=== PATIENT | female | born 1985 | race Caucasian/White ===

== ENCOUNTER 2018-05-10 12:30 | Emergency (ER) | payer OTHER, SELFPAY ==
--- NOTE | 2018-05-10 15:06 | ER ---
Nurse's Notes [facility] Name: Catherine Lopez Age: 33 yrs Sex: Female : 1985 Arrival Date: 05/10/2018 Time: 12:34 Bed Waiting Private MD: None, None Diagnosis: Presentation: 05/10 12:48 Presenting complaint: Patient states: gave 19 days ago, c section, still having ch VAGINAL BLEEDING, three large clots passed yesterday. c/o pain to c section incision, with pressure and "hard". headache for the past 3 days. Transition of care: patient was not received from another setting of care. Onset of symptoms was April 30, 2018. Risk Assessment: Do you want to hurt yourself or someone else? Patient reports no desire to harm self or others. Initial Sepsis Screen: Does the patient meet any 2 criteria? No. Patient's initial sepsis screen is negative. Does the patient have a suspected source of infection? No. Patient's initial sepsis screen is negative. Care prior to arrival: None. 12:48 Method Of Arrival: Ambulatory 12:48 Acuity: VIOLETTE 3 ch Triage Assessment: 12:50 General: Appears in no apparent distress. uncomfortable, Behavior is calm, cooperative, ch appropriate for age. Pain: Complains of pain in head and suprapubic area Pain currently is 6 out of 10 on a pain scale. Neuro: No deficits noted. GI: Reports lower abdominal pain. : Reports pain vaginal bleeding that is. 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 - Social history:: Smoking status: Patient/guardian denies using tobacco, Patient/guardian denies using alcohol, street drugs. - Ebola Screening: : Patient negative for fever greater than or equal to 101.5 degrees Fahrenheit, and additional compatible Ebola Virus Disease symptoms Patient denies exposure to infectious person Patient denies travel to an Ebola-affected area in the 21 days before illness onset No symptoms or risks identified at this time. Vital Signs: 12:50 BP 147 / 86; Pulse 91; Resp 15; Temp 98.3; Pulse Ox 98.9% on R/A; Weight 93.89 kg; ch Height 5 ft. 1 in. (154.94 cm); Pain 6/10; 14:46 BP 145 / 81; Pulse 84; Resp 16; Temp 98.3; Pulse Ox 99% ; Pain 7/10; ch 12:50 Body Mass Index 39.11 (93.89 kg, 154.94 cm) ED Course: 12:34 Patient arrived in ED. mr 12:35 None, None is Private Physician. mr 12:49 Triage completed. ch 12:50 Arm band placed on left wrist. Patient placed in waiting room. ch 14:47 Initial lab(s) drawn, by me, sent to lab. ch 15:05 Patient pt states she called her obgyn and they can see her today, states she is ch leaving to go see them. Administered Medications: No medications were administered Outcome: 15:05 Patient left the ED. Signatures: Reina Awan, RN RN Yaneth Escoto mr
== END 2018-05-10 15:05 | disposition left against medical advice (07) ==
LOC: ER 12:30
DX: Z53.21 Procedure and treatment not carried out due to patient leaving prior to being seen by health care provider (principal)
CPT/HCPCS: 99283

== ENCOUNTER 2018-07-06 20:53 | Emergency (ER) | payer OTHER ==
[2018-07-06] MEDS ORDERED: INSULIN -REGULAR HUMAN 50 UNIT/0.5 ML ML ONE (22:07)
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
== END 2018-07-06 23:59 | disposition home or self-care (01) ==
LOC: ER 20:53
DX: F07.81 Postconcussional syndrome (principal); V89.2XXA Person injured in unspecified motor-vehicle accident, traffic, initial encounter; E11.9 Type 2 diabetes mellitus without complications; Z72.0 Tobacco use; Z79.4 Long term (current) use of insulin; Z88.5 Allergy status to narcotic agent; Z88.8 Allergy status to other drugs, medicaments and biological substances; Z85.43 Personal history of malignant neoplasm of ovary
CPT/HCPCS: 72040; 72100; 82962; 96372; 99284

== ENCOUNTER 2018-10-07 16:19 | Emergency (ER) | payer OTHER ==
[2018-10-07] MEDS ORDERED: NA CHLORIDE 0.9% 1,000 ML ONE ×2 (17:02→18:44)
[2018-10-07] MEDS ORDERED: INSULIN -REGULAR HUMAN 50 UNIT/0.5 ML ML ONE (17:02)
[2018-10-07] MEDS ORDERED: ONDANSETRON 4 MG/2 ML VIAL ONE (17:02)
[2018-10-07 17:15] LABS: Absolute Lymphocytes (CBC) 2.4 K/uL (0.7-4.9); Absolute Monocytes 0.5 K/uL (0.1-1.3); Absolute Neutrophil 7.1 K/uL (1.8-8.0); Basophils % 0.8 % (0-1.3); Eosinophils % 1.6 % (0-4.4); Hematocrit 40.3 % (36.0-45.0); Lymphocytes % 23.9 % (15.3-44.8); MPV 9.3 fL (7.6-11.3); Monocytes % 4.5 % (3.3-12.3); RBC Red Blood Cell Count 4.74 M/uL (3.86-4.86)
[2018-10-07 17:29] LABS: Urine Blood NEGATIVE (NEG); Urine Glucose 2+ (NEG); Urine Protein NEGATIVE (NEG); Urine Specific Gravity 1.015 (1.005-1.030)
[2018-10-07 17:37] LABS: Urine Bacteria <20 /HPF (<20); Urine Culture Reflex Order NOT NEEDED; Urine RBC <5 /HPF (NONE SEEN)
[2018-10-07 17:40] LABS: ALT/SGPT 19 U/L (12-78); AST/SGOT 10 U/L (15-37); Albumin 3.5 g/dL (3.4-5.0); Alkaline Phosphatase 115 U/L (45-117); BUN Blood Urea Nitrogen 16 mg/dL (7-18); Bicarbonate 25 mmol/L (21-32); Bilirubin Direct < 0.1 mg/dL (0-0.2); Bilirubin Total 0.2 mg/dL (0.2-1.0); Lipase 208 U/L (73-393); Potassium 3.8 mmol/L (3.5-5.1); Protein, Total 7.7 g/dL (6.4-8.2); Sodium Level 135 mmol/L (136-145)
[2018-10-07 17:46] LABS: Glucose Level 412 mg/dL (74-106)
--- NOTE | 2018-10-07 18:16 | RAD REPORT ---
EXAM DESCRIPTION: CT - Stone Protocol - 10/07/2018 6:05 pm CLINICAL HISTORY: Abdominal pain. COMPARISON: None. TECHNIQUE: Computed axial tomography of the abdomen pelvis was obtained without oral or IV contrast. Lack of IV and oral contrast limits evaluation of solid organs, bowel, and vessels. Coronal reformat ryder images were obtained and reviewed. All CT scans are performed using dose optimization technique as appropriate and may include automated exposure control or mA/KV adjustment according to patient size. FINDINGS: A 2 millimeter left renal calculus is present without hydronephrosis. A right renal calcul us is not seen. An ureteral calculus is not noted. A bladder calculus is not present. The liver, spleen, pancreas and adrenals appear grossly normal There is no evidence of diverticulitis. Small umbilical hernia IMPRESSION: A 2 millimeter nonobstructing left renal calculus
--- NOTE | 2018-10-07 18:50 | EDPHYS ---
Physician Documentation [facility] Name: Catherine Lopez Age: 33 yrs Sex: Female : 1985 Arrival Date: 10/07/2018 Time: 16:23 Bed 7 Private MD: None, None ED Physician Elana Huber HPI: 10/07 16:45 This 33 yrs old Female presents to ER via Ambulatory with complaints of High cp Blood Sugar. 16:45 The patient or guardian reports hyperglycemia. cp 16:45 Onset: The symptoms/episode began/occurred 2 day(s) ago. Associated signs and symptoms: cp Pertinent positives: left flank pain. 16:45 Current symptoms: In the emergency department the patient's symptoms are unchanged from cp the initial presentation, despite home interventions. Patient reports concern for kidney infection due to left flank pain and elevated blood glucose over past several days. Historical: - Allergies: 16:25 Demerol; sv 16:25 Phenergan; sv 16:25 Wellbutrin; sv - PMHx: 16:25 Diabetes - IDDM; ovarian cancer; Ovarian cyst; PREECLAMPSIA; sv - PSHx: 16:25 Appendectomy; Cholecystectomy; sv - Immunization history:: Adult Immunizations up to date. - Social history:: Smoking status: Patient/guardian denies using tobacco. - Ebola Screening: : Patient negative for fever greater than or equal to 101.5 degrees Fahrenheit, and additional compatible Ebola Virus Disease symptoms Patient denies exposure to infectious person Patient denies travel to an Ebola-affected area in the 21 days before illness onset No symptoms or risks identified at this time. ROS: 16:50 Constitutional: Negative for body aches, chills, fever, poor PO intake. cp 16:50 ENT: Negative for drainage from ear(s), ear pain, sore throat, difficulty swallowing, cp difficulty handling secretions. 16:50 Cardiovascular: Negative for chest pain, edema, palpitations. 16:50 Respiratory: Negative for cough, shortness of breath, wheezing. 16:50 Abdomen/GI: Negative for abdominal pain, vomiting, diarrhea, constipation, black/tarry stool, rectal bleeding. 16:50 Back: Positive for flank pain, on the left, Negative for injury or acute deformity, decreased range of motion. 16:50 Eyes: Positive for blurry vision, Negative for pain, redness, vision loss. cp 16:50 : Negative for urinary symptoms. 16:50 Skin: Negative for cellulitis, rash. 16:50 Neuro: Positive for altered mental status, headache. 16:50 All other systems are negative. cp Exam: 16:55 Constitutional: The patient appears in no acute distress, alert, awake, cp non-diaphoretic, non-toxic, well developed, well nourished. 16:55 Head/Face: Normocephalic, atraumatic. Eyes: Pupils equal round and reactive to light, cp extra-ocular motions intact. Lids and lashes normal. Conjunctiva and sclera are non-icteric and not injected. Cornea within normal limits. Periorbital areas with no swelling, redness, or edema. ENT: Nares patent. No nasal discharge, no septal abnormalities noted. Tympanic membranes are normal and external auditory canals are clear. Oropharynx with no redness, swelling, or masses, exudates, or evidence of obstruction, uvula midline. Mucous membranes moist. Chest/axilla: Normal chest wall appearance and motion. Nontender with no deformity. No lesions are appreciated. 16:55 Cardiovascular: Rate: normal, Rhythm: regular, Edema: is not appreciated. 16:55 Respiratory: the patient does not display signs of respiratory distress, Respirations: normal, no use of accessory muscles, no retractions, no splinting, no tachypnea, labored breathing, is not present, Breath sounds: are clear throughout, no decreased breath sounds, no stridor, no wheezing. 16:55 Abdomen/GI: Inspection: abdomen appears normal, Bowel sounds: active, all quadrants, Palpation: abdomen is soft and non-tender, in all quadrants. 16:55 Back: CVA tenderness, that is mild, is noted on the left. 16:55 Skin: cellulitis, is not appreciated, no rash present. 16:55 Neuro: Orientation: to person, place \T\ time. Mentation: is normal, Cerebellar function: is grossly normal, Motor: moves all fours, strength is normal, Sensation: is normal, Gait: is steady, at a normal pace, without difficulty. Vital Signs: 16:25 BP 126 / 91; Pulse 95; Resp 16; Temp 98.2; Pulse Ox 100% ; Weight 90.72 kg; Height 5 sv ft. 1 in. (154.94 cm); Pain 5/10; 17:35 BP 132 / 88; Pulse 77; Resp 17; Pulse Ox 100% on R/A; Pain 5/10; sg 18:56 BP 111 / 66; Pulse 78; Resp 17 S; Pulse Ox 99% on R/A; sg 16:25 Body Mass Index 37.79 (90.72 kg, 154.94 cm) sv MDM: 16:29 Patient medically screened. cp 17:00 Differential diagnosis: DKA, pyelonephritis, kidney stone, UTI. cp 18:48 Data reviewed: vital signs, nurses notes, lab test result(s), radiologic studies, CT cp scan. 18:48 Counseling: I had a detailed discussion with the patient and/or guardian regarding: the cp historical points, exam findings, and any diagnostic results supporting the discharge/admit diagnosis, lab results, radiology results, the need for outpatient follow up, a urologist, to return to the emergency department if symptoms worsen or persist or if there are any questions or concerns that arise at home. Response to treatment: the patient's symptoms have markedly improved after treatment, VSS. Pain improved. Will discharge to home for continued monitoring. Discussed more frequent monitoring of blood sugars and sliding scale insulin adjustment. 10/07 16:36 Order name: Glucose, Ancillary Testing; Complete Time: 16:38 EDIL 10/07 16:44 Order name: Basic Metabolic Panel 10/07 16:44 Order name: CBC with Diff 10/07 16:44 Order name: Creatinine for Radiology 10/07 16:44 Order name: Hepatic Function 10/07 16:44 Order name: Lipase 10/07 16:44 Order name: Urine Microscopic Only 10/07 17:17 Order name: Urine Dipstick--Ancillary (enter results) 10/07 17:17 Order name: Urine --Ancillary (enter results) 10/07 17:29 Order name: Creatinine (Radiology Only); Complete Time: 17:45 EDIL 10/07 17:30 Order name: CBC with Automated Diff; Complete Time: 17:45 EDIL 10/07 17:54 Interpretation: Normal except: MCV 85.0. 10/07 17:30 Order name: Urine --Ancillary; Complete Time: 17:45 EDIL 10/07 17:30 Order name: Urine Dipstick-Ancillary; Complete Time: 17:45 EDMS 10/07 17:38 Order name: Urine Microscopic Only; Complete Time: 17:45 EDMS 10/07 18:26 Interpretation: Normal except: UWBC 10-20; SQEPI 20-50. 10/07 16:44 Order name: IV Saline Lock; Complete Time: 17:24 10/07 16:44 Order name: Labs collected and sent; Complete Time: 17:24 10/07 16:44 Order name: Urine Dipstick-Ancillary (obtain specimen); Complete Time: 17:20 10/07 16:44 Order name: Urine Test (obtain specimen); Complete Time: 17:19 10/07 17:46 Order name: CT Stone Protocol 10/07 17:46 Order name: Basic Metabolic Panel; Complete Time: 17:51 EDMS 10/07 17:46 Order name: Liver (Hepatic) Function; Complete Time: 17:51 EDMS 10/07 17:53 Interpretation: Normal except: AST 10; GLOB 4.2; A/G 0.8. 10/07 17:46 Order name: Lipase; Complete Time: 17:51 EDMS 10/07 18:14 Order name: Glucose, Ancillary Testing; Complete Time: 18:24 EDMS 10/07 18:24 Interpretation: Abnormal: GLUC,ANCIL 268. 10/07 18:17 Order name: CT; Complete Time: 18:24 EDMS 10/07 18:28 Interpretation: Report reviewed. 10/07 17:45 Order name: Accucheck Blood Glucose: every hour times 2; Complete Time: 18:55 cp Administered Medications: 17:00 Drug: NS 0.9% 1000 ml Route: IV; Rate: 1 bolus; Site: right antecubital; sg 17:21 Drug: Insulin Regular Human 10 units {Co-Signature: tw2 (Susanne Scott RN).} Route: IVP; sg Site: right antecubital; 18:00 Follow up: Response: No adverse reaction; Blood sugar is lowered ss 18:15 Drug: NS 0.9% 1000 ml Route: IV; Rate: 125 ml/hr; Site: right antecubital; ss 19:15 Follow up: Response: No adverse reaction; IV Status: Order to discontinue infusion; IV sg Intake: 250ml 18:47 CANCELLED (Other Intervention Used): Rocephin - (cefTRIAXone) 1 grams IVPB once over 30 sg mins; (mix in 50 mL NS) 18:50 Drug: Rocephin 1 grams Route: IV; Rate: calculated rate; Site: right antecubital; sg 19:00 Follow up: Response: No adverse reaction; IV Status: Completed infusion sg 18:55 Not Given (Patient Refused): Zofran 4 mg IVP once; over 2 minutes sg Disposition: 19:15 Chart complete. cp Disposition: 10/07/18 18:49 Discharged to Home. Impression: Calculus of kidney - Left, Diabetes mellitus due to underlying condition with hyperglycemia. - Condition is Stable. - Discharge Instructions: Kidney Stones, Blood Glucose Monitoring, Adult, Diabetes Mellitus and Food. - Prescriptions for Tylenol- Codeine #3 300-30 mg Oral Tablet - take 2 tablets by ORAL route every 6 hours As needed; 20 tablet. Zofran 4 mg Oral Tablet - take 1 tablet by ORAL route every 12 hours As needed; 20 tablet. Flomax 0.4 mg Oral Capsule, Sust. Release 24 hr - take 1 capsule by ORAL route once daily As needed 1/2 hour following the same meal each day; 7 capsule. Cipro 500 mg Oral Tablet - take 1 tablet by ORAL route every 12 hours for 7 days; 14 tablet. - Work release form, Medication Reconciliation Form, Thank You Letter, Antibiotic Education, Prescription Opioid Use form. - Follow up: Milind Moncada MD; When: 2 - 3 days; Reason: Recheck today's complaints. - Problem is new. - Symptoms have improved. Addendum: 10/10/2018 07:04 Co-signature as Attending Physician, Elana Huber MD. m a2 Signatures: Dispatcher [employer] [facility] [employer]aning RN Ozzy Jenkins RN RN sg Smirch, Shelby, RN RN ss Krenek, Amber, RN RN ak1 Timothy Marie PA PA cp Alzahri, Mohammad, MD MD ma2 Susanne Scott RN tw2 Corrections: (The following items were deleted from the chart) 10/07 18:47 18:42 Rocephin - (cefTRIAXone) 1 grams IVPB once over 30 mins; (mix in 50 mL NS) sg ordered. cp 19:09 18:49 10/07/2018 18:49 Discharged to Home. Impression: Calculus of kidney - Left; ak1 Diabetes mellitus due to underlying condition with hyperglycemia. Condition is Stable. Forms are Medication Reconciliation Form, Thank You Letter, Antibiotic Education, Prescription Opioid Use. Follow up: Milind Moncada; When: 2 - 3 days; Reason: Recheck today's complaints. Problem is new. Symptoms have improved. cp 10/08 00:27 10/07 16:50 Eyes: Negative for injury, pain, redness, and discharge, cp cp
--- NOTE | 2018-10-07 18:50 | ER ---
Nurse's Notes [facility] Name: Catherine Lopez Age: 33 yrs Sex: Female : 1985 Arrival Date: 10/07/2018 Time: 16:23 Bed 7 Private MD: None, None Diagnosis: Calculus of kidney-Left;Diabetes mellitus due to underlying condition with hyperglycemia Presentation: 10/07 16:24 Presenting complaint: Patient states: back and side pain, blurry vision, hyper and sv hypoglycemia for the past few days. Transition of care: patient was not received from another setting of care. Onset of symptoms was October 05, 2018. Care prior to arrival: None. 16:24 Method Of Arrival: Ambulatory sv 16:24 Acuity: VIOLETTE 3 sv Triage Assessment: 16:26 General: Appears in no apparent distress. comfortable, Behavior is calm, cooperative, sv appropriate for age. Pain: Complains of pain in left side and back pain. Neuro: Level of Consciousness is awake, alert, obeys commands, Oriented to person, place, time, situation, Moves all extremities. Full function. Respiratory: Respiratory effort is even, unlabored, Respiratory pattern is regular, agonal. Historical: - Allergies: 16:25 Demerol; sv 16:25 Phenergan; sv 16:25 Wellbutrin; sv - PMHx: 16:25 Diabetes - IDDM; ovarian cancer; Ovarian cyst; PREECLAMPSIA; sv - PSHx: 16:25 Appendectomy; Cholecystectomy; sv - Immunization history:: Adult Immunizations up to date. - Social history:: Smoking status: Patient/guardian denies using tobacco. - Ebola Screening: : Patient negative for fever greater than or equal to 101.5 degrees Fahrenheit, and additional compatible Ebola Virus Disease symptoms Patient denies exposure to infectious person Patient denies travel to an Ebola-affected area in the 21 days before illness onset No symptoms or risks identified at this time. Screenin:45 Abuse screen: Denies threats or abuse. Denies injuries from another. Nutritional sg screening: No deficits noted. Tuberculosis screening: No symptoms or risk factors identified. Never had TB. Fall Risk None identified. Assessment: 16:45 General: Appears in no apparent distress. comfortable, well groomed, well developed, sg well nourished, Behavior is calm, cooperative, appropriate for age. Pain: Complains of pain in suprapubic area and left lower quadrant Quality of pain is described as aching. Neuro: No deficits noted. Cardiovascular: Capillary refill is brisk in bilateral fingers Patient's skin is warm and dry. Chest pain is denied. Respiratory: Airway is patent Respiratory effort is even, unlabored, Respiratory pattern is regular, symmetrical, Denies cough, shortness of breath. GI: Abdomen is round non-distended, Bowel sounds present X 4 quads. Abd is soft and non tender X 4 quads. GI: Reports lower abdominal pain, cramping, diarrhea, nausea, vomiting. : No signs and/or symptoms were reported regarding the genitourinary system. EENT: No signs and/or symptoms were reported regarding the EENT system. Derm: Skin is pink, warm \\T\\ dry. Musculoskeletal: No signs and/or symptoms reported regarding the musculoskeletal system. 17:05 Reassessment: pt refuses the IV zofran at this time, reports " it makes me really sg drowsy, i know i shouldn't but everytime it does. My is at work and im unsure if he will be able to drive me home, I just dont feel safe taking the medication and then driving home." Will hold zofran IVP at this time until pt is sure she has transport to home. 18:39 Reassessment: Patient appears in no apparent distress at this time. Patient and/or sg family updated on plan of care and expected duration. Pain level reassessed. Patient is alert, oriented x 3, equal unlabored respirations, skin warm/dry/pink. pt family remains at bedside at this time. 18:43 Reassessment: Patient appears in no apparent distress at this time. Patient and/or sg family updated on plan of care and expected duration. Pain level reassessed. Efrain TOSCANO at bedside updating pt on results and POC at this time, will continue to monitor. Vital Signs: 16:25 BP 126 / 91; Pulse 95; Resp 16; Temp 98.2; Pulse Ox 100% ; Weight 90.72 kg; Height 5 sv ft. 1 in. (154.94 cm); Pain 5/10; 17:35 BP 132 / 88; Pulse 77; Resp 17; Pulse Ox 100% on R/A; Pain 5/10; sg 18:56 BP 111 / 66; Pulse 78; Resp 17 S; Pulse Ox 99% on R/A; sg 16:25 Body Mass Index 37.79 (90.72 kg, 154.94 cm) sv ED Course: 16:23 Patient arrived in ED. sb2 16:24 None, None is Private Physician. sb2 16:25 Triage completed. sv 16:26 Arm band placed on. sv 16:28 Timothy Marie PA is PHCP. cp 16:28 Elana Huber MD is Attending Physician. cp 16:35 Ozzy Wilson, RANJAN is Primary Nurse. sg 17:00 Initial lab(s) drawn, by me, sent to lab. First set of blood cultures drawn by me. sg Inserted saline lock: 20 gauge in right antecubital area, using aseptic technique. Blood collected. 17:00 No provider procedures requiring assistance completed. sg 17:10 Patient has correct armband on for positive identification. Bed in low position. Call sg light in reach. Side rails up X2. Pulse ox on. NIBP on. 17:20 Urine Microscopic Only Sent. sg 17:[address] via wheelchair. 17:[address] via wheelchair. sg 18:05 CT completed. Patient tolerated procedure well. Patient moved back from CT. 18:47 Milind Moncada MD is Referral Physician. cp 19:00 IV discontinued, intact, bleeding controlled, No redness/swelling at site. Pressure sg dressing applied. Administered Medications: 17:00 Drug: NS 0.9% 1000 ml Route: IV; Rate: 1 bolus; Site: right antecubital; sg 17:21 Drug: Insulin Regular Human 10 units {Co-Signature: tw2 (Susanne Scott RN).} Route: IVP; sg Site: right antecubital; 18:00 Follow up: Response: No adverse reaction; Blood sugar is lowered ss 18:15 Drug: NS 0.9% 1000 ml Route: IV; Rate: 125 ml/hr; Site: right antecubital; ss 19:15 Follow up: Response: No adverse reaction; IV Status: Order to discontinue infusion; IV sg Intake: 250ml 18:47 CANCELLED (Other Intervention Used): Rocephin - (cefTRIAXone) 1 grams IVPB once over 30 sg mins; (mix in 50 mL NS) 18:50 Drug: Rocephin 1 grams Route: IV; Rate: calculated rate; Site: right antecubital; sg 19:00 Follow up: Response: No adverse reaction; IV Status: Completed infusion sg 18:55 Not Given (Patient Refused): Zofran 4 mg IVP once; over 2 minutes sg Intake: 19:15 IV: 250ml; Total: 250ml. sg Outcome: 18:49 Discharge ordered by MD. cp 19:00 Discharged to home ambulatory, with family. sg 19:00 Condition: good 19:00 Discharge instructions given to patient, Instructed on discharge instructions, follow up and referral plans. safety practices, Demonstrated understanding of instructions, follow-up care. 19:09 Patient left the ED. ak1 Signatures: [employer] RN RANJAN Ozzy Wilson RN RN Dav Rivera Shelby, RN RN Angelia Johnson RN RN ak1 Timothy Marie PA PA cp Billeau, Sheri sb2 Susanne Scott RN tw2 Corrections: (The following items were deleted from the chart) 16:27 16:25 Temp 98.2F; 90.72 kg; Height 5 ft. 1 in.; BMI: 37.7; Pain 5/10; sv sv 18:56 18:40 BP 132 / 88; Pulse 77bpm; Resp 17bpm; Pulse Ox 100% RA; Pain 5/10; sg sg
[2018-10-07] MEDS ORDERED: CEFTRIAXONE/SWI 1gm 1 GM/10 ML SYR ONE (18:59)
== END 2018-10-07 19:09 | disposition home or self-care (01) ==
LOC: ER 16:19
DX: N20.0 Calculus of kidney (principal); E11.65 Type 2 diabetes mellitus with hyperglycemia; Z88.5 Allergy status to narcotic agent; Z88.8 Allergy status to other drugs, medicaments and biological substances; Z85.43 Personal history of malignant neoplasm of ovary
CPT/HCPCS: 36415; 74176; 76377; 80048; 80076; 81003; 81015; 81025; 82962; 83690; 85025; 96361; 96374; 96375; 99284; J0696; J2405; J7030

== ENCOUNTER 2022-02-19 12:33 | Emergency (ER) | payer OTHER ==
--- OUTSIDE RECORDS SUMMARY | 2022-02-19 12:36 | XMS REPORT | Continuity of Care Document ---
:1985 Author Organization [facility] t Address [address] [place] [address] Care Team Providers Name Role Phone Alex Rodríguez Primary Care Physician Daniel ORNELAS Attending Clinician Payers Payer Name Policy Type Policy Number Effective Date Expiration Date S ource Problems Condition Condition Condition Status Onset Resolution Last Treating Co mments Source Name Details Category Date Date Treatment Clinician Date Uncontroll Uncontroll Disease Active U nivers ed type 2 ed type 2 7-14 ity of diabetes diabetes 00:00: [place] mellitus mellitus 00 Medica l with with Branch hyperglyce hyperglyce ayo ayo Dyslipidem Dyslipidem Disease Active U nivers ia ia 7-14 ity of 00:00: [place] 00 Medical Branch Vaginal Vaginal Disease Active Univers discharge discharge 7-14 ity of 00:00: [place] 00 Medical Branch 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 7-14 it y of athy athy 00:00: [place] associated associated 00 Me dical with type with type Bran ch 2 diabetes 2 diabetes mellitus mellitus Tension-ty Tension-ty Disease Active Overview : Univers pe pe 4-21 Formattin ity of headache headache 00:00: g of this Oleksandr as 00 note Medical might be Branch different from the original. Pt's history consisten t with tension headache. Pt reports significa nt stressors and depressio n and knows that these as well as the could be source of headache. Patient reports that depressio n is unchanged at this time, she denies SI/HI, and contracte d with provider for safety. Will give patient trial of flexeril for muscle tension component of BELLA. Patient instructe d that med may make her drowsy and that she should not drive or operate machinery while on this med. Patient also instructe d to continue APAP as needed. 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 4-21 it y of sterolemia [place]olemia [place] Polycystic Polycystic Disease Active U nivers ovaries ovaries 4- ity of 00:: Medical Branch Pilar cyst Pilar cyst Disease Active U nivers 4- ity of 00:: Medical Branch Other Other Disease Active Univers disorders disorders 4- ity of of of 00:00: [place] menstruati menstruati 00 Me dical on and on and Branch other other abnormal abnormal bleeding bleeding from from female female genital genital tract tract Allergic Allergic Disease Active Overview: Un sangita urticaria urticaria 01-01 Formattin i ty of 00:00: g of this note Medical might be Branch different from the original. Dmitriy kaminskiglen, the Welbutrin , (prescrib ed on September 08) is a likely culprit for her urticaria l eruption. Bupropion is listed as a "common" cause of both urticaria l drug eruptions and exanthema tous drug eruptions in the "Side Effects in Dermatolo gy" reference manual (2004, 8th edition). The eruption is masked somewhat at present because of treatment , but still looks typical enough to diagnose urticaria . Recommend that the Welbutrin be discontin ued, and the urticaria l eruptioni be treated with a combinati on of oral Zyrtec 10 mg once or twice daily, along with a second sedating antihista mine used as needed and at night, such as diphenhyd ramine or hydroxyzi ne. Supplemen rivas treatment with systemic corticost eroids is best used short term and only if needed, and it would appear by her appearanc e today that she will probably not require further oral corticost eroids. Topical corticost eroids, such as triamcino lone cream, may be freely applied to localized areas of itching as a supplemen rivas treatment , if needed. If the cause of her urticaria l eruption is Welbutrin , I'd expect rapid improveme nt of her symptoms once this was discontin ued (likely much improved after 2-3 days.)zain umedrol 125mg im x 1bolus 1L NSwith her long psych history i suspect her syncope may be related, however with a pulse of 140 that was only marginall y responsiv e to fluids, will consult for admission as I am concerned that the dehydrati on may be related to her allergic reaction Allergic Allergic Disease Active Unive rs rhinitis rhinitis 4-21 ity of 00:00: Medical Branch Personal Personal Disease Active Unive rs history of history of 3-04 it y of COVID-19 COVID-19 00:: Medical Branch Effusion, Effusion, Disease Active Uni vers right right 2-26 ity of ankle ankle 00:00: Medical Branch Irregular Irregular Disease Active 2019-09 Uni vers bleeding bleeding 0-29 ity of 00:00: Medical Branch Blephariti Blephariti Disease Active U nivers s s 6-09 ity of 00:00: Medical Branch Vitamin D Vitamin D Disease Active 2018-09 Uni vers deficiency deficiency 0-15 it y of 00:00: Medical Branch Hemorrhoid Hemorrhoid Disease Active 2018-09 U nivers s s 0-15 ity of 00:00: Medical Branch Abscess of Abscess of Disease Active 2018-09 U nivers skin of skin of 0-15 ity of abdomen abdomen 00:00: Medical Branch Other Other Disease Active Univers depression depression 5-17 it y of 00:00: Medical Branch Allergies, Adverse Reactions, Alerts Allergy Allergy Status Severity Reaction(s) Onset Inactive Treating Comm ents Source Name Type Date Date Clinician Bupropio Propensi Active Swelling Univ ers n Hcl ty to 5-14 ity of adverse 00:00: [place] reaction 00 Medical s Branch Meperidi Propensi Active Swelling Univ ers ne Hcl ty to 5-14 ity of adverse 00:00: [place] reaction Medical s Branch Prometha Propensi Active Swelling Univ ers zine ty to 5-14 ity of adverse 00:00: [place] reaction 00 Medical s Branch Social History Social Habit Start Date Stop Date Quantity Comments Source Alcohol intake 2021-01-01 2021-01-01 Current drinker Unive rsity of 00:00:00 00:00:00 of alcohol [place] [facility]finding[facility] Tobacco use and 2020-09-11 2020-09-11 Never used Universit y of exposure 00:00:00 00:00:00 [facility] Branch Tobacco Comment 2020-05-17 2020-05-17 2-3 ciggs a day [facility] ersity of 00:00:00 00:00:00 [facility] Branch Alcohol Comment 2020-05-17 2020-05-17 social Universit y of 00:00:00 00:00:00 [place] [facility] History SDOH 2020-05-17 2020-05-17 99 University o f Alcohol Frequency 00:00:00 00:00:00 [place] [facility] History [facility] 2020-05-17 2020-05-17 99 University o f Alcohol Std 00:00:00 00:00:00 [place] [facility] Drinks Branch History [facility] 2020-05-17 2020-05-17 99 University o f Alcohol Binge 00:00:00 00:00:00 [place] [facility] History of 2017-07-14 Cigarette Smoker Universi ty of tobacco use 00:00:00 [facility] Sex [birth year] At [birth year] Universit y of 00:00:00 00:00:00 [facility] Smoking Status Start Date Stop Date Source Current some day smoker 2020-09-11 00:00:00 [facility] ersity of [facility] Medications Ordered Filled Start Stop Current Ordering Indication Dosage Frequency Signature Comments Components Source Medication Medication Date Date Medication? Clinician (SIG) Name Name insulin Yes 10U inject Univers lispro 6-17 10-18 ity of (HUMALOG 00:00: Units [place] KWIKPEN 00 under the Medical INSULIN) skin 3 Branch 100 unit/mL (three) pen times injector daily before meals. insulin Yes 10U inject Univers lispro 6-17 10-18 ity of (HUMALOG 00:00: Units [place] KWIKPEN 00 under the Medical INSULIN) skin 3 Branch 100 unit/mL (three) pen times injector daily before meals. insulin 2021-0 Yes 10U inject Univers lispro 6-17 10-18 ity of (HUMALOG 00:00: Units [place] KWIKPEN 00 under the Medical INSULIN) skin 3 Branch 100 unit/mL (three) pen times injector daily before meals. insulin Yes 10U inject Univers lispro 6-17 10-18 ity of (HUMALOG 00:00: Units [place] KWIKPEN 00 under the Medical INSULIN) skin 3 Branch 100 unit/mL (three) pen times injector daily before meals. metformin Yes [id number] 1000mg Take 2 Univers ER 500 mg 6-15 tablets by ity of 24 hr 00:00: mouth [place] tablet 00 daily with Medical breakfast. Branch insulin Yes [id number] 38U inject 38 Univers degludec 6-15 Units ity of (TRESIBA 00:00: [place] FLEXTOUCH 00 skin every Medi rakesh U-100) 100 morning. Branc h unit/mL (3 mL) InPn fluconazole Yes [id number] 150mg Take 1 Univers (DIFLUCAN) 6-15 tablet by ity of 150 mg 00:00: mouth [place] tablet 00 every 72 [facility]. gabapentin 2020- Yes [id number] 100mg Take 1 Univers 100 mg 6-15 capsule by ity of capsule 00:00: mouth at [place] 00 bedtime. Medical Branch metformin Yes [id number] 1000mg Take 2 Univers ER 500 mg 6-15 tablets by ity of 24 hr 00:00: mouth [place] tablet 00 daily with Medical breakfast. Branch insulin Yes [id number] 38U inject 38 Univers degludec 6-15 Units ity of (TRESIBA 00:00: [place] FLEXTOUCH 00 skin every Medi rakesh U-100) 100 morning. Branc h unit/mL (3 mL) InPn fluconazole 2020- Yes [id number] 150mg Take 1 Univers (DIFLUCAN) 6-15 tablet by ity of 150 mg 00:00: mouth [place] tablet 00 every 72 [facility] hours. gabapentin 2020-0 Yes [id number] 100mg Take 1 Univers 100 mg 6-15 capsule by ity of capsule 00:00: mouth at [place] 00 bedtime. Medical Branch metformin Yes [id number] 1000mg Take 2 Univers ER 500 mg 6-15 tablets by ity of 24 hr 00:00: mouth [place] tablet 00 daily with Medical breakfast. Branch insulin 2020-0 Yes [id number] 38U inject 38 Univers degludec 6-15 Units ity of (TRESIBA 00:00: [place] FLEXTOUCH 00 skin every Medi rakesh U-100) 100 morning. Branc h unit/mL (3 mL) InPn fluconazole 0 Yes [id number] 150mg Take 1 Univers (DIFLUCAN) 6-15 tablet by ity of 150 mg 00:00: mouth [place] tablet 00 every 72 Medical ([facility] Branch wo) hours. gabapentin 2020- Yes [id number] 100mg Take 1 Univers 100 mg 6-15 capsule by ity of capsule 00:00: mouth at [place] 00 bedtime. Medical Branch metformin 2020-0 Yes [id number] 1000mg Take 2 Univers ER 500 mg 6-15 tablets by ity of 24 hr 00:00: mouth [place] tablet 00 daily with Medical breakfast. Branch insulin Yes [id number] 38U inject 38 Univers degludec 6-15 Units ity of (TRESIBA 00:00: [place] FLEXTOUCH 00 skin every Medi rakesh U-100) 100 morning. Branc h unit/mL (3 mL) InPn fluconazole 0 Yes [id number] 150mg Take 1 Univers (DIFLUCAN) 6-15 tablet by ity of 150 mg 00:00: mouth [place] tablet 00 every 72 Medical ([facility] wo) hours. gabapentin 2020-0 Yes [id number] 100mg Take 1 Univers 100 mg 6-15 capsule by ity of capsule 00:00: mouth at [place] 00 bedtime. Medical Branch atorvastati Yes 20mg Take 20 mg Univers n 20 mg 6-06 by mouth ity of tablet 00:00: every [place] 00 morning. [facility] Branch atorvastati 0 Yes 20mg Take 20 mg Univers n 20 mg 6-06 by mouth ity of tablet 00:00: every [place] 00 morning. [facility] Branch atorvastati 0 Yes 20mg Take 20 mg Univers n 20 mg 6-06 by mouth ity of tablet 00:00: every [place] 00 morning. Medical Branch atorvastati Yes 20mg Take 20 mg Univers n 20 mg 6-06 by mouth ity of tablet 00:00: every [place] 00 morning. Medical Branch MULTIVITAMI Yes 1{tbl} Take 1 Un sangita N ORAL 4-21 tablet by ity of 19:26: mouth [place] 41 daily. Medical Branch MULTIVITAMI Yes 1{tbl} Take 1 Un sangita N ORAL 4-21 tablet by ity of 19:26: mouth [place] 41 daily. Medical Branch MULTIVITAMI Yes 1{tbl} Take 1 Un sangita N ORAL 4-21 tablet by ity of 19:26: mouth [place] 41 daily. Medical Branch MULTIVITAMI Yes 1{tbl} Take 1 Un sangita N ORAL 4-21 tablet by ity of 19:26: mouth [place] 41 daily. Medical Branch ACETAMINOPH Yes 325mg Take 325 U nivers EN (TYLENOL 4-21 mg by ity of ORAL) 19:24: mouth as [place] 21 needed for Medical Pain Branch (scale 1-3), Pain (scale 4-6) or Pain (scale 7-10). ACETAMINOPH Yes 325mg Take 325 U nivers EN (TYLENOL 4-21 mg by ity of ORAL) 19:24: mouth as [place] 21 needed for Medical Pain Branch (scale 1-3), Pain (scale 4-6) or Pain (scale 7-10). ACETAMINOPH Yes 325mg Take 325 U nivers EN (TYLENOL 4-21 mg by ity of ORAL) 19:24: mouth as [place] 21 needed for Medical Pain Branch (scale 1-3), Pain (scale 4-6) or Pain (scale 7-10). ACETAMINOPH Yes 325mg Take 325 U nivers EN (TYLENOL 4-21 mg by ity of ORAL) 19:24: mouth as [place] 21 needed for Medical Pain Branch (scale 1-3), Pain (scale 4-6) or Pain (scale 7-10). norgestimat Yes [id number] 1{tbl} Take 1 Univers e-ethinyl 2-03 tablet by ity o f estradioL 00:00: mouth [place] 0.25-35 00 daily. Medical mg-mcg per Branch tablet norgestimat 2020-0 Yes [id number] 1{tbl} Take 1 Univers e-ethinyl 2-03 tablet by ity o f estradioL 00:00: mouth [place] 0.25-35 00 daily. Medical mg-mcg per Branch tablet norgestimat 2020-0 Yes [id number] 1{tbl} Take 1 Univers e-ethinyl 2-03 tablet by ity o f estradioL 00:00: mouth [place] 0.25-35 00 daily. Medical mg-mcg per Branch tablet norgestimat 2020-0 Yes [id number] 1{tbl} Take 1 Univers e-ethinyl 2-03 tablet by ity o f estradioL 00:00: mouth [place] 0.25-35 00 daily. Medical mg-mcg per Branch tablet lancets 0 Yes Use to Unive rs gauge Misc 5-31 test BS ity of 00:00: 4x/day [place] Medical Branch lancets 31 0 Yes Use to Unive rs gauge Misc 5-31 test BS ity of 00:00: 4x/day [place] 00 Medical Branch lancets 31 0 Yes Use to Unive rs gauge Misc 5-31 test BS ity of 00:00: 4x/day [place] 00 Medical Branch lancets 31 0 Yes Use to Unive rs gauge Misc 5-31 test BS ity of 00:00: 4x/day [place] 00 Medical Branch Immunizations Ordered Filled Immunization Date Status Comments [facility] e Immunization Name Name Influenza Virus 2020-09-11 Completed Universit y of Vaccine Quad .5 mL 00:00:00 [place] [facility] IM 6+ MO Branch Influenza Virus 2020-09-11 Completed Universit y of Vaccine Quad .5 mL 00:00:00 [place] [facility] IM 6+ MO Branch Influenza Virus 2020-09-11 Completed Universit y of Vaccine Quad .5 mL 00:00:00 [place] [facility] IM 6+ MO Branch Influenza Virus 2020-09-11 Completed Universit y of Vaccine Quad .5 mL 00:00:00 [facility] [place] [facility] 6+ MO Branch Procedures This patient has no known procedures. Encounters Start End Encounter Admission Attending Care Care Encounter Source Date/Time Date/Time Type Type Clinicians Facility Department ID 2022-02-17 2022-02-17 Telephone Sanchez, [facility] [id number] Univers 00:00:00 00:00:00 [facility] [id number] it y of [place] [id number] [place] as JOSE?BLEA [id number] [facility] [address] OFFICE [facility] 2022-02-12 2022-02-12 Telephone Sanchez, [facility] [id number] Univers 00:00:00 00:00:00 [facility] [id number] it y of [place] [id number] [place] as JOSE?BLEA [id number] [facility] [address] 2022-02-04 2022-02-04 Telephone Sanchez, [facility] [id number] Univers 00:00:00 00:00:00 [facility] [facility] [id number] it y of [place] [id number] [place]r as JOSE?BLEA [id number] [facility] [address] 2022-01-06 2022-01-06 Refill Sanchez, [facility] [id number] Univers 00:00:00 00:00:00 [place] [id number] i ty of [place] [id number] [place] [id number] [address] Results Test Description Test Time Test Comments Results Result Comments Source JC 2018-04-25 TUBE,STERILIZATION 17:48:00 RUN DATE: 04/26/18 [facility] PAGE 1 RUN TIME: 946 Specimen Inquiry RUN USER: INTERFACE PAT IENT: ISIAH DE DIOS LOC: ADEN U #: [id number] AGE/SX: 33/F ROOM: [facility] RE04/08/18REG DR: Mary Ponce MD : 81 BED: A DIS: 04/24/18 STATUS: DIS IN TLOC: SPEC #: [id number] RECD: 04/21/18 STATUS: MARTHA REQ #: [id number] URIAH: 04/21/18- [facility] DR: Mary Ponce MD ENTERED: 04/22/18-747 SP TYPE: [facility] [address] DR: ORDERED: LEVEL II SURGIC CODES: H11881 - FALLOPIAN TUBE PROCEDURES: LEVEL II SURGIC (Incomplete) TISSUES: FALLOPIAN TUBE, NOS - LEFT FALLOPIAN TUBE CLINICAL HISTORY 32 year old, , 35.6 weeks (kr) FINAL DIAGNOSIS Left fallopian tube, salpingectomy: - complete lumen demonstrated Tissue code 1 CPT code(s): 42366 cds/wpd 04/25/18 @ 6973 GROSS DESCRIPTION The specimen is received in a formalin-filled container, labeled with the patient's name and designated "left fallopian tube". The specimen consists of a 6 x 0.6 x 0.5 cm segment of fallopian tube with fimbria. The entire fimbria and two cross-sections of fallopian tube are submitted in one cassette. hz/dakotah 04/22/18 @ 0900 MICROSCOPIC DESCRIPTION Cross-sections of the fallopian tube are histologic and demonstrate a completely transected lumen. cds/wpd 04/25/18 @ 1715 - Signed Nahun Snyder 04/25/18 1748 END OF REPORT
[2022-02-19] MEDS ORDERED: NA CHLORIDE 0.9% 1,000 ML ONE (13:48)
[2022-02-19 14:03] LABS: Absolute Lymphocytes (CBC) 2.5 K/uL (0.7-4.9); Hematocrit 36.9 % (36.0-45.0); Lymphocytes % 33.4 % (15.3-44.8); MPV 8.3 fL (7.6-11.3); RBC Red Blood Cell Count 5.26 M/uL (3.86-4.86)
[2022-02-19 14:19] LABS: Potassium 3.3 mmol/L (3.5-5.1)
--- NOTE | 2022-02-19 14:27 | ER ---
Nurse's Notes [facility] Name: Catherine Lopez Age: 36 yrs Sex: Female : 1985 Arrival Date: 02/19/2022 Time: 12:38 Bed 16 Private MD: Laly Johnson Diagnosis: Hyperglycemia, unspecified Presentation: 02/19 12:55 Chief complaint: Patient states: Out of long lasting insulin for 2-3 weeks. 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 + nausea and drinking lots of fluids. Fingerstick 270 in triage. Coronavirus screen: Vaccine status: Patient reports receiving the 2nd dose of the covid vaccine. Client denies travel out of the [place] in the last 14 days. At this time, the client does not indicate any symptoms associated with coronavirus-19. Ebola Screen: Patient denies travel to an Ebola-affected area in the 21 days before illness onset. Initial Sepsis Screen: Does the patient meet any 2 criteria? HR > 90 bpm. No. Patient's initial sepsis screen is negative. Does the patient have a suspected source of infection? No. Patient's initial sepsis screen is negative. Risk Assessment: Do you want to hurt yourself or someone else? Patient reports no desire to harm self or others. Onset of symptoms is unknown. 12:55 Method Of Arrival: Ambulatory [facility] 12:55 Acuity: VIOLETTE 3 [facility] [employer] SALES: 13:54 LMP N/A - tw2 Historical: - Allergies: 12:57 Demerol; [facility] 12:57 Phenergan; [facility] 12:57 Wellbutrin; [facility] - PMHx: 12:57 Diabetes - IDDM; ovarian cancer; Ovarian cyst; PREECLAMPSIA; [facility] - PSHx: 12:57 Appendectomy; D\T\C x 7; ll1 - Immunization history:: Client reports receiving the 2nd dose of the Covid vaccine. - Social history:: Smoking status: Patient reports the use of cigarette tobacco products, denies chronic smoking, but will smoke occasionally. Screenin:41 Abuse screen: Denies threats or abuse. Nutritional screening: No deficits noted. tw2 Tuberculosis screening: No symptoms or risk factors identified. Fall Risk None identified. Assessment: 13:53 General: Appears in no apparent distress. Behavior is calm, cooperative, appropriate tw2 for age. Pain: Denies pain. Neuro: Level of Consciousness is awake, alert, obeys commands, Oriented to person, place, time, situation. Respiratory: Airway is patent Respiratory effort is even, unlabored, Respiratory pattern is regular, symmetrical. 14:51 Reassessment: Patient appears in no apparent distress at this time. Patient and/or tw2 family updated on plan of care and expected duration. Pain level reassessed. Patient is alert, oriented x 3, equal unlabored respirations, skin warm/dry/pink. Patient states feeling better. Vital Signs: 12:55 BP 140 / 90; Pulse 106; Resp 17; Temp 97.4; Pulse Ox 99% ; Weight 63.05 kg; Height 5 ll1 ft. 1 in. (154.94 cm); Pain 0/10; 13:53 BP 126 / 91; Pulse 103; Resp 17; Pulse Ox 99% on R/A; tw2 14:46 BP 112 / 82; Pulse 94; Resp 17; Pulse Ox 100% on R/A; tw2 12:55 Body Mass Index 26.26 (63.05 kg, 154.94 cm) ll1 ED Course: 12:38 Patient arrived in ED. mr 12:38 Laly Johnson is Private Physician. mr 12:52 Windy Elizalde FNP-C is [facility]. kb 12:52 Edmundo Villarreal MD is Attending Physician. kb 12:57 Triage completed. ll1 12:58 Arm band placed on. ll1 13:25 Bed in low position. Call light in reach. Side rails up X 1. Pulse ox on. NIBP on. tw2 13:40 Susanne Scott, RN is Primary Nurse. tw2 13:50 Inserted saline lock: 20 gauge in left antecubital area, using aseptic technique. Blood tw2 collected. 13:52 CBC with Diff Sent. tw2 13:52 Basic Metabolic Panel Sent. tw2 14:51 No provider procedures requiring assistance completed. IV discontinued, intact, tw2 bleeding controlled, No redness/swelling at site. Pressure dressing applied. Administered Medications: 13:52 Drug: NS 0.9% 1000 ml Route: IV; Rate: 1000 ml; Site: left antecubital; tw2 14:51 Follow up: Response: No adverse reaction; IV Status: Completed infusion; IV Intake: tw2 1000ml Medication: 13:41 VIS not applicable for this client. tw2 Intake: 14:51 IV: 1000ml; Total: 1000ml. tw2 Outcome: 14:27 Discharge ordered by MD. painter 14:51 Discharged to home ambulatory. tw2 14:51 Condition: stable 14:51 Discharge instructions given to patient, Instructed on discharge instructions, follow up and referral plans. Demonstrated understanding of instructions, follow-up care. 14:51 Patient left the ED. tw2 Signatures: Windy Elizalde, ANNETTE-C CUSTOM CLOTHIER-Bree Agudelo mr Susanne Scott, RN RN tw2 Shady Buckner, RN RN ll1 Corrections: (The following items were deleted from the chart) 13:01 12:55 Chief complaint: Patient states: Out of long lasting insulin for 2-3 weeks. 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 + nausea and drinking lots of fluids. ll1
--- NOTE | 2022-02-19 14:27 | EDPHYS ---
Physician Documentation [facility] Name: Catherine Lopez Age: 36 yrs Sex: Female : 1985 Arrival Date: 02/19/2022 Time: 12:38 Bed 16 Private MD: Laly Johnson ED Physician Edmundo Villarreal HPI: 02/19 16:11 This 36 yrs old Female presents to ER via Ambulatory with complaints of High Blood kb Sugar. 16:11 The patient or guardian reports hyperglycemia, that was potentially precipitated by out kb of long acting insulin, Treatment prior to arrival includes: taking additional insulin. Onset: The symptoms/episode began/occurred today. Associated signs and symptoms: Pertinent positives: None. Current symptoms: In the emergency department the patient's symptoms are unchanged from the initial presentation. The patient has not experienced similar symptoms in the past. The patient has not recently seen a physician. [facility] and her sugar was 507. She took her insulin, but it only came down into the 400s so they sent her here. States she has no symptoms of high blood sugar, feels ok. States she has been out of her long acting insulin and it won't be in until next week so she believes that is why it is high.. 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 - Social history:: Smoking status: Patient reports the use of cigarette tobacco products, denies chronic smoking, but will smoke occasionally. ROS: 16:11 Constitutional: Negative for fever, chills, and weight loss. kb 16:11 All other systems are negative. Exam: 16:11 Constitutional: This is a well developed, well nourished patient who is awake, alert, kb and in no acute distress. Head/Face: Normocephalic, atraumatic. ENT: Moist Mucous membranes Cardiovascular: Regular rate and rhythm with a normal S1 and S2. No gallops, murmurs, or rubs. No pulse deficits. Respiratory: Respirations even and unlabored. No increased work of breathing. Talking in full sentences Skin: Warm, dry with normal turgor. Normal color. MS/ Extremity: Pulses equal, no cyanosis. Neurovascular intact. Full, normal range of motion. Neuro: Awake and alert, GCS 15, oriented to person, place, time, and situation. Moves all extremities. Normal gait. Psych: Awake, alert, with orientation to person, place and time. Behavior, mood, and affect are within normal limits. Vital Signs: 12:55 BP 140 / 90; Pulse 106; Resp 17; Temp 97.4; Pulse Ox 99% ; Weight 63.05 kg; Height 5 ll1 ft. 1 in. (154.94 cm); Pain 0/10; 13:53 BP 126 / 91; Pulse 103; Resp 17; Pulse Ox 99% on R/A; tw2 14:46 BP 112 / 82; Pulse 94; Resp 17; Pulse Ox 100% on R/A; tw2 12:55 Body Mass Index 26.26 (63.05 kg, 154.94 cm) ll1 MDM: 13:15 Patient medically screened. kb 14:26 Data reviewed: vital signs, nurses notes. Data interpreted: Pulse oximetry: on room air kb is 99 %. Interpretation: normal. Counseling: I had a detailed discussion with the patient and/or guardian regarding: the historical points, exam findings, and any diagnostic results supporting the discharge/admit diagnosis, lab results, the need for outpatient follow up, a family practitioner, to return to the emergency department if symptoms worsen or persist or if there are any questions or concerns that arise at home. 02/19 13:13 Order name: Glucose, Ancillary Testing; Complete Time: 13:15 EDMS 02/19 13:31 Order name: CBC with Diff kb 02/19 13:31 Order name: Basic Metabolic Panel; Complete Time: 14:21 kb 02/19 13:31 Order name: IV Start; Complete Time: 13:52 kb Administered Medications: 13:52 Drug: NS 0.9% 1000 ml Route: IV; Rate: 1000 ml; Site: left antecubital; tw2 14:51 Follow up: Response: No adverse reaction; IV Status: Completed infusion; IV Intake: tw2 1000ml Disposition: 15:19 Attestation: The patient's history, exam findings, diagnostics, and a summary of any [facility] interventions or procedures was reviewed in detail with Windy LIPSCOMB. Disposition Summary: 02/19/22 14:27 Discharge Ordered Location: Home kb Condition: Stable kb Diagnosis - Hyperglycemia, unspecified kb Followup: kb - With: Emergency Department - When: As needed - Reason: Worsening of condition Followup: kb - With: Private Physician - When: 2 - 3 days - Reason: Recheck today's complaints, Continuance of care, Re-evaluation by your physician Discharge Instructions: - Discharge Summary Sheet kb - Hyperglycemia, [id number] kb Forms: - Medication Reconciliation Form kb - Thank You Letter kb - Antibiotic Education kb - Prescription Opioid Use kb - Work release form tw2 - School release form tw2 Signatures: Dispatcher [employer] DALENE Windy Elizalde FNP-C FNP-Susanne Hernandez RN RN tw2 Shady Buckner RN RN 1 Edmundo Villarreal MD MD [id number]
[2022-02-19 15:08] VITALS: TEMP 97.4
[2022-02-19 15:14] VITALS: BP 112/82; O2SAT 100
[2022-02-19 20:52] LABS: White Blood Cell Scan OK (OK)
[2022-02-19 20:53] LABS: Blood Morphology Comment NOT SEEN (NOT SEEN); Platelet Estimate ADEQ
== END 2022-02-19 14:51 | disposition home or self-care (01) ==
LOC: ER 12:33
DX: E11.65 Type 2 diabetes mellitus with hyperglycemia (principal); F17.210 Nicotine dependence, cigarettes, uncomplicated; Z88.5 Allergy status to narcotic agent; Z88.8 Allergy status to other drugs, medicaments and biological substances
CPT/HCPCS: 85025; 80048; 36415; 82947; 96360; 99284; J7030

== ENCOUNTER 2022-07-10 09:55 | Emergency (ER) | payer OTHER ==
--- OUTSIDE RECORDS SUMMARY | 2022-07-10 09:59 | XMS REPORT | Continuity of Care Document ---
:1985 Author Organization [facility] t Address [address] [place] [address] Care Team Providers Name Role Phone MARIAN RODRÍGUEZ Primary Care Physician Unavailable ENE DUNN Attending Clinician Unavailable Ene Dunn MD Attending Clinician Only, Guille Db Test Attending Clinician Unavailable Donald Root PA-C Attending Clinician DONALD ROOT Attending Clinician Unavailable Pob, Adc Lab Main Attending Clinician Unavailable Dinora Wiley MD Attending Clinician DINORA WILEY Attending Clinician Unavailable Doctor Unassigned, [place] Attending Clinician Unavailable RADIOLOGY Attending Clinician Unavailable Radiology Attending Clinician Unavailable Haylie Mendes Attending Clinician Paul Meneses Attending Clinician Gu[facility] Attending Clinician Unavailable Nanci Funez Attending Clinician Tony Luke DO Attending Clinician Alejandra Mendosa DO Attending Clinician 2, Adc Lab Attending Clinician Unavailable PAUL JAMESON Attending Clinician Unavailable Maddie Harris MD Attending Clinician MADDIE HARRIS Attending Clinician Unavailable Lili Nicholson MD Attending Clinician LILI NICHOLSON Attending Clinician Unavailable Lab, Adc Fam Pob I Attending Clinician Unavailable Anuj Duncan Attending Clinician ANUJ KERN Attending Clinician Unavailable DELORES GARCÍA Admitting Clinician Unavailable PAUL JAMESON Admitting Clinician Unavailable Payers Payer Name Policy Type Policy Number Effective Date Expiration Date Leanna PEREZ [id number] 2018 00:00:00 ANA [id number] 2021 00:00:00 Problems Condition Condition Condition Status Onset Resolution [...] discharge 7-14 ity of 00:00: [place] 00 [facility] Branch 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 7-14 it y of athy athy 00:00: [place] associated associated 00 Me dical with type with type Bran ch 2 diabetes 2 diabetes mellitus mellitus Tension-ty Tension-ty Disease Active Overview : Univers pe pe 4- Formattin ity of headache headache 00:00: g [...] Sebaceous Disease Active Uni vers cyst cyst 4-21 ity of 00:00: [place] 00 [facility] Branch Pure Pure Disease Active Univers hyperchole hyperchole 4-21 it y of sterolemia sterolemia [place] Polycystic Polycystic Disease Active U nivers ovaries ovaries 4- ity of 00:00: Medical Branch Pilar cyst Pilar cyst Disease Active U nivers 4- ity of 00:: Medical Branch Other Other Disease Active Univers disorders disorders 4- ity of of of 00:00: [place] menstruati menstruati 00 Me dical on and on and Branch other other abnormal abnormal bleeding bleeding from from female female genital genital tract tract Allergic Allergic Disease Active Overview: Un sangita urticaria urticaria - Formattin i ty of 00:00: g of this note Medical might be Branch different from the original. Marcangelia yamilexglen, the Welbutrin , (prescrib ed on September [...] rs rhinitis rhinitis 4-21 ity of 00:00: [place] [facility] Personal Personal Disease Active Unive rs history of history of 3-04 it y of COVID-19 COVID-19 00:00: [place] 00 Medical Branch Effusion, Effusion, Disease Active Uni vers right right 2-26 ity of ankle ankle 00:00: Medical Branch Irregular Irregular Disease Active 2019-09 Uni vers bleeding bleeding 0-29 ity of 00:00: [place] [facility] Blephariti Blephariti Disease Active U nivers s s 6-09 ity of 00:00: Medical Branch Vitamin D Vitamin D Disease Active 2018-09 Uni vers deficiency deficiency 0-15 it y of 00:00: [place] [facility] Hemorrhoid Hemorrhoid Disease Active 2018-09 U nivers s s 0-15 ity of 00:00: [place] [facility] Abscess of Abscess of Disease Active 2018-09 U nivers skin of skin of 0-15 ity of abdomen abdomen 00:00: [place] [facility] Other Other Disease Active Univers depression depression 5-17 it y of 00:00: [place] 00 Medical Branch Allergies, Adverse Reactions, Alerts Allergy Allergy Status Severity Reaction(s) Onset Inactive Treating Comm ents Source Name Type Date Date Clinician MEPERIDI DRUG Active Hives Univers NE HCL INGREDI 5-14 ity of 00:00: [place] 00 Medical Branch PROMETHA DRUG Active Anxiety Univers ZINE INGREDI 5-14 ity of 00:00: [place] [facility] BUPROPIO DRUG Active Hives Univers N HCL INGREDI 5-14 ity of 00:00: [place] 00 Medical Branch Meperidi Propensi Active Swelling Univ ers ne Hcl ty to 5-14 ity of adverse 00:00: [place] reaction 00 Medical s Branch Prometha Propensi Active Swelling Univ ers zine ty to 5-14 ity of adverse 00:00: [place] reaction 00 Medical s Branch Bupropio Propensi Active Swelling Univ ers n Hcl ty to 5-14 ity of adverse 00:00: [place] reaction 00 Medical s Branch Social History Social Habit Start Date Stop Date Quantity Comments Source Alcohol intake 2021-01-01 2021-01-01 Current drinker Unive rsity of 00:00:00 00:00:00 of alcohol [place] [facility] Tobacco use and 2020-09-11 2020-09-11 Never used Universit y of exposure 00:00:00 00:00:00 [facility] Tobacco Comment 2020-05-17 2020-05-17 2-3 ciggs a day [facility] ersity of 00:00:00 00:00:00 [facility] Alcohol Comment 2020-05-17 2020-05-17 social Universit y of 00:00:00 00:00:00 [place] [facility] History SDOH 2020-05-17 2020-05-17 99 University o f Alcohol Frequency 00:00:00 00:00:00 [place] [facility] History [facility] 2020-05-17 2020-05-17 99 University o f Alcohol Std 00:00:00 00:00:00 [place] [facility] Drinks [facility] History SDUT 2020-05-17 2020-05-17 99 University o f Alcohol Binge 00:00:00 00:00:00 [place] [facility] History of 2017-07-14 Cigarette Smoker Universi ty of tobacco use 00:00:00 [facility] Sex [birth year] At [birth year] Universit y of 00:00:00 00:00:00 [facility] Smoking Status Start Date Stop Date Source Current some day smoker 2020-09-11 00:00:00 [facility] of [facility] Medications Ordered Filled Start Stop Current Ordering [...] pen times injector daily before meals. insulin 0 Yes 10U inject Univers lispro 6-17 10-18 ity of (HUMALOG 00:00: Units [place] KWIKPEN 00 under the Medical INSULIN) skin 3 Branch 100 unit/mL (three) pen times injector daily before meals. metformin Yes [id number] 1000mg Take 2 Univers ER 500 mg 6-15 tablets by ity of 24 hr 00:00: mouth [place] tablet 00 daily with Medical breakfast. Branch insulin Yes [id number] 38U inject 38 Univers degludec 6-15 Units ity of (TRESIBA 00:00: [place] FLEXTOUCH 00 skin every Medi rakesh U-100) 100 morning. Branc h unit/mL (3 mL) InPn fluconazole Yes [id number] 150mg Take 1 Univers (DIFLUCAN) 6-15 tablet by ity of 150 mg 00:00: mouth [place] tablet 00 every 72 Medical ([facility] wo) hours. gabapentin 2020- Yes [id number] 100mg Take 1 Univers 100 mg 6-15 capsule by ity of capsule 00:00: mouth at [place] 00 bedtime. Medical Branch metformin 2020- Yes [id number] 1000mg Take 2 Univers ER 500 mg 6-15 tablets by ity of 24 hr 00:00: mouth [place] tablet 00 daily with Medical breakfast. Branch insulin Yes [id number] 38U inject 38 Univers degludec 6-15 Units ity of (TRESIBA 00:00: [place] FLEXTOUCH 00 skin every Medi rakesh U-100) 100 morning. Branc h unit/mL (3 mL) InPn fluconazole Yes [id number] 150mg Take 1 Univers (DIFLUCAN) 6-15 tablet by ity of 150 mg 00:00: mouth [place] tablet 00 every 72 Medical ([facility] wo) hours. gabapentin 2020-0 Yes [id number] 100mg Take 1 Univers 100 mg 6-15 capsule by ity of capsule 00:00: mouth at [place] 00 bedtime. Medical Branch metformin 2020- Yes [id number] 1000mg Take 2 Univers ER 500 mg 6-15 tablets by ity of 24 hr 00:00: mouth [place] tablet 00 daily with Medical breakfast. Branch insulin 0 Yes [id number] 38U inject 38 Univers degludec 6-15 Units ity of (TRESIBA 00:00: [place] FLEXTOUCH 00 skin every Medi rakesh U-100) 100 morning. Branc h unit/mL (3 mL) InPn fluconazole 0 Yes [id number] 150mg Take 1 Univers (DIFLUCAN) 6-15 tablet by ity of 150 mg 00:00: mouth [place] tablet 00 every 72 Medical ([facility] wo) hours. gabapentin 2020-0 Yes [id number] 100mg Take 1 Univers 100 mg 6-15 capsule by ity of capsule 00:00: mouth at [place] 00 bedtime. Medical Branch metformin 2020-0 Yes [id number] 1000mg Take 2 Univers ER 500 mg 6-15 tablets by ity of 24 hr 00:00: mouth [place] tablet 00 daily with Medical breakfast. Branch insulin 2020- Yes [id number] 38U inject 38 Univers degludec 6-15 Units ity of (TRESIBA 00:00: [place] FLEXTOUCH 00 skin every Medi rakesh U-100) 100 morning. Branc h unit/mL (3 mL) InPn fluconazole Yes [id number] 150mg Take 1 Univers (DIFLUCAN) 6-15 tablet by ity of 150 mg 00:00: mouth [place] tablet 00 every 72 Medical ([facility] wo) hours. gabapentin 2020-0 Yes [id number] 100mg Take 1 Univers 100 mg 6-15 capsule by ity of capsule 00:00: mouth at [place] 00 bedtime. Medical Branch atorvastati Yes 20mg Take 20 mg Univers n 20 mg 6-06 by mouth ity of tablet 00:00: every [place] 00 morning. Medical Branch atorvastati 0 Yes 20mg Take 20 mg Univers n 20 mg 6-06 by mouth ity of tablet 00:00: every [place] 00 morning. Medical Branch atorvastati 0 Yes 20mg Take 20 mg Univers n 20 mg 6-06 by mouth ity of tablet 00:00: every [place] 00 morning. Medical Branch atorvastati 0 Yes 20mg Take 20 mg Univers n 20 mg 6-06 by mouth ity of tablet 00:00: every [place] 00 morning. Medical Branch MULTIVITAMI Yes 1{tbl} Take 1 Un sangita N ORAL 4-21 tablet by ity of 19:26: mouth [place] 41 daily. Medical Branch MULTIVITAMI 0 Yes 1{tbl} Take 1 Un sangita N ORAL 4-21 tablet by ity of 19:26: mouth [place] 41 daily. Medical Branch MULTIVITAMI 0 Yes 1{tbl} Take 1 Un sangita N [...] (scale 4-6) or Pain (scale 7-10). norgestimat 0 Yes [id number] 1{tbl} Take 1 Univers e-ethinyl 2-03 tablet by ity o f estradioL 00:00: mouth [place] 0.25-35 00 daily. Medical mg-mcg per Branch tablet norgestimat 0 Yes [id number] 1{tbl} Take 1 Univers e-ethinyl 2-03 tablet by ity o f estradioL 00:00: mouth [place] 0.25-35 00 daily. Medical mg-mcg per Branch tablet norgestimat 0 Yes [id number] 1{tbl} Take 1 Univers e-ethinyl 2-03 tablet by ity o f estradioL 00:00: mouth [place] 0.25-35 00 daily. Medical mg-mcg per Branch tablet norgestimat 2020-0 Yes [id number] 1{tbl} Take 1 Univers e-ethinyl 2-03 tablet by ity o f estradioL 00:00: mouth [place] 0.25-35 00 daily. Medical mg-mcg per Branch tablet lancets Yes Use to Unive rs gauge Misc 5-31 test BS ity of 00:00: 4x/day [place] [facility] lancets 0 Yes Use to Unive rs gauge Misc 5-31 test BS ity of 00:00: 4x/day Medical Branch lancets 31 Yes Use to Unive rs gauge Misc 5-31 test BS ity of 00:00: 4x/day [place] [facility] lancets 31 0 Yes Use to Unive rs gauge Misc 5-31 test BS ity of 00:00: 4x/day [place] [facility] Immunizations Ordered Filled Immunization Date Status Comments Sour e Immunization Name Name Influenza Virus 2020-09-11 Completed Universit y of Vaccine Quad .5 mL 00:00:00 [facility] IM 6+ [place] Branch Influenza Virus 2020-09-11 Completed Universit y of Vaccine Quad .5 mL 00:00:00 [place] [facility] IM 6+ MO Branch Influenza Virus 2020-09-11 Completed Universit y of Vaccine Quad .5 mL 00:00:00 [place] [facility] IM 6+ MO Branch Influenza Virus 2020-09-11 Completed Universit y of Vaccine Quad .5 mL 00:00:00 [facility] 6+ MO Branch Procedures This patient has no known procedures. Encounters Start End Encounter Admission Attending Care Care Encounter Source Date/Time Date/Time Type Type Clinicians Facility Department ID 2021-07-13 Emergency [facility] [id number] Univers 14:30:23 ity of [facility] 2021-07-13 Emergency [facility] [id number] [facility]22-03-03 Outpatient R DANIEL [facility] [id number] Univers 14:00[facility]00 [facility]17 2022-02-17 Telephone DanielRUST [id number] Univers 00:00:00 00:00:00 trinket [id number] it y of [place] [id number] Oleksandr as JOSE?BLEA [phone] [facility] MORRIS 220 [facility] OFFICE [facility] 2022-02-12 2022-02-12 Telephone DunnRUST 1.2.315.351 [id number] Univers 00:00:00 00:00:00 [facility] [id number] it y of [place] [id number] [place]r as JOSE?BLEA [phone] Ut dicben MORRIS 220 [facility] OFFICE [facility] 2022-02-04 2022-02-04 Telephone DanielRUST [id number] Univers 00:00:00 00:00:00 trinket [id number] it y of [place] [id number] [place]r as JOSE?BLEA [phone] [facility] SIEGEL [facility] 2022-01-06 2022-01-06 Refill DanielRUST [id number] Univers 00:00:00 00:00:00 [facility] [id number] i ty of [id number] [place] PROFESSIO [phone] Ut dicben NAL 220 [facility] 2021-09-07 2021-09-07 Laboratory Only, Ang Db Test [facility] 1.2.8 40.114 [id number] Univers 15:30:00 15:45:00 Only Donald Root HEALTH [id number] [facility] [id number] [place] JOSE?BLEA [phone] Ut dicben MORRIS 370 [facility] OFFICE [facility] 2021-09-07 2021-09-07 Outpatient R IVETT [facility] [id number] Univers 15:30:00 15:30:00 DONALD ity [facility] 2021-08-13 2021-08-13 Perioperative Manager Jj, Adc Lab Main [facility] 1.2.8 40.114 [id number] Univers 08:21:29 08:36:29 Visit Rosalind Dinora PERES [id number] ity of [place] [id number] [place] [phone] Ut dical NAL 353 [facility] 2021-08-13 2021-08-13 Outpatient R [facility] [id number] Univers 08:00:00 08:00:00 DINORA betancourt [facility] 2021-08-13 2021-08-13 Orders Doctor MAI 1.2.840.114 [id number] Univers 00:00:00 00:00:00 Only Unassigned, MORRIS [id number] ity of [place] [facility] [id number] [place]r as [phone] [facility] [address] [place] 2021-08-01 2021-08-01 Outpatient R RADIOLOGY [facility] [id number] Univers 09:55:54 23:59:00 ity of [facility] 2021-08-01 2021-08-01 [facility] Radiology [facility] 1.2.840.114 [id number] Univers 09:55:54 23:59:00 Encounter LARISA [id number] ity of [place] [id number] [place] DAVIN [phone] [facility] [address] [place] 2021-07-28 2021-07-28 Perioperative Manager Jj, Adc Lab Main [facility] 1.2.8 40.114 [id number] Univers 07:41:29 07:56:29 Visit Dinora Wiley [id number] ity of [place] [id number] [place] PROFESS[place] [phone] Ut dical NAL 353 [facility] 2021-07-28 2021-07-28 Outpatient R [facility] [id number] Univers 07:45:00 07:45:00 DINORA betancourt [facility] 2021-07-28 2021-07-28 Orders Doctor MAI 1.2.840.114 [id number] Univers 00:00:00 00:00:00 Only Unassigned, MORRIS [id number] ity of [place] [facility] [id number] [place] as [phone] [address] 2021-06-04 2021-06-04 Outpatient R [facility] [id number] Univers 09:00:00 09:00:00 DONALD betancourt [facility] 2021-06-03 2021-06-03 Outpatient R [facility] [id number] Univers 13:30:00 13:30:00 ENE betancourt [facility] 2021-04-15 2021-04-15 Refill IvettRUST [id number] Univers 00:00:00 00:00:00 Donald Peres [id number] i ty [id number] Profess[place] [phone] Ut dical nal 134 [facility] 2021-02-26 2021-02-26 Patient DanielRUST 1.2.840.114 [id number] Univers 00:00:00 00:00:00 Secure Msg Ene Peres [id number] ity of [place] [id number] [place] Profess[place] [phone] Ut dical nal 220 [facility] 2021-02-25 2021-02-25 Perioperative Manager Wilma Gardner Lab Main [facility] 1.2.8 40.114 [id number] Univers 15:07:29 15:22:29 Visit Donald Root [id number] ity of [place] [id number] [place] Profess[place] [phone] Ut dical nal 353 [facility] 2021-02-25 2021-02-25 Office DanielRUST 1.2.840.114 [id number] Univers 13:48:36 14:49:37 Visit Ene Peres [id number] i ty of [place] [id number] [place] Profess[place] [phone] Ut dical nal 220 [facility] 2021-02-25 2021-02-25 Outpatient R DANIEL [facility] [id number] Univers 14:00:00 14:00:00 APONG [facility] 2021-02-25 2021-02-25 Orders Doctor MAI 1.2.840.114 [id number] Univers 00:00:00 00:00:00 Only Unassigned, MORRIS [id number] ity of [facility] [id number] [place] as [phone] [address] 2021-02-25 2021-02-25 Telephone DanielRUST 1.2.357.925 [id number] Univers 00:00:00 00:00:00 Ene Peres [id number] i ty of [id number] Profess[place] [phone] Ut dical [facility] 220 [facility] 2021-02-25 2021-02-25 Telephone Ivett [facility] 1.2.840.114 [id number] Univers 00:00:00 00:00:00 Donald Peres [id number] i ty [place] [id number] [phone] Ut dical [facility] 134 [facility] 2021-02-19 2021-02-19 Telephone DanielRUST 1.2.300.139 [id number] Univers 00:00:00 00:00:00 Ene Peres [id number] i [place] [id number] [place] Profess[place] [phone] Ut dical nal 220 [facility] 2021-01-28 2021-01-28 Outpatient R DANIEL [facility] [id number] Univers 15:00:00 15:00:00 [facility] 2021-01-22 2021-01-22 Outpatient R DANIEL [facility] [id number] Univers 14:00:00 14:00:00 APONG [facility] 2021-01-06 2021-01-06 Refill AlishaRUST 1.2.840.114 [id number] Univers 00:00:00 00:00:00 Haylie Ramirez FLAVORING MAKER [id number] ity [facility] [id number] [place] as MATERNAL [phone] Med ical & CHILD 107 [facility] 2021-01-06 2021-01-06 Karo RootRUST 1.2.441.304 [id number] Univers 00:00:00 00:00:00 Donald Peres 350.1.13.10 i [place] [id number] Profess[place] [phone] Ut dical nal 134 [facility] 2021-01-01 2021-01-01 Emergency Romario [facility] [id number] Univers 19:44:00 21:09:00 Paul Ram Larisa 350.1.13.10 i ty [place] [id number] [place] [phone] [address] 2021-01-01 2021-01-01 Urgent Provider, [facility] 1.2.840.114 [id number] Univers 18:42:58 19:47:46 [facility] [id number] ity [facility] [id number] [place] Professio [phone] Ut dical nal [address] [place] [address] 2021-01-01 2021-01-01 Outpatient R [facility] [id number] Univers 19:00:00 19:00:00 ity of [facility] 2020-12-22 2020-12-22 Karo RootRUST 1.2.117.484 [id number] Univers 00:00:00 00:00:00 Donald Peres 350.1.13.10 i [place] [id number] [phone] Ut dical nal 134 [facility] 2020-12-02 2020-12-02 Patient Ti [facility] 1.2.840.114 [id number] Univers 00:00:00 00:00:00 Outreach Tony SANTANA 350.1.13.10 i ty of [facility] [id number] [place] PAVILLION [phone] Ut dical 388 Branch 2020-11-04 2020-11-04 Emergency DeondreRUST 1.2.840.114 [id number] Univers 09:46:00 10:38:00 Alejandra Almanzar Larisa 350.1.13.10 ity of [place] [id number] [place] [phone] [facility] 084 Branch 2020-11-04 2020-11-04 Orders Doctor MAI 1.2.840.114 [id number] Univers 00:00:00 00:00:00 Only Unassigned, MORRIS 350.1.13.10 ity of [place] [facility] [id number] Ole[place]andr as [phone] [facility] 009 Branch 2020-11-04 2020-11-04 Case Ivett [facility] 1.2.134.062 [id number] Univers 00:00:00 00:00:00 Management Donald Peres 350.1.13.10 it[place] of [place] [id number] [phone] Ut dical nal 134 [facility] 2020-10-16 2020-10-16 Office Ivett [facility] 1.2.556.790 [id number] Univers 10:19:42 17:14:01 Visit Donald Peres 350.1.13.10 i ty of [place] [id number] [phone] Ut dical nal 134 [facility] 2020-10-16 2020-10-16 Outpatient R IVETT [facility] [id number] Univers 10:30:00 10:30:00 DONALD ity of [facility] 2020-09-12 2020-09-12 Telephone Daniel [facility] 1.2.579.611 [id number] Univers 00:00:00 00:00:00 Apong MULTISPEC 350.1.13.10 ity of [place].2.7.2.686 [place] CENTER [phone] [facility] AND KARENA [address] [place] [facility] 2020-09-11 2020-09-11 Perioperative Manager 2, Adc Lab [facility] 1.2.840.114 [id number] Univers 16:13:28 16:28:28 Visit Ene Dunn 350.1.13.10 ity of [place] 4.2.7.2.[place] Profess[place] [phone] [facility] 353 [facility] 2020-09-11 2020-09-11 Office DanielRUST 1.2.840.114 [id number] Univers 14:01:41 16:09:52 Visit Ene Larisa 350.1.13.10 i ty of [place] 4.2.7.2.[place] Profess[place] [phone] [facility] 220 [facility] 2020-09-11 2020-09-11 Outpatient R DANIEL [facility] [id number] Univers 14:30:00 14:30:00 [facility] 2020-09-06 2020-09-06 Emergency X ROMARIO [facility] ERT [id number] Univers 10:26:00 14:43:00 PAUL [facility] 2020-09-06 2020-09-06 Emergency RomarioRUST 1.2.103.155 [id number] Univers 10:26:00 14:43:00 Paul Peres 350.1.13.10 i ty of [place] [id number] [phone] [facility] [address] [place] [address] 2020-09-04 2020-09-04 Telephone Ivett [facility] 1.2.840.114 [id number] Univers 00:00:00 00:00:00 Donald Peres 350.1.13.10 i ty of [id number] [phone] [facility] 134 [facility] 2020-08-15 2020-08-15 Telephone Maddie Harris [facility] 1.2.840.114 [id number] Univers 00:00:00 00:00:00 Nura Peres 350.1.13.10 i ty of [place] 4[place]2.7.2.[place] Profess[place] [phone] Ut dical nal [address] [place] [address] 2020-08-15 2020-08-15 Orders Doctor MAI 1.2.840.114 [id number] Univers 00:00:00 00:00:00 Only Unassigned, MORRIS 350.1.13.10 ity of [place] [facility] 4.2.7.2.686 Ole[place]r as [phone] [address] 2020-08-15 2020-08-15 Telephone Maddie Harris [facility] 1.2.840.114 [id number] Univers 00:00:00 00:00:00 Cam Larisa 350.1.13.10 i ty [place] [id number] [phone] Ut dical nal [address] [place] [address] 2020-07-16 2020-07-16 Orders Doctor MAI 1.2.840.114 [id number] Univers 00:00:00 00:00:00 Only Unassigned, MORRIS 350.1.13.10 ity of [place] [facility] 4.2.7.2.686 Oleksandr as [phone] [address] 2020-07-16 2020-07-16 [facility] 1.2.370.959 [id number] Univers 00:00:00 00:00:00 Management Donald Peres 350.1.13.10 it[place] of [place] [id number] [phone] Ut dical nal [address] [place] [address] 2020-07-16 2020-07-16 Telephone [facility] 1.2.840.114 [id number] Univers 00:00:00 00:00:00 Donald Peres 350.1.13.10 i ty of [place] [id number] [phone] Ut dical nal [address] [place] [address] 2020-07-15 2020-07-15 Case [facility] 1.2.744.848 [id number] Univers 00:00:00 00:00:00 Management Donald Peres [id number] [id number] [phone] Ut dical nal [address] [place] [address] 2020-07-11 2020-07-11 [facility] [id number] Univers 08:49:28 09:24:10 Visit Nura Peres [id number] [id number] [phone] Ut dical nal 134 [facility] 2020-07-11 2020-07-11 Outpatient R [facility]EVEN [facility] [id number] Univers 08:30:00 08:30:00 ity [facility] 2020-07-04 2020-07-04 Outpatient R [facility] [id number] Univers 15:00:00 15:00:00 ity [facility] 2020-06-27 2020-06-27 [facility] [id number] Univers 07:41:33 23:59:00 Encounter Donald Peres [id number] [facility] [id number] [phone] [address] 2020-06-27 2020-06-27 Out[facility] [id number] Univers 00:00:00 00:00:00 [facility] 2020-06-27 2020-06-27 Telephone [facility] [id number] Univers 00:00:00 00:00:00 Nura Peres [id number] [id number] [phone] Ut dical nal 134 [facility] 2020-06-26 2020-06-26 Outpatient [facility] [id number] Univers 13:30:00 13:30:00 [facility] 2020-06-04 2020-06-04 Perioperative Manager 2, Adc Lab [facility] [id number] Univers 10:16:38 10:31:38 Visit Donald Root [id number] [id number] [phone] Ut dical nal 353 [facility] 2020-06-04 2020-06-04 Office DomingodurgasarmadRUST [id number] Univers 08:54:06 10:09:09 Visit Donald Peres [id number] [id number] [phone] Ut dical [facility] 134 [facility] 2020-06-04 2020-06-04 Outpatient R [facility] [id number] Univers 09:00:00 09:00:00 DONALD vasquezglen [facility] 2020-05-31 2020-05-31 Hospital [facility] [id number] Univers 13:50:48 23:59:00 Encounter Donald Peres [id number] [id number] [phone] [address] 2020-05-31 2020-05-31 Outpatient R [facility]ETT [facility] [id number] Univers 00:00:00 00:00:00 DONALD serafin [facility] 2020-05-29 2020-05-29 Perioperative Manager Jj, Adc Lab Main [facility] [id number] Univers 08:12:06 08:27:06 Visit Donald Root [id number] [id number] [phone] [facility] 2020-05-29 2020-05-29 Outpatient R [facility]ETT [facility] [id number] Univers 08:15:00 08:15:00 DONALD serafin [facility] 2020-05-17 2020-05-17 Office IvettRUST [id number] Univers 08:51:34 09:18:31 Visit Donald Peres [id number] i [id number] [phone] [facility] 134 [facility] 2020-05-17 2020-05-17 Outpatient R [facility] [id number] Univers 09:00:00 09:00:00 DONALD betancourt [facility] 2020-05-17 2020-05-17 Office Ad, [facility] [id number] Univers 08:00:00 08:30:00 Visit Lili Peres [id number] [id number] [phone] Ut ctal nal 134 [facility] 2020-05-17 2020-05-17 Outpatient [facility] [id number] Univers 08:00:00 08:00:00 LILI betancourt [facility] 2020-05-17 2020-05-17 Orders Doctor MAI [id number] Univers 00:00:00 00:00:00 Only Unassigned, MORRIS [id number] ity of [place] [facility] [id number] [place] [phone] [address] 2020-05-10 2020-05-10 Out[address] [facility] [id number] Univers 10:30:00 10:30:00 DONALD betancourt [facility] 2020-03-31 2020-03-31 Laboratory Lab, [facility] Fam Pob I [facility] [id number] Univers 14:45:58 15:41:11 Only Anuj Kern [id number] ity [facility] [id number] [place] Professio [phone] Ut candie [facility] [address] 2020-03-31 2020-03-31 Outpatient Jose Enrique [facility] [id number] Univers 15:00:00 15:00:00 ANUJ ity [facility] Results Test Description Test Time Test Comments Results Result Comments Source JC 2018-04-25 TUBE,STERILIZATION 17:48:00 RUN DATE: 04/26/18 [facility] PAGE 1 RUN TIME: 946 Specimen Inquiry RUN USER: INTERFACE PAT IENT: ISIAH DE DIOS LOC: [facility]EN U #: [id number] AGE/SX: 33/F ROOM: [facility] RE04/08/18REG DR: Mary Ponce MD : 81 BED: A DIS: 04/24/18 STATUS: DIS IN TLOC: SPEC #: [id number] RECD: 04/21/18 STATUS: MARTHA GUTIÉRREZ #: [id number] URIAH: 04/21/18- [facility] DR: Mary Ponce MD ENTERED: 04/22/18 SP TYPE: [place]ON[place]y MENDOZA DR: ORDERED: LEVEL II SURGIC CODES: [id number] - FALLOPIAN TUBE PROCEDURES: LEVEL II SURGIC (Incomplete) TISSUES: FALLOPIAN TUBE, NOS - LEFT FALLOPIAN TUBE CLINICAL HISTORY 32 year old, , 35.6 weeks (kr) FINAL DIAGNOSIS Left fallopian tube, salpingectomy: - complete lumen demonstrated Tissue code 1 CPT code(s): 82468 cds/wpd 04/25/18 @ 1715 GROSS DESCRIPTION The specimen is received in a formalin-filled container, labeled with the patient's name and designated "left fallopian tube". The specimen consists of a 6 x 0.6 x 0.5 cm segment of fallopian tube with fimbria. The entire fimbria and two cross-sections of fallopian tube are submitted in one cassette. cathie 04/22/18 @ 0917 MICROSCOPIC DESCRIPTION Cross-sections of the fallopian tube are histologic and demonstrate a completely transected lumen. blanca/randy 04/25/18 @ 1715 - Signed Nahun Snyder 04/25/18 1748 END OF REPORT
[2022-07-10 10:27] LABS: Urine Blood Negative (Negative); Urine Glucose 2+ (Negative); Urine Protein Negative (Negative); Urine pH 5.5 (5.0-7.0)
[2022-07-10] MEDS ORDERED: ACETAMINOPHEN 325 MG TABLET ONE (11:00)
[2022-07-10] MEDS ORDERED: NA CHLORIDE 0.9% 0 ML ONE (11:01)
[2022-07-10] MEDS ORDERED: INSULIN -REGULAR HUMAN 50 UNIT/0.5 ML ML ONE (11:01)
[2022-07-10 11:03] LABS: Urine Mucus Slight /HPF (None Seen); Urine RBC <5 /HPF (None Seen)
[2022-07-10 11:26] LABS: Absolute Lymphocytes (CBC) 1.9 K/uL (0.7-4.9); Hematocrit 35.7 % (36.0-45.0); Lymphocytes % 28.2 % (15.3-44.8); MCV 73.6 fL (80-100); MPV 8.2 fL (7.6-11.3); RBC Red Blood Cell Count 4.85 M/uL (3.86-4.86)
[2022-07-10 11:45] LABS: ALT/SGPT 25 U/L (12-78); AST/SGOT 13 U/L (15-37); Albumin 3.4 g/dL (3.4-5.0); Alkaline Phosphatase 140 U/L (45-117); BUN Blood Urea Nitrogen 11 mg/dL (7-18); Bicarbonate 24 mmol/L (21-32); Bilirubin Total 0.3 mg/dL (0.2-1.0); Glomerular Filtration Rate 98 ml/min (=/>90); Lipase 171 U/L (73-393); Potassium 3.8 mmol/L (3.5-5.1); Protein, Total 7.4 g/dL (6.4-8.2); Sodium Level 129 mmol/L (136-145)
[2022-07-10 11:46] LABS: Glucose Level 518 mg/dL (74-106)
[2022-07-10] MEDS ORDERED: POTASSIUM 25 MEQ EFFERV TAB ONE (12:34)
--- NOTE | 2022-07-10 13:14 | ER ---
Nurse's Notes [facility] Name: Catherine Lopez Age: 37 yrs Sex: Female : 1985 Arrival Date: 07/10/2022 Time: 09:56 Bed 16 Private MD: Laly Johnson Diagnosis: Diabetes mellitus due to underlying condition with hyperglycemia;Nausea Presentation: 07/10 10:16 Chief complaint: Patient states: Sent by diabetes clinic, BGL 595 and large ketones in jl7 urine. BGL in triage 485. Coronavirus screen: At this time, the client does not indicate any symptoms associated with coronavirus-19. Ebola Screen: No symptoms or risks identified at this time. Initial Sepsis Screen: Does the patient meet any 2 criteria? No. Patient's initial sepsis screen is negative. Does the patient have a suspected source of infection? No. Patient's initial sepsis screen is negative. Risk Assessment: Do you want to hurt yourself or someone else? Patient reports no desire to harm self or others. Onset of symptoms was July 10, 2022. 10:16 Method Of Arrival: Ambulatory [facility] 10:16 Acuity: VIOLETTE 3 jl7 Triage Assessment: 10:17 General: Appears in no apparent distress. uncomfortable, Behavior is calm, cooperative, jl7 appropriate for age. Pain: Complains of pain in BELLA Pain currently is 4 out of 10 on a pain scale. Historical: - Allergies: 10:17 Demerol; jl7 10:17 Phenergan; jl7 10:17 Wellbutrin; jl7 - Home Meds: 10:17 Humalog Pen 100 unit/mL Sub-Q inpn [Active]; jl7 10:17 Tresiba FlexTouch U-100 100 unit/mL (3 mL) subcutaneous inpn [Active]; jl7 - PMHx: 10:17 Diabetes - IDDM; ovarian cancer; PREECLAMPSIA; Ovarian cyst; jl7 - PSHx: 10:17 Appendectomy; D\T\C x 7; jl7 - Immunization history:: Client reports receiving the 2nd dose of the Covid vaccine. - Social history:: Smoking status: Patient denies any tobacco usage or history of. Screenin:31 Abuse screen: Denies threats or abuse. Denies injuries from another. Nutritional mb8 screening: No deficits noted. Nutritional screening: No deficits noted. Tuberculosis screening: No symptoms or risk factors identified. Fall Risk None identified. Assessment: 10:29 Pain: Complains of pain in head Pain does not radiate. Pain currently is 8 out of 10 on mb8 a pain scale. Quality of pain is described as aching. Respiratory: No deficits noted. GI: No deficits noted. 12:22 Reassessment: blood sugar 165. db 13:00 Reassessment: Patient appears in no apparent distress at this time. Patient and/or db family updated on plan of care and expected duration. Pain level reassessed. Patient is alert, oriented x 3, equal unlabored respirations, skin warm/dry/pink. Patient states feeling better. Patient states symptoms have improved. General: Appears in no apparent distress. comfortable, Behavior is calm, cooperative, appropriate for age, quiet. 13:55 Reassessment: patient became tachycardic and diaphoretic. Checked blood sugar and it db was 52 notified Errol Provider. Patient given D10 250. 13:55 General: Appears distressed, uncomfortable. Derm: Skin is clammy, diaphoretic. db 15:22 Reassessment: Patient appears in no apparent distress at this time. Patient and/or db family updated on plan of care and expected duration. Pain level reassessed. Patient is alert, oriented x 3, equal unlabored respirations, skin warm/dry/pink. Glucose 131 Patient states feeling better. Patient states symptoms have improved. General: Appears in no apparent distress. comfortable, Behavior is. 15:48 Reassessment: Patient appears in no apparent distress at this time. Patient and/or db family updated on plan of care and expected duration. Pain level reassessed. Patient is alert, oriented x 3, equal unlabored respirations, skin warm/dry/pink. Patient states feeling better. Patient states symptoms have improved. Vital Signs: 10:16 BP 130 / 93; Pulse 100; Resp 17; Temp 98.4; Pulse Ox 99% ; Weight 65.77 kg; Height 5 jl7 ft. 1 in. (154.94 cm); Pain 4/10; 12:39 BP 119 / 93; Pulse 93; Resp 18; Pulse Ox 100% ; db 13:42 BP 130 / 98; Pulse 114; Resp 20; Pulse Ox 100% ; db 14:00 BP 157 / 89; Pulse 122; Resp 26; Pulse Ox 99% ; db 14:15 BP 142 / 84; Pulse 106; Resp 28; Pulse Ox 99% ; db 15:48 BP 122 / 72; Pulse 108; Resp 18; Temp 98.2(O); Pulse Ox 100% ; db 10:16 Body Mass Index 27.40 (65.77 kg, 154.94 cm) jl7 ED Course: 09:56 Patient arrived in ED. am2 09:56 Laly Johnson FNP-C is Private Physician. am2 10:01 Timothy Marie PA is PHCP. cp 10:01 Charbel Jimenez DO is Attending Physician. cp 10:17 Triage completed. jl7 10:17 Arm band placed on right wrist. jl7 10:28 Mami Masters, RANJAN is Primary Nurse. db 10:31 Patient has correct armband on for positive identification. Fall risk band placed. mb8 Placed in gown. Bed in low position. Call light in reach. Side rails up X2. 10:31 No provider procedures requiring assistance completed. mb8 11:10 Inserted saline lock: 20 gauge in left antecubital area, using aseptic technique. Blood db collected. 14:14 EKG done, by ED staff. tm3 16:09 IV discontinued, intact, bleeding controlled, No redness/swelling at site. Pressure jl7 dressing applied. Administered Medications: 11:01 Drug: Insulin Regular Human 10 units {Co-Signature: belinda (Steven Estevez RN).} {Note: db glucose 485.} Route: IVP; Site: left antecubital; 12:23 Follow up: Response: No adverse reaction db 11:05 Drug: Tylenol 650 mg Route: PO; db 12:23 Follow up: Response: No adverse reaction db 11:10 Drug: NS 0.9% 1000 ml Route: IV; Rate: 1 bolus; Site: left antecubital; db 12:23 Follow up: Response: No adverse reaction; IV Status: Completed infusion; IV Intake: db 1000ml 12:23 Not Given (blood [id number]): Insulin Regular Human 10 units IVP once db 12:25 Not Given (glucose 165 held provider notifiedd): NS 0.9% 1000 ml IV at 1 bolus Per db protocol; 1000 mL bolus 12:39 Drug: Potassium Effervescent Tablet 25 mEq Route: PO; db 13:30 Follow up: Response: No adverse reaction db 13:45 Drug: Zofran (Ondansetron) 4 mg Route: IVP; Site: left antecubital; db 14:15 Follow up: Response: No adverse reaction db 13:45 Drug: Pepcid (famotidine) 20 mg Route: IVP; Site: left antecubital; db 14:15 Follow up: Response: No adverse reaction db 14:18 Drug: D50W 50 ml {Note: patient given D10 in 250ml per provider..} Route: IVP; Site: db left antecubital; 15:48 Follow up: Response: No adverse reaction db 15:47 Not Given (patient glucose dropped to 52b): NS 0.9% 1000 ml IV at 1 bolus Per protocol; db 1000 mL bolus Medication: 10:31 VIS not applicable for this client. mb8 Intake: 12:23 IV: 1000ml; Total: 1000ml. db Outcome: 13:13 Discharge ordered by MD. elie 16:08 Discharged to home ambulatory, with family. eusebia 16:08 Condition: stable 16:08 Discharge instructions given to patient, family, Discharge completed by Primary Nurse Instructed on discharge instructions, follow up and referral plans. Demonstrated understanding of instructions, follow-up care, medications, Prescriptions given X 2. 16:09 Patient left the ED. jl7 Signatures: Ian Mcdaniels tm3 Timothy Marie PA PA cp Leal, Jahala, RN RN jl7 Gena Carter am2 Steven Estevez RN RN mb8 Mami Masters RN RN db Michael Bates RN mb8 Corrections: (The following items were deleted from the chart) 15:23 13:55 Reassessment: patient became tachycardic and diaphoretic. Checked blood sugar and db it was 52 notified Anamaria Norton. Patient given D10 250 db
--- NOTE | 2022-07-10 13:14 | EDPHYS ---
Physician Documentation [facility] Name: Catherine Lopez Age: 37 yrs Sex: Female : 1985 Arrival Date: 07/10/2022 Time: 09:56 Bed 16 Private MD: Laly Johnson ED Physician Charbel Jimenez HPI: 07/10 10:45 This 37 yrs old Female presents to ER via Ambulatory with complaints of High Blood cp Sugar. 10:45 The patient or guardian reports hyperglycemia, that was potentially precipitated by no cp particular event. Onset: The symptoms/episode began/occurred today. 10:45 Associated signs and symptoms: Pertinent negatives: diarrhea, vomiting, fever, cough, cp chest pain, abdominal pain. 10:45 Current symptoms: In the emergency department the patient's symptoms are unchanged from cp the initial presentation. Patient reports she was at appointment today at [facility] and referred to ED for evaluation of elevated blood glucose. Historical: - Allergies: 10:17 Demerol; jl7 10:17 Phenergan; jl7 10:17 Wellbutrin; jl7 - Home Meds: 10:17 Humalog Pen 100 unit/mL Sub-Q inpn [Active]; jl7 10:17 Tresiba FlexTouch U-100 100 unit/mL (3 mL) subcutaneous inpn [Active]; jl7 - PMHx: 10:17 Diabetes - IDDM; ovarian cancer; PREECLAMPSIA; Ovarian cyst; jl7 - PSHx: 10:17 Appendectomy; D\T\C x 7; jl7 - Immunization history:: Client reports receiving the 2nd dose of the Covid vaccine. - Social history:: Smoking status: Patient denies any tobacco usage or history of. ROS: 10:50 Constitutional: Negative for body aches, chills, fever, poor PO intake. cp 10:50 Eyes: Negative for injury, pain, redness, and discharge. cp 10:50 ENT: Negative for drainage from ear(s), ear pain, sore throat, difficulty swallowing, difficulty handling secretions. 10:50 Cardiovascular: Negative for chest pain, edema, palpitations. 10:50 Respiratory: Negative for cough, shortness of breath, wheezing. 10:50 Abdomen/GI: Positive for nausea, Negative for abdominal pain, vomiting, diarrhea, constipation. 10:50 : Negative for urinary symptoms. 10:50 Neuro: Positive for headache, Negative for altered mental status, dizziness, weakness. 10:50 All other systems are negative. Exam: 10:55 Constitutional: The patient appears in no acute distress, alert, awake, cp non-diaphoretic, non-toxic, well developed, well nourished. 10:55 Head/Face: Normocephalic, atraumatic. cp 10:55 Eyes: Periorbital structures: appear normal, Conjunctiva: normal, no exudate, no injection, Sclera: no appreciated abnormality, Lids and lashes: appear normal, bilaterally. 10:55 ENT: External ear(s): are unremarkable, Nose: is normal, Mouth: Lips: moist, Oral mucosa: pink and intact, moist, Posterior pharynx: Airway: no evidence of obstruction, patent. 10:55 Neck: ROM/movement: is normal, is supple, without pain, no range of motions limitations. 10:55 Chest/axilla: Inspection: normal. 10:55 Cardiovascular: Rate: tachycardic, Rhythm: regular. 10:55 Respiratory: the patient does not display signs of respiratory distress, Respirations: normal, no use of accessory muscles, no retractions, labored breathing, is not present, Breath sounds: are clear throughout, no decreased breath sounds, no stridor, no wheezing. 10:55 Abdomen/GI: Inspection: abdomen appears normal, Bowel sounds: active, all quadrants, Palpation: soft, in all quadrants, nontender, in all quadrants. 10:55 Back: pain, is absent, ROM is normal. 10:55 Skin: cellulitis, is not appreciated, no rash present. 10:55 Neuro: Orientation: to person, place \T\ time. Mentation: is normal, Motor: moves all fours, strength is normal, Sensation: is normal. 14:18 ECG was reviewed by the Attending Physician. cp Vital Signs: 10:16 BP 130 / 93; Pulse 100; Resp 17; Temp 98.4; Pulse Ox 99% ; Weight 65.77 kg; Height 5 jl7 ft. 1 in. (154.94 cm); Pain 4/10; 12:39 BP 119 / 93; Pulse 93; Resp 18; Pulse Ox 100% ; db 13:42 BP 130 / 98; Pulse 114; Resp 20; Pulse Ox 100% ; db 14:00 BP 157 / 89; Pulse 122; Resp 26; Pulse Ox 99% ; db 14:15 BP 142 / 84; Pulse 106; Resp 28; Pulse Ox 99% ; db 15:48 BP 122 / 72; Pulse 108; Resp 18; Temp 98.2(O); Pulse Ox 100% ; db 10:16 Body Mass Index 27.40 (65.77 kg, 154.94 cm) jl7 MDM: 10:20 Patient medically screened. cp 13:13 Data reviewed: vital signs, nurses notes, lab test result(s). cp 13:13 Counseling: I had a detailed discussion with the patient and/or guardian regarding: the cp historical points, exam findings, and any diagnostic results supporting the discharge/admit diagnosis, lab results, the need for outpatient follow up, a family practitioner, to return to the emergency department if symptoms worsen or persist or if there are any questions or concerns that arise at home. 07/10 10:24 Order name: Glucose, Ancillary Testing; Complete Time: : EDMS 07/10 10:28 Interpretation: Reviewed. cp 07/10 10:28 Order name: Urine Dipstick-Ancillary; Complete Time: 10:28 EDMS 07/10 10:30 Order name: Urine Microscopic Only; Complete Time: 11:49 cp 07/10 10:30 Order name: CBC with Diff; Complete Time: 11:49 cp 07/10 11:49 Interpretation: Normal except: HGB 11.2; HCT 35.7; MCV 73.6; MCH 23.1; MCHC 31.4; RDW cp 17.0. 07/10 10:30 Order name: CMP; Complete Time: 11:49 cp 07/10 11:50 Interpretation: Normal except: NA 129; CL 96; GLUC 518; AST 13; ALK 140; GLOB 4.0; A/G cp 0.9. 07/10 10:30 Order name: Lipase; Complete Time: 11:49 cp 07/10 10:30 Order name: Ketone, Serum; Complete Time: 11:49 cp 07/10 10:59 Order name: Urine --Ancillary (enter results); Complete Time: 11:49 eb 07/10 12:34 Order name: Glucose, Ancillary Testing; Complete Time: 12:36 EDMS 07/10 14:22 Order name: Glucose, Ancillary Testing EDMS 07/10 15:34 Order name: Glucose, Ancillary Testing EDTX 07/10 10:30 Order name: Urine Dipstick-Ancillary (obtain specimen); Complete Time: 10:51 cp 07/10 10:30 Order name: Urine Test (obtain specimen); Complete Time: 11:00 cp 07/10 10:30 Order name: IV Saline Lock; Complete Time: 11:19 cp 07/10 10:30 Order name: Labs collected and sent; Complete Time: 11:19 cp EC:18 Rate is 112 beats/min. Rhythm is regular. WI interval is normal. QRS interval is cp normal. T waves are Inverted in lead aVR. Interpreted by me. Reviewed by me. Administered Medications: 11:01 Drug: Insulin Regular Human 10 units {Co-Signature: mb8 (Steven Estevez RN).} {Note: db glucose 485.} Route: IVP; Site: left antecubital; 12:23 Follow up: Response: No adverse reaction db 11:05 Drug: Tylenol 650 mg Route: PO; db 12:23 Follow up: Response: No adverse reaction db 11:10 Drug: NS 0.9% 1000 ml Route: IV; Rate: 1 bolus; Site: left antecubital; db 12:23 Follow up: Response: No adverse reaction; IV Status: Completed infusion; IV Intake: db 1000ml 12:23 Not Given (blood [id number]): Insulin Regular Human 10 units IVP once db 12:25 Not Given (glucose 165 held provider notifiedd): NS 0.9% 1000 ml IV at 1 bolus Per db protocol; 1000 mL bolus 12:39 Drug: Potassium Effervescent Tablet 25 mEq Route: PO; db 13:30 Follow up: Response: No adverse reaction db 13:45 Drug: Zofran (Ondansetron) 4 mg Route: IVP; Site: left antecubital; db 14:15 Follow up: Response: No adverse reaction db 13:45 Drug: Pepcid (famotidine) 20 mg Route: IVP; Site: left antecubital; db 14:15 Follow up: Response: No adverse reaction db 14:18 Drug: D50W 50 ml {Note: patient given D10 in 250ml per provider..} Route: IVP; Site: db left antecubital; 15:48 Follow up: Response: No adverse reaction db 15:47 Not Given (patient glucose dropped to 52b): NS 0.9% 1000 ml IV at 1 bolus Per protocol; db 1000 mL bolus Disposition Summary: 07/10/22 13:13 Discharge Ordered Location: Home cp Problem: new cp Symptoms: have improved cp Condition: Stable cp Diagnosis - Diabetes mellitus due to underlying condition with hyperglycemia cp - Nausea cp Followup: cp - With: Private Physician - When: 1 - 2 days - Reason: Recheck today's complaints Discharge Instructions: - Discharge Summary Sheet cp - Hyperglycemia cp - Blood Glucose Monitoring, Adult cp - Diabetes Mellitus and Nutrition, Adult cp Forms: - Medication Reconciliation Form cp - Thank You Letter cp - Antibiotic Education cp - Prescription Opioid Use cp - Work release form eb Prescriptions: - Zofran 4 mg Oral Tablet - take 1 tablet by ORAL route every 12 hours As needed; 20 tablet; Refills: 0, cp Product Selection Permitted - Pepcid 20 mg Oral Tablet - take 1 tablet by ORAL route every 12 hours for 5 days; 10 tablet; Refills: 0, cp Product Selection Permitted Addendum: 07/14/2022 09:32 Co-signature as Attending Physician, Charbel Jimenez DO I was immediately available on-site m s3 in the Emergency Department for consultation in the care of the patient. Signatures: Dispatcher [employer] EDMS Timothy Marie PA PA cp Leal, Jahala, RN RN jl7 Charbel Jimenez DO DO ms3 Mami Masters RN RN db Steven Estevez RN mb8 Corrections: (The following items were deleted from the chart) 07/10 12:43 11:53 Abdomen Limited+[id number].RAD.BRZ ordered. EDTX EDMS
[2022-07-10] MEDS ORDERED: FAMOTIDINE 20 MG/2 ML VIAL IV ONE (13:38)
[2022-07-10] MEDS ORDERED: ONDANSETRON 4 MG/2 ML VIAL ONE (13:38)
[2022-07-10] MEDS ORDERED: NA CHLORIDE 0.9% 1,000 ML ONE (13:56)
[2022-07-10] MEDS ORDERED: D10W 0 ML IV ONE (14:08)
[2022-07-10] MEDS ORDERED: D10W 250 ML IV ONE (14:15)
[2022-07-10 16:42] VITALS: BP 122/72; TEMP 98.2; O2SAT 100
--- NOTE | 2022-07-13 16:07 | EKG ---
Test Date: 2022-07-10 Test Time: 14:11:43 [facility]: [facility] MEASUREMENT RESULTS: Intervals: Rate: 112 AL: 124 QRSD: 84 QT: 398 QTc: 543 [place]: P: 45 AL: 124 QRS: 24 T: 53 INTERPRETIVE STATEMENTS: Sinus tachycardia Otherwise normal ECG No previous ECG available for comparison Electronically Signed On 07-13-22 16:00:37 CDT by Yogesh Chatterjee
== END 2022-07-10 16:09 | disposition home or self-care (01) ==
LOC: ER 09:55
DX: E11.65 Type 2 diabetes mellitus with hyperglycemia (principal); R11.0 Nausea; Z88.5 Allergy status to narcotic agent; Z88.8 Allergy status to other drugs, medicaments and biological substances
CPT/HCPCS: 96361; 93005; 85025; 36415; 82010; 81025; 82947 ×4; 83690; 80053; 96375; 96374; 99284; J1815; J7030; J2405; 81003; 81015

== ENCOUNTER 2024-05-27 11:58 | Observation (INO) | payer OTHER ==
--- OUTSIDE RECORDS SUMMARY | 2024-05-27 12:08 | XMS REPORT | Continuity of Care Document ---
Author Name Unknown Address [address] [facility] [address] [place] [address] [facility] Address [address] [facility] 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 LALY JOHNSON Primary Care Physician SHANTE Ashby Attending Clinician ELVIRA Graves Attending Clinician Unavailable ENE SANCHEZ Attending Clinician MIRELLA Maria Attending Clinician MIRELLA Yan Attending Clinician Mirella Yan MD Attending Clinician [phone] Doctor Unassigned, [place] Attending Clinician U Ene Jacobs MD Attending Clinician [phone] Pob, [facility] Attending Clinician Dinora Olvera MD Attending Clinician [phone] DINORA BOYER Attending Clinician Estrellita Barboza [facility], Nevin A Attending Clinician Unavail able Doctor Unassigned, [place] Attending Clinician U Elvira Haas Attending Clinician [phone] ALEJANDRA POST Attending Clinician UnavailAlejandra Torres DO Attending Clinician [phone] Erika WOODRUFF, Stepan Quispe Attending Clinician Amrit Pitt DO Attending Clinician [phone] AMRIT LUTHER Attending Clinician Unavailable Shante Martinez MD Attending Clinician [phone] ABRAHAN CELAYA Attending Clinician Unavailable Yomi BRYANT, Abrahan Attending Clinician [phone] JUWAN HAY Attending Clinician Unavailable RONALD BRAVO Attending Clinician Unavaila Ronald Bates MD Attending Clinician [phone] DONALD ROOT Attending Clinician Unavailable Alfredo Waller MD Attending Clinicia n Juwan Hay MD Attending Clinician [phone] Tonia WOODRUFF, Poornima Arreguin Attending Clinician Unavail able RAMONA VALDIVIA Attending Clinician Unavailable Sandeep BRYANT, Elisabet Mccray Attending Clinician [phone] Andrzej Carlisle MD Attending Clinician [phone] Ramona Valdivia DO Attending Clinician [phone] Rasta Rivera MD Attending Clinician [phone] GENA ASCENCIO Attending Clinician Unavailable Gena Ascencio MD Attending Clinician [phone] Unknown, Attending Attending Clinician Unavailab le Only, Ang Db Test Attending Clinician UnavailDonald Munoz PA-C Attending Clinician [phone] RADIOLOGY Attending Clinician Unavailable Radiology Attending Clinician Unavailable Haylie Mendes Attending Clinician [phone] Paul Meneses Attending Clinician [phone] Provider, [facility] Attending Clinician Un available Nanci Funez Attending Clinician [phone] Tony Luke DO Attending Clinician [phone], [facility] Attending Clinician Unavailable PAUL DOSS Attending Clinician Unavailable Maddie Harris MD Attending Clinician [phone] MADDIE HARRIS Attending Clinician Unavailable Lili Nicholson MD Attending Clinician [phone] LILI NICHOLSON Attending Clinician Unavailable Lab, [facility] I Attending Clinician Unavailab Anuj Pandey Attending Clinician [phone] ANUJ XIE Attending Clinician Unavailable SHANTE MARTINEZ Admitting Clinician MIRELLA Yan Admitting Clinician AMRIT Kennedy Admitting Clinician Unavailable RONALD BRAVO Admitting Clinician UnavailRASTA Chilel Admitting Clinician Unavailable Rasta Rivera MD Admitting Clinician [phone] LALY JOHNSON Admitting Clinician UnavailPAUL Lopez Admitting Clinician Unavailable Payers Payer Name Policy Type Policy Number Effective Date Expirati on Date Source [id number] 2021 00:00:00 [id number] 2018 00:00:00 [id number] 2018 00:00:00 Problems Condition Name Condition Details Condition Category Status Onset Date Resolution Date Last Treatment Date Treating Clinician Comments Source S/P hysterecto my S/P hysterecto my Disease Active 7- 00:00: 00 [facility] Cyst of left ovary Cyst of left ovary Disease Active 7 00:00: 00 [facility] Intramural and submucous leiomyoma of uterus Intramural and submucous leiomyoma of uterus Disease Active 7- 00:00: 00 [facility] Pain pelvic Pain pelvic Disease Active 6-24 00:00: 00 [facility] Abnormal uterine bleeding (AUB) Abnormal uterine bleeding (AUB) Disease Active 6-24 00:00: 00 [facility] Dysfunctio nal uterine bleeding Dysfunctio nal uterine bleeding Disease Active 8-18 00:00: 00 [facility] Persistent insomnia Persistent insomnia Disease Active 8-18 00:00: 00 [facility] Overactive bladder Overactive bladder Disease Active 8-18 00:00: 00 [facility] Special screening for malignant neoplasms, colon Special screening for malignant neoplasms, colon Disease Active 8-03 00:00: 00 [facility] Hyperglyce ayo Hyperglyce ayo Disease Active 3-28 00:00: 00 [facility] Finding of above normal blood pressure Finding of above normal blood pressure Disease Active 2020-09 2-17 00:00: 00 [facility] Backache Backache Disease Active 2020-09 1-24 00:00: 00 [facility] Abdominal pain, left upper quadrant Abdominal pain, left upper quadrant Disease Active 2020-09 1- 00:00: 00 [facility] Vaginal discharge Vaginal discharge Disease Active 03-26 00:00: 00 [facility] Diabetic polyneurop athy associated with type 2 diabetes mellitus Diabetic polyneurop athy associated with type 2 diabetes mellitus Disease Active 03-26 00:00: 00 [facility] Uncontroll ed type 2 diabetes mellitus with hyperglyce ayo Uncontroll ed type 2 diabetes mellitus with hyperglyce ayo Disease Active 03-26 00:00: 00 [facility] Dyslipidem ia Dyslipidem ia Disease Active 03-26 00:00: 00 [facility] Tension-ty pe headache Tension-ty pe headache Disease Active 01-01 00:00: 00 Overview: Formattin g of this note might be different from the original. Pt's history consisten [...] instructe d to continue APAP as needed. [facility] Sebaceous cyst Sebaceous cyst Disease Active 01-01 00:00: 00 [facility] Pure hyperchole sterolemia Pure hyperchole sterolemia Disease Active 01-01 00:00: 00 [facility] Polycystic ovaries Polycystic ovaries Disease Active 01-01 00:00: 00 [facility] Pilar cyst Pilar cyst Disease Active 01-01 00:00: 00 [facility] Other disorders of menstruati on and other abnormal bleeding from female genital tract Other disorders of menstruati on and other abnormal bleeding from female genital tract Disease Active 01-01 00:00: 00 [facility] Allergic urticaria Allergic urticaria Disease Active 01-01 00:00: 00 Overview: Formattin g of this note might be different from the original. Marcica will, the Welbutrin , (prescrib ed on September [...] may be related to her allergic reaction [facility] Allergic rhinitis Allergic rhinitis Disease Active 01-01 00:00: 00 [facility] Personal history of COVID-19 Personal history of COVID-19 Disease Active 3-04 00:00: 00 [facility] Effusion, right ankle Effusion, right ankle Disease Active 2-26 00:00: 00 [facility] Irregular bleeding Irregular bleeding Disease Active 2019-09 0-29 00:00: 00 [facility] Blephariti s Blephariti s Disease Active 6-09 00:00: 00 [facility] Vitamin D deficiency Vitamin D deficiency Disease Active 2018-09 0-15 00:00: 00 [facility] Hemorrhoid s Hemorrhoid s Disease Active 2018-09 0-15 00:00: 00 [facility] Abscess of skin of abdomen Abscess of skin of abdomen Disease Active 2018-09 0-15 00:00: 00 [facility] Other depression Other depression Disease Active 01-27 00:00: 00 [facility] History of pre-eclamp rico in prior , currently in third trimester History of pre-eclamp rico in prior , currently in third trimester Disease Resolve d 02-10 00:00: 00 2020-07-11 00:00:00 2020-07-11 09:26:57 [facility] History of delivery, currently , third trimester History of delivery, currently , third trimester Disease Resolve d 02-10 00:00: 00 2020-07-11 00:00:00 2020-07-11 09:26:58 [facility] Insufficie nt antepartum care Insufficie nt antepartum care Disease Resolve d 01-27 00:00: 00 2020-07-11 00:00:00 2020-07-11 09:26:20 [facility] Maternal morbid obesity, antepartum Maternal morbid obesity, antepartum Disease Resolve d 01-27 00:00: 00 2020-07-11 00:00:00 2020-07-11 09:26:27 [facility] Type 1 diabetes mellitus without complicati on Type 1 diabetes mellitus without complicati on Disease Resolve d 01-27 00:00: 00 2020-07-11 00:00:00 2020-07-11 09:26:36 [facility] Current with history of pre-term labor in second trimester Current with history of pre-term labor in second trimester Disease Resolve d 01-27 00:00: 00 2020-07-11 00:00:00 2020-07-11 09:26:55 [facility] Previous recurrent miscarriag es affecting , antepartum Previous recurrent miscarriag es affecting , antepartum Disease Resolve d 01-27 00:00: 00 2020-07-11 00:00:00 2020-07-11 09:26:54 [facility] Obesity (BMI 30-39.9) Obesity (BMI 30-39.9) Disease Resolve d 01-24 00:00: 00 2018-01-27 00:00:00 2018-01-27 09:31:41 [facility] 23 weeks gestation of 23 weeks gestation of Disease Resolve d 01-24 00:00: 00 2018-01-27 00:00:00 2018-01-27 09:17:56 [facility] Type 1 diabetes mellitus Type 1 diabetes mellitus Disease Resolve d 01-24 00:00: 00 2018-01-27 00:00:00 2018-01-27 09:17:56 [facility] Allergies, Adverse Reactions, Alerts Allergy Name Allergy Type Status Severity Reaction(s) Onset Date Inactive Date Treating Clinician Comments Source MEPERIDI NE HCL DRUG INGREDI Active Hives 01-24 00:00: 00 [facility] PROMETHA ZINE DRUG INGREDI Active Anxiety 01-24 00:00: 00 [facility] BUPROPIO N HCL DRUG INGREDI Active Hives 01-24 00:00: 00 [facility] MEPERIDI NE DRUG INGREDI Active Hives 01-24 00:00: 00 [facility] Meperidi ne Drug Allergy Active Swelling 01-24 00:00: 00 Demerol [facility] Meperidi ne Hcl Propensi ty to adverse reaction s Active Swelling 01-24 00:00: 00 [facility] Prometha zine Propensi ty to adverse reaction s Active Swelling 0 14 00:00: 00 [facility] Bupropio n Hcl Propensi ty to adverse reaction s Active Swelling 01-24 00:00: 00 [facility] Social History Social Habit Start Date Stop Date Quantity Comments Source History SDOH Social Connections Get Together [facility] History SDOH Social Connections [facility] History SDOH Social Connections Membership [facility] History SDOH Social Connections Meetings [facility] Gender identity [facility] Alcoholic beverage intake 2024-04-28 00:00:00 2024-04-28 00:00:00 Current drinker of alcohol (finding) [facility] Tobacco use and exposure 2024-02-01 00:00:00 2024-02-01 00:00:00 Smokeless tobacco non-user [facility] Alcohol intake 2023-10-15 00:00:00 2023-10-15 00:00:00 Current drinker of alcohol (finding) [facility] History of Social function 2023-09-28 00:00:00 2023-09-28 00:00:00 [facility] History SDOH Alcohol Frequency 2022-12-09 00:00:00 2022-12-09 00:00:00 1 [facility] History SDOH Social Connections Phone 2022-12-09 00:00:00 2022-12-09 00:00:00 5 [facility] History SDOH Social Connections Living 2022-12-09 00:00:00 2022-12-09 00:00:00 3 [facility] History SDOH Physical Activity DPW 2022-12-09 00:00:00 2022-12-09 00:00:00 4 [facility] History SDOH Physical Activity MPS 2022-12-09 00:00:00 2022-12-09 00:00:00 2 [facility] History SDOH Financial 2022-12-09 00:00:00 2022-12-09 00:00:00 5 [facility] History SDOH Food Worry 2022-12-09 00:00:00 2022-12-09 00:00:00 1 [facility] History SDOH Food Scarcity 2022-12-09 00:00:00 2022-12-09 00:00:00 1 [facility] History SDOH Transport Med 2022-12-09 00:00:00 2022-12-09 00:00:00 2 [facility] History SDOH Transport Non-Med 2022-12-09 00:00:00 2022-12-09 00:00:00 2 [facility] History SDOH Housing Unable to Pay 2022-12-09 00:00:00 2022-12-09 00:00:00 2 [facility] History SDOH Housing Places Lived 2022-12-09 00:00:00 2022-12-09 00:00:00 1 [facility] History SDOH Housing Homeless Last Year 2022-12-09 00:00:00 2022-12-09 00:00:00 2 [facility] Exposure to SARS-CoV-2 (event) 2022-11-28 00:00:00 2022-12-08 23:07:00 Not sure [facility] Education 2022-12-08 00:00:00 2022-12-08 00:00:00 17 [facility] Tobacco Comment 2022-11-10 00:00:00 2022-11-10 00:00:00 2-3 ciggs a day [facility] Alcohol Comment 2020-05-17 00:00:00 2020-05-17 00:00:00 social [facility] History SDOH Alcohol Std Drinks 2020-05-17 00:00:00 2020-05-17 00:00:00 99 [facility] History SDOH Alcohol Binge 2020-05-17 00:00:00 2020-05-17 00:00:00 99 [facility] History of tobacco use 2017-07-14 00:00:00 Cigarette Smoker [facility] Sex assigned at 1985 00:00:00 1985 00:00:00 [facility] Smoking Status Start Date Stop Date Source Occasional tobacco smoker 2024-02-01 00:00:00 [facility] Medications Ordered Medication Name Filled Medication Name Start Date Stop Date Current Medication? Ordering Clinician Indication Dosage Frequency Signature (SIG) Comments Components Source insulin glargine (LANTUS U-100) injection 34 Units 04-11 14:00: 00 Yes 34U 34 Units, Subcutaneo us, DAILY, First dose on Wed04/11/24 at 0900, Until Discontinu ed, Routine [facility] docusate (COLACE) capsule 100 mg 04-11 01:00: 00 Yes 100mg 100 mg, Oral, Q12H, First dose on Wed04/10/24 at 2000, Until Discontinu ed, Routine [facility] Sliding Scale Insulin - Lispro (HumaLOG) 04-11 00:00: 00 Yes Subcutaneo us, Q2HPRN, Starting on Wed04/10/24 at 1900, Until Discontinu ed, Routine [facility] ondansetron (ZOFRAN) 4 mg tablet 04-11 00:00: 00 Yes [id number] 4mg Take 1 tablet by mouth every 8 (eight) hours as needed for Nausea and Vomiting (N/V). [facility] FENTanyl PF (SUBLIMAZE (PF)) injection 100 mcg 04-11 00:00: 00 04-11 00:41 :00 No 100ug 100 mcg, Slow IV Push, ONCE, 1 dose, On Wed04/10/24 at 1900, Routine [facility] simethicone (GAS RELIEF (SIMETHICON E)) chewable tablet 160 mg 04-10 23:00: 00 Yes 160mg 160 mg, Oral, PC+HS, First dose on Wed04/10/24 at 1800, Until Discontinu ed, Routine [facility] ketorolac (TORADOL) injection 30 mg 04-10 23:00: 00 04-11 17:23 :00 No 30mg 30 mg, Slow IV Push, Q6H, 4 doses, First dose on Wed04/10/24 at 1800, Last dose on Wed04/11/24 at 1200, Routine [facility] Sliding Scale Insulin - Lispro (HumaLOG) 04-10 22:00: 00 04-11 00:13 :17 No Subcutaneo us, TID MEALS+HS, First dose on Wed04/10/24 at 1700, Until Discontinu ed, Routine [facility] glucagon (GLUCAGEN DIAGNOSTIC KIT) injection 1 mg 04-10 21:22: 52 Yes 1mg 1 mg, Intramuscu lar, PRN, Starting on Wed04/10/24 at 1622, Until Discontinu ed, DENISE, Blood Glucose < or = 70 mg/dL and patient is NPO, unable to swallow or has mental changes. [facility] dextrose 50 % in water (D50W) injection 25 mL 04-10 21:22: 52 Yes 25mL 25 mL, Slow IV Push, PRN, Starting on Wed04/10/24 at 1622, Until Discontinu ed, DENISE, Blood Glucose < or = 70 mg/dL and patient is NPO, unable to swallow or has mental status changes. [facility] scopolamine transdermal (TRANSDERM- SCOP) patch 1.5 mg 04-10 21:00: 00 Yes 1.5mg 1.5 mg, Topical, Administer over 72 Hours, Q72H, First dose on Wed04/10/24 at 1600, Until Discontinu ed, Routine [facility] lactated ringers IV infusion 1,000 mL 04-10 20:00: 00 Yes 1000mL at 75 mL/hr, 1,000 mL, IV Infusion, CONTINUOUS , Starting on Wed04/10/24 at 1500, Until Discontinu ed, Routine, PACU [facility] ondansetron (ZOFRAN (PF)) injection 4 mg 04-10 19:53: 46 Yes 4mg 4 mg, Slow IV Push, Q6HPRN, Starting on Wed04/10/24 at 1453, Until Discontinu ed, Routine, Nausea and Vomiting (N/V) [facility] acetaminoph en (TYLENOL) tablet 650 mg 04-10 19:53: 09 Yes 650mg 650 mg, Oral, Q6HPRN, Starting on Wed04/10/24 at 1453, Until Discontinu ed, Routine, Pain (scale 1-3) [facility] metoclopram tim HCl (REGLAN) injection 10 mg 04-10 19:00: 00 04-10 18:04 :00 No 10mg 10 mg, Slow IV Push, ONCE, 1 dose, On Wed04/10/24 at 1400, Routine [facility] diphenhydrA MINE (BENADRYL) injection 25 mg 04-10 18:30: 00 04-10 17:37 :00 No 25mg 25 mg, Intravenou s, ONCE, 1 dose, On Wed04/10/24 at 1330, Routine [facility] famotidine (PEPCID (PF)) injection 20 mg 04-10 18:30: 00 04-10 17:34 :00 No 20mg 20 mg, Slow IV Push, ONCE, 1 dose, On Wed04/10/24 at 1330, Routine [facility] lactated ringers IV infusion 1,000 mL 04-10 16:45: 00 Yes 1000mL at 100 mL/hr, 1,000 mL, IV Infusion, CONTINUOUS , Starting on Wed04/10/24 at 1145, Until Discontinu ed, Routine, PACU [facility] morphine (2 mg/mL) injection 2 mg 04-10 16:44: 11 04-10 20:31 :32 No 2mg 2 mg, Slow IV Push, Q5MIN PRN, 5 doses, Starting on Wed04/10/24 at 1144, Until Wed04/10/24 at 1531, Routine, Pain (scale 4-6), PACU [facility] ondansetron (ZOFRAN (PF)) injection 4 mg 04-10 16:44: 10 04-10 17:05 :00 No 4mg 4 mg, Slow IV Push, PRN, 1 dose, Starting on Wed04/10/24 at 1144, Until Wed04/10/24 at 1205, Routine, Nausea and Vomiting (N/V), PACU [facility] NaCl 0.9% (NS) IV infusion 04-10 16:20: 00 04-10 20:31 :32 No CONTINUOUS PRN, Starting on Wed04/10/24 at 1120, Until Wed04/10/24 at 1531, Routine, Intra-op [facility] sodium chloride 0.9 % irrigation solution 04-10 14:58: 00 04-10 16:45 :25 No PRN, Starting on Wed04/10/24 at 0958, Until Wed04/10/24 at 1145, Intra-op [facility] bupivacaine (preserv free) 0.5% (SENSORCAIN E MPF) injection 04-10 14:26: 00 04-10 16:45 :25 No PRN, Starting on Wed04/10/24 at 0926, Until Wed04/10/24 at 1145, Routine, Intra-op [facility] lactated ringers IV infusion 1,000 mL 04-10 11:45: 00 04-10 12:20 :00 No 1000mL at 42 mL/hr, 1,000 mL, IV Infusion, ONCE, 1 dose, On Wed04/10/24 at 0645, Routine, DSU Pre-op [facility] ibuprofen 600 mg tablet 04-10 00:00: 00 Yes [id number] 600mg Take 1 tablet by mouth every 6 (six) hours. [facility] acetaminoph en (TYLENOL EXTRA STRENGTH) 500 mg tablet 04-10 00:00: 00 Yes [id number] 500mg Take 1 tablet by mouth every 6 (six) hours. [facility] polyethylen e glycol 3350 17 gram/dose powder 04-10 00:00: 00 Yes [id number] 17g Take 17 g by mouth in the morning. [facility] metroNIDAZO LE 500 mg tablet 04-10 00:00: 00 04-18 04:59 :00 Yes [id number] 500mg Take 1 tablet by mouth in the morning and 1 tablet in the evening. Do all this for 7 days. [facility] oxyCODONE 5 mg immediate release tablet 04-10 00:00: 00 04-18 04:59 :00 Yes [id number] 5mg Take 1 tablet by mouth every 6 (six) hours as needed for Pain (scale 7-10) for up to 7 days. Indication s: acute pain [facility] acetaminoph en 500 mg tablet 03-23 14:20: 36 Yes 500mg Take 1 tablet by mouth as needed for Pain. [facility] insulin degludec (TRESIBA FLEXTOUCH U-100) 100 unit/mL (3 mL) InPn 03-13 00:00: 00 Yes [id number] 43U inject 43 Units under the skin every morning. [facility] insulin lispro (HUMALOG KWIKPEN INSULIN) 100 unit/mL pen injector 03-13 00:00: 00 Yes [id number] 10U inject 10-18 Units under the skin in the morning and 10-18 Units at noon and 10-18 Units in the evening. inject before meals. Please take you blood sugar 30 minutes before you eat. [facility] Blood-Gluco se Sensor (FREESTYLE GRANT 3 SENSOR) Stephanie 03-13 00:00: 00 Yes [id number] 1{each} inject 1 Each under the skin every 14 (fourteen) days. Use as directed [facility] Blood-Gluco se Sensor (FREESTYLE GRANT 3 SENSOR) 03-07 00:00: 00 03-13 00:00 :00 No [id number] USE DIRECTED AND CHANGE EVERY 2 WEEKS. [facility] acetaminoph en (TYLENOL 8 HOUR) 650 mg CR tablet 01-31 11:59: 25 Yes 650mg Take 1 tablet by mouth every 8 (eight) hours as needed for Pain. [facility] Blood-Gluco se Transmitter (DEXCOM G6 TRANSMITTER ) Stephanie 01-31 00:00: 00 Yes [id number] Use as directed. Change every 90 days [facility] insulin pump cart,auto,B T-cntr (OMNIPOD 5 G6 INTRO KIT, GEN 5,) [facility] 01-31 00:00: 00 Yes [id number] 1{kit} inject 1 Kit under the skin in the morning. [facility] insulin pump cart,automa ryder,BT (OMNIPOD 5 G6 PODS, GEN 5,) [facility] 01-31 00:00: 00 Yes [id number] 1{each} inject 1 Each under the skin every 72 (seventy-t wo) hours. [facility] Blood-Gluco se Sensor (DEXCOM G6 SENSOR) [facility] 01-31 00:00: 00 03-07 00:00 :00 No [id number] Use as directed every 10 days [facility] insulin degludec (TRESIBA FLEXTOUCH U-100) 100 unit/mL (3 mL) In 10-15 00:00: 00 03-13 00:00 :00 No [id number] 43U inject 43 Units under the skin every morning. [facility] insulin lispro (HUMALOG KWIKPEN INSULIN) 100 unit/mL pen injector 10-15 00:00: 00 03-13 00:00 :00 No [id number] 10U inject 10-18 Units under the skin in the morning and 10-18 Units at noon and 10-18 Units in the evening. inject before meals. Please take you blood sugar 30 minutes before you eat. [facility] Blood-Gluco se Sensor (FREESTYLE GRANT 3 SENSOR) 10-15 00:00: 00 01-31 00:00 :00 No [id number] Use as directed every 2 weeks [facility] insulin lispro (HUMALOG KWIKPEN INSULIN) 100 unit/mL pen injector 10-15 00:00: 00 10-15 00:00 :00 No [id number] 10U inject 10-18 Units under the skin in the morning and 10-18 Units at noon and 10-18 Units in the evening. inject before meals. Please take you blood sugar 30 minutes before you eat. [facility] acetaminoph en (TYLENOL) tablet 650 mg 09-25 00:45: 00 09-25 00:45 :00 No 650mg 650 mg, Oral, ONCE, 1 dose, On Wed09/24/23 at 1845, [facility] insulin regular human (HUMULIN R) injection 8 Units 09-24 22:30: 00 09-24 22:08 :00 No 8U 8 Units, Slow IV Push, ONCE, 1 dose, On Wed09/24/23 at 1630, Routine
Indicatio n for insulin: Hyperglyce ayo [facility] NaCl 0.9% (NS) bolus infusion 1,000 mL 09-24 21:45: 00 09-24 22:12 :00 No 1000mL at 999 mL/hr, 1,000 mL, IV Infusion, ONCE, 1 dose, On Wed09/24/23 at 1545, [facility] metoclopram tim HCl (REGLAN) injection 10 mg 09-24 21:00: 00 09-24 20:58 :00 No 10mg 10 mg, Slow IV Push, ONCE, 1 dose, On Wed09/24/23 at 1500, [facility] pantoprazol e (PROTONIX) 80 mg in NaCl 0.9% (NS) 20 mL syringe 2022-09 04:30: 00 06-24 16:29 :00 No 80mg 80 mg, IV Push, ONCE, 1 dose, On Wed06/23/23 at 2330, Administer over 2 Minutes, 20 mL [facility] maalox:diph enhydrAMINE :lidocaine 2 % viscous 1:1:1 ([facility]) oral suspension 15 mL 2022-09 04:15: 00 06-24 03:30 :00 No 15mL 15 mL, Oral, ONCE, 1 dose, On Wed06/23/23 at 2315, Routine [facility] iopamidol (ISOVUE 370-500 mL) injection 100 mL 2022-09 04:00: 00 06-24 04:00 :00 No [id number] 100mL 100 mL, Intravenou s, ONCE, 1 dose, On Wed06/23/23 at 2300, Routine [facility] NaCl 0.9% (NS) bolus infusion 500 mL 2022-09 02:45: 00 06-24 03:34 :00 No 500mL at 999 mL/hr, 500 mL, IV Infusion, ONCE, 1 dose, On Wed06/23/23 at 2145, STAT [facility] sucralfate 1 gram tablet 2022-09 00:00: 00 Yes [id number] 1g Take 1 tablet by mouth before meals and at bedtime. [facility] dicyclomine (BENTYL) 10 mg capsule 2022-09 00:00: 00 Yes [id number] 10mg Take 1 capsule by mouth every 8 (eight) hours as needed for Abdominal pain. [facility] ondansetron 4 mg disintegrat ing tablet 2022-09 00:00: 00 Yes [id number] 4mg Take 1 tablet by mouth every 8 (eight) hours as needed for Nausea and Vomiting (N/V). [facility] omeprazole 20 mg capsule 2022-09 00:00: 00 07-24 05:59 :00 No [id number] 20mg Take 1 capsule by mouth in the morning for 30 days. [facility] Blood-Gluco se Sensor (FREESTYLE GRANT 3 SENSOR) Stephanie 9-05 00:00: 00 10-15 00:00 :00 No [id number] Use as directed every 2 weeks [facility] tc 99m-sulfur colloid oral solution 1 millicurie 04-26 18:15: 00 04-26 14:15 :00 No [id number] 1mCi 1 millicurie , Oral, ONCE, 1 dose, On Wed04/26/23 at 1315, Routine [facility] nitroglycer in 0.4 % (w/w) ointment 04-15 00:00: 00 Yes [id number] 1[in_us ] Insert 1 Inch into rectum every 12 (twelve) hours. [facility] polyethylen e glycol 3350 (MIRALAX) 17 gram/dose powder 04-15 00:00: 00 Yes [id number] 17g Take 17 g by mouth in the morning. [facility] peg-electro lyte soln 236-22.74-6 .74 -5.86 gram solution 04-15 00:00: 00 04-16 04:59 :00 No [id number] 4000mL Take 4,000 mL by mouth once now for 1 dose. [facility] MULTIVITAMI N ORAL 04-08 09:36: 14 Yes 1{tbl} Take 1 tablet by mouth daily. [facility] atorvastati n 80 mg tablet 04-08 00:00: 00 01-31 00:00 :00 No [id number] 80mg Take 1 tablet by mouth at bedtime. [facility] dicyclomine (BENTYL) capsule 10 mg 12-09 17:00: 00 Yes 10mg 10 mg, Oral, QID, First dose on Wed12/09/22 at 1200, Until Discontinu ed, Routine [facility] MULTIVITAMI N ORAL 12-09 16:53: 59 Yes 1{tbl} Take 1 tablet by mouth daily. [facility] maalox:diph enhydrAMINE :lidocaine 2 % viscous 1:1:1 ([facility]) oral suspension 15 mL 12-09 16:00: 00 12-09 15:14 :00 No 15mL 15 mL, Oral, ONCE, 1 dose, On Wed12/09/22 at 1100, Routine [facility] metoclopram tim HCl (REGLAN) injection 5 mg 12-09 15:15: 00 Yes 5mg 5 mg, Slow IV Push, Q6H, First dose on Wed12/09/22 at 1015, Until Discontinu ed, Routine [facility] insulin glargine (LANTUS U-100) injection 20 Units 12-09 14:00: 00 Yes 20U 20 Units, Subcutaneo us, DAILY, First dose on Wed12/09/22 at 0900, Until Discontinu ed [facility] enoxaparin (LOVENOX) injection 40 mg 12-09 14:00: 00 Yes 40mg 40 mg, Subcutaneo us, DAILY, First dose on Wed12/09/22 at 0900, Until Discontinu ed, Routine [facility] famotidine (PEPCID AC) tablet 20 mg 12-09 13:00: 00 Yes 20mg 20 mg, Oral, BID, First dose on Wed12/09/22 at 0800, Until Discontinu ed, Routine [facility] cyclobenzap rine (FLEXERIL) tablet 5 mg 12-09 08:45: 00 12-09 08:17 :00 No 5mg 5 mg, Oral, ONCE, 1 dose, On Wed12/09/22 at 0345, Routine [facility] KCL (KLOR-CON M20) tablet 40 mEq 12-09 08:45: 00 12-09 08:17 :00 No 40meq 40 mEq, Oral, ONCE, 1 dose, On Wed12/09/22 at 0345, Routine [facility] magnesium sulfate in water 2 gram/50 mL (4 %) infusion 2 g 12-09 08:30: 00 12-09 09:20 :00 No 2g 2 g, IV Piggyback, Administer over 60 Minutes, ONCE, 1 dose, On Wed12/09/22 at 0330, Routine [facility] Sliding Scale Insulin-Reg ular + Fsbg Testing 12-09 07:00: 00 Yes Subcutaneo us, Q6HA, First dose on Wed12/09/22 at 0200, Until Discontinu ed, [facility] S[facility] (ZOLOFT) tablet 200 mg 12-09 05:30: 00 Yes 200mg 200 mg, Oral, QHS, First dose (after last modificati on) on Wed12/09/22 at 0030, Until Discontinu ed, [facility] ketorolac (TORADOL) injection 30 mg 12-09 03:15: 00 12-09 02:25 :00 No 30mg 30 mg, Slow IV Push, ONCE, 1 dose, On Wed12/08/22 at 2215, Routine [facility] dextrose 50 % in water (D50W) injection 50 mL 12-09 03:15: 00 12-09 02:23 :00 No 1{syrin ge} 50 mL (1 Syringe), Slow IV Push, ONCE, 1 dose, On Wed12/08/22 at 2215, DENISE [facility] ondansetron (ZOFRAN (PF)) injection 4 mg 12-09 03:05: 37 Yes 4mg 4 mg, Slow IV Push, Q6HPRN, Starting on Wed12/08/22 at 2205, Until Discontinu ed, Routine, Nausea and Vomiting (N/V) [facility] traMADoL (ULTRAM) tablet 50 mg 12-09 03:05: 34 12-11 03:04 :34 No 50mg 50 mg, Oral, Q8HPRN, Starting on Wed12/08/22 at 2205, Until Comfort 12/10/22 at 2204, Routine, Pain (scale 4-6) [facility] acetaminoph en (TYLENOL) tablet 650 mg 12-09 03:05: 31 Yes 650mg 650 mg, Oral, Q6HPRN, Starting on Wed12/08/22 at 2205, Until Discontinu ed, Routine, Pain (scale 1-3) [facility] ACETAMINOPH EN (TYLENOL ORAL) 12-09 00:15: 16 12-08 00:00 :00 No 325mg Take 325 mg by mouth as needed for Pain (scale 1-3), Pain (scale 4-6) or Pain (scale 7-10). [facility] iopamidol (ISOVUE 370-500 mL) injection 74 mL 12-09 00:05: 00 12-09 00:30 :00 No [id number] 74mL 74 mL, Intravenou s, ONCE, 1 dose, On Wed12/08/22 at 1930, Routine [facility] famotidine 20 mg tablet 12-09 00:00: 00 01-09 04:59 :00 No [id number] 20mg Take 1 tablet by mouth in the morning for 30 days. [facility] dicyclomine 10 mg capsule 12-09 00:00: 00 12-20 04:59 :00 No [id number] 10mg Take 1 capsule by mouth 4 (four) times daily for 10 days. [facility] NaCl 0.9% (NS) bolus infusion 1,000 mL 12-09 00:00: 00 12-09 03:45 :00 No 1000mL at 999 mL/hr, 1,000 mL, IV Infusion, ONCE, 1 dose, On Wed12/08/22 at 1900, DENISE [facility] lactulose (CEPHULAC) solution 45 mL 12-08 23:15: 00 12-09 00:20 :00 No 45mL 45 mL, Oral, ONCE, 1 dose, On Wed12/08/22 at 1815, DENISE [facility] magnesium sulfate in water 2 gram/50 mL (4 %) infusion 2 g 12-08 23:00: 00 12-08 23:16 :00 No 2g 2 g, IV Piggyback, Administer over 60 Minutes, ONCE, 1 dose, On Wed12/08/22 at 1800, Routine [facility] NaCl 0.9% (NS) bolus infusion 1,000 mL 12-08 22:15: 00 12-08 23:17 :00 No 1000mL at 999 mL/hr, 1,000 mL, IV Infusion, ONCE, 1 dose, [facility]12/08/22 [facility] 1715[facility]/mL[facility] 4 mg 12-08 21:45: 00 12-09 01:56 :00 No 4mg 4 mg, Slow IV Push, ONCE, 1 dose, On Wed12/08/22 at 1645, STAT [facility] ondansetron (ZOFRAN (PF)) injection 4 mg 12-08 21:45: 00 12-08 22:33 :00 No 4mg 4 mg, Slow IV Push, ONCE, 1 dose, On Wed12/08/22 at 1645, DENISE [facility] ketorolac (TORADOL) injection 30 mg 11-11 03:30: 00 11-11 02:33 :00 No [id number] [facility] ACETAMINOPH EN (TYLENOL ORAL) 11-10 20:11: 06 Yes 325mg Take 325 mg by mouth as needed for Pain (scale 1-3), Pain (scale 4-6) or Pain (scale 7-10). [facility] MULTIVITAMI N ORAL 11-10 20:11: 06 Yes 1{tbl} Take 1 tablet by mouth daily. [facility] cyclobenzap rine 5 mg tablet 11-10 00:00: 00 04-08 00:00 :00 No [id number] 4 5mg Take 1 tablet by mouth at bedtime. [facility] ciprofloxac in-dexameth asone 0.3-0.1 % otic drops 11-10 00:00: 00 12-09 00:00 :00 No [id number] 4[drp] Place 4 Drops in left ear in the morning and 4 Drops in the evening. [facility] ciprofloxac in HCl 250 mg tablet 11-10 00:00: 00 11-18 05:59 :00 No [id number] 250mg Take 1 tablet by mouth every 12 (twelve) hours for 7 days. [facility] SERTraline 100 mg tablet 11 00:00: 00 01-31 00:00 :00 No 200mg Take 2 tablets by mouth at bedtime. [facility] atorvastati n 20 mg tablet 03-23 00:00: 00 04-08 00:00 :00 No 20mg Take 1 tablet by mouth. [facility] multivit-mi ns no.63/iron/ folic (M-VIT ORAL) 03-26 11:07: 24 03-26 00:00 :00 No Take by mouth. [facility] insulin lispro (HUMALOG KWIKPEN INSULIN) 100 unit/mL pen injector 02-27 00:00: 00 10-15 00:00 :00 No 10U inject 10-18 Units under the skin 3 (three) times daily before meals. [facility] insulin lispro (HUMALOG KWIKPEN INSULIN) 100 unit/mL pen injector 02-27 00:00: 00 10-15 00:00 :00 No 10U inject 10-18 Units under the skin 3 (three) times daily before meals. [facility] BIOTIN ORAL 02-25 14:31: 33 02-25 00:00 :00 No Take by mouth. [facility] insulin degludec (TRESIBA FLEXTOUCH U-100) 100 unit/mL (3 mL) InPn 02-25 00:00: 00 10-15 00:00 :00 No [id number] 38U inject 38 Units under the skin every morning. [facility] metformin ER 500 mg 24 hr tablet 02-25 00:00: 00 12-09 00:00 :00 No [id number] 1000mg Take 2 tablets by mouth daily with breakfast. [facility] gabapentin 100 mg capsule 02-25 00:00: 00 12-09 00:00 :00 No [id number] 100mg Take 1 capsule by mouth at bedtime. [facility] fluconazole (DIFLUCAN) 150 mg tablet 02-25 00:00: 00 11-10 00:00 :00 No [id number] 150mg Take 1 tablet by mouth every 72 (seventy-t wo) hours. [facility] atorvastati n 20 mg tablet 02-16 00:00: 00 12-09 00:00 :00 No 20mg Take 1 tablet by mouth every morning. [facility] MULTIVITAMI N ORAL 01-01 19:26: 41 01-31 00:00 :00 No 1{tbl} Take 1 tablet by mouth daily. [facility] venlafaxine XR (EFFEXOR XR) 37.5 mg 24 hr capsule 01-01 19:26: 06 01-01 00:00 :00 No 37.5mg Take 37.5 mg by mouth daily with breakfast. [facility] ACETAMINOPH EN (TYLENOL ORAL) 01-01 19:24: Yes 325mg Take 325 mg by mouth as needed for Pain (scale 1-3), Pain (scale 4-6) or Pain (scale 7-10). [facility] norgestimat e-ethinyl estradioL 0.25-35 mg-mcg per tablet 10-16 00:00: 00 12-08 00:00 :00 No [id number] 1{tbl} Take 1 tablet by mouth daily. [facility] insulin degludec (TRESIBA FLEXTOUCH U-100) 100 unit/mL (3 mL) InPn 2019-09 00:00: 00 02-25 00:00 :00 No [id number] 38U inject 38 Units under the skin every morning. [facility] FREESTYLE GRANT 2 SENSOR Kit 2019-09 00:00: 00 02-25 00:00 :00 No [id number] 1{kit} 1 Kit every 14 (fourteen) days. [facility] FREESTYLE GRANT 2 READER Misc 2019-09 00:00: 00 02-25 00:00 :00 No [id number] 1{kit} 1 Kit daily. [facility] insulin aspart U-100 (NOVOLOG FLEXPEN U-100 INSULIN) 100 unit/mL (3 mL) injection 2020-1 2-30 00:00: 00 02-20 00:00 :00 No [id number] 10U inject 10-18 Units under the skin 3 (three) times daily before meals. [facility] acetaminoph en-codeine 300-30 mg tablet 2019-09 2-25 00:00: 00 01-01 00:00 :00 No [id number] 1{tbl} Take 1 tablet by mouth every 4 (four) hours as needed for Pain (scale 4-6). Indication s: acute pain [facility] norgestimat e-ethinyl estradioL 0.25-35 mg-mcg per tablet 2019-09 1- 00:00: 00 10-16 00:00 :00 No [id number] 1{tbl} Take 1 tablet by mouth daily. [facility] atorvastati n 20 mg tablet 9-17 00:00: 00 01-01 00:00 :00 No 20mg Take 20 mg by mouth. [facility] lancets 31 gauge Misc 02-10 00:00: 00 Yes Use to test BS 4x/day [facility] Blood-Gluco se Meter (ONETOUCH ULTRA2) Kit 02-10 00:00: 00 02-25 00:00 :00 No Use to test BS 4x/day [facility] blood sugar diagnostic (ONETOUCH ULTRA TEST) strip 02-10 00:00: 00 02-25 00:00 :00 No Use to test BS 4x/day [facility] Insulin Syringe-Nee dle U-100 (INSULIN SYRINGE) 1 mL 30 gauge x 5/16 Syrg 02-10 00:00: 00 02-25 00:00 :00 No Use to inject insulin TID [facility] Immunizations Ordered Immunization Name Filled Immunization Name Date Status Comments Source Influenza Virus Vaccine Quad .5 mL IM 6+ MO 2020-09-11 00:00:00 Completed [facility] Influenza Virus Vaccine Quad .5 mL IM 6+ MO 2020-09-11 00:00:00 Completed [facility] Influenza Virus Vaccine Quad .5 mL IM 6+ MO 2020-09-11 00:00:00 Completed [facility] Influenza Virus Vaccine Quad .5 mL IM 6+ MO 2020-09-11 00:00:00 Completed [facility] Influenza Virus Vaccine Quad .5 mL IM 6+ MO 2020-09-11 00:00:00 Completed [facility] Influenza Virus Vaccine Quad .5 mL IM 6+ MO 2020-09-11 00:00:00 Completed [facility] Influenza Virus Vaccine Quad .5 mL IM 6+ MO 2020-09-11 00:00:00 Completed [facility] Influenza Virus Vaccine Quad .5 mL IM 6+ MO 2020-09-11 00:00:00 Completed [facility] Influenza Virus Vaccine Quad .5 mL IM 6+ MO 2020-09-11 00:00:00 Completed [facility] Influenza Virus Vaccine Quad .5 mL IM 6+ MO 2020-09-11 00:00:00 Completed [facility] Influenza Virus Vaccine Quad .5 mL IM 6+ MO 2020-09-11 00:00:00 Completed [facility] Influenza Virus Vaccine Quad .5 mL IM 6+ MO 2020-09-11 00:00:00 Completed [facility] Influenza Virus Vaccine Quad .5 mL IM 6+ MO 2020-09-11 00:00:00 Completed [facility] Influenza Virus Vaccine Quad .5 mL IM 6+ MO 2020-09-11 00:00:00 Completed [facility] Influenza Virus Vaccine Quad .5 mL IM 6+ MO 2020-09-11 00:00:00 Completed [facility] Influenza Virus Vaccine Quad .5 mL IM 6+ MO 2020-09-11 00:00:00 Completed [facility] Influenza Virus Vaccine Quad .5 mL IM 6+ MO 2020-09-11 00:00:00 Completed [facility] Influenza Virus Vaccine Quad .5 mL IM 6+ MO 2020-09-11 00:00:00 Completed [facility] Influenza Virus Vaccine Quad .5 mL IM 6+ MO 2020-09-11 00:00:00 Completed [facility] Influenza Virus Vaccine Quad .5 mL IM 6+ MO 2020-09-11 00:00:00 Completed [facility] Influenza Virus Vaccine Quad .5 mL IM 6+ MO 2020-09-11 00:00:00 Completed [facility] Influenza Virus Vaccine Quad .5 mL IM 6+ MO 2020-09-11 00:00:00 Completed [facility] Influenza Virus Vaccine Quad .5 mL IM 6+ MO 2020-09-11 00:00:00 Completed [facility] Influenza Virus Vaccine Quad .5 mL IM 6+ MO 2020-09-11 00:00:00 Completed [facility] Influenza Virus Vaccine Quad .5 mL IM 6+ MO 2020-09-11 00:00:00 Completed [facility] Influenza Virus Vaccine Quad .5 mL IM 6+ MO (FLUZONE/FLULAVAL/F LUARIX) 2020-09-11 00:00:00 Completed [facility] Influenza Virus Vaccine Quad .5 mL IM 6+ MO (FLUZONE/FLULAVAL/F LUARIX) 2020-09-11 00:00:00 Completed [facility] Influenza Virus Vaccine Quad .5 mL IM 6+ MO (FLUZONE/FLULAVAL/F LUARIX) 2020-09-11 00:00:00 Completed [facility] Influenza Virus Vaccine Quad .5 mL IM 6+ MO (FLUZONE/FLULAVAL/F LUARIX) 2020-09-11 00:00:00 Completed [facility] Influenza Virus Vaccine Quad .5 mL IM 6+ MO (FLUZONE/FLULAVAL/F LUARIX) 2020-09-11 00:00:00 Completed [facility] Influenza Virus Vaccine Quad .5 mL IM 6+ MO (FLUZONE/FLULAVAL/F LUARIX) 2020-09-11 00:00:00 Completed [facility] Influenza Virus Vaccine Quad .5 mL IM 6+ MO (FLUZONE/FLULAVAL/F LUARIX) Unknown Completed [facility] Influenza Virus Vaccine Quad .5 mL IM 6+ MO (FLUZONE/FLULAVAL/F LUARIX) Unknown Completed [facility] Influenza Virus Vaccine Quad .5 mL IM 6+ MO (FLUZONE/FLULAVAL/F LUARIX) Unknown Completed [facility] Influenza Virus Vaccine Quad .5 mL IM 6+ MO (FLUZONE/FLULAVAL/F LUARIX) Unknown Completed [facility] Influenza Virus Vaccine Quad .5 mL IM 6+ MO (FLUZONE/FLULAVAL/F LUARIX) Unknown Completed [facility] Influenza Virus Vaccine Quad .5 mL IM 6+ MO (FLUZONE/FLULAVAL/F LUARIX) Unknown Completed [facility] Influenza Virus Vaccine Quad .5 mL IM 6+ MO (FLUZONE/FLULAVAL/F LUARIX) Unknown Completed [facility] Influenza Virus Vaccine Quad .5 mL IM 6+ MO (FLUZONE/FLULAVAL/F LUARIX) Unknown Completed [facility] Influenza Virus Vaccine Quad .5 mL IM 6+ MO (FLUZONE/FLULAVAL/F LUARIX) Unknown Completed [facility] Influenza Virus Vaccine Quad .5 mL IM 6+ MO (FLUZONE/FLULAVAL/F LUARIX) Unknown Completed [facility] Influenza Virus Vaccine Quad .5 mL IM 6+ MO (FLUZONE/FLULAVAL/F LUARIX) Unknown Completed [facility] Influenza Virus Vaccine Quad .5 mL IM 6+ MO (FLUZONE/FLULAVAL/F LUARIX) Unknown Completed [facility] Influenza Virus Vaccine Quad .5 mL IM 6+ MO (FLUZONE/FLULAVAL/F LUARIX) Unknown Completed [facility] Influenza Virus Vaccine Quad .5 mL IM 6+ MO (FLUZONE/FLULAVAL/F LUARIX) Unknown Completed [facility] Influenza Virus Vaccine Quad .5 mL IM 6+ MO (FLUZONE/FLULAVAL/F LUARIX) Unknown Completed [facility] Influenza Virus Vaccine Quad .5 mL IM 6+ MO (FLUZONE/FLULAVAL/F LUARIX) Unknown Completed [facility] Influenza Virus Vaccine Quad .5 mL IM 6+ MO (FLUZONE/FLULAVAL/F LUARIX) Unknown Completed [facility] SARS-COV-2 COVID-19 PFIZER VACCINE Unknown Completed [facility] SARS-COV-2 COVID-19 PFIZER VACCINE Unknown Completed [facility] Flu Injectable MDCK Quadrivalent Unknown Completed [facility] Influenza Virus Vaccine Quad IM, Preserv and ABX Free 6 MO-64 YRS (FLUCELVAX) Unknown Completed [facility] HEP B, Adult Dosage Unknown Completed [facility] HEP B, Adult Dosage Unknown Completed [facility] HEP B, Adult Dosage Unknown Completed [facility] HEP B, Adult Dosage Unknown Completed [facility] Flu Split Virus, PSA Unknown Completed [facility] Flu Whole Virus Unknown Completed [facility] Influenza Virus Vaccine Quad IM Multi-dose 6+ MO Unknown Completed [facility] Influenza Virus Vaccine Quad IM Multi-dose 6+ MO Unknown Completed [facility] MMR Unknown Completed [facility] MMR Unknown Completed [facility] Tetanus/Diptheria Unknown [facility] TDAP Unknown Completed [facility] PPD (TB) Unknown Completed [facility] PPD (TB) Unknown Completed [facility] Varicella (varivax)(chicken pox) Unknown Completed [facility] Varicella (varivax)(chicken pox) Unknown Completed [facility] Varicella (varivax)(chicken pox) Unknown Completed [facility] Influenza Virus Vaccine Quad .5 mL IM 6+ MO (FLUZONE/FLULAVAL/F LUARIX) Unknown Completed [facility] SARS-COV-2 COVID-19 PFIZER VACCINE Unknown Completed [facility] SARS-COV-2 COVID-19 PFIZER VACCINE Unknown Completed [facility] Flu Injectable MDCK Quadrivalent Unknown Completed [facility] Influenza Virus Vaccine Quad IM, Preserv and ABX Free 6 MO-64 YRS (FLUCELVAX) Unknown Completed [facility] HEP B, Adult Dosage Unknown Completed [facility] HEP B, Adult Dosage Unknown Completed [facility] HEP B, Adult Dosage Unknown Completed [facility] HEP B, Adult Dosage Unknown Completed [facility] Flu Split Virus, PSA Unknown Completed [facility] Flu Whole Virus Unknown Completed [facility] Influenza Virus Vaccine Quad IM Multi-dose 6+ MO Unknown Completed [facility] Influenza Virus Vaccine Quad IM Multi-dose 6+ MO Unknown Completed [facility] MMR Unknown Completed [facility] MMR Unknown Completed [facility] Tetanus/Diptheria Unknown [facility] TDAP [facility] Com[facility] TDAP Unknown Completed [facility] PPD (TB) Unknown Completed [facility] PPD (TB) Unknown Completed [facility] Varicella (varivax)(chicken pox) Unknown Completed [facility] Varicella (varivax)(chicken pox) Unknown Completed [facility] Varicella (varivax)(chicken pox) Unknown Completed [facility] Influenza Virus Vaccine Quad .5 mL IM 6+ MO (FLUZONE/FLULAVAL/F LUARIX) Unknown Completed [facility] SARS-COV-2 COVID-19 PFIZER VACCINE Unknown Completed [facility] SARS-COV-2 COVID-19 PFIZER VACCINE Unknown Completed [facility] Flu Injectable MDCK Quadrivalent Unknown Completed [facility] Influenza Virus Vaccine Quad IM, Preserv and ABX Free 6 MO-64 YRS (FLUCELVAX) Unknown Completed [facility] HEP B, Adult Dosage Unknown Completed [facility] HEP B, Adult Dosage Unknown Completed [facility] HEP B, Adult Dosage Unknown Completed [facility] HEP B, Adult Dosage Unknown Completed [facility] Flu Split Virus, PSA Unknown Completed [facility] Flu Whole Virus Unknown Completed [facility] Influenza Virus Vaccine Quad IM Multi-dose 6+ MO Unknown Completed [facility] Influenza Virus Vaccine Quad IM Multi-dose 6+ MO Unknown Completed [facility] MMR Unknown Completed [facility] MMR Unknown Completed [facility] Tetanus/Diptheria Unknown Completed [facility] TDAP Unknown Completed [facility] TDAP Unknown Completed [facility] PPD (TB) Unknown Completed [facility] PPD (TB) Unknown Completed [facility] Varicella (varivax)(chicken pox) Unknown Completed [facility] Varicella (varivax)(chicken pox) Unknown Completed [facility] Varicella (varivax)(chicken pox) Unknown Completed [facility] Influenza Virus Vaccine Quad .5 mL IM 6+ MO (FLUZONE/FLULAVAL/F LUARIX) Unknown Completed [facility] SARS-COV-2 COVID-19 PFIZER VACCINE Unknown Completed [facility] SARS-COV-2 COVID-19 PFIZER VACCINE Unknown Completed [facility] Flu Injectable MDCK Quadrivalent Unknown Completed [facility] Influenza Virus Vaccine Quad IM, Preserv and ABX Free 6 MO-64 YRS (FLUCELVAX) Unknown Completed [facility] HEP B, Adult Dosage Unknown Completed [facility] HEP B, Adult Dosage Unknown Completed [facility] HEP B, Adult Dosage Unknown Completed [facility] HEP B, Adult Dosage Unknown Completed [facility] Flu Split Virus, PSA Unknown Completed [facility] Flu Whole Virus Unknown Completed [facility] Influenza Virus Vaccine Quad IM Multi-dose 6+ MO Unknown Completed [facility] Influenza Virus Vaccine Quad IM Multi-dose 6+ MO Unknown Completed [facility] MMR Unknown Completed [facility] MMR Unknown Completed [facility] Tetanus/Diptheria Unknown [facility] TDAP Unknown Com[facility] TDAP Unknown Completed [facility] PPD (TB) Unknown Completed [facility] PPD (TB) Unknown Completed [facility] Varicella (varivax)(chicken pox) Unknown Completed [facility] Varicella (varivax)(chicken pox) Unknown Completed [facility] Varicella (varivax)(chicken pox) Unknown Completed [facility] Influenza Virus Vaccine Quad .5 mL IM 6+ MO (FLUZONE/FLULAVAL/F LUARIX) Unknown Completed [facility] SARS-COV-2 COVID-19 PFIZER VACCINE Unknown Completed [facility] SARS-COV-2 COVID-19 PFIZER VACCINE Unknown Completed [facility] Flu Injectable MDCK Quadrivalent Unknown Completed [facility] Influenza Virus Vaccine Quad IM, Preserv and ABX Free 6 MO-64 YRS (FLUCELVAX) Unknown Completed [facility] HEP B, Adult Dosage Unknown Completed [facility] HEP B, Adult Dosage Unknown Completed [facility] HEP B, Adult Dosage Unknown Completed [facility] HEP B, Adult Dosage Unknown Completed [facility] Flu Split Virus, PSA Unknown Completed [facility] Flu Whole Virus Unknown Completed [facility] Influenza Virus Vaccine Quad IM Multi-dose 6+ MO Unknown Completed [facility] Influenza Virus Vaccine Quad IM Multi-dose 6+ MO Unknown Completed [facility] MMR Unknown Completed [facility] MMR Unknown Completed [facility] Tetanus/Diptheria Unknown [facility] Com[facility] TDAP Unknown Completed [facility] PPD (TB) Unknown Completed [facility] PPD (TB) Unknown Completed [facility] Varicella (varivax)(chicken pox) Unknown Completed [facility] Varicella (varivax)(chicken pox) Unknown Completed [facility] Varicella (varivax)(chicken pox) Unknown Completed [facility] Influenza Virus Vaccine Quad .5 mL IM 6+ MO (FLUZONE/FLULAVAL/F LUARIX) Unknown Completed [facility] SARS-COV-2 COVID-19 PFIZER VACCINE Unknown Completed [facility] SARS-COV-2 COVID-19 PFIZER VACCINE Unknown Completed [facility] Flu Injectable MDCK Quadrivalent Unknown Completed [facility] Influenza Virus Vaccine Quad IM, Preserv and ABX Free 6 MO-64 YRS (FLUCELVAX) Unknown Completed [facility] HEP B, Adult Dosage Unknown Completed [facility] HEP B, Adult Dosage Unknown Completed [facility] HEP B, Adult Dosage Unknown Completed [facility] HEP B, Adult Dosage Unknown Completed [facility] Flu Split Virus, PSA Unknown Completed [facility] Flu Whole Virus Unknown Completed [facility] Influenza Virus Vaccine Quad IM Multi-dose 6+ MO Unknown Completed [facility] Influenza Virus Vaccine Quad IM Multi-dose 6+ MO Unknown Completed [facility] MMR Unknown Completed [facility] MMR Unknown Completed [facility] Tetanus/Diptheria Unknown Completed [facility] TDAP Unknown Completed [facility] TDAP Unknown Completed [facility] PPD (TB) Unknown Completed [facility] PPD (TB) Unknown Completed [facility] Varicella (varivax)(chicken pox) Unknown Completed [facility] Varicella (varivax)(chicken pox) Unknown Completed [facility] Varicella (varivax)(chicken pox) Unknown Completed [facility] Influenza Virus Vaccine Quad .5 mL IM 6+ MO (FLUZONE/FLULAVAL/F LUARIX) Unknown Completed [facility] SARS-COV-2 COVID-19 PFIZER VACCINE Unknown Completed [facility] SARS-COV-2 COVID-19 PFIZER VACCINE Unknown Completed [facility] Flu Injectable MDCK Quadrivalent Unknown Completed [facility] Influenza Virus Vaccine Quad IM, Preserv and ABX Free 6 MO-64 YRS (FLUCELVAX) Unknown Completed [facility] HEP B, Adult Dosage Unknown Completed [facility] HEP B, Adult Dosage Unknown Completed [facility] HEP B, Adult Dosage Unknown Completed [facility] HEP B, Adult Dosage Unknown Completed [facility] Flu Split Virus, PSA Unknown Completed [facility] Flu Whole Virus Unknown [facility] Influenza Virus Vaccine Quad IM Multi-dose 6+ MO Unknown Completed [facility] Influenza Virus Vaccine Quad IM Multi-dose 6+ MO Unknown Completed [facility] MMR Unknown Completed [facility] MMR Unknown Completed [facility] Tetanus/Diptheria Unknown [facility] Completed [facility] TDAP Unknown Completed [facility] PPD (TB) Unknown Completed [facility] PPD (TB) Unknown Completed [facility] Varicella (varivax)(chicken pox) Unknown Completed [facility] Varicella (varivax)(chicken pox) Unknown Completed [facility] Varicella (varivax)(chicken pox) Unknown Completed [facility] Influenza Virus Vaccine Quad .5 mL IM 6+ MO (FLUZONE/FLULAVAL/F LUARIX) Unknown Completed [facility] SARS-COV-2 COVID-19 PFIZER VACCINE Unknown Completed [facility] SARS-COV-2 COVID-19 PFIZER VACCINE Unknown Completed [facility] Flu Injectable MDCK Quadrivalent Unknown Completed [facility] Influenza Virus Vaccine Quad IM, Preserv and ABX Free 6 MO-64 YRS (FLUCELVAX) Unknown Completed [facility] HEP B, Adult Dosage Unknown Completed [facility] HEP B, Adult Dosage Unknown Completed [facility] HEP B, Adult Dosage Unknown Completed [facility] HEP B, Adult Dosage Unknown Completed [facility] Flu Split Virus, PSA Unknown Completed [facility] Flu Whole Virus Unknown [facility] Influenza Virus Vaccine Quad IM Multi-dose 6+ MO Unknown Completed [facility] Influenza Virus Vaccine Quad IM Multi-dose 6+ MO Unknown Completed [facility] MMR Unknown Completed [facility] MMR Unknown Completed [facility] Tetanus/Diptheria Unknown [facility] TD[facility] Unknown Completed [facility] TDAP Unknown Completed [facility] PPD (TB) Unknown Completed [facility] PPD (TB) Unknown Completed [facility] Varicella (varivax)(chicken pox) Unknown Completed [facility] Varicella (varivax)(chicken pox) Unknown Completed [facility] Varicella (varivax)(chicken pox) Unknown Completed [facility] Influenza Virus Vaccine Quad .5 mL IM 6+ MO (FLUZONE/FLULAVAL/F LUARIX) Unknown Completed [facility] SARS-COV-2 COVID-19 PFIZER VACCINE Unknown Completed [facility] SARS-COV-2 COVID-19 PFIZER VACCINE Unknown Completed [facility] Flu Injectable MDCK Quadrivalent Unknown Completed [facility] Influenza Virus Vaccine Quad IM, Preserv and ABX Free 6 MO-64 YRS (FLUCELVAX) Unknown Completed [facility] HEP B, Adult Dosage Unknown Completed [facility] HEP B, Adult Dosage Unknown Completed [facility] HEP B, Adult Dosage Unknown Completed [facility] HEP B, Adult Dosage Unknown Completed [facility] Flu Split Virus, PSA Unknown Completed [facility] Flu Whole Virus Unknown Completed [facility] Influenza Virus Vaccine Quad IM Multi-dose 6+ MO Unknown Completed [facility] Influenza Virus Vaccine Quad IM Multi-dose 6+ MO Unknown Completed [facility] MMR Unknown Completed [facility] MMR Unknown Completed [facility] Tetanus/Diptheria Unknown Completed [facility] TDAP Unknown Completed [facility] TDAP Unknown Completed [facility] PPD (TB) Unknown Completed [facility] PPD (TB) Unknown Completed [facility] Varicella (varivax)(chicken pox) Unknown Completed [facility] Varicella (varivax)(chicken pox) Unknown Completed [facility] Varicella (varivax)(chicken pox) Unknown Completed [facility] Influenza Virus Vaccine Quad .5 mL IM 6+ MO (FLUZONE/FLULAVAL/F LUARIX) Unknown Completed [facility] SARS-COV-2 COVID-19 PFIZER VACCINE Unknown Completed [facility] SARS-COV-2 COVID-19 PFIZER VACCINE Unknown Completed [facility] Flu Injectable MDCK Quadrivalent Unknown Completed [facility] Influenza Virus Vaccine Quad IM, Preserv and ABX Free 6 MO-64 YRS (FLUCELVAX) Unknown Completed [facility] HEP B, Adult Dosage Unknown Completed [facility] HEP B, Adult Dosage Unknown Completed [facility] HEP B, Adult Dosage Unknown Completed [facility] HEP B, Adult Dosage Unknown Completed [facility] Flu Split Virus, PSA Unknown Completed [facility] Flu Whole Virus Unknown [facility] Influenza Virus Vaccine Quad IM Multi-dose 6+ MO Unknown Completed [facility] Influenza Virus Vaccine Quad IM Multi-dose 6+ MO Unknown Completed [facility] MMR Unknown Completed [facility] MMR Unknown Completed [facility] Tetanus/Diptheria Unknown [facility] TD[facility] Unknown Completed [facility] TDAP Unknown Completed [facility] PPD (TB) Unknown Completed [facility] PPD (TB) Unknown Completed [facility] Varicella (varivax)(chicken pox) Unknown Completed [facility] Varicella (varivax)(chicken pox) Unknown Completed [facility] Varicella (varivax)(chicken pox) Unknown Completed [facility] Influenza Virus Vaccine Quad .5 mL IM 6+ MO (FLUZONE/FLULAVAL/F LUARIX) Unknown Completed [facility] SARS-COV-2 COVID-19 PFIZER VACCINE Unknown Completed [facility] SARS-COV-2 COVID-19 PFIZER VACCINE Unknown Completed [facility] Flu Injectable MDCK Quadrivalent Unknown Completed [facility] Influenza Virus Vaccine Quad IM, Preserv and ABX Free 6 MO-64 YRS (FLUCELVAX) Unknown Completed [facility] HEP B, Adult Dosage Unknown Completed [facility] HEP B, Adult Dosage Unknown Completed [facility] HEP B, Adult Dosage Unknown Completed [facility] HEP B, Adult Dosage Unknown Completed [facility] Flu Split Virus, PSA Unknown Completed [facility] Flu Whole Virus Unknown Completed [facility] Influenza Virus Vaccine Quad IM Multi-dose 6+ MO Unknown Completed [facility] Influenza Virus Vaccine Quad IM Multi-dose 6+ MO Unknown Completed [facility] MMR Unknown Completed [facility] MMR Unknown Completed [facility] Tetanus/Diptheria Unknown [facility] TD[facility] Unknown Completed [facility] TDAP Unknown Completed [facility] PPD (TB) Unknown Completed [facility] PPD (TB) Unknown Completed [facility] Varicella (varivax)(chicken pox) Unknown Completed [facility] Varicella (varivax)(chicken pox) Unknown Completed [facility] Varicella (varivax)(chicken pox) Unknown Completed [facility] Influenza Virus Vaccine Quad .5 mL IM 6+ MO (FLUZONE/FLULAVAL/F LUARIX) Unknown Completed [facility] SARS-COV-2 COVID-19 PFIZER VACCINE Unknown Completed [facility] SARS-COV-2 COVID-19 PFIZER VACCINE Unknown Completed [facility] Flu Injectable MDCK Quadrivalent Unknown Completed [facility] Influenza Virus Vaccine Quad IM, Preserv and ABX Free 6 MO-64 YRS (FLUCELVAX) Unknown Completed [facility] HEP B, Adult Dosage Unknown Completed [facility] HEP B, Adult Dosage Unknown Completed [facility] HEP B, Adult Dosage Unknown Completed [facility] HEP B, Adult Dosage Unknown Completed [facility] Flu Split Virus, PSA Unknown Completed [facility] Flu Whole Virus Unknown Completed [facility] Influenza Virus Vaccine Quad IM Multi-dose 6+ MO Unknown Completed [facility] Influenza Virus Vaccine Quad IM Multi-dose 6+ MO Unknown Completed [facility] MMR Unknown Completed [facility] MMR Unknown Completed [facility] Tetanus/Diptheria [facility] TDAP Unknown Completed [facility] PPD (TB) Unknown Completed [facility] PPD (TB) Unknown Completed [facility] Varicella (varivax)(chicken pox) Unknown Completed [facility] Varicella (varivax)(chicken pox) Unknown Completed [facility] Varicella (varivax)(chicken pox) Unknown Completed [facility] Influenza Virus Vaccine Quad .5 mL IM 6+ MO (FLUZONE/FLULAVAL/F LUARIX) Unknown Completed [facility] SARS-COV-2 COVID-19 PFIZER VACCINE Unknown Completed [facility] SARS-COV-2 COVID-19 PFIZER VACCINE Unknown Completed [facility] Flu Injectable MDCK Quadrivalent Unknown Completed [facility] Influenza Virus Vaccine Quad IM, Preserv and ABX Free 6 MO-64 YRS (FLUCELVAX) Unknown Completed [facility] HEP B, Adult Dosage Unknown Completed [facility] HEP B, Adult Dosage Unknown Completed [facility] HEP B, Adult Dosage Unknown Completed [facility] HEP B, Adult Dosage Unknown Completed [facility] Flu Split Virus, PSA Unknown Completed [facility] Flu Whole Virus Unknown Completed [facility] Influenza Virus Vaccine Quad IM Multi-dose 6+ MO Unknown Completed [facility] Influenza Virus Vaccine Quad IM Multi-dose 6+ MO Unknown Completed [facility] MMR Unknown Completed [facility] MMR Unknown Completed [facility] Tetanus/Diptheria Unknown [facility] TD[facility] Unknown Completed [facility] TDAP Unknown Completed [facility] PPD (TB) Unknown Completed [facility] PPD (TB) Unknown Completed [facility] Varicella (varivax)(chicken pox) Unknown Completed [facility] Varicella (varivax)(chicken pox) Unknown Completed [facility] Varicella (varivax)(chicken pox) Unknown Completed [facility] Influenza Virus Vaccine Quad .5 mL IM 6+ MO (FLUZONE/FLULAVAL/F LUARIX) Unknown Completed [facility] SARS-COV-2 COVID-19 PFIZER VACCINE Unknown Completed [facility] SARS-COV-2 COVID-19 PFIZER VACCINE Unknown Completed [facility] Flu Injectable MDCK Quadrivalent Unknown Completed [facility] Influenza Virus Vaccine Quad IM, Preserv and ABX Free 6 MO-64 YRS (FLUCELVAX) Unknown Completed [facility] HEP B, Adult Dosage Unknown Completed [facility] HEP B, Adult Dosage Unknown Completed [facility] HEP B, Adult Dosage Unknown Completed [facility] HEP B, Adult Dosage Unknown Completed [facility] Flu Split Virus, PSA Unknown Completed [facility] Flu Whole Virus Unknown Com[facility] Influenza Virus Vaccine Quad IM Multi-dose 6+ MO Unknown Completed [facility] Influenza Virus Vaccine Quad IM Multi-dose 6+ MO Unknown Completed [facility] MMR Unknown Completed [facility] MMR Unknown Completed [facility] Tetanus/Diptheria Unknown [facility] TDAP Unknown Completed [facility] TDAP Unknown Completed [facility] PPD (TB) Unknown Completed [facility] PPD (TB) Unknown Completed [facility] Varicella (varivax)(chicken pox) Unknown Completed [facility] Varicella (varivax)(chicken pox) Unknown Completed [facility] Varicella (varivax)(chicken pox) Unknown Completed [facility] Influenza Virus Vaccine Quad .5 mL IM 6+ MO (FLUZONE/FLULAVAL/F LUARIX) Unknown Completed [facility] SARS-COV-2 COVID-19 PFIZER VACCINE Unknown Completed [facility] SARS-COV-2 COVID-19 PFIZER VACCINE Unknown Completed [facility] Flu Injectable MDCK Quadrivalent Unknown Completed [facility] Influenza Virus Vaccine Quad IM, Preserv and ABX Free 6 MO-64 YRS (FLUCELVAX) Unknown Completed [facility] HEP B, Adult Dosage Unknown Completed [facility] HEP B, Adult Dosage Unknown Completed [facility] HEP B, Adult Dosage Unknown Completed [facility] HEP B, Adult Dosage Unknown Completed [facility] Flu Split Virus, PSA Unknown Completed [facility] Flu Whole Virus Unknown Completed [facility] Influenza Virus Vaccine Quad IM Multi-dose 6+ MO Unknown Completed [facility] Influenza Virus Vaccine Quad IM Multi-dose 6+ MO Unknown Completed [facility] MMR Unknown Completed [facility] MMR Unknown Completed [facility] Tetanus/Diptheria Unknown [facility] Com[facility] TDAP Unknown Completed [facility] PPD (TB) Unknown Completed [facility] PPD (TB) Unknown Completed [facility] Varicella (varivax)(chicken pox) Unknown Completed [facility] Varicella (varivax)(chicken pox) Unknown Completed [facility] Varicella (varivax)(chicken pox) Unknown Completed [facility] Influenza Virus Vaccine Quad .5 mL IM 6+ MO (FLUZONE/FLULAVAL/F LUARIX) Unknown Completed [facility] SARS-COV-2 COVID-19 PFIZER VACCINE Unknown Completed [facility] SARS-COV-2 COVID-19 PFIZER VACCINE Unknown Completed [facility] Flu Injectable MDCK Quadrivalent Unknown Completed [facility] Influenza Virus Vaccine Quad IM, Preserv and ABX Free 6 MO-64 YRS (FLUCELVAX) Unknown Completed [facility] HEP B, Adult Dosage Unknown Completed [facility] HEP B, Adult Dosage Unknown Completed [facility] HEP B, Adult Dosage Unknown Completed [facility] HEP B, Adult Dosage Unknown Completed [facility] Flu Split Virus, PSA Unknown Completed [facility] Flu Whole Virus Unknown [facility] Influenza Virus Vaccine Quad IM Multi-dose 6+ MO Unknown Completed [facility] Influenza Virus Vaccine Quad IM Multi-dose 6+ MO Unknown Completed [facility] MMR Unknown Completed [facility] MMR Unknown Completed [facility] Tetanus/Diptheria Unknown [facility] TDAP Unknown Completed [facility] TDAP Unknown Completed [facility] PPD (TB) Unknown Completed [facility] PPD (TB) Unknown Completed [facility] Varicella (varivax)(chicken pox) Unknown Completed [facility] Varicella (varivax)(chicken pox) Unknown Completed [facility] Varicella (varivax)(chicken pox) Unknown Completed [facility] Influenza Virus Vaccine Quad .5 mL IM 6+ MO (FLUZONE/FLULAVAL/F LUARIX) Unknown Completed [facility] SARS-COV-2 COVID-19 PFIZER VACCINE Unknown Completed [facility] SARS-COV-2 COVID-19 PFIZER VACCINE Unknown Completed [facility] Flu Injectable MDCK Quadrivalent Unknown Completed [facility] Influenza Virus Vaccine Quad IM, Preserv and ABX Free 6 MO-64 YRS (FLUCELVAX) Unknown Completed [facility] HEP B, Adult Dosage Unknown Completed [facility] HEP B, Adult Dosage Unknown Completed [facility] HEP B, Adult Dosage Unknown Completed [facility] HEP B, Adult Dosage Unknown Completed [facility] Flu Split Virus, PSA Unknown Completed [facility] Flu Whole Virus Unknown Com[facility] Influenza Virus Vaccine Quad IM Multi-dose 6+ MO Unknown Completed [facility] Influenza Virus Vaccine Quad IM Multi-dose 6+ MO Unknown Completed [facility] MMR Unknown Completed [facility] MMR Unknown Completed [facility] Tetanus/Diptheria Unknown [facility] TDAP Unknown Completed [facility] TDAP Unknown Completed [facility] PPD (TB) Unknown Completed [facility] PPD (TB) Unknown Completed [facility] Varicella (varivax)(chicken pox) Unknown Completed [facility] Varicella (varivax)(chicken pox) Unknown Completed [facility] Varicella (varivax)(chicken pox) Unknown Completed [facility] Influenza Virus Vaccine Quad .5 mL IM 6+ MO (FLUZONE/FLULAVAL/F LUARIX) Unknown Completed [facility] SARS-COV-2 COVID-19 PFIZER VACCINE Unknown Completed [facility] SARS-COV-2 COVID-19 PFIZER VACCINE Unknown Completed [facility] Flu Injectable MDCK Quadrivalent Unknown Completed [facility] Influenza Virus Vaccine Quad IM, Preserv and ABX Free 6 MO-64 YRS (FLUCELVAX) Unknown Completed [facility] HEP B, Adult Dosage Unknown Completed [facility] HEP B, Adult Dosage Unknown Completed [facility] HEP B, Adult Dosage Unknown Completed [facility] HEP B, Adult Dosage Unknown Completed [facility] Flu Split Virus, PSA Unknown Completed [facility] Flu Whole Virus Unknown Completed [facility] Influenza Virus Vaccine Quad IM Multi-dose 6+ MO Unknown Completed [facility] Influenza Virus Vaccine Quad IM Multi-dose 6+ MO Unknown Completed [facility] MMR Unknown Completed [facility] MMR Unknown Completed [facility] Tetanus/Diptheria Unknown [facility] TDAP Unknown Completed [facility] TDAP Unknown Completed [facility] PPD (TB) Unknown Completed [facility] PPD (TB) Unknown Completed [facility] Varicella (varivax)(chicken pox) Unknown Completed [facility] Varicella (varivax)(chicken pox) Unknown Completed [facility] Varicella (varivax)(chicken pox) Unknown Completed [facility] Influenza Virus Vaccine Quad .5 mL IM 6+ MO (FLUZONE/FLULAVAL/F LUARIX) Unknown Completed [facility] SARS-COV-2 COVID-19 PFIZER VACCINE Unknown Completed [facility] SARS-COV-2 COVID-19 PFIZER VACCINE Unknown Completed [facility] Flu Injectable MDCK Quadrivalent Unknown Completed [facility] Influenza Virus Vaccine Quad IM, Preserv and ABX Free 6 MO-64 YRS (FLUCELVAX) Unknown Completed [facility] HEP B, Adult Dosage Unknown Completed [facility] HEP B, Adult Dosage Unknown Completed [facility] HEP B, Adult Dosage Unknown Completed [facility] HEP B, Adult Dosage Unknown Completed [facility] Flu Split Virus, PSA Unknown Completed [facility] Flu Whole Virus Unknown Completed [facility] Influenza Virus Vaccine Quad IM Multi-dose 6+ MO Unknown Completed [facility] Influenza Virus Vaccine Quad IM Multi-dose 6+ MO Unknown Completed [facility] MMR Unknown Completed [facility] MMR Unknown Completed [facility] Tetanus/Diptheria [facility] TDAP Unknown Completed [facility] PPD (TB) Unknown Completed [facility] PPD (TB) Unknown Completed [facility] Varicella (varivax)(chicken pox) Unknown Completed [facility] Varicella (varivax)(chicken pox) Unknown Completed [facility] Varicella (varivax)(chicken pox) Unknown Completed [facility] Influenza Virus Vaccine Quad .5 mL IM 6+ MO (FLUZONE/FLULAVAL/F LUARIX) Unknown Completed [facility] SARS-COV-2 COVID-19 PFIZER VACCINE Unknown Completed [facility] SARS-COV-2 COVID-19 PFIZER VACCINE Unknown Completed [facility] Flu Injectable MDCK Quadrivalent Unknown Completed [facility] Influenza Virus Vaccine Quad IM, Preserv and ABX Free 6 MO-64 YRS (FLUCELVAX) Unknown Completed [facility] HEP B, Adult Dosage Unknown Completed [facility] HEP B, Adult Dosage Unknown Completed [facility] HEP B, Adult Dosage Unknown Completed [facility] HEP B, Adult Dosage Unknown Completed [facility] Flu Split Virus, PSA Unknown Completed [facility] Flu Whole Virus Unknown Completed [facility] Influenza Virus Vaccine Quad IM Multi-dose 6+ MO Unknown Completed [facility] Influenza Virus Vaccine Quad IM Multi-dose 6+ MO Unknown Completed [facility] MMR Unknown Completed [facility] MMR Unknown Completed [facility] Tetanus/Diptheria [facility] TDAP Unknown Completed [facility] PPD (TB) Unknown Completed [facility] PPD (TB) Unknown Completed [facility] Varicella (varivax)(chicken pox) Unknown Completed [facility] Varicella (varivax)(chicken pox) Unknown Completed [facility] Varicella (varivax)(chicken pox) Unknown Completed [facility] Influenza Virus Vaccine Quad .5 mL IM 6+ MO (FLUZONE/FLULAVAL/F LUARIX) Unknown Completed [facility] SARS-COV-2 COVID-19 PFIZER VACCINE Unknown Completed [facility] SARS-COV-2 COVID-19 PFIZER VACCINE Unknown Completed [facility] Flu Injectable MDCK Quadrivalent Unknown Completed [facility] Influenza Virus Vaccine Quad IM, Preserv and ABX Free 6 MO-64 YRS (FLUCELVAX) Unknown Completed [facility] HEP B, Adult Dosage Unknown Completed [facility] HEP B, Adult Dosage Unknown Completed [facility] HEP B, Adult Dosage Unknown Completed [facility] HEP B, Adult Dosage Unknown Completed [facility] Flu Split Virus, PSA Unknown Completed [facility] Flu Whole Virus Unknown Completed [facility] Influenza Virus Vaccine Quad IM Multi-dose 6+ MO Unknown Completed [facility] Influenza Virus Vaccine Quad IM Multi-dose 6+ MO Unknown Completed [facility] MMR Unknown Completed [facility] MMR Unknown Completed [facility] Tetanus/Diptheria Unknown [facility] Com[facility] TDAP Unknown Completed [facility] PPD (TB) Unknown Completed [facility] PPD (TB) Unknown Completed [facility] Varicella (varivax)(chicken pox) Unknown Completed [facility] Varicella (varivax)(chicken pox) Unknown Completed [facility] Varicella (varivax)(chicken pox) Unknown Completed [facility] Influenza Virus Vaccine Quad .5 mL IM 6+ MO (FLUZONE/FLULAVAL/F LUARIX) Unknown Completed [facility] SARS-COV-2 COVID-19 PFIZER VACCINE Unknown Completed [facility] SARS-COV-2 COVID-19 PFIZER VACCINE Unknown Completed [facility] Flu Injectable MDCK Quadrivalent Unknown Completed [facility] Influenza Virus Vaccine Quad IM, Preserv and ABX Free 6 MO-64 YRS (FLUCELVAX) Unknown Completed [facility] HEP B, Adult Dosage Unknown Completed [facility] HEP B, Adult Dosage Unknown Completed [facility] HEP B, Adult Dosage Unknown Completed [facility] HEP B, Adult Dosage Unknown Completed [facility] Flu Split Virus, PSA Unknown Completed [facility] Flu Whole Virus Unknown Completed [facility] Influenza Virus Vaccine Quad IM Multi-dose 6+ MO Unknown Completed [facility] Influenza Virus Vaccine Quad IM Multi-dose 6+ MO Unknown Completed [facility] MMR Unknown Completed [facility] MMR Unknown Completed [facility] Tetanus/Diptheria Unknown Completed [facility] TDAP Unknown Completed [facility] TDAP Unknown Completed [facility] PPD (TB) Unknown Completed [facility] PPD (TB) Unknown Completed [facility] Varicella (varivax)(chicken pox) Unknown Completed [facility] Varicella (varivax)(chicken pox) Unknown Completed [facility] Varicella (varivax)(chicken pox) Unknown Completed [facility] Influenza Virus Vaccine Quad .5 mL IM 6+ MO (FLUZONE/FLULAVAL/F LUARIX) Unknown Completed [facility] SARS-COV-2 COVID-19 PFIZER VACCINE Unknown Completed [facility] SARS-COV-2 COVID-19 PFIZER VACCINE Unknown Completed [facility] Flu Injectable MDCK Quadrivalent Unknown Completed [facility] Influenza Virus Vaccine Quad IM, Preserv and ABX Free 6 MO-64 YRS (FLUCELVAX) Unknown Completed [facility] HEP B, Adult Dosage Unknown Completed [facility] HEP B, Adult Dosage Unknown Completed [facility] HEP B, Adult Dosage Unknown Completed [facility] HEP B, Adult Dosage Unknown Completed [facility] Flu Split Virus, PSA Unknown Completed [facility] Flu Whole Virus [facility] Vaccine Quad IM Multi-dose 6+ MO Unknown Completed [facility] Influenza Virus Vaccine Quad IM Multi-dose 6+ MO Unknown Completed [facility] MMR Unknown Completed [facility] MMR Unknown Completed [facility] Tetanus/Diptheria Unknown [facility] Com[facility] TDAP Unknown Completed [facility] PPD (TB) Unknown Completed [facility] PPD (TB) Unknown Completed [facility] Varicella (varivax)(chicken pox) Unknown Completed [facility] Varicella (varivax)(chicken pox) Unknown Completed [facility] Varicella (varivax)(chicken pox) Unknown Completed [facility] Influenza Virus Vaccine Quad .5 mL IM 6+ MO (FLUZONE/FLULAVAL/F LUARIX) Unknown Completed [facility] SARS-COV-2 COVID-19 PFIZER VACCINE Unknown Completed [facility] SARS-COV-2 COVID-19 PFIZER VACCINE Unknown Completed [facility] Flu Injectable MDCK Quadrivalent Unknown Completed [facility] Influenza Virus Vaccine Quad IM, Preserv and ABX Free 6 MO-64 YRS (FLUCELVAX) Unknown Completed [facility] HEP B, Adult Dosage Unknown Completed [facility] HEP B, Adult Dosage Unknown Completed [facility] HEP B, Adult Dosage Unknown Completed [facility] HEP B, Adult Dosage Unknown Completed [facility] Flu Split Virus, PSA Unknown Completed [facility] Flu Whole Virus Unknown Completed [facility] Influenza Virus Vaccine Quad IM Multi-dose 6+ MO Unknown Completed [facility] Influenza Virus Vaccine Quad IM Multi-dose 6+ MO Unknown Completed [facility] MMR Unknown Completed [facility] MMR Unknown Completed [facility] Tetanus/Diptheria Unknown [facility] Com[facility] TDAP Unknown Completed [facility] PPD (TB) Unknown Completed [facility] PPD (TB) Unknown Completed [facility] Varicella (varivax)(chicken pox) Unknown Completed [facility] Varicella (varivax)(chicken pox) Unknown Completed [facility] Varicella (varivax)(chicken pox) Unknown Completed [facility] Influenza Virus Vaccine Quad .5 mL IM 6+ MO (FLUZONE/FLULAVAL/F LUARIX) Unknown Completed [facility] SARS-COV-2 COVID-19 PFIZER VACCINE Unknown Completed [facility] SARS-COV-2 COVID-19 PFIZER VACCINE Unknown Completed [facility] Flu Injectable MDCK Quadrivalent Unknown Completed [facility] Influenza Virus Vaccine Quad IM, Preserv and ABX Free 6 MO-64 YRS (FLUCELVAX) Unknown Completed [facility] HEP B, Adult Dosage Unknown Completed [facility] HEP B, Adult Dosage Unknown Completed [facility] HEP B, Adult Dosage Unknown Completed [facility] HEP B, Adult Dosage Unknown Completed [facility] Flu Split Virus, PSA Unknown Completed [facility] Flu Whole Virus Unknown Completed [facility] Influenza Virus Vaccine Quad IM Multi-dose 6+ MO Unknown Completed [facility] Influenza Virus Vaccine Quad IM Multi-dose 6+ MO Unknown Completed [facility] MMR Unknown Completed [facility] MMR Unknown Completed [facility] Tetanus/Diptheria Unknown Completed [facility] TDAP Unknown Completed [facility] TDAP Unknown Completed [facility] PPD (TB) Unknown Completed [facility] PPD (TB) Unknown Completed [facility] Varicella (varivax)(chicken pox) Unknown Completed [facility] Varicella (varivax)(chicken pox) Unknown Completed [facility] Varicella (varivax)(chicken pox) Unknown Completed [facility] Influenza Virus Vaccine Quad .5 mL IM 6+ MO (FLUZONE/FLULAVAL/F LUARIX) Unknown Completed [facility] SARS-COV-2 COVID-19 PFIZER VACCINE Unknown Completed [facility] SARS-COV-2 COVID-19 PFIZER VACCINE Unknown Completed [facility] Flu Injectable MDCK Quadrivalent Unknown Completed [facility] Influenza Virus Vaccine Quad IM, Preserv and ABX Free 6 MO-64 YRS (FLUCELVAX) Unknown Completed [facility] HEP B, Adult Dosage Unknown Completed [facility] HEP B, Adult Dosage Unknown Completed [facility] HEP B, Adult Dosage Unknown Completed [facility] HEP B, Adult Dosage Unknown Completed [facility] Flu Split Virus, PSA Unknown Completed [facility] Flu Whole Virus Unknown Completed [facility] Influenza Virus Vaccine Quad IM Multi-dose 6+ MO Unknown Completed [facility] Influenza Virus Vaccine Quad IM Multi-dose 6+ MO Unknown Completed [facility] MMR Unknown Completed [facility] MMR Unknown Completed [facility] Tetanus/Diptheria Unknown [facility] Completed [facility] TDAP Unknown Completed [facility] PPD (TB) Unknown Completed [facility] PPD (TB) Unknown Completed [facility] Varicella (varivax)(chicken pox) Unknown Completed [facility] Varicella (varivax)(chicken pox) Unknown Completed [facility] Varicella (varivax)(chicken pox) Unknown Completed [facility] Influenza Virus Vaccine Quad .5 mL IM 6+ MO (FLUZONE/FLULAVAL/F LUARIX) Unknown Completed [facility] SARS-COV-2 COVID-19 PFIZER VACCINE Unknown Completed [facility] SARS-COV-2 COVID-19 PFIZER VACCINE Unknown Completed [facility] Flu Injectable MDCK Quadrivalent Unknown Completed [facility] Influenza Virus Vaccine Quad IM, Preserv and ABX Free 6 MO-64 YRS (FLUCELVAX) Unknown Completed [facility] HEP B, Adult Dosage Unknown Completed [facility] HEP B, Adult Dosage Unknown Completed [facility] HEP B, Adult Dosage Unknown Completed [facility] HEP B, Adult Dosage Unknown Completed [facility] Flu Split Virus, PSA Unknown Completed [facility] Flu Whole Virus Unknown Completed [facility] Influenza Virus Vaccine Quad IM Multi-dose 6+ MO Unknown Completed [facility] Influenza Virus Vaccine Quad IM Multi-dose 6+ MO Unknown Completed [facility] MMR Unknown Completed [facility] MMR Unknown Completed [facility] Tetanus/Diptheria Unknown [facility] Completed [facility] TDAP Unknown Completed [facility] PPD (TB) Unknown Completed [facility] PPD (TB) Unknown Completed [facility] Varicella (varivax)(chicken pox) Unknown Completed [facility] Varicella (varivax)(chicken pox) Unknown Completed [facility] Varicella (varivax)(chicken pox) Unknown Completed [facility] Influenza Virus Vaccine Quad .5 mL IM 6+ MO (FLUZONE/FLULAVAL/F LUARIX) Unknown Completed [facility] SARS-COV-2 COVID-19 PFIZER VACCINE Unknown Completed [facility] SARS-COV-2 COVID-19 PFIZER VACCINE Unknown Completed [facility] Flu Injectable MDCK Quadrivalent Unknown Completed [facility] Influenza Virus Vaccine Quad IM, Preserv and ABX Free 6 MO-64 YRS (FLUCELVAX) Unknown Completed [facility] HEP B, Adult Dosage Unknown Completed [facility] HEP B, Adult Dosage Unknown Completed [facility] HEP B, Adult Dosage Unknown Completed [facility] HEP B, Adult Dosage Unknown Completed [facility] Flu Split Virus, PSA Unknown Completed [facility] Flu Whole Virus Unknown Completed [facility] Influenza Virus Vaccine Quad IM Multi-dose 6+ MO Unknown Completed [facility] Influenza Virus Vaccine Quad IM Multi-dose 6+ MO Unknown Completed [facility] MMR Unknown Completed [facility] MMR Unknown Completed [facility] Tetanus/Diptheria Unknown Completed [facility] TDAP Unknown Completed [facility] TDAP Unknown Completed [facility] PPD (TB) Unknown Completed [facility] PPD (TB) Unknown Completed [facility] Varicella (varivax)(chicken pox) Unknown Completed [facility] Varicella (varivax)(chicken pox) Unknown Completed [facility] Varicella (varivax)(chicken pox) Unknown Completed [facility] Influenza Virus Vaccine Quad .5 mL IM 6+ MO (FLUZONE/FLULAVAL/F LUARIX) Unknown Completed [facility] SARS-COV-2 COVID-19 PFIZER VACCINE Unknown Completed [facility] SARS-COV-2 COVID-19 PFIZER VACCINE Unknown Completed [facility] Flu Injectable MDCK Quadrivalent Unknown Completed [facility] Influenza Virus Vaccine Quad IM, Preserv and ABX Free 6 MO-64 YRS (FLUCELVAX) Unknown Completed [facility] HEP B, Adult Dosage Unknown Completed [facility] HEP B, Adult Dosage Unknown Completed [facility] HEP B, Adult Dosage Unknown Completed [facility] HEP B, Adult Dosage Unknown Completed [facility] Flu Split Virus, PSA Unknown Completed [facility] Flu Whole Virus Unknown Completed [facility] Influenza Virus Vaccine Quad IM Multi-dose 6+ MO Unknown Completed [facility] Influenza Virus Vaccine Quad IM Multi-dose 6+ MO Unknown Completed [facility] MMR Unknown Completed [facility] MMR Unknown Completed [facility] Tetanus/Diptheria Unknown [facility] Completed [facility] TDAP Unknown Completed [facility] PPD (TB) Unknown Completed [facility] PPD (TB) Unknown Completed [facility] Varicella (varivax)(chicken pox) Unknown Completed [facility] Varicella (varivax)(chicken pox) Unknown Completed [facility] Varicella (varivax)(chicken pox) Unknown Completed [facility] Influenza Virus Vaccine Quad .5 mL IM 6+ MO (FLUZONE/FLULAVAL/F LUARIX) Unknown Completed [facility] SARS-COV-2 COVID-19 PFIZER VACCINE Unknown Completed [facility] SARS-COV-2 COVID-19 PFIZER VACCINE Unknown Completed [facility] Flu Injectable MDCK Quadrivalent Unknown Completed [facility] Influenza Virus Vaccine Quad IM, Preserv and ABX Free 6 MO-64 YRS (FLUCELVAX) Unknown Completed [facility] HEP B, Adult Dosage Unknown Completed [facility] HEP B, Adult Dosage Unknown Completed [facility] HEP B, Adult Dosage Unknown Completed [facility] HEP B, Adult Dosage Unknown Completed [facility] Flu Split Virus, PSA Unknown Completed [facility] Flu Whole Virus Unknown Completed [facility] Influenza Virus Vaccine Quad IM Multi-dose 6+ MO Unknown Completed [facility] Influenza Virus Vaccine Quad IM Multi-dose 6+ MO Unknown Completed [facility] MMR Unknown Completed [facility] MMR Unknown Completed [facility] Tetanus/Diptheria Unknown [facility] TD[facility] Unknown Completed [facility] TDAP Unknown Completed [facility] PPD (TB) Unknown Completed [facility] PPD (TB) Unknown Completed [facility] Varicella (varivax)(chicken pox) Unknown Completed [facility] Varicella (varivax)(chicken pox) Unknown Completed [facility] Varicella (varivax)(chicken pox) Unknown Completed [facility] Influenza Virus Vaccine Quad .5 mL IM 6+ MO (FLUZONE/FLULAVAL/F LUARIX) Unknown Completed [facility] SARS-COV-2 COVID-19 PFIZER VACCINE Unknown Completed [facility] SARS-COV-2 COVID-19 PFIZER VACCINE Unknown Completed [facility] Flu Injectable MDCK Quadrivalent Unknown Completed [facility] Influenza Virus Vaccine Quad IM, Preserv and ABX Free 6 MO-64 YRS (FLUCELVAX) Unknown Completed [facility] HEP B, Adult Dosage Unknown Completed [facility] HEP B, Adult Dosage Unknown Completed [facility] HEP B, Adult Dosage Unknown Completed [facility] HEP B, Adult Dosage Unknown Completed [facility] Flu Split Virus, PSA Unknown Completed [facility] Flu Whole Virus Unknown Completed [facility] Influenza Virus Vaccine Quad IM Multi-dose 6+ MO Unknown Completed [facility] Influenza Virus Vaccine Quad IM Multi-dose 6+ MO Unknown Completed [facility] MMR Unknown Completed [facility] MMR Unknown Completed [facility] Tetanus/Diptheria Unknown Completed [facility] TDAP Unknown Completed [facility] TDAP Unknown Completed [facility] PPD (TB) Unknown Completed [facility] PPD (TB) Unknown Completed [facility] Varicella (varivax)(chicken pox) Unknown Completed [facility] Varicella (varivax)(chicken pox) Unknown Completed [facility] Varicella (varivax)(chicken pox) Unknown Completed [facility] Influenza Virus Vaccine Quad .5 mL IM 6+ MO (FLUZONE/FLULAVAL/F LUARIX) Unknown Completed [facility] SARS-COV-2 COVID-19 PFIZER VACCINE Unknown Completed [facility] SARS-COV-2 COVID-19 PFIZER VACCINE Unknown Completed [facility] Flu Injectable MDCK Quadrivalent Unknown Completed [facility] Influenza Virus Vaccine Quad IM, Preserv and ABX Free 6 MO-64 YRS (FLUCELVAX) Unknown Completed [facility] HEP B, Adult Dosage Unknown Completed [facility] HEP B, Adult Dosage Unknown Completed [facility] HEP B, Adult Dosage Unknown Completed [facility] HEP B, Adult Dosage Unknown Completed [facility] Flu Split Virus, PSA Unknown Completed [facility] Flu Whole Virus Unknown [facility] Influenza Virus Vaccine Quad IM Multi-dose 6+ MO Unknown Completed [facility] Influenza Virus Vaccine Quad IM Multi-dose 6+ MO Unknown Completed [facility] MMR Unknown Completed [facility] MMR Unknown Completed [facility] Tetanus/Diptheria Unknown [facility] Unknown Completed [facility] TDAP Unknown Completed [facility] PPD (TB) Unknown Completed [facility] PPD (TB) Unknown Completed [facility] Varicella (varivax)(chicken pox) Unknown Completed [facility] Varicella (varivax)(chicken pox) Unknown Completed [facility] Varicella (varivax)(chicken pox) Unknown Completed [facility] Influenza Virus Vaccine Quad .5 mL IM 6+ MO (FLUZONE/FLULAVAL/F LUARIX) Unknown Completed [facility] SARS-COV-2 COVID-19 PFIZER VACCINE Unknown Completed [facility] SARS-COV-2 COVID-19 PFIZER VACCINE Unknown Completed [facility] Flu Injectable MDCK Quadrivalent Unknown Completed [facility] Influenza Virus Vaccine Quad IM, Preserv and ABX Free 6 MO-64 YRS (FLUCELVAX) Unknown Completed [facility] HEP B, Adult Dosage Unknown Completed [facility] HEP B, Adult Dosage Unknown Completed [facility] HEP B, Adult Dosage Unknown Completed [facility] HEP B, Adult Dosage Unknown Completed [facility] Flu Split Virus, PSA Unknown Completed [facility] Flu Whole Virus Unknown [facility] Influenza Virus Vaccine Quad IM Multi-dose 6+ MO Unknown Completed [facility] Influenza Virus Vaccine Quad IM Multi-dose 6+ MO Unknown Completed [facility] MMR Unknown Completed [facility] MMR Unknown Completed [facility] Tetanus/Diptheria Unknown [facility] TDAP Unknown Completed [facility] TDAP Unknown Completed [facility] PPD (TB) Unknown Completed [facility] PPD (TB) Unknown Completed [facility] Varicella (varivax)(chicken pox) Unknown Completed [facility] Varicella (varivax)(chicken pox) Unknown Completed [facility] Varicella (varivax)(chicken pox) Unknown Completed [facility] Influenza Virus Vaccine Quad .5 mL IM 6+ MO (FLUZONE/FLULAVAL/F LUARIX) Unknown Completed [facility] SARS-COV-2 COVID-19 PFIZER VACCINE Unknown Completed [facility] SARS-COV-2 COVID-19 PFIZER VACCINE Unknown Completed [facility] Flu Injectable MDCK Quadrivalent Unknown Completed [facility] Influenza Virus Vaccine Quad IM, Preserv and ABX Free 6 MO-64 YRS (FLUCELVAX) Unknown Completed [facility] HEP B, Adult Dosage Unknown Completed [facility] HEP B, Adult Dosage Unknown Completed [facility] HEP B, Adult Dosage Unknown Completed [facility] HEP B, Adult Dosage Unknown Completed [facility] Flu Split Virus, PSA Unknown Completed [facility] Flu Whole Virus Unknown Completed [facility] Influenza Virus Vaccine Quad IM Multi-dose 6+ MO Unknown Completed [facility] Influenza Virus Vaccine Quad IM Multi-dose 6+ MO Unknown Completed [facility] MMR Unknown Completed [facility] MMR Unknown Completed [facility] Tetanus/Diptheria Unknown [facility] TDAP Unknown Completed [facility] PPD (TB) Unknown Completed [facility] PPD (TB) Unknown Completed [facility] Varicella (varivax)(chicken pox) Unknown Completed [facility] Varicella (varivax)(chicken pox) Unknown Completed [facility] Varicella (varivax)(chicken pox) Unknown Completed [facility] Vital Signs Vital Name Observation Time Observation Value Comments S ource Systolic blood pressure 2024-04-28 13:11:00 105 mm[Hg] [facility] acute hospital Diastolic blood pressure 2024-04-28 13:11:00 74 mm[Hg] General acute hospital Heart rate 2024-04-28 13:11:00 96 /min Unive [facility] Body temperature 2024-04-28 13:11:00 36.83 Shelby [facility] Respiratory rate 2024-04-28 13:11:00 18 /min [facility] Body height 2024-04-28 13:11:00 154.9 cm [facility] Body weight 2024-04-28 13:11:00 71.94 kg [facility] BMI 2024-04-28 13:11:00 29.97 kg/m2 [facility] Systolic blood pressure 2024-04-11 16:45:00 110 mm[Hg] General acute hospital Diastolic blood pressure 2024-04-11 16:45:00 70 mm[Hg] General acute hospital Heart rate 2024-04-11 16:45:00 87 /min Unive [facility] Body temperature 2024-04-11 16:45:00 36.56 Shelby [facility] Respiratory rate 2024-04-11 16:45:00 18 /min [facility] Oxygen saturation in Arterial blood by Pulse oximetry 2024-04-11 12:05:00 99 /min [facility] acute hospital Body height 2024-03-23 19:30:00 154.9 cm [facility] Body weight 2024-03-23 19:30:00 74.844 kg [facility] BMI 2024-03-23 19:30:00 31.18 kg/m2 [facility] Systolic blood pressure 2024-04-10 17:20:00 123 mm[Hg] General acute hospital Diastolic blood pressure 2024-04-10 17:20:00 75 mm[Hg] General acute hospital Heart rate 2024-04-10 17:20:00 98 /min Unive [facility] Respiratory rate 2024-04-10 17:20:00 18 /min [facility] Oxygen saturation in Arterial blood by Pulse oximetry 2024-04-10 17:20:00 99 /min [facility] acute hospital Body temperature 2024-04-10 16:45:00 36.5 Shelby [facility] Body height 2024-03-23 19:30:00 154.9 cm [facility] Body weight 2024-03-23 19:30:00 74.844 kg Univ [facility] BMI 2024-03-23 19:30:00 31.18 kg/m2 Univ [facility] Systolic blood pressure 2024-04-07 13:05:00 122 mm[Hg] [place] [facility] Diastolic blood pressure 2024-04-07 13:05:00 78 mm[Hg] General acute hospital Heart rate 2024-04-07 13:05:00 97 /min Unive [facility] Respiratory rate 2024-04-07 13:05:00 16 /min [facility] Body height 2024-04-07 13:05:00 154.9 cm Univ [facility] Body weight 2024-04-07 13:05:00 75.297 kg [facility] BMI 2024-04-07 13:05:00 31.37 kg/m2 [facility] Systolic blood pressure 2024-03-13 18:59:00 124 mm[Hg] General acute hospital Diastolic blood pressure 2024-03-13 18:59:00 89 mm[Hg] General acute hospital Heart rate 2024-03-13 18:59:00 108 /min Unive [facility] Body weight 2024-03-13 18:59:00 73.664 kg [facility] BMI 2024-03-13 18:59:00 30.69 kg/m2 Univ [facility] Systolic blood pressure 2024-03-06 20:35:00 146 mm[Hg] General acute hospital Diastolic blood pressure 2024-03-06 20:35:00 91 mm[Hg] General acute hospital Heart rate 2024-03-06 20:34:00 105 /min Unive [facility] Body temperature 2024-03-06 20:34:00 36.78 Shelby [facility] Respiratory rate 2024-03-06 20:34:00 18 /min [facility] Body height 2024-03-06 20:34:00 154.9 cm Univ [facility] Body weight 2024-03-06 20:34:00 73.301 kg [facility] BMI 2024-03-06 20:34:00 30.53 kg/m2 Univ [facility] Systolic blood pressure 2024-02-01 16:56:00 131 mm[Hg] [facility] Diastolic blood pressure 2024-02-01 16:56:00 87 mm[Hg] General acute hospital Heart rate 2024-02-01 16:56:00 102 /min Unive [facility] Body height 2024-02-01 16:56:00 154.9 cm [facility] Body weight 2024-02-01 16:56:00 74.707 kg [facility] BMI 2024-02-01 16:56:00 31.12 kg/m2 [facility] Oxygen saturation in Arterial blood by Pulse oximetry 2024-02-01 16:56:00 96 /min [facility] acute hospital Systolic blood pressure 2023-10-15 15:17:00 142 mm[Hg] General acute hospital Diastolic blood pressure 2023-10-15 15:17:00 86 mm[Hg] General acute hospital Heart rate 2023-10-15 15:17:00 91 /min Unive [facility] Body height 2023-10-15 15:17:00 154.9 cm Univ [facility] Body weight 2023-10-15 15:17:00 79.47 kg [facility] BMI 2023-10-15 15:17:00 33.10 kg/m2 [facility] Oxygen saturation in Arterial blood by Pulse oximetry 2023-10-15 15:17:00 100 /min [facility] acute hospital Systolic blood pressure 2023-09-25 00:47:00 141 mm[Hg] General acute hospital Diastolic blood pressure 2023-09-25 00:47:00 96 mm[Hg] General acute hospital Heart rate 2023-09-25 00:47:00 110 /min Unive [facility] Respiratory rate 2023-09-25 00:47:00 13 /min [facility] Oxygen saturation in Arterial blood by Pulse oximetry 2023-09-25 00:47:00 98 /min General acute hospital Body temperature 2023-09-24 20:39:00 37.11 Shelby [facility] Body height 2023-09-24 20:39:00 154.9 cm Univ [facility] Body weight 2023-09-24 20:39:00 76.34 kg [facility] BMI 2023-09-24 20:39:00 31.80 kg/m2 Univ [facility] Systolic blood pressure 2023-06-24 02:27:00 138 mm[Hg] General acute hospital Diastolic blood pressure 2023-06-24 02:27:00 105 mm[Hg] General acute hospital Heart rate 2023-06-24 02:27:00 107 /min Unive [facility] Body temperature 2023-06-24 02:27:00 37.22 Shelby [facility] Respiratory rate 2023-06-24 02:27:00 18 /min [facility] Body height 2023-06-24 02:27:00 154.9 cm [facility] Body weight 2023-06-24 02:27:00 76.023 kg [facility] BMI 2023-06-24 02:27:00 31.67 kg/m2 [facility] Oxygen saturation in Arterial blood by Pulse oximetry 2023-06-24 02:27:00 100 /min [facility] acute hospital Systolic blood pressure 2023-05-19 01:31:00 119 mm[Hg] General acute hospital Diastolic blood pressure 2023-05-19 01:31:00 87 mm[Hg] General acute hospital Heart rate 2023-05-19 01:29:00 95 /min Unive [facility] Body temperature 2023-05-19 01:29:00 37 Shelby [facility] Respiratory rate 2023-05-19 01:29:00 16 /min [facility] Body height 2023-05-19 01:29:00 154.9 cm Univ [facility] Body weight 2023-05-19 01:29:00 71.578 kg [facility] BMI 2023-05-19 01:29:00 29.82 kg/m2 [facility] Oxygen saturation in Arterial blood by Pulse oximetry 2023-05-19 01:29:00 99 /min [facility] acute hospital Systolic blood pressure 2023-05-18 16:34:00 117 mm[Hg] General acute hospital Diastolic blood pressure 2023-05-18 16:34:00 79 mm[Hg] General acute hospital Heart rate 2023-05-18 16:34:00 98 /min Unive [facility] Body height 2023-05-18 16:34:00 154.9 cm [facility] Body weight 2023-05-18 16:34:00 71.759 kg [facility] BMI 2023-05-18 16:34:00 29.89 kg/m2 [facility] Systolic blood pressure 2023-04-30 16:05:00 139 mm[Hg] General acute hospital Diastolic blood pressure 2023-04-30 16:05:00 93 mm[Hg] General acute hospital Heart rate 2023-04-30 16:04:00 106 /min [facility] Body temperature 2023-04-30 16:04:00 36.72 Shelby [facility] Respiratory rate 2023-04-30 16:04:00 18 /min [facility] Body height 2023-04-30 16:04:00 154.9 cm [facility] Body weight 2023-04-30 16:04:00 70.943 kg [facility] BMI 2023-04-30 16:04:00 29.55 kg/m2 [facility] Oxygen saturation in Arterial blood by Pulse oximetry 2023-04-30 16:04:00 99 /min [facility] acute hospital Systolic blood pressure 2023-04-15 12:58:00 119 mm[Hg] General acute hospital Diastolic blood pressure 2023-04-15 12:58:00 86 mm[Hg] General acute hospital Heart rate 2023-04-15 12:58:00 95 /min Unive [facility] Body temperature 2023-04-15 12:56:00 36.61 Shelby [facility] Respiratory rate 2023-04-15 12:56:00 16 /min [facility] Body height 2023-04-15 12:56:00 154.9 cm [facility] Body weight 2023-04-15 12:56:00 68.539 kg [facility] BMI 2023-04-15 12:56:00 28.55 kg/m2 [facility] Oxygen saturation in Arterial blood by Pulse oximetry 2023-04-15 12:56:00 100 /min [facility] acute hospital Systolic blood pressure 2023-04-08 14:44:00 125 mm[Hg] General acute hospital Diastolic blood pressure 2023-04-08 14:44:00 85 mm[Hg] General acute hospital Heart rate 2023-04-08 14:44:00 120 /min Unive [facility] Body temperature 2023-04-08 14:33:00 36.22 Shelby [facility] Respiratory rate 2023-04-08 14:33:00 18 /min [facility] Body height 2023-04-08 14:33:00 154.9 cm [facility] Body weight 2023-04-08 14:33:00 71.668 kg [facility] BMI 2023-04-08 14:33:00 29.85 kg/m2 [facility] Oxygen saturation in Arterial blood by Pulse oximetry 2023-04-08 14:33:00 100 /min [facility] acute hospital Systolic blood pressure 2022-12-09 16:27:00 103 mm[Hg] General acute hospital Diastolic blood pressure 2022-12-09 16:27:00 66 mm[Hg] General acute hospital Heart rate 2022-12-09 16:27:00 110 /min Unive [facility] Oxygen saturation in Arterial blood by Pulse oximetry 2022-12-09 16:27:00 98 /min [facility] acute hospital Body temperature 2022-12-09 12:37:00 36.89 Shelby [facility] Respiratory rate 2022-12-09 12:37:00 18 /min [facility] Body weight 2022-12-09 08:24:00 72.984 kg [facility] BMI 2022-12-09 08:24:00 30.40 kg/m2 [facility] Body height 2022-12-09 04:15:00 154.9 cm [facility] Systolic blood pressure 2022-11-11 02:12:00 136 mm[Hg] General acute hospital Diastolic blood pressure 2022-11-11 02:12:00 95 mm[Hg] General acute hospital Heart rate 2022-11-11 02:12:00 120 /min [facility] Oxygen saturation in Arterial blood by Pulse oximetry 2022-11-11 02:12:00 98 /min [facility] acute hospital Body temperature 2022-11-11 01:59:00 36.89 Shelby [facility] Body height 2022-11-11 01:59:00 154.9 cm [facility] Body weight 2022-11-11 01:59:00 67.314 kg [facility] BMI 2022-11-11 01:59:00 28.04 kg/m2 [facility] Procedures Procedure Date / Time Performed Performing Clinician Source POCT URINALYSIS W/O SPECIFIC GRAVITY 2024-04-28 00:00:00 Mirella Hillman [facility] POCT URINALYSIS W/O SPECIFIC GRAVITY 2024-04-28 00:00:00 Mirella Hillman [facility] CBC WITH DIFF 2024-04-11 17:21:00 Torsten Hillman [facility] CBC WITH DIFF 2024-04-11 17:21:00 Torsten Hillman [facility] CBC WITH DIFF 2024-04-11 09:30:00 Torsten Hillman [facility] CBC WITH DIFF 2024-04-11 09:30:00 Torsten Hillman [facility] POCT GLUCOSE (AUTOMATED) 2024-04-10 23:36:00 Kady [facility] POCT GLUCOSE (AUTOMATED) 2024-04-10 23:36:00 Kady [facility] POCT GLUCOSE (AUTOMATED) 2024-04-10 20:40:00 Kady [facility] POCT GLUCOSE (AUTOMATED) 2024-04-10 20:40:00 Kady [facility] POCT GLUCOSE (AUTOMATED) 2024-04-10 20:36:00 Kady [facility] POCT GLUCOSE (AUTOMATED) 2024-04-10 20:36:00 YeisonLuu, [facility] [id number] - [place] LAPS W/VAG HYSTERECT 250 GM/&RMVL TUBE&/OVARIES 2024-04-10 13:39:00 Kady [facility] SALPINGO-OOPHORECTOMY 2024-04-10 13:39:00 Kady [facility] [address] - [place] LAPS W/VAG HYSTERECT 250 GM/&RMVL TUBE&/OVARIES 2024-04-10 13:39:00 YeisonLuu [facility] SALPINGO-OOPHORECTOMY 2024-04-10 13:39:00 Kady [facility] HB ABO GROUPING 2024-04-10 12:18:00 Angelo-Luu, [facility] HB ABO GROUPING 2024-04-10 12:18:00 Kady [facility] POCT GLUCOSE (AUTOMATED) 2024-04-10 [facility] POCT GLUCOSE (AUTOMATED) 2024-04-10 12:03:00 YeisonLuu, [facility] CBC WITH DIFF 2024-04-08 13:10:00 Kady [facility] acute hospital POCT TEST 2024-03-13 00:00:00 [facility] POCT URINALYSIS W/O SPECIFIC GRAVITY 2024-03-06 00:00:00 [facility] US PELVIS COMPLETE WITH TRANSVAGINAL 2024-03-03 18:54:33 [facility] DIABETES TESTING REPORTS 2023-10-15 06:01:00 Doctor Unassigned, [place] [facility] POCT GLUCOSE(AGE >30DAYS) 2023-09-25 00:27:00 Alejandra Post [facility] POCT GLUCOSE (AUTOMATED) 2023-09-25 00:25:00 Alejandra Post [facility] POCT GLUCOSE (AUTOMATED) 2023-09-24 22:06:00 Alejandra Post [facility] POCT TEST 2023-09-24 21:02:00 Italia Post ra [facility] MAGNESIUM 2023-09-24 20:55:00 Alejandra Post [facility] COMP. METABOLIC PANEL (53940) 2023-09-24 20:55:00 Alejandra Post [facility] CBC WITH DIFF 2023-09-24 20:55:00 Alejandra Post U [facility] GLYCOSYLATED HEMOGLOBIN (A1C) 2023-09-24 20:55:00 Alejandra Post [facility] URINALYSIS 2023-09-24 20:55:00 Alejandra Post [facility] AC PANEL 21 + LACTIC ACID 2023-09-24 20:55:00 Alejandra Post [facility] POCT GLUCOSE (AUTOMATED) 2023-09-24 20:52:00 Alejandra Post [facility] CONSENT/REFUSAL FOR DIAGNOSIS AND TREATMENT 2023-09-24 20:25:49 Doctor Unassigned, [place] [facility] COMP. METABOLIC PANEL (84458) 2023-09-14 13:47:00 Laly Johnson [facility] LIPID PANEL (30502)(TOTAL CHOLESTEROL, TRIGLYCERIDES, HDL) 2023-09-14 13:47:00 Laly Johnson [facility] CBC WITH DIFF 2023-09-14 13:47:00 Laly Johnson U [facility] GLYCOSYLATED HEMOGLOBIN (A1C) 2023-09-14 13:47:00 Laly Johnson [facility] PHYSICIAN ORDERS 2023-09-14 06:01:00 Doctor Jas signed, [place] [facility] URINALYSIS 2023-06-24 02:56:00 [facility] LIPASE 2023-06-24 02:54:00 Amrit Luther [facility] COMP. METABOLIC PANEL ([id number]) 2023-06-24 02:54:00 Amrit Luther [facility] CBC WITH DIFF 2023-06-24 02:54:00 Amrit Luther [facility] POCT TEST 2023-06-24 02:54:00 Lino Luther [facility] NOTICE OF PRIVACY PRACTICES 2023-06-24 02:25:01 Doctor Unassigned, [place] [facility] CONSENT/REFUSAL FOR DIAGNOSIS AND TREATMENT 2023-06-24 02:22:10 Doctor Unassigned, [place] [facility] XR FOOT 3+ VW RIGHT 2023-05-19 01:46:48 Saloni Celaya [facility] NM GASTRIC EMPTYING 2023-04-26 18:04:14 Postleth Alfrdeo fuentes [facility] DISCLOSURE AND CONSENT, MEDICAL AND SURGICAL PROCEDURES 2023-04-15 05:01:00 Doctor Unassigned, [place] [facility] PHYSICIAN ORDERS 2023-04-07 05:01:00 Doctor Unas signed, [place] [facility] POCT GLUCOSE (AUTOMATED) 2022-12-09 20:38:00 Ramona Valdivia [facility] BASIC METABOLIC PANEL (NA, K, CL, CO2, GLUCOSE, BUN, CREATININE, CA) 2022-12-09 15:22:00 Paul De Souza [facility] POCT GLUCOSE (AUTOMATED) 2022-12-09 12:37:00 Ramona Valdivia [facility] MAGNESIUM 2022-12-09 09:56:00 Rasta Rivera [facility] POCT GLUCOSE (AUTOMATED) 2022-12-09 07:00:00 Ramona Valdivia [facility] POCT GLUCOSE (AUTOMATED) 2022-12-09 03:10:00 Elisabet Hopkins [facility] POCT GLUCOSE (AUTOMATED) 2022-12-09 02:19:00 Elisabet Hopkins [facility] CT CHEST PULMONARY ANGIOGRAM 2022-12-09 00:08:00 Elisabet Hopkins [facility] XR KUB 2022-12-08 22:04:00 [facility] D-DIMER 2022-12-08 21:49:00 [facility]isabet [facility] LIPASE 2022-12-08 21:27:00 [facility]isabet [facility] MAGNESIUM 2022-12-08 21:27:00 [facility]isabet [facility] BETA HYDROXY-BUTYRATE 2022-12-08 21:27:00 Edwige Hopkins [facility] TROPONIN I 2022-12-08 21:27:00 [facility]abet [facility] FREE T4 2022-12-08 21:27:00 Elisabet Hopkins [facility] THYROID STIMULATING HORMONE 2022-12-08 21:27:00 Elisabet Hopkins [facility] COMP. METABOLIC PANEL ([id number]) 2022-12-08 21:27:00 Elisabet Hopkins [facility] CBC WITH DIFF 2022-12-08 21:27:00 Elisabet Hopkins [facility] URINALYSIS 2022-12-08 21:27:00 [facility] POCT TEST 2022-12-08 21:27:00 Norma Hopkins [facility] POCT GLUCOSE (AUTOMATED) 2022-12-08 21:07:00 Elisabet Hopkins [facility] CONSENT/REFUSAL FOR DIAGNOSIS AND TREATMENT 2022-12-08 21:00:53 Doctor Unassigned, [place] [facility] CBC WITH DIFF 2022-11-13 14:02:00 Laly Johnson [facility] GLYCOSYLATED HEMOGLOBIN (A1C) 2022-11-13 14:02:00 Laly Johnson [facility] CONSENT/REFUSAL FOR DIAGNOSIS AND TREATMENT 2022-11-11 01:57:28 Doctor Unassigned, [place] [facility] ASSIGNMENT OF BENEFITS 2022-11-11 01:57:15 Docto r Unassigned, [place] [facility] Encounters Start Date/Time End Date/Time Encounter Type Admission Type Attending [facility] Facility Care Department Encounter ID Source 2023-06-17 12:23:03 Outpatient SHANTE FRANCO [facility] [id number] [facility] 2021-07-13 14:30:23 Emergency [facility] [id number] [facility] 2021-07-13 00:25:05 Emergency [facility] [id number] [facility] 2024-06-08 14:30:00 2024-06-08 14:30:00 Outpatient R GI-GARRY S, MIRELLA ANGELO-GARRY S, MIRELLA [facility] [id number] [facility] 2024-05-03 09:09:45 2024-05-03 23:59:00 Outpatient R GI-GARRY S, MIRELLA ANGELO-GARRY S, MIRELLA [facility] [id number] [facility] 2024-05-03 09:09:45 2024-05-03 23:59:00 Hospital Encounter Priscilla Padillasol [facility] [id number] [facility] 2024-05-01 00:00:00 2024-05-01 00:00:00 Outpatient R ANGELO-GARRY S, MIRELLA ANGELO-GARRY S, MIRELLA [facility] [id number] [facility] 2024-04-28 08:30:00 2024-04-28 08:36:52 Outpatient R ANGELO-GARRY S, MIRELLA ANGELO-GARRY S, MIRELLA [facility] [id number] [facility] 2024-04-28 08:30:00 2024-04-28 08:36:52 Office Visit Angelo-Garry s, Mirella [facility] [id number] [facility] 2024-03-16 00:00:00 2024-04-22 18:25:46 Patient Secure Msg Doctor Unassigned, [place] Doctor Unassigned, [place] [facility] 1..114 [id number] [facility] 2024-03-22 00:00:00 2024-04-22 18:19:20 Patient Secure Msg Doctor Unassigned, [place] Doctor Unassigned, [place] [facility] [id number] [facility] 2024-04-10 06:32:00 2024-04-11 15:10:00 Outpatient R ANGELO-GARRY S, MIRELLA ANGELO-GARRY S, MIRELLA [facility] CHRISTOPHER [id number] [facility] 2024-04-10 06:32:00 2024-04-11 15:10:00 Hospital Encounter Angelo-Garry s, Mirella [facility] [id number] [facility] 2024-04-07 00:00:00 2024-04-11 09:06:50 Patient Secure Msg Sanchez [facility] [place]?[facility] BUILD[facility] 1.2.840.114 350.1.13.10 4.2.7.2.686 [id number] [facility] 2024-04-10 07:15:00 2024-04-10 12:23:00 Surgery Angelo-Garry s, Mirella PAMB AT [facility] 1.2.840.114 350.1.13.10 4.2.7.2.686 [id number] 020 [id number] [facility] 2024-04-08 08:00:00 2024-04-08 08:15:00 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 Visit Pob, Adc Lab Main Angelo-Garry s, Mirella PAMB [facility] PROFESSIO NAL BUILDING 1.2.840.114 350.1.13.10 4.2.7.2.686 [id number] [facility] 2024-04-08 08:00:00 2024-04-08 08:00:00 Outpatient R ANGELO-GARRY S, MIRELLA ANGELO-GARRY S, MIRELLA PAMB [facility] [id number] [facility] 2024-03-30 00:00:00 2024-04-07 16:18:19 Patient Secure Msg Sanchez [facility] [place]?[facility] MED[facility] OFF[facility] BUILDING 1.2.840.114 350.1.13.10 4.2.7.2.686 [id number] [facility] 2024-04-07 08:00:00 2024-04-07 08:26:52 Outpatient R ANGELO-GARRY S, MIRELLA ANGELO-GARRY S, MIRELLA [facility] [id number] [facility] 2024-04-07 08:00:00 2024-04-07 08:26:52 Office Visit Angelo-Garry s, Mirella [facility] BUILDING 1.2.840.114 350.1.13.10 4.2.7.2.686 [id number] [facility] 2024-04-04 00:00:00 2024-04-04 14:43:05 [facility]phone [facility] 1.2.840.114 350.1.13.10 4.2.7.2.686 [id number] [facility] 2024-03-28 00:00:00 2024-03-28 08:51:29 Patient Secure Msg Daniel [facility] [place] 1.2.840.114 350.1.13.10 4.2.7.2.686 [id number] 220 [id number] [facility] 2024-03-17 09:00:00 2024-03-17 09:00:00 Outpatient R ELVIRA LOPEZ [facility] [id number] [facility] 2024-03-09 00:00:00 2024-03-14 09:04:23 Telephone Daniel [facility] [place]?DONNA [facility] MED[facility] OFFICE BUILDING 1.2.840.114 350.1.13.10 4.2.7.2.686 [id number] 220 [id number] [facility] 2024-03-13 14:00:00 2024-03-13 14:30:00 Office [facility] 1.2.840.114 350.1.13.10 4.2.7.2.686 [id number] [facility] 2024-03-13 14:00:00 2024-03-13 14:13:04 Outpatient R ANDREY Riggs MIRELLA [facility] [id number] [facility] 2024-03-08 00:00:00 2024-03-08 10:18:40 Telephone [facility] 1.2.840.114 350.1.13.10 4.2.7.2.686 [id number] [facility] 2024-03-08 00:00:00 2024-03-08 09:36:28 Telephone [facility] BU[facility] 1.2.840.114 350.1.13.10 4.2.7.2.686 [id number] [facility] 2024-03-06 00:00:00 2024-03-07 08:51:35 [facility]MARYBETHSunny [facility] OFF[facility] BUILDING 1.2.840.114 350.1.13.10 4.2.7.2.686 [id number] 220 [id number] [facility] 2024-03-06 15:00:00 2024-03-06 15:52:14 Outpatient R ANGELO-GARRY S, MIRELLA ANGELO-GARRY S, MIRELLA [facility] [id number] [facility] 2024-03-06 15:00:00 2024-03-06 15:52:14 Office Visit Angelo-Garry s Mirella [facility] 1.2.840.114 350.1.13.10 4.2.7.2.686 [id number] [facility] 2024-03-03 13:12:26 2024-03-03 23:59:00 Outpatient R ANGELO-GARRY S, MIRELLA ANGELO-GARRY S, MIRELLA [facility] [id number] [facility] 2024-03-03 13:00:00 2024-03-03 23:59:00 Hospital Encounter Angelo-Garry s, Mirella [facility] 1.114 350.1.13.10 4.2.7.2.686 [id number] [facility] 2024-02-01 12:00:00 2024-02-01 12:51:48 Outpatient R DANIEL [facility] [id number] [facility] 2024-02-01 12:00:00 2024-02-01 12:51:48 Office Visit Daniel [facility] [place]?DONNA [facility] OFF[facility] BUILDING 1.114 350.1.13.10 4.2.7.2.686 [id number] [facility] 2024-01-31 12:45:00 2024-01-31 13:00:00 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 Visit Pob, Adc Lab Main Dinora Boyer [facility] PROFESSIO NAL BUILDING 1.114 350.1.13.10 4.2.7.2.686 [id number] [facility] 2024-01-31 12:45:00 2024-01-31 12:45:00 Outpatient R [facility] [id number] [facility] 2024-01-31 12:45:00 2024-01-31 12:45:00 Outpatient R DINORA BOYER [facility] [id number] [facility] 2023-11-16 00:00:00 2023-11-16 00:00:00 Telephone Nevin Barboza [facility] 1. 350.1.13.10 4.2.7.2.686 [id number] [facility] 2023-11-13 00:00:00 2023-11-13 00:00:00 Patient Secure Msg Doctor Unassigned, [place] [facility] 1.114 350.1.13.10 4.2.7.2.686 [id number] [facility] 2023-11-13 00:00:00 2023-11-13 00:00:00 Patient Secure Msg Doctor Unassigned, [place] [facility] 1.2840.114 350.1.13.10 4.2.7.2.686 [id number] [facility] 2023-10-22 00:00:00 2023-10-22 00:00:00 Patient Secure Msg Doctor Unassigned, [place] [facility] 1.2840.114 350.1.13.10 4.2.7.2.686 [id number] [facility] 2023-10-22 00:00:00 2023-10-22 00:00:00 Patient Secure Msg Doctor Unassigned, [place] [facility] 1.2840.114 350.1.13.10 4.2.7.2.686 [id number] [facility] 2023-10-15 09:30:00 2023-10-15 10:17:59 Outpatient R ELVIRA LOPEZ [facility] [id number] [facility] 2023-10-15 09:30:00 2023-10-15 10:17:59 Office Visit Elvira Lopez [facility]?DONNA ART[facility]AN MEDICAL OFFICE BUILDING 1.284.114 350.1.13.10 4.2.7.2.686 [id number] [facility] 2023-10-15 00:00:00 2023-10-15 00:00:00 Orders Only Doctor Unassigned, [place] [facility] 1.2840.114 350.1.13.10 4.2.7.2.686 [id number] [facility] 2023-10-05 09:00:00 2023-10-05 09:00:00 Outpatient R ELVIRA LOPEZ [facility] [id number] [facility] 2023-10-04 00:00:00 2023-10-04 00:00:00 Telephone Ferdinand [facility] JOSE?DONNA [facility] MEDICAL OFF[facility] BUILDING 1..114 350.1.13.10 4.2.7.2.686 [id number] 220 [id number] [facility] 2023-09-28 13:00:00 2023-09-28 13:30:00 Office [facility] OFF[facility] BUILD[facility] 1..114 350.1.13.10 4.2.7.2.686 [id number] [facility] 2023-09-28 13:00:00 2023-09-28 13:00:00 Outpatient R [facility] [id number] [facility] 2023-09-24 14:43:00 2023-09-24 19:00:00 Emergency X ALEJANDRA POST [facility] ERT [id number] [facility] 2023-09-24 14:43:00 2023-09-24 19:00:00 Emergency Alejandra Post [facility] 1..114 350.1.13.10 4.2.7.2.686 [id number] [facility] 2023-09-24 00:00:00 2023-09-24 00:00:00 Letter (Out) Stepan James [facility] 1..114 350.1.13.10 4.2.7.2.686 [id number] [facility] 2023-09-14 07:45:00 2023-09-14 08:00:00 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 Visit Pob, Adc Lab Main Dinora Boyer [facility] PROFESSIO NAL BUILDING 1..114 350.1.13.10 4.2.7.2.686 [id number] [facility] 2023-09-14 07:45:00 2023-09-14 07:45:00 Outpatient DINORA SIGALA [facility] [id number] [facility] 2023-09-14 00:00:00 2023-09-14 00:00:00 Orders Only Doctor Unassigned, [place] [facility] 1.2840.114 350.1.13.10 4.2.7.2.686 [id number] [facility] 2023-06-23 21:31:00 2023-06-23 22:46:00 Emergency Amrit Luther [facility] 1.2840.114 350.1.13.10 4.2.7.2.686 [id number] [id number] [facility] 2023-06-23 21:31:00 2023-06-23 22:46:00 Emergency X AMRIT LUTHER [facility] ERT [id number] [facility] 2023-06-21 00:00:00 2023-06-21 00:00:00 Patient Secure Msg Doctor Unassigned, [place] [facility] 1.2.114 350.1.13.10 4.2.7.2.686 [id number] [id number] [facility] 2023-05-27 00:00:00 2023-05-27 00:00:00 Patient Secure Msg Doctor Unassigned, [place] [facility] ICAL [facility]ENC[facility] 1.2840.114 350.1.13.10 4.2.7.2.686 [id number] [id number] [facility] 2023-05-27 00:00:00 2023-05-27 00:00:00 Patient Secure Msg Doctor Unassigned, [place] [facility] ICAL SCIENCES BLDG 1.2840.114 350.1.13.10 4.2.7.2.686 [id number] [facility] 2023-05-27 00:00:00 2023-05-27 00:00:00 Patient Secure Msg Doctor Unassigned, [place] [facility] ICAL SCIENCES BLDG 1.2840.114 350.1.13.10 4.2.7.2.686 [id number] [id number] [facility] 2023-05-26 00:00:00 2023-05-26 00:00:00 Patient Secure Msg Shante Martinez [facility] ICAL SCIENCES BLDG 1.2840.114 350.1.13.10 4.2.7.2.686 [id number] [id number] [facility] 2023-05-18 20:40:38 2023-05-18 23:59:00 [facility] [id number] [facility] 2023-05-18 20:40:38 2023-05-18 23:59:00 Hospital [facility] MEDICAL OFFICE BUILDING 1.284.114 350.1.13.10 4.2.7.2.686 [id number] [facility] 2023-05-18 20:40:00 2023-05-18 21:00:00 Urgent Care Abrahan Celaya Daniel [facility] [place]?[facility] MEDICAL OFFICE BUILDING 1.284.114 350.1.13.10 4.2.7.2.686 [id number] [facility] 2023-05-18 12:00:00 2023-05-18 12:54:37 Office Visit Daniel [facility] [place]?[facility] MEDICAL OFFICE BUILDING 1.2.84.114 350.1.13.10 4.2.7.2.686 [id number] [facility] 2023-05-14 00:00:00 2023-05-14 00:00:00 Patient Secure Msg Doctor Unassigned, [place] [facility] 1.840.114 350.1.13.10 4.2.7.2.686 [id number] [facility] 2023-04-30 11:00:00 2023-04-30 11:30:59 Outpatient R MIRELLA PADILLA [facility] [id number] [facility] 2023-04-30 11:00:00 2023-04-30 11:30:59 Office Visit Andrey riggs Mirella [facility] 1.840.114 350.1.13.10 4.2.7.2.686 [id number] [facility] 2023-04-29 00:00:00 2023-04-29 00:00:00 Outpatient R JUWAN HAY [facility] [id number] [facility] 2023-04-28 00:00:00 2023-04-28 00:00:00 Patient Secure Msg Ene Sanchez [facility] LARISA GARCIA?DONNA SIEGEL MEDICAL OFFICE BUILDING 1..840.114 350.1.13.10 4.2.7.2.686 [id number] 220 [id number] [facility] 2023-04-26 08:57:30 2023-04-26 23:59:00 Outpatient R RONALD BRAVO [facility] [id number] [facility] 2023-04-26 08:57:30 2023-04-26 23:59:00 Hospital Encounter Ronald Bravo [facility] 1.840.114 350.1.13.10 4.2.7.2.686 [id number] [facility] 2023-04-20 10:30:00 2023-04-20 10:30:00 Outpatient R DONALD ROOT [facility] [id number] [facility] 2023 00:00:00 2023 00:00:00 Outpatient JUWAN CRAFT [facility] [id number] [facility] 2023-04-15 08:00:00 2023-04-15 08:30:00 Office Visit Alfredo Cabral Joseph Marc [facility] 1..114 350.1.13.10 4.2.7.2.686 [id number] [facility] 2023-04-15 08:00:00 2023-04-15 08:00:00 Outpatient RONALD POLANCO [facility] [id number] [facility] 2023-04-15 00:00:00 2023-04-15 00:00:00 Orders Only Doctor Unassigned, [place] [facility] .0.114 350.1.13.10 4.2.7.2.686 [id number] [id number] [facility] 2023-04-08 10:30:00 2023-04-08 16:52:42 Outpatient JUWAN CRAFT [facility] [id number] [facility] 2023-04-08 10:30:00 2023-04-08 11:00:00 Office Visit Juwan [facility] ..114 350.1.13.10 4.2.7.2.686 [id number] [facility] 2023-04-07 10:00:00 2023-04-07 10:15:00 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 Visit Pob, Adc Lab Dinora Aguilar [facility] 1..114 350.1.13.10 4.2.7.2.686 [id number] [facility] 2023-04-07 10:00:00 2023-04-07 10:00:00 Outpatient DINORA SIGALA [facility] [id number] [facility] 2023-04-07 00:00:00 2023-04-07 00:00:00 Orders Only Doctor Unassigned, [place] [facility] 1.114 350.1.13.10 4.2.7.2.686 [id number] [facility] 2023-04-05 12:45:00 2023-04-05 12:45:00 Outpatient R [facility] [id number] [facility] 2022-12-10 00:00:00 2022-12-10 00:00:00 Transition of Care Poornima Randall 1.114 350.1.13.10 4.2.7.2.686 [id number] [facility] 2022-12-08 16:09:00 2022-12-09 16:19:00 Outpatient RAMONA WINCHESTER [facility] [id number] [facility] 2022-12-08 16:09:00 2022-12-09 16:19:00 Emergency [facility]isabet Hopkins, [facility] 1.114 350.1.13.10 4.2.7.2.686 [id number] [facility] 2022-11-30 00:00:00 2022-11-30 00:00:00 Patient Secure MsEne Pino [facility] . 350.1.13.10 4.2.7.2.686 [id number] 220 [id number] [facility] 2022-11-13 07:45:00 2022-11-13 08:00:00 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 Visit Pob, Adc Lab Main [facility] PROF[facility]IO [facility] BUILDING 1.114 350.1.13.10 4.2.7.2.686 [id number] [facility] 2022-11-13 07:45:00 2022-11-13 07:45:00 Outpatient DINORA SIGALA [facility] [id number] [facility] 2022-11-10 20:00:00 2022-11-10 20:37:16 Outpatient R GENA ASCENCIO [facility] [id number] [facility] 2022-11-10 20:00:00 2022-11-10 20:37:16 Urgent Care Sonu Gena Unknown, Attending [facility] MEDICAL OFFICE BUILDING 1.2.840.114 350.1.13.10 4.2.7.2.686 [id number] [facility] 2022-11-10 00:00:00 2022-11-10 00:00:00 Orders Only Doctor Unassigned, [place] [facility] 1..840.114 350.1.13.10 4.2.7.2.686 [id number] [facility] 2022-11-10 00:00:00 2022-11-10 00:00:00 Letter (Out) Sonu [facility] JOSE?[facility] MEDICAL OFFICE BUILDING 1..840.114 350.1.13.10 4.2.7.2.686 [id number] [facility] 2022-11-10 00:00:00 2022-11-10 00:00:00 Letter (Out) Sonu [facility] JOSE?[facility] MEDICAL OFFICE BUILDING 1..840.114 350.1.13.10 4.2.7.2.686 [id number] [facility] 2022-03-03 14:00:00 2022-03-03 14:00:00 Outpatient ENE PEDRO [facility] [id number] [facility] 2022-02-17 00:00:00 2022-02-17 00:00:00 Telephone Daniel [facility] JOSE?[facility] OFF[facility] BUILDING 1.2.840.114 350.1.13.10 4.2.7.2.686 [id number] 220 [id number] [facility] 2022-02-12 00:00:00 2022-02-12 00:00:00 Telephone Daniel [facility] JOSE?[facility] MEDICAL OFFICE BUILDING 1.2.840.114 350.1.13.10 4.2.7.2.686 [id number] [facility] 2022-02-04 00:00:00 2022-02-04 00:00:00 Telephone Daniel [facility] JOSE?[facility] MED[facility] OFFICE BUILDING 1..840.114 350.1.13.10 4.2.7.2.686 [id number] 220 [id number] [facility] 2022-01-06 00:00:00 2022-01-06 00:00:00 Refill Daniel [facility] BUILDING 1..840.114 350.1.13.10 4.2.7.2.686 [id number] 220 [id number] [facility] 2021-09-07 15:30:00 2021-09-07 15:45:00 Laboratory Only Only, Ang Db Test Ivett [facility] 1.2.840.114 350.1.13.10 4.2.7.2.686 [id number] [facility] 2021-09-07 15:30:00 2021-09-07 15:30:00 Outpatient R IVETT [facility] [id number] [facility] 2021-08-13 08:21:29 2021-08-13 08:36:29 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 Visit Pob, Adc Lab Main Dinora Boyer [facility] BUILDING 1..840.114 350.1.13.10 4.2.7.2.686 [id number] [facility] 2021-08-13 08:00:00 2021-08-13 08:00:00 Outpatient DINORA SIGALA [facility] [id number] [facility] 2021-08-13 00:00:00 2021-08-13 00:00:00 Orders Only Doctor Unassigned, [place] [facility] 1.20.114 350.1.13.10 4.2.7.2.686 [id number] [facility] 2021-08-01 09:55:54 2021-08-01 23:59:00 Outpatient R RADIOLOGY [facility] [id number] [facility] 2021-08-01 09:55:54 2021-08-01 23:59:00 Hospital Encounter Radiology [facility] 1.2840.114 350.1.13.10 4.2.7.2.686 [id number] [facility] 2021-07-28 07:41:29 2021-07-28 07:56:29 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 Visit Pob, Adc Lab Main Rosalind [facility] BUILDING 1..840.114 350.1.13.10 4.2.7.2.686 [id number] [facility] 2021-07-28 07:45:00 2021-07-28 07:45:00 Outpatient Jose Enrique [facility] [id number] [facility] 2021-07-28 00:00:00 2021-07-28 00:00:00 Orders Only Doctor Unassigned, [place] [facility] 1.2840.114 350.1.13.10 4.2.7.2.686 [id number] [facility] 2021-06-04 09:00:00 2021-06-04 09:00:00 Outpatient R IVETT [facility] [id number] [facility] 2021-06-03 13:30:00 2021-06-03 13:30:00 Outpatient R ENE SANCHEZ [facility] [id number] [facility] 2021-04-15 00:00:00 2021-04-15 00:00:00 Refill Ivett [facility] 1.2.840.114 350.1.13.10 4.2.7.2.686 [id number] [facility] 2021-02-26 00:00:00 2021-02-26 00:00:00 Patient Secure Msg Daniel [facility] Building 1.2.840.114 350.1.13.10 4.2.7.2.686 [id number] 220 [id number] [facility] 2021-02-26 00:00:00 2021-02-26 00:00:00 Patient Secure Msg Daniel [facility] BUILDING 1.2.840.114 350.1.13.10 4.2.7.2.686 [id number] 220 [id number] [facility] 2021-02-25 15:07:29 2021-02-25 15:22:29 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 Visit Pob, Adc Lab Main Donald Root [facility] 1.2.840.114 350.1.13.10 4.2.7.2.686 [id number] [facility] 2021-02-25 13:48:36 2021-02-25 14:49:37 Office Visit Daniel [facility] 1.2.840.114 350.1.13.10 4.2.7.2.686 [id number] [facility] 2021-02-25 14:00:00 2021-02-25 14:00:00 Outpatient R [facility] [id number] [facility] 2021-02-25 00:00:00 2021-02-25 00:00:00 Orders Only Doctor Unassigned, [place] [facility] 1.2.840.114 350.1.13.10 4.2.7.2.686 [id number] [id number] [facility] 2021-02-25 00:00:00 2021-02-25 00:00:00 Telephone Daniel [facility] Building 1.2.840.114 350.1.13.10 4.2.7.2.686 [id number] [facility] 2021-02-25 00:00:00 2021-02-25 00:00:00 Telephone Donald Root [facility] Building 1.2.840.114 350.1.13.10 4.2.7.2.686 [id number] [facility] 2021-02-19 00:00:00 2021-02-19 00:00:00 Telephone Daniel [facility] Building 1.2.840.114 350.1.13.10 4.2.7.2.686 [id number] [facility] 2021-01-28 15:00:00 2021-01-28 15:00:00 [facility] [id number] [facility] 2021-01-22 14:00:00 2021-01-22 14:00:00 Outpatient R DANIEL [facility] [id number] [facility] 2021-01-08 00:00:00 2021-01-08 00:00:00 Patient Secure Msg Doctor Unassigned, [place] [facility] 1.2.840.114 350.1.13.10 4.2.7.2.686 [id number] [facility] 2021-01-06 00:00:00 2021-01-06 00:00:00 RefHaylie Zamarripa [facility] SET UP [facility] 1.2840.114 350.1.13.10 4.2.7.2.686 [id number] [facility] 2021-01-06 00:00:00 2021-01-06 00:00:00 Refill Karlenedurgasarmad Donald [facility] 1.2.114 350.1.13.10 4.2.7.2.686 [id number] [facility] 2021-01-03 00:00:00 2021-01-03 00:00:00 Patient Secure Msg Doctor Unassigned, [place] [facility] 1..114 350.1.13.10 4.2.7.2.686 [id number] [facility] 2021-01-01 19:44:00 2021-01-01 21:09:00 Emergency Paul Doss S [facility] 1.0.114 350.1.13.10 4.2.7.2.686 [id number] [facility] 2021-01-01 18:42:58 2021-01-01 19:47:46 Urgent Care Provider, [facility] Nanci Osborn [facility] 1..114 350.1.13.10 4.2.7.2.686 [id number] [facility] 2021-01-01 19:00:00 2021-01-01 19:00:00 Outpatient [facility] [id number] [facility] 2020-12-22 00:00:00 2020-12-22 00:00:00 Refsantino [facility] 1.2.840.114 350.1.13.10 4.2.7.2.686 [id number] [facility] 2020-12-02 00:00:00 2020-12-02 00:00:00 Patient Outreach Tony Luke [facility] 1.2.840.114 350.1.13.10 4.2.7.2.686 [id number] [facility] 2020-11-04 09:46:00 2020-11-04 10:38:00 Emergency Alejandra Post [facility] 1.2.840.114 350.1.13.10 4.2.7.2.686 [id number] [facility] 2020-11-04 00:00:00 2020-11-04 00:00:00 Orders Only Doctor Unassigned, [place] [facility] 1.2.840.114 350.1.13.10 4.2.7.2.686 [id number] [facility] 2020-11-04 00:00:00 2020-11-04 00:00:00 Case Management Iv[facility] 1.2.840.114 350.1.13.10 4.2.7.2.686 [id number] [facility] 2020-10-16 10:19:42 2020-10-16 17:14:01 Office Visit [facility] 1.2.840.114 350.1.13.10 4.2.7.2.686 [id number] [facility] 2020-10-16 10:30:00 2020-10-16 10:30:00 Outpatient R DONALD ROOT [facility] [id number] [facility] 2020-10-02 00:00:00 2020-10-02 00:00:00 Patient Secure Msg [facility] BUILDING 1.2.840.114 350.1.13.10 4.2.7.2.686 [id number] [facility] 2020-09-23 00:00:00 2020-09-23 00:00:00 Patient Secure Msg Doctor Unassigned, [place] [facility] 1.2.840.114 350.1.13.10 4.2.7.2.686 [id number] 134 [id number] [facility] 2020-09-12 00:00:00 2020-09-12 00:00:00 Telephone Daniel [facility] 1.2.840.114 350.1.13.10 4.2.7.2.686 [id number] 220 [id number] [facility] 2020-09-11 16:13:28 2020-09-11 16:28:28 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 Visit 2, Adc Lab Daniel [facility] 1.2.840.114 350.1.13.10 4.2.7.2.686 [id number] [facility] 2020-09-11 14:01:41 2020-09-11 16:09:52 Office Visit Daniel [facility] 1.2.840.114 350.1.13.10 4.2.7.2.686 [id number] [facility] 2020-09-11 14:30:00 2020-09-11 14:30:00 Outpatient R DANIEL [facility] [id number] [facility] 2020-09-06 10:26:00 2020-09-06 14:43:00 Emergency X PAUL DSOS [facility] ERT [id number] [facility] 2020-09-06 10:26:00 2020-09-06 14:43:00 Emergency Paul Doss S [facility] 1.2.840.114 350.1.13.10 4.2.7.2.686 [id number] [id number] [facility] 2020-09-04 00:00:00 2020-09-04 00:00:00 Telephone Ivett Donald [facility] 1.2.840.114 350.1.13.10 4.2.7.2.686 [id number] [facility] 2020-08-15 00:00:00 2020-08-15 00:00:00 Telephone Maddie Harris [facility] 1.2840.114 350.1.13.10 4.2.7.2.686 [id number] [facility] 2020-08-15 00:00:00 2020-08-15 00:00:00 Orders Only Doctor Unassigned, [place] [facility] 1.2840.114 350.1.13.10 4.2.7.2.686 [id number] 009 [id number] [facility] 2020-08-15 00:00:00 2020-08-15 00:00:00 Telephone Maddie Harris [facility] 1.2840.114 350.1.13.10 4.2.7.2.686 [id number] 134 [id number] [facility] 2020-07-16 00:00:00 2020-07-16 00:00:00 Orders Only Doctor Unassigned, [place] [facility] 1.2840.114 350.1.13.10 4.2.7.2.686 [id number] [facility] 2020-07-16 00:00:00 2020-07-16 00:00:00 Case Management Donald Root [facility] 1.2.840.114 350.1.13.10 4.2.7.2.686 [id number] 134 [id number] [facility] 2020-07-16 00:00:00 2020-07-16 00:00:00 Telephone Donald Root [facility] 1.2.840.114 350.1.13.10 4.2.7.2.686 [id number] 134 [id number] [facility] 2020-07-15 00:00:00 2020-07-15 00:00:00 Case Management Donald Root [facility] 1.2.840.114 350.1.13.10 4.2.7.2.686 [id number] [facility] 2020-07-11 08:49:28 2020-07-11 09:24:10 Office Visit HarrisAngelaen Nura [facility] 1.2.840.114 350.1.13.10 4.2.7.2.686 [id number] 134 [id number] [facility] 2020-07-11 08:30:00 2020-07-11 08:30:00 Outpatient R [facility] [id number] [facility] 2020-07-04 15:00:00 2020-07-04 15:00:00 Outpatient R [facility] [id number] [facility] 2020-06-27 07:41:33 2020-06-27 23:59:00 Hospital Encounter Donald Root [facility] 1.2.840.114 350.1.13.10 4.2.7.2.686 [id number] [facility] 2020-06-27 00:00:00 2020-06-27 00:00:00 Outpatient R K[facility]LEN[facility]KADEEM [facility] [id number] [facility] 2020-06-27 00:00:00 2020-06-27 00:00:00 Telephone Maddie Harris Nura [facility] Building 1.2.840.114 350.1.13.10 4.2.7.2.686 [id number] [facility] 2020-06-26 13:30:00 2020-06-26 13:30:00 Outpatient [facility] [id number] [facility] 2020-06-04 10:16:38 2020-06-04 10:31:38 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 Visit 2, Adc Lab Karlenedurgasarmad [facility] 1.2.840.114 350.1.13.10 4.2.7.2.686 [id number] [facility] 2020-06-04 08:54:06 2020-06-04 10:09:09 Office Visit Renitasarmad Donald [facility] 1.2.840.114 350.1.13.10 4.2.7.2.686 [id number] 134 [id number] [facility] 2020-06-04 09:00:00 2020-06-04 09:00:00 Outpatient R KARLENEKADEEM [facility] [id number] [facility] 2020-05-31 13:50:48 2020-05-31 23:59:00 Hospital Encounter Ivett Donald [facility] 1.2.840.114 350.1.13.10 4.2.7.2.686 [id number] [id number] [facility] 2020-05-31 00:00:00 2020-05-31 00:00:00 Outpatient R IVETT [facility] [id number] [facility] 2020-05-29 08:12:06 2020-05-29 08:27:06 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 Visit Pob, Adc Lab Main Karlenekadeem [facility] 1.2.840.114 350.1.13.10 4.2.7.2.686 [id number] [facility] 2020-05-29 08:15:00 2020-05-29 08:15:00 Outpatient Jose Enrique ROOT [facility] [id number] [facility] 2020-05-17 08:51:34 2020-05-17 09:18:31 Office Visit Donald Root [facility] 1.2.840.114 350.1.13.10 4.2.7.2.686 [id number] [facility] 2020-05-17 09:00:00 2020-05-17 09:00:00 Outpatient Jose Enrique ROOT [facility] [id number] [facility] 2020-05-17 08:00:00 2020-05-17 08:30:00 Office Visit Lili Nicholson [facility] 1.2.840.114 350.1.13.10 4.2.7.2.686 [id number] [facility] 2020-05-17 08:00:00 2020-05-17 08:00:00 [facility] [id number] 2020-05-17 00:00:00 2020-05-17 00:00:00 Orders Only Doctor Unassigned, [place] [facility] 1..840.114 350.1.13.10 4.2.7.2.686 [id number] [facility] 2020-05-10 10:30:00 2020-05-10 10:30:00 Outpatient Jose Enrique [facility] [id number] [facility] 2020-03-31 14:45:58 2020-03-31 15:41:11 Laboratory Only Lab, [facility] 1.2.840.114 350.1.13.10 4.2.7.2.686 [id number] [facility] 2020-03-31 15:00:00 2020-03-31 15:00:00 Outpatient ANUJ GLYNN [facility] [id number] [facility] Results Test Description Test Time Test Comments Results Result Co mments Source [facility] - On Postoperative Day # 52306-85-48 13:01:47* Test Item Value Reference Range Interpretation Comme nts WBC (test code = 6690-2) 10.60 4.30-11.10 RBC (test code = 789-8) 2.94 3.93-5.25 L HGB (test code = 718-7) 7.6 g/dL 11.6-15.0 L HCT (test code = 4544-3) 24.3 % 35.7-45.2 L MCV (test code = 787-2) 82.7 fL 80.6-95.5 MCH (test code = 785-6) 25.9 pg 25.9-32.8 MCHC (test code = 786-4) 31.3 g/dL 31.6-35.1 L RDW-SD (test code = 83972-1) 44.6 fL 39.0-49.9 RDW-CV (test code = 788-0) 14.9 % 12.0-15.5 PLT (test code = 777-3) 331 166-358 MPV (test code = 46109-9) 10.1 fL 9.5-12.9 NRBC/100 WBC (test code = 4539992056) 0.0 0.0-10.0 NRBC x10^3 (test code = 2049467764) See_Comment [Automated [employer]] The system which generated this result transmitted reference range: 10*3/?L. The reference range was not used to interpret this result as normal/abnormal. GRAN MAT (NEUT) % (test code = 770-8) 66.6 % IMM GRAN % (test code = 3941130271) 0.50 % LYMPH % (test code = 736-9) 25.3 % MONO % (test code = 5905-5) 6.6 % EOS % (test code = 713-8) 0.4 % BASO % (test code = 706-2) 0.6 % GRAN MAT x10^3(ANC) (test code = 9768424247) 7.07 10*3/uL 1.88-7.09 IMM GRAN x10^3 (test code = 5135370911) 0.05 10*3/uL 0.00-0.06 LYMPH x10^3 (test code = 731-0) 2.68 10*3/uL 1.32-3.29 MONO x10^3 (test code = 742-7) 0.70 10*3/uL 0.33-0.92 EOS x10^3 (test code = 711-2) 0.04 10*3/uL 0.03-0.39 BASO x10^3 (test code = 704-7) 0.06 10*3/uL 0.01-0.07 Lab Interpretation (test code = 65221-5) Abnormal [facility] - On Postoperative Day # 21396-69-37 13:01:47* Test Item Value Reference Range Interpretation Comme nts WBC (test code = 6690-2) 10.60 4.30-11.10 RBC (test code = 789-8) 2.94 3.93-5.25 L HGB (test code = 718-7) 7.6 g/dL 11.6-15.0 L HCT (test code = 4544-3) 24.3 % 35.7-45.2 L MCV (test code = 787-2) 82.7 fL 80.6-95.5 MCH (test code = 785-6) 25.9 pg 25.9-32.8 MCHC (test code = 786-4) 31.3 g/dL 31.6-35.1 L RDW-SD (test code = 88393-2) 44.6 fL 39.0-49.9 RDW-CV (test code = 788-0) 14.9 % 12.0-15.5 PLT (test code = 777-3) 331 166-358 MPV (test code = 65440-1) 10.1 fL 9.5-12.9 NRBC/100 WBC (test code = 5834902663) 0.0 0.0-10.0 NRBC x10^3 (test code = 6129806112) See_Comment [Automated messa ge] The system which generated this result transmitted reference range: 10*3/?L. The reference range was not used to interpret this result as normal/abnormal. GRAN MAT (NEUT) % (test code = 770-8) 66.6 % IMM GRAN % (test code = 0636168821) 0.50 % LYMPH % (test code = 736-9) 25.3 % MONO % (test code = 5905-5) 6.6 % EOS % (test code = 713-8) 0.4 % BASO % (test code = 706-2) 0.6 % GRAN MAT x10^3(ANC) (test code = 0110701122) 7.07 10*3/uL 1.88-7.09 IMM GRAN x10^3 (test code = 0484586147) 0.05 10*3/uL 0.00-0.06 LYMPH x10^3 (test code = 731-0) 2.68 10*3/uL 1.32-3.29 MONO x10^3 (test code = 742-7) 0.70 10*3/uL 0.33-0.92 EOS x10^3 (test code = 711-2) 0.04 10*3/uL 0.03-0.39 BASO x10^3 (test code = 704-7) 0.06 10*3/uL 0.01-0.07 Lab Interpretation (test code = 90872-8) Abnormal [facility] GLUCOSE (AUTOMATED)2024-04-10 23:44:15* Test Item Value Reference Range Interpretation Comme nts POCT GLU (test code = 7879520471) 181 mg/dL 70-110 H Lab Interpretation (test cod e = 17072-1) Abnormal [facility] GLUCOSE (AUTOMATED)2024-04-10 23:44:15* Test Item Value Reference Range Interpretation Comme nts POCT GLU (test code = 2573570881) 181 mg/dL 70-110 H Lab Interpretation (test cod e = 36878-6) Abnormal [facility] GLUCOSE (AUTOMATED)2024-04-10 20:50:46* Test Item Value Reference Range Interpretation Comme nts POCT GLU (test code = 5860801071) 224 mg/dL 70-110 H Lab Interpretation (test cod e = 23440-9) Abnormal [facility] GLUCOSE (AUTOMATED)2024-04-10 20:50:46* Test Item Value Reference Range Interpretation Comme nts POCT GLU (test code = 3193449972) 224 mg/dL 70-110 H Lab Interpretation (test cod e = 03477-9) Abnormal [facility] GLUCOSE (AUTOMATED)2024-04-10 20:38:03* Test Item Value Reference Range Interpretation Comme nts POCT GLU (test code = 7437205295) 212 mg/dL 70-110 H Lab Interpretation (test cod e = 96502-5) Abnormal [facility] GLUCOSE (AUTOMATED)2024-04-10 20:38:03* Test Item Value Reference Range Interpretation Comme nts POCT GLU (test code = 2955121598) 212 mg/dL 70-110 H Lab Interpretation (test cod e = 44741-7) [facility]normal [facility]2024-[facility]-10 12:22:00* Test Item Value Reference Range Interpretation Comme nts ABO & RH (test code = 20) O POSITIVE IAT (test code = 1185) Negative [facility]2024-04-10 12:22:00* Test Item Value Reference Range Interpretation Comme nts ABO & RH (test code = 20) O POSITIVE IAT (test code = 1185) Negative [facility] GLUCOSE (AUTOMATED)2024-04-10 12:08:19* Test Item Value Reference Range Interpretation Comme nts POCT GLU (test code = 7783833107) 121 mg/dL 70-110 H Lab Interpretation (test cod e = 27304-5) Abnormal [facility] GLUCOSE (AUTOMATED)2024-04-10 12:08:19* Test Item Value Reference Range Interpretation Comme nts POCT GLU (test code = 6831851293) 121 mg/dL 70-110 H Lab Interpretation (test cod e = 95386-2) Abnormal [facility] [id number] 19:00:00* Test Item Value Reference Range Interpretation Comme nts POCT PREG (test code = 1605) Negative On board controls acceptable with C Line (test code = 3574) Yes POCT PREG LOT # (test code = 3575) POCT PREG TEST DATE ( test code = 3576) [facility] Urinalysis w/o Specific [id number] 20:32:00* Test Item Value Reference Range Interpretation Comme nts POCT PH U (test code = 3254) 5 mg/dl 5-8 POCT U LEUK EST (test code = 3263) negative Negative - Negative POCT U NIT (test code = 3262) negative Negative - Negati ve POCT U PROT (test code = 3259) normal Negative - Negat sherita POCT U GLU (test code = 3256) negative Negative - Negati ve POCT U KETONE (test code = 3258) negative Negative - Neg ative POCT U BLD (test code = 3257) negative Negative - Negati ve [facility] PELVIS COMPLETE WITH [id number] 23:34:04History: pelvic pressure, AUB . Exam: US PELVIS COMPLETE WITH TRANSVAGINAL Date: 03/03/2024 1:12 PM Ordering provider: MIRELLA HILLMAN Technique: Pelvic ultrasound and transvaginal ultrasound areperformed viathe transabdominal and transvaginal approaches. Images are permanentlysaved in the patient's medical records. Technical quality: Limited by body habitus and bowel gas. Comparison: CT from 06/23/2023. Findings: The uterus measures 10.2 x 5.0 x 5.5 cm. The endometrial stripemeasures 5 mmin thickness. The left ovary measures 2.9 x 2.5 x 1.7 cm. Theright ovary is not visualized. This could be related to previous surgery.Correlate with history. No evidence of free pelvic fluid. There are small nabothian cysts. In the posterior uterine fundus, there isan intramural fibroid measuring 2.8 x 1.6 x 2.6 cm. This could have asubmucosal component. There is a simple appearing cyst in the left ovarymeasuring 2.2 x 1.3 x 1.9 cm.[facility] GLUCOSE (AUTOMATED)2023-09-25 00:27:20* Test Item Value Reference Range Interpretation Comme nts POCT GLU (test code = 1888358936) 238 mg/dL 70-110 H Lab Interpretation (test cod e = 55388-1) Abnormal [facility] GLUCOSE(AGE >30DAYS)2023-09-25 00:27:00* Test Item Value Reference Range Interpretation Comme nts POCT Glu (age>30days) (test code = 3342) 238 mg/dL 70-110 A Lab Interpretation (test cod e = 92991-8) Abnormal [facility] GLUCOSE (AUTOMATED)2023-09-24 22:07:51* Test Item Value Reference Range Interpretation Comme nts POCT GLU (test code = 6038593572) 373 mg/dL 70-110 H Lab Interpretation (test cod e = 55234-3) Abnormal [facility] Hospital[facility]cosylated Hemoglobin (A1C)2023-09-24 22:05:27* Test Item Value Reference Range Interpretation Comme nts HGB A1C (test code = 4548-4) 12.9 % 4.0-5.7 H CAROLE (test code = CAROLE) Reference RangesNormal: <5.7%Prediabetes: 5.7 - 6.4%Diabetes: > 6.5% Lab Interpretation (test code = 51458-5) Abnormal [facility] WITH [id number] 22:03:24* Test Item Value Reference Range Interpretation Comme nts WBC (test code = 6690-2) 3.19 See_Comment L [Automated messa ge] The system which generated this result transmitted reference range: 4.30 - 11.10 10*3/?L. The reference range was not used to interpret this result as normal/abnormal. RBC (test code = 789-8) 5.33 See_Comment H [Automated messa ge] The system which generated this result transmitted reference range: 3.93 - 5.25 10*6/?L. The reference range was not used to interpret this result as normal/abnormal. HGB (test code = 718-7) 12.0 g/dL 11.6-15.0 HCT (test code = 4544-3) 38.5 % 35.7-45.2 MCV (test code = 787-2) 72.2 fL 80.6-95.5 L MCH (test code = 785-6) 22.5 pg 25.9-32.8 L MCHC (test code = 786-4) 31.2 g/dL 31.6-35.1 L RDW-SD (test code = 47137-0) 39.1 fL 39.0-49.9 RDW-CV (test code = 788-0) 15.3 % 12.0-15.5 PLT (test code = 777-3) 346 See_Comment [Automated messa ge] The system which generated this result transmitted reference range: 166 - 358 10*3/?L. The reference range was not used to interpret this result as normal/abnormal. MPV (test code = 17773-5) 10.0 fL 9.5-12.9 NRBC/100 WBC (test code = 2997040025) 0.0 See_Comment [Automated [employer]] The system which generated this result transmitted reference range: 0.0 - 10.0 /100 WBCs. The reference range was not used to interpret this result as normal/abnormal. NRBC x10^3 (test code = 1588591768) See_Comment [[employer]] The system which generated this result transmitted reference range: 10*3/?L. The reference range was not used to interpret this result as normal/abnormal. GRAN MAT (NEUT) % (test code = 770-8) 42.4 % IMM GRAN % (test code = 6560910572) 0.30 % LYMPH % (test code = 736-9) 43.9 % MONO % (test code = 5905-5) 10.3 % EOS % (test code = 713-8) 2.5 % BASO % (test code = 706-2) 0.6 % GRAN MAT x10^3(ANC) (test code = 1303387526) 1.35 10*3/uL 1.88-7.09 L IMM GRAN x10^3 (test code = 1147120909) 0.00-0.06 LYMPH x10^3 (test code = 731-0) 1.40 10*3/uL 1.32-3.29 MONO x10^3 (test code = 742-7) 0.33 10*3/uL 0.33-0.92 EOS x10^3 (test code = 711-2) 0.08 10*3/uL 0.03-0.39 BASO x10^3 (test code = 704-7) 0.01-0.07 Lab Interpretation (test code = 62935-5) Abnormal [facility]. METABOLIC PANEL (63257)2023-09-24 21:39:20* Test Item Value Reference Range Interpretation Comme nts NA (test code = 7670494876) 135 mmol/L 135-145 K (test code = 0666590445) 4.1 mmol/L 3.5-5.0 CL (test code = 1805756244) 98 mmol/L 98-108 CO2 TOTAL (test code = 2316628217) 27 mmol/L 23-31 AGAP (test code = 9174490135) 10 2-16 BUN (test code = 1411842416) 13 mg/dL 7-23 GLUCOSE (test code = 7427799129) 398 mg/dL 70-110 H CREATININE (test code = 9105784578) 0.48 mg/dL 0.50-1.04 L TOTAL BILI (test code = 8097488396) 0.3 mg/dL 0.1-1.1 CALCIUM (test code = 1086075951) 9.6 mg/dL 8.6-10.6 T PROTEIN (test code = 4992555979) 8.3 g/dL 6.3-8.2 H ALBUMIN (test code = 2376588944) 4.4 g/dL 3.5-5.0 ALK PHOS (test code = 1801358486) 132 U/L 34-122 H ALTv (test code = 1742-6) 18 U/L 5-35 AST(SGOT) (test code = 9973964977) 23 U/L 13-40 eGFR (test code = 55383-1) 123.0 mL/min/1.73m2 CKD-EPI eGFR (2020). Assuming creatinine has been stable day-to-day for at least three months, the eGFR indicates Category G1 (>= 90 mL/min/1.73 m2) Lab Interpretation (test code = 82687-5) [facility]20* Test Item Value Reference Range Interpretation Comme nts MAGNESIUM (test code = 2453013612) 1.7 mg/dL 1.7-2.4 Lab Interpretation (test cod e = 28581-7) Normal [facility] [id number] 21:02:00* Test Item Value Reference Range Interpretation Comme nts POCT PREG (test code = 1605) Negative On board controls acceptable with C Line (test code = 3574) Yes POCT PREG LOT # (test code = 3575) [id number] POCT PREG TEST DATE ( test code = 3576) 11-21-2024 Lab Interpretation (test cod e = 63311-9) Normal [facility] 21 + LACTIC [id number] 21:00:05* Test Item Value Reference Range Interpretation Comme nts PH (test code = 6350570498) 7.34 7.32-7.42 PCO2 ZENAIDA (test code = 7421633824) 46 See_Comment [Automated messa ge] The system which generated this result transmitted reference range: 41 - 51 mmHg. The reference range was not used to interpret this result as normal/abnormal. PO2 ZENAIDA (test code = 4011610479) See_Comment L [Automated messa ge] The system which generated this result transmitted reference range: 25 - 40 mmHg. The reference range was not used to interpret this result as normal/abnormal. HCO3 ZENAIDA (test code = 1612981144) 24 See_Comment [Automated messa ge] The system which generated this result transmitted reference range: 24 - 28 mEq/L. The reference range was not used to interpret this result as normal/abnormal. AC VBE(BEAKER) (test code = 2558573370) -1.7 mEq/L THB ZENAIDA (test code = 2719486165) 11.6 g/dL 12.0-16.0 L %O2HB ZENAIDA (test code = 4541210326) 14.3 % 52.0-63.0 L %COHB ZENAIDA (test code = 6077260855) 0.3 % 0.0-1.5 %METHB ZENAIDA (test code = 5440860297) 1.5 % 0.4-1.5 VOL%O2 ZENAIDA (test code = 2499271296) 2.3 % 6.0-12.0 L NA (test code = 7543689077) 136 mmol/L 135-145 K+ (test code = 9148143057) 4.2 mmol/L 3.5-5.0 AC CA IONZ (test code = 6546657383) 4.90 mg/dL 4.50-5.30 GLUCOSE (test code = 9364304973) 412 mg/dL 70-110 H LACTIC ACID (test code = 0694567945) 1.43 mmol/L 0.50-2.20 Lab Interpretation (test code = 39977-5) Abnormal [facility])2023-09-24 20:53:57* Test Item Value Reference Range Interpretation Comme [facility] POCT GLU (test code = 6624352038) 373 mg/dL 70-110 H Lab Interpretation (test cod e = 83907-7) Abnormal [facility] HospitalGlycosylated Hemoglobin (A1C)2023-09-14 14:51:16* Test Item Value Reference Range Interpretation Comme nts HGB A1C (test code = 4548-4) 12.1 % 4.0-5.7 H CAROLE (test code = CAROLE) Reference RangesNormal: <5.7%Prediabetes: 5.7 - 6.4%Diabetes: > 6.5% Lab Interpretation (test code = 58342-1) Abnormal [facility] Met[facility] (34871)2023-09-14 14:41:39* Test Item Value Reference Range Interpretation Comme nts NA (test code = 1092559751) 131 mmol/L 135-145 L K (test code = 9458264276) 5.2 mmol/L 3.5-5.0 H CL (test code = 3724922916) 99 mmol/L 98-108 CO2 TOTAL (test code = 2499511869) 22 mmol/L 23-31 L AGAP (test code = 4383821864) 10 2-16 BUN (test code = 0996887952) 11 mg/dL 7-23 GLUCOSE (test code = 2199437464) 347 mg/dL 70-110 H CREATININE (test code = 3916455641) 0.41 mg/dL 0.50-1.04 L TOTAL BILI (test code = 2978255743) 0.4 mg/dL 0.1-1.1 CALCIUM (test code = 1072226464) 9.5 mg/dL 8.6-10.6 T PROTEIN (test code = 1283371323) 7.4 g/dL 6.3-8.2 ALBUMIN (test code = 6843734631) 4.2 g/dL 3.5-5.0 ALK PHOS (test code = 2508635572) 180 U/L 34-122 H ALTv (test code = 1742-6) 18 U/L 5-35 AST(SGOT) (test code = 0508756662) 21 U/L 13-40 eGFR (test code = 10874-3) 127.7 mL/min/1.73m2 CKD-EPI eGFR (2020). Assuming creatinine has been stable day-to-day for at least three months, the eGFR indicates Category G1 (>= 90 mL/min/1.73 m2) Lab Interpretation (test code = 67398-4) Abnormal [facility] HospitalLipid Panel (39599)(Total Cholesterol, Triglycerides, HDL)2023-09-14 14:41:39* Test Item Value Reference Range Interpretation Comme nts CHOL (test code = 4171494278) 194 mg/dL 120-200 HDL (test code = 7238508653) 56 mg/dL >=50 HDLC RATIO (test code = 6292731393) 3.5 <=4.5 TRIG (test code = 5682293901) 142 mg/dL 30-170 LDL CHOL (test code = 06135-2) 110 mg/dL <=160 VLDL (test code = 1716314764) 28 mg/dL 5-60 Lab Interpretation (test cod e = 19165-6) [id number] 14:08:54* Test Item Value Reference Range Interpretation Comme nts WBC (test code = 6690-2) 7.65 See_Comment [[employer]] The system which generated this result transmitted reference range: 4.30 - 11.10 10*3/?L. The reference range was not used to interpret this result as normal/abnormal. RBC (test code = 789-8) 5.07 See_Comment [[employer]] The system which generated this result transmitted reference range: 3.93 - 5.25 10*6/?L. The reference range was not used to interpret this result as normal/abnormal. HGB (test code = 718-7) 11.6 g/dL 11.6-15.0 HCT (test code = 4544-3) 37.7 % 35.7-45.2 MCV (test code = 787-2) 74.4 fL 80.6-95.5 L MCH (test code = 785-6) 22.9 pg 25.9-32.8 L MCHC (test code = 786-4) 30.8 g/dL 31.6-35.1 L RDW-SD (test code = 98223-4) 40.1 fL 39.0-49.9 RDW-CV (test code = 788-0) 15.1 % 12.0-15.5 PLT (test code = 777-3) 455 See_Comment H [[employer]] The system which generated this result transmitted reference range: 166 - 358 10*3/?L. The reference range was not used to interpret this result as normal/abnormal. MPV (test code = 26231-5) 10.1 fL 9.5-12.9 NRBC/100 WBC (test code = 4985309762) 0.0 See_Comment [Automated [employer]] The system which generated this result transmitted reference range: 0.0 - 10.0 /100 WBCs. The reference range was not used to interpret this result as normal/abnormal. NRBC x10^3 (test code = 1736195813) See_Comment [[employer]] The system which generated this result transmitted reference range: 10*3/?L. The reference range was not used to interpret this result as normal/abnormal. GRAN MAT (NEUT) % (test code = 770-8) 70.8 % IMM GRAN % (test code = 3965678014) 0.30 % LYMPH % (test code = 736-9) 20.3 % MONO % (test code = 5905-5) 6.3 % EOS % (test code = 713-8) 1.4 % BASO % (test code = 706-2) 0.9 % GRAN MAT x10^3(ANC) (test code = 2969438731) 5.42 10*3/uL 1.88-7.09 IMM GRAN x10^3 (test code = 3769164121) 0.00-0.06 LYMPH x10^3 (test code = 731-0) 1.55 10*3/uL 1.32-3.29 MONO x10^3 (test code = 742-7) 0.48 10*3/uL 0.33-0.92 EOS x10^3 (test code = 711-2) 0.11 10*3/uL 0.03-0.39 BASO x10^3 (test code = 704-7) 0.07 10*3/uL 0.01-0.07 Lab Interpretation (test code = 52533-0) [facility]:26:08* Test Item Value Reference Range Interpretation Comme nts NA (test code = 2513110450) 134 mmol/L 135-145 L K (test code = 2763613734) 3.7 mmol/L 3.5-5.0 CL (test code = 7818924985) 103 mmol/L 98-108 CO2 TOTAL (test code = 1038017416) 20 mmol/L 23-31 L AGAP (test code = 0279238457) 11 2-16 BUN (test code = 7060400903) 13 mg/dL 7-23 GLUCOSE (test code = 2037012401) 251 mg/dL 70-110 H CREATININE (test code = 0796791270) 0.39 mg/dL 0.50-1.04 L TOTAL BILI (test code = 0550367177) 0.2 mg/dL 0.1-1.1 CALCIUM (test code = 3114539763) 8.8 mg/dL 8.6-10.6 T PROTEIN (test code = 3089537396) 7.6 g/dL 6.3-8.2 ALBUMIN (test code = 2940640775) 4.3 g/dL 3.5-5.0 ALK PHOS (test code = 1424627634) 138 U/L 34-122 H ALTv (test code = 1742-6) 88 U/L 5-35 H AST(SGOT) (test code = 4747342977) 147 U/L 13-40 H eGFR (test code = 2305102393) 182.0 mL/min/1.73m2 CAROLE (test code = CAROLE) Association of Glomerular Filtration Rate (GFR) and Staging of Kidney Disease* + --+ --+ ------+| GFR (mL/min/1.73 m2) ?| With Kidney Damage ?| ?Without Kidney Damage+ --------+ --------+ +| ?>90 ?| ?Stage one ?| ? Normal ?+ ---+ ---+ -------+| ?60-89 ?| ?Stage two ?| ? Decreased GFR ? + --+ --+ ------+| ?30-59 ?| ?Stage three ?| ? Stage three ? + --+ --+ ------+| ?15-29 ?| ?Stage four ? | ? Stage four ?+ ---+ ---+ -------+| ?<15 (or dialysis) ? ?| ?Stage five ? | ? Stage five ?+ ---+ ---+ -------+ *Each stage assumes the associated GFR level has been in effect for at least three months. ?Stages 1 to 5, with or without kidney disease, indicate chronic kidney disease. Notes: Determination of stages one and two (with eGFR >59mL/min/1.73 m2) requires estimation of kidney damage for at least three months as defined by structural or functional abnormalities of the kidney, manifested by either:Pathological abnormalities or Markers of kidney damage (including abnormalities in the composition of the blood or urine or abnormalities in imaging tests). Lab Interpretation (test code = 10059-2) [facility]* Test Item Value Reference Range Interpretation Comme nts LIPASE (test code = 4520105556) 62 U/L 0-220 Lab Interpretation (test cod e = 09299-3) [facility] [id number] 03:12:45* Test Item Value Reference Range Interpretation Comme nts WBC (test code = 6690-2) 6.51 See_Comment [Automated [employer]] The system which generated this result transmitted reference range: 4.30 - 11.10 10*3/?L. The reference range was not used to interpret this result as normal/abnormal. RBC (test code = 789-8) 5.16 See_Comment [Automated messa ge] The system which generated this result transmitted reference range: 3.93 - 5.25 10*6/?L. The reference range was not used to interpret this result as normal/abnormal. HGB (test code = 718-7) 11.7 g/dL 11.6-15.0 HCT (test code = 4544-3) 37.4 % 35.7-45.2 MCV (test code = 787-2) 72.5 fL 80.6-95.5 L MCH (test code = 785-6) 22.7 pg 25.9-32.8 L MCHC (test code = 786-4) 31.3 g/dL 31.6-35.1 L RDW-SD (test code = 63895-5) 46.3 fL 39.0-49.9 RDW-CV (test code = 788-0) 17.9 % 12.0-15.5 H PLT (test code = 777-3) 367 See_Comment H [Automated messa ge] The system which generated this result transmitted reference range: 166 - 358 10*3/?L. The reference range was not used to interpret this result as normal/abnormal. MPV (test code = 91361-8) 10.2 fL 9.5-12.9 NRBC/100 WBC (test code = 7746353155) 0.0 See_Comment [Automated [employer]] The system which generated this result transmitted reference range: 0.0 - 10.0 /100 WBCs. The reference range was not used to interpret this result as normal/abnormal. NRBC x10^3 (test code = 8662984652) See_Comment [Automated messa ge] The system which generated this result transmitted reference range: 10*3/?L. The reference range was not used to interpret this result as normal/abnormal. GRAN MAT (NEUT) % (test code = 770-8) 79.6 % IMM GRAN % (test code = 5994389927) 0.30 % LYMPH % (test code = 736-9) 15.2 % MONO % (test code = 5905-5) 4.1 % EOS % (test code = 713-8) 0.5 % BASO % (test code = 706-2) 0.3 % GRAN MAT x10^3(ANC) (test code = 9982175276) 5.18 10*3/uL 1.88-7.09 IMM GRAN x10^3 (test code = 1137965823) 0.00-0.06 LYMPH x10^3 (test code = 731-0) 0.99 10*3/uL 1.32-3.29 L MONO x10^3 (test code = 742-7) 0.27 10*3/uL 0.33-0.92 L EOS x10^3 (test code = 711-2) 0.03 10*3/uL 0.03-0.39 BASO x10^3 (test code = 704-7) 0.01-0.07 Lab Interpretation (test code = 79151-8) Abnormal [facility] [id number] 02:54:00* Test Item Value Reference Range Interpretation Comme nts POCT PREG (test code = 1605) Negative On board controls acceptable with C Line (test code = 3574) Yes Lab Interpretation (test cod e = 54425-8) Normal [facility] GLUCOSE (AUTOMATED)2022-12-09 20:39:51* Test Item Value Reference Range Interpretation Comme nts POCT GLU (test code = 8780975259) 153 mg/dL 70-110 H Lab Interpretation (test cod e = 87365-5) Abnormal [facility] GLUCOSE (AUTOMATED)2022-12-09 12:38:32* Test Item Value Reference Range Interpretation Comme nts POCT GLU (test code = 0346645811) 269 mg/dL 70-110 H Lab Interpretation (test cod e = 88001-6) Abnormal [facility] GLUCOSE (AUTOMATED)2022-12-09 07:01:12* Test Item Value Reference Range Interpretation Comme nts POCT GLU (test code = 7520394614) 334 mg/dL 70-110 H Lab Interpretation (test cod e = 53556-0) [facility]normal [facility]ET[facility] [id number] 05:18:04* Test Item Value Reference Range Interpretation Comme nts BOH (test code = 1733150403) 0.1 mmol/L CAROLE (test code = CAROLE) Normal Ranges: ? ? Nonfasting ? Less than 0.1 mmol/L ? ? Overnight Fast ? ? ? Less than 0.4 mmol/L ? ? Fasting (1-2 weeks) ?6-8 mmol/L Test developed and characteristics determined by [facility] Laboratory Services. [facility] GLUCOSE (AUTOMATED)2022-12-09 03:11:53* Test Item Value Reference Range Interpretation Comme nts POCT GLU (test code = 3363511703) 99 mg/dL 70-110 Lab Interpretation (test cod e = 70526-7) Normal [facility] GLUCOSE (AUTOMATED)2022-12-09 02:20:52* Test Item Value Reference Range Interpretation Comme nts POCT GLU (test code = 1928809215) 50 mg/dL 70-110 LL Lab Interpretation (test cod e = 25724-5) Abnormal [facility]THY[facility] STIMULATING [id number] 23:36:46 * Test Item Value Reference Range Interpretation Comme nts TSH (test code = 4116764837) 1.93 See_Comment [Automated messa ge] The system which generated this result transmitted reference range: 0.45 - 4.70 mIU/L. The reference range was not used to interpret this result as normal/abnormal. Lab Interpretation (test code = 24041-8) Normal [facility] HospitalFR [id number] 23:23:03* Test Item Value Reference Range Interpretation Comme nts FREE T4 (test code = 8435123002) 1.01 See_Comment [Automated [employer]] The system which generated this result transmitted reference range: 0.78 - 2.20 ng/dL:. The reference range was not used to interpret this result as normal/abnormal. Lab Interpretation (test code = 63918-5) Normal [facility] HospitalTROPONIN [id number] 23:18:03* Test Item Value Reference Range Interpretation Comme nts TROPONIN I (test code = 4227676218) 0.002 ng/mL <=0.034 CAROLE (test code = CAROLE) Reference (Normal) Range (defined by the 99th percentile reference limit): <= 0.034 ng/mL Note: Cardiac troponin begins to rise 3-4 hours after the onset of ischemia. Repeat in 4-6 hours if the sample was drawn within 3-4 hours of the onset of the symptom and found normal. Diagnosis of myocardial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 expected Goal: Adequate work of breathing Outcome: Progressing as expected Goal: Patent airway Outcome: Progressing as expected Problem: Discharge Planning Goal: Adequate for discharge Outcome: Progressing as expected Goal: Effective communication Outcome: Progressing as expected T Kristy Mascorro RN [facility] 2024-04-11 04:49:20 Problem: Nausea/Vomiting Goal: Absence of nausea/vomiting Outcome: Progressing as expected Problem: Infection Risk Goal: Absence of infection Outcome: Progressing as expected Problem: Respiratory Function - Impaired Goal: Able to cough effectively Outcome: Progressing as expected Goal: Adequate oxygenation Outcome: Progressing as expected Goal: Adequate work of breathing Outcome: Progressing as expected Goal: Patent airway Outcome: Progressing as expected Problem: Discharge Planning Goal: Adequate for discharge Outcome: Progressing as expected Goal: Effective communication Outcome: Progressing as expected [place] [employer] 2024-04-10 18:25:41 Problem: Infection Risk Goal: Absence of infection Outcome: Progressing as expected Problem: Respiratory Function - Impaired Goal: Able to cough effectively Outcome: Progressing as expected Goal: Adequate oxygenation Outcome: Progressing as expected Goal: Adequate work of breathing Outcome: Progressing as expected Goal: Patent airway Outcome: Progressing as expected Problem: Discharge Planning Goal: Adequate for discharge Outcome: Progressing as expected Goal: Effective communication Outcome: Progressing as expected Problem: Nausea/Vomiting Goal: Absence of nausea/vomiting Outcome: Not progressing as expected Note: Persistent post-op nausea after receiving zofran, reglan, pepcid, benadryl, and scopolamine patch. 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 Findings: Normal appearing uterus and bilateral ovaries ant tubes. Omental adhesions to right pelvic side wall. Thick adhesions between bladder and lower uterine segment. Cystoscopy: Normal bilateral ureteral jets, intact bladder with no defects or sutures. Preop Dx: Abnormal uterine bleeding, chronic pelvic pain. Postop Dx: Same+ s/p laparoscopic assisted vaginal hysterectomy, bilateral salpingoophorectomy, cystoscopy. Procedure: Laparoscopic assisted vaginal hysterectomy, bilateral salpingoophorectomy, cystoscopy. Indication: This is a patient with hx of chronic pelvic pain and abnormal uterine bleeding who has completed childbearing, so she was brought to the OR for LAVH. The patient understood risks, benefits and alternatives to the procedure, and informed consent was signed. All questions were answered prior to the procedure. Narrative: After obtaining informed consent, patient was taken to the OR for above planned procedures. 2 g Ancef and Flagyl 500 mg were administered at the start of the case. She was prepped and draped in the normal sterile fashion in the dorsal lithotomy position using Yellow Fin stirrups. Doss catheter was placed. Cervix was visualized using weighted speculum and yuly, and Hulka manipulator was placed. Attention was then turned to the abdomen. All port sites were injected with 0.25% Marcaine. A 5 mm incision was made in the umbilicus. Direct entry to the abdomen was performed with a 5 mm optical trocar, CO2 was allowed to insufflate the abdominal cavity with careful attention to appropriate pressures. Two skin incisions were made in the RLQ and LLQ and the 5 mm laparoscopic trocars were introduced under direct laparoscopic visualization. Ureters were identified and well out of the dissection sites. Hysterectomy was then initiated by clamping, cauterizing, and transecting with the LigaSure bilateral infundibulopelvic ligaments to detach both ovaries. The round ligaments were also cauterized and transected bilaterally, followed by further dissecting apart the anterior leaf of the broad ligament. A bladder flap was then developed. The bladder peritoneum was reflected from the anterior uterus and extended bilaterally. Bilateral uterine arteries were clamped, cauterized, and transected using the Ligasure device. Attention was then turned to the vagina for the remainder of the hysterectomy procedure. Cervix was visualized using weighted speculum and yuly. The Hulka manipulator was removed, and Araceli clamps were used to re-grasp cervix. Posterior colpotomy was made using curved Syed scissors. Next, Bj clamps and Vicryl sutures were used to ligate the uterine attachments and mobilize the uterus progressively superiorly, starting with the uterosacrals (which were tagged) until the cervical/cardinal ligaments.Anterior entry was performed using Debakey forceps for traction and metzenbaum scissors. The uterus with cervix, tubes, and ovaries were then removed en-bloc from the pelvis and sent to pathology. The cuff was then closed with continuous running 2-0 vicryl suture, incorporating the previously tagged uterosacral ligaments. The cuff was noted to be closed on digital exam. The cuff and pedicles were hemostatic when visualized with laparoscopic camera. Cystoscopy was then performed with 70 degree cystoscope, and bilateral ureteral efflux was noted. No sutures or defects were noted in bladder. Pelvis was irrigated copiously with warm saline. Intraabdominal pressure was decreased to 5 mmHg, and hemostasis was noted in the pelvis and at the pedicles. Trocars were removed under direct visualization with evacuation of pneumoperitoneum. Skin was re-approximated with running 3-0 Monocryl suture. Dermabond was applied. All lap and instrument counts were complete x 2. The procedure considered terminate at this time. Condition of Patient after Surgery: Good Estimated Blood Loss: 150 cc. Urine Output: 300 cc. Complications: None Luba Goodman MD 11:57 AM Associated attestation - Mirella Hillman MD - 04/10/2024 12:06 PM CDT I was present for and supervised the entire procedure(s). [facility] 2024-04-08 08:00:00 Images from the original note were not included. Venipuncture collection performed by clean technique on the right anticubitus. Total of 1 attempts were made. Slight pressure and a bandage/dressing were applied to the site(s). The patient experienced no complications. The following specimens were processed according to instructions and sent to [facility] laboratories per lab order on 04/08/2024 : LT BLUE SST 1 RED LAV 1 PPT DK GREEN (LiHep) DK GREEN (SodH) REINA DK BLUE (K2) DK BLUE (S) ACD Blood Culture NIPT/NTD Per BB draw TS day of surg. [facility] 2024-04-04 14:39:17 Returned patients call. Patient advised that is too soon for her pre op labs. Patient wanting to know if she will need to fast. Patient advised she does not need to fast for labs. Patient verbalized understanding. Rayo Sánchez RN 04/04/2024 2:41 PM Rayo Sánchez RN [facility] 2024-04-04 13:21:22 Pt want to know if she needs any labs done for pre op has appt Wednesday but if labs are needed want to do those on . Bee De La Rosa [facility] 2024-03-23 14:33:57 Images from the original note were not included. Your procedure is at [facility] on 04/10/24. The address is [address] [place] [address], [id number]. [facility] nursing staff will call you the workday before your procedure to let you know what time to arrive.On the day of your procedure, please go inside that door and check in at the desk. Please note: You may not travel home alone and that includes in a taxi or by bus. We must speak to your Responsible Adult (who will be picking you up) the morning of your procedure, before the start of your procedure. This person must be an adult over the age of 18 years of age. Do not eat any solid food after midnight the night before surgery. You may have sips of clear liquids such as water, gatorade, and sprite up until two hours before your scheduled procedure. You may take your medications with a sip of water as directed by physician. Anticoagulants will be per physician guidance. Medication Note(s)/Instructions:The patient was instructed to take 1/2 dose of insulin. Also to hold Insulin the morning of the procedure. The patient educated on the bowel prep and medication. Understanding was verbalized, with no questions or concerns at this time. Teach-back method repeated and confirmed. There are no pre-op orders for labs or further testing at this time. No questions or concerns on bowel prep at this time. Romina Lira RN [facility] 2024-03-14 09:03:12 Spoke with patient and gave Dr. Sanchez's medical advice. She still has some questions regarding her sugars after the total hysterectomy (in regards to no longer having a uterus, not necessarily the surgery portion). She would also like to know if an additional medication needs to be added. Follow-up appointment added to review recent sugars and discuss questions with MASK DESIGNER on Wednesday at 9am. She verbalized understanding. No further questions or concerns at this time. Tonie Umana RN [facility] 2024-03-13 18:39:58 RXs for Tresiba, Humalog and grant 3 was sent to [facility] pharmacy If her sugar was affected during surgery , we have inpatient team in hospital take care her sugar management If sugar control worsened after surgery , she will need to be seen in clinic for further evaluation Ene Sanchez MD Division of Endocrinology and Metabolism [facility] 2024-03-09 11:37:55 Catherine Lopez is a 38 year old female Catherine Lopez is a 38 year old female States she is unable to do the insulin pump at this time and is asking if she can go ahead and receive her grant 3 sensors and get an order for the insulin medication discussed previously pt asked to be contacted at [phone] (home) Pt will be scheduled for a complete hysterectomy 04/10 pt would like to get a consultation with provider on how this will affect her diabetes as well. If any questions regarding request. Thank you Rajeev Russo [facility] 2024-03-08 10:18:05 Patient advised she needs embx prior to hysterectomy. Patient advised no unprotected intercourse before procedure. Patient scheduled. Rayo Sánchez RN 03/08/2024 10:18 AM Rayo Sánchez RN [facility] 2024-03-08 09:41:46 Pt is returning call to the nurse regarding mess from Dr. Angelo. Please see previous encounter. Venice Ferguson [facility] 2024-03-08 09:31:00 Attempted to contact patient to inform patient she will need endometrial biopsy prior to hysterectomy. No answer, VM left. Rayo Sánchez RN 03/08/2024 9:36 AM Rayo Sánchez RN [facility] 2024-03-07 08:50:00 Refill Request: Requested Prescriptions Pending Prescriptions Disp Refills FREESTYLE GRANT 3 SENSOR Stephanie [Pharmacy Med Name: FreeStyle Grant 3 Sensor] 1 Each Sig: USE DIRECTED AND CHANGE EVERY 2 WEEKS. Last office visit: 10/15/2023 Last refill date: 02/01/2024 Last labs: 01/31/2024 Next appt date: Future Appointments Date Time Provider Department Center 04/07/2024 8:00 AM Mirella Hillman MD [facility]CO[facility] Angle 06/20/2024 2:00 PM Ene Sanchez MD [facility]BUDC ANG JOSE BLE Refilled per ambulatory guidelines. [facility] Pharmacy [address] AT [facility] & [address] [address] Tonie Umana RN [facility] 2024-01-31 12:45:00 Images from the original note were not included. Venipuncture collection performed by clean technique on the left anticubitus. Total of 1 attempts were made. Slight pressure and a bandage/dressing were applied to the site(s). The patient experienced no complications. The following specimens were processed according to instructions and sent to [facility] laboratories per lab order on 01/31/2024 : LT BLUE SST 3 RED LAV 2 PPT DK GREEN (LiHep) DK GREEN (SodH) REINA DK BLUE (K2) DK BLUE (S) ACD Blood Culture NIPT/NTD [facility] 2023-11-16 11:03:04 CLINICAL PHARMACY ENDOCRINOLOGY VISIT Catherine Lopez is a 38 year old female referred to PharmD by ALIRIO Hobbs for medication management for type 2 diabetes. At last visit, patient was instructed to: Increase Tresiba to 43 units daily in the morning Continue insulin lispro 10-18 units + SSI Continue FreeStyle Grant 3 11/15/2023: Unable to reach patient (x2) Left voicemail with callback number. Will try again tomorrow. 11/16/2023: Attempt #3 to reach patient. Unable to reach patient. Left voicemail with callback number. Will sign off due to multiple unsuccessful attempts to reach patient. Please re-consult if PharmD services are required in the future. Thank you. Future Appointments Provider Department Dept Phone 02/01/2024 12:00 PM Ene Sanchez MD [facility] Endocrinology, [place] [phone] Nevin Barboza PharmD, BCACP Pharmacy Clinical Car Wiper- Endocrinology LD [facility] Nevin Barboza [facility] 2023-10-06 09:37:05 Patient has scheduled appt on 10/15. 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 Patient needs to make a follow up for whatever is next available and be put on waitlist. TITCHING MACHINE OPERATOR [facility] 2023-10-04 10:49:36 Pt is ill need to reschedule want sooner appt than what available TITCHING MACHINE OPERATOR Bee De La Rosa [facility] 2023-09-24 18:56:36 PT D/C home. GCS15, VS stable. Given D/C paperwork. Pt ambulatory at time of discharge. Pt educated on med usage, follow up care, s/s worsening condition, need for hydration. Pt verbalized understanding. Pt ambulated from ED in NAD with her mother. Malhotra RN [facility] 2023-09-24 14:38:20 Patient states: "I started getting sick 2-3 weeks ago with vomiting and diarrhea. My doctor told me to come in because of my lab work yesterday." Pmhx: type 1 diabetes, PCOS, Arreguin RN [facility] 2023-09-24 14:23:00 [facility] Emergency Department Note Patient Name: Catherine Lopez Date of : 1985 38 year old female Treatment Room: TX7/TX7 Primary Care Physician: Laly Johnson Patient Escorted by: Family [5] Mode of Arrival: Personal means [1] EMS Treatment Prior to ED Arrival: Travel and Exposure Screening: Symptoms Does patient have any of these symptoms?: (not recorded) Exposure Screening Has patient had contact with someone with a communicable disease in the last month?: (not recorded) Diseases exposed to:: (not recorded) Is Patient ?: (not recorded) Exposure Date: (not recorded) Chief Complaint: Chief Complaint Patient presents with Vomiting Diarrhea Cough History of Present Illness: The patient presents from home for evaluation of for vomiting, diarrhea and not feeling well on and off for almost 3 weeks. She denies any sick contacts. No bad food exposure. She has been to [place] several times during the past month. She is a history of type 1 diabetes and does take insulin. She last had dose of insulin around 8 PM yesterday. She did not check her sugar today and does not know what it is. No insulin given today. No chest pain or shortness of breath. No fevers or chills. No dysuria or hematuria. Here for evaluation. Past Medical History/Immunizations: Past Medical History: Diagnosis Date Diabetes mellitus Endocrine disorder High cholesterol Irregular bleeding 07/11/2020 Irregular bleeding 07/11/2020 Other depression Other depression Polycystic ovaries 01/01/2021 Tetanus received in last 5 years: Unknown Allergies: Allergies Allergen Reactions Demerol [Meperidine Hcl] Hives and Swelling Phenergan [Promethazine] Anxiety, Hives and Swelling Wellbutrin [Bupropion Hcl] Hives and Swelling Past Social History: Tobacco Use Some Days; Cigarettes: Started 2019 Smokeless Tobacco: Never used smokeless tobacco. Comments: 2-3 ciggs a day Vaping Use Never used Alcohol Use Yes. Comments: social Drug Use No. Sexual Activity Sexually active; Partners: Male; Control/Protection: None. Past Surgical History: Past Surgical History: Procedure Laterality Date APPENDECTOMY CHOLECYSTECTOMY DIAGNOSTIC LAPAROSCOPY DILATION AND CURETTAGE (SHX) x5 LAPAROTOMY SALPINGO-OOPHORECTOMY Right Review of Systems: Review of Systems Constitutional: Negative for chills and fever. Respiratory: Negative for cough and shortness of breath. Cardiovascular: Negative for chest pain. Gastrointestinal: Positive for diarrhea, nausea and vomiting. Genitourinary: Negative for dysuria. Musculoskeletal: Negative for arthralgias and neck stiffness. Skin: Negative for wound. Neurological: Negative for dizziness. Psychiatric/Behavioral: Negative for agitation. Physical Exam: ED Triage Vitals [09/24/23 1439] Weight 76.3 kg (168 lb 4.8 oz) Actual or estimated Estimated by patient/family report Height 1.549 m (5' 1") BP (!) 154/92 Pulse 103 Resp 16 Temp 37.1 ?C (98.8 ?F) Temp source Oral SpO2 100 % Measured on Room air Physical Exam Vitals and nursing note reviewed. Constitutional: Appearance: Normal appearance. HENT: Head: Normocephalic and atraumatic. Nose: Nose normal. Mouth/Throat: Mouth: Mucous membranes are dry. Cardiovascular: Rate and Rhythm: Normal rate and regular rhythm. Pulmonary: Effort: Pulmonary effort is normal. No respiratory distress. Breath sounds: No stridor. No wheezing or rhonchi. Abdominal: General: There is no distension. Palpations: There is no mass. Tenderness: There is no abdominal tenderness. There is no guarding or rebound. Hernia: No hernia is present. Musculoskeletal: General: Normal range of motion. Cervical back: Normal range of motion and neck supple. Skin: General: Skin is warm and dry. Neurological: General: No focal deficit present. Mental Status: She is alert and oriented to person, place, and time. Radiology: No orders to display Lab Results: Lab Results CBC WITH DIFF - Abnormal Result Value Ref Range WBC 3.19 (*) 4.30 - 11.10 10*3/?L RBC 5.33 (*) 3.93 - 5.25 10*6/?L HGB 12.0 11.6 - 15.0 g/dL HCT 38.5 35.7 - 45.2 % MCV 72.2 (*) 80.6 - 95.5 fL MCH 22.5 (*) 25.9 - 32.8 pg MCHC 31.2 (*) 31.6 - 35.1 g/dL RDW-SD 39.1 39.0 - 49.9 fL RDW-CV 15.3 12.0 - 15.5 % PLT 346 166 - 358 10*3/?L MPV 10.0 9.5 - 12.9 fL NRBC/100 WBC 0.0 0.0 - 10.0 /100 WBCs NRBC x10 3 <0.01 10*3/?L GRAN MAT (NEUT) % 42.4 % IMM GRAN % 0.30 % LYMPH % 43.9 % MONO % 10.3 % EOS % 2.5 % BASO % 0.6 % GRAN MAT x10 3 (ANC) 1.35 (*) 1.88 - 7.09 10*3/uL IMM GRAN x10 3 <0.03 0.00 - 0.06 10*3/uL LYMPH x10 3 1.40 1.32 - 3.29 10*3/uL MONO x10 3 0.33 0.33 - 0.92 10*3/uL EOS x10 3 0.08 0.03 - 0.39 10*3/uL BASO x10 3 <0.03 0.01 - 0.07 10*3/uL COMP. METABOLIC PANEL (56184) - Abnormal NA 135 135 - 145 mmol/L K 4.1 3.5 - 5.0 mmol/L CL 98 98 - 108 mmol/L CO2 TOTAL 27 23 - 31 mmol/L AGAP 10 2 - 16 BUN 13 7 - 23 mg/dL GLUCOSE 398 (*) 70 - 110 mg/dL CREATININE 0.48 (*) 0.50 - 1.04 mg/dL TOTAL BILI 0.3 0.1 - 1.1 mg/dL CALCIUM 9.6 8.6 - 10.6 mg/dL T PROTEIN 8.3 (*) 6.3 - 8.2 g/dL ALBUMIN 4.4 3.5 - 5.0 g/dL ALK PHOS 132 (*) 34 - 122 U/L ALTv 18 5 - 35 U/L AST(SGOT) 23 13 - 40 U/L eGFR 123.0 mL/min/1.73m2 AC PANEL 21 + LACTIC ACID - Abnormal PH 7.34 7.32 - 7.42 PCO2 ZENAIDA 46 41 - 51 mmHg PO2 ZENAIDA <16 (*) 25 - 40 mmHg HCO3 ZENAIDA 24 24 - 28 mEq/L AC VBE(BEAKER) -1.7 mEq/L THB ZENAIDA 11.6 (*) 12.0 - 16.0 g/dL %O2HB ZENAIDA 14.3 (*) 52.0 - 63.0 % %COHB ZENAIDA 0.3 0.0 - 1.5 % %METHB ZENAIDA 1.5 0.4 - 1.5 % VOL%O2 ZENAIDA 2.3 (*) 6.0 - 12.0 % NA 136 135 - 145 mmol/L K+ 4.2 3.5 - 5.0 mmol/L AC CA IONZ 4.90 4.50 - 5.30 mg/dL GLUCOSE 412 (*) 70 - 110 mg/dL LACTIC ACID 1.43 0.50 - 2.20 mmol/L GLYCOSYLATED HEMOGLOBIN (A1C) - Abnormal HGB A1C 12.9 (*) 4.0 - 5.7 % URINALYSIS - Abnormal APPEARANCE Clear Clear COLOR Straw (*) Yellow PH 6.0 4.8 - 8.0 SP GRAVITY 1.025 1.003 - 1.030 GLU U QUAL 500 mg/dL (*) Normal BLOOD Negative Negative KETONES Negative Negative PROTEIN Negative Negative UROBILIN Normal Normal BILIRUBIN Negative Negative NITRITE Negative Negative LEUK VALE Negative Negative RBC/HPF 1 0 - 3 HPF WBC/HPF <1 0 - 5 HPF BACTERIA Negative Negative SQ EPITH <1 HPF POCT GLUCOSE (AUTOMATED) - Abnormal POCT GLU 373 (*) 70 - 110 mg/dL POCT GLUCOSE (AUTOMATED) - Abnormal POCT GLU 373 (*) 70 - 110 mg/dL POCT GLUCOSE(AGE >30DAYS) - Abnormal POCT Glu (age>30days) 238 (*) 70 - 110 mg/dL POCT GLUCOSE (AUTOMATED) - Abnormal POCT GLU 238 (*) 70 - 110 mg/dL MAGNESIUM - Normal MAGNESIUM 1.7 1.7 - 2.4 mg/dL POCT TEST - Normal POCT PREG Negative On board controls acceptable with C Line Yes POCT PREG LOT # [id number] POCT PREG TEST DATE 11-21-2024 COVID-19 (ID NOW RAPID TESTING) RAPID INFLUENZA A/B EKG: If EKG completed, see Procedure Note. Orders and Treatments: Orders Placed This Encounter Procedures CBC WITH DIFF COMP. METABOLIC PANEL (51263) AC PANEL 21 + LACTIC ACID Magnesium Glycosylated Hemoglobin (A1C) URINALYSIS POCT TEST POCT GLUCOSE (AUTOMATED) POCT GLUCOSE (AUTOMATED) POCT GLUCOSE(AGE >30DAYS) POCT GLUCOSE (AUTOMATED) COVID-19 (ID NOW TESTING) RAPID INFLUENZA A/B Orders Placed This Encounter Medications NaCl 0.9% (NS) bolus infusion 1,000 mL metoclopramide HCl (REGLAN) injection 10 mg insulin regular human (HUMULIN R) injection 8 Units acetaminophen (TYLENOL) tablet 650 mg First Provider Eval: ED Events Date/Time Event User Comments 09/24/23 1443 Medical Screening Begins ALEJANDRA POST DO -- 09/24/23 144 First Provider Evaluation ALEJANDRA POST DO -- ED COURSE Diagnosis/Impression as of 09/24/23 1850 Nausea and vomiting, unspecified vomiting type Hyperglycemia Diarrhea, unspecified type Procedures: Procedures MDM: Medical Decision Making The patient presents from home for evaluation for nausea, vomiting as well as diarrhea on and off for the past 3 weeks. No abdominal pain. No sick contacts. No fevers or chills. She has been to [place] several times in the past 1 month. No bad food exposure. Is a history of type 1 diabetes and does take insulin. She last had a dose of insulin around 8 PM yesterday. No insulin received today nor did she check her blood sugar today. Vital signs are stable in the ER. She has dry mucous membranes on examination. Her abdomen is soft and nontender. Her lungs are clear bilaterally. Will give the patient IV fluid as well as antiemetics. Will check laboratory studies here in the ER to eval for possible DKA. Final disposition pending. 1530 -laboratory studies show hyperglycemia but no evidence of DKA. Will continue IV fluids and provide the patient with IV insulin. Anticipate discharge home later when she is able to tolerate by mouth. 1832 - the patient is doing better here in the ER. She said no episodes of vomiting or diarrhea since arrival to the ER. Her laboratory studies showed hyperglycemia but no evidence of DKA. Her glucose level has improved after IV insulin and fluids. Spoke with the patient regarding her hemoglobin A1c value of 12.9 and her need to improve her glucose control on a daily basis. She reports she has follow-up with endocrinology next week. Will give the patient a p.o. challenge. If she is able to talk by mouth she will be okay for discharge home with PCP follow-up. 1850 - the patient was given a p.o. challenge and able to tolerate by mouth without difficulty. She remained stable here in the ER and is okay for discharge home with PCP follow-up. Problems Addressed: Diarrhea, unspecified type: acute illness or injury Hyperglycemia: acute illness or injury Nausea and vomiting, unspecified vomiting type: acute illness or injury Amount and/or Complexity of Data Reviewed Labs: ordered. Decision-making details documented in ED Course. Risk OTC drugs. Prescription drug management. Flowsheet Documentation: Scoring Tools: No data recorded Disposition/Condition: ED Disposition ED Disposition Disch - Home Condition Stable Comment -- Discharge Medications: Patient's Medications START taking these medications No medications on file CONTINUE taking these medications which have NOT CHANGED ATORVASTATIN 80 MG TABLET Take 1 tablet by mouth at bedtime. BLOOD-GLUCOSE SENSOR (FREESTYLE GRANT 3 SENSOR) STEPHANIE Use as directed every 2 weeks DICYCLOMINE (BENTYL) 10 MG CAPSULE Take 1 capsule by mouth every 8 (eight) hours as needed for Abdominal pain. INSULIN DEGLUDEC (TRESIBA FLEXTOUCH U-100) 100 UNIT/ML (3 ML) INPN inject 38 Units under the skin every morning. INSULIN LISPRO (HUMALOG KWIKPEN INSULIN) 100 UNIT/ML PEN INJECTOR inject 10-18 Units under the skin 3 (three) times daily before meals. LANCETS 31 GAUGE MISC Use to test BS 4x/day MULTIVITAMIN ORAL Take 1 tablet by mouth daily. NITROGLYCERIN 0.4 % (W/W) OINTMENT Insert 1 Inch into rectum every 12 (twelve) hours. ONDANSETRON 4 MG DISINTEGRATING TABLET Take 1 tablet by mouth every 8 (eight) hours as needed for Nausea and Vomiting (N/V). POLYETHYLENE GLYCOL 3350 (MIRALAX) 17 GRAM/DOSE POWDER Take 17 g by mouth in the morning. SERTRALINE 100 MG TABLET Take 2 tablets by mouth at bedtime. SUCRALFATE 1 GRAM TABLET Take 1 tablet by mouth before meals and at bedtime. START taking Modified Medications as Prescribed No medications on file STOP taking these medications No medications on file Follow-up: Electronically signed by: Alejandra Post DO 09/24/23 1850 [facility] 2023-09-14 07:45:00 Images from the original note were not included. Venipuncture collection performed by clean technique on the right anticubitus. Total of 1 attempts were made. Slight pressure and a bandage/dressing were applied to the site(s). The patient experienced no complications. The following specimens were processed according to instructions and sent to [facility] laboratories per lab order on 09/14/2023 : LT BLUE SST 1 RED LAV 2 PPT DK GREEN (LiHep) DK GREEN (SodH) REINA DK BLUE (K2) DK BLUE (S) ACD Blood Culture NIPT/NTD [facility] 2023-05-31 16:46:28 Formatting of this n ote might be different from the original. Instructions for Golytely split dose sent to pt via [employer] messages. Dinora Adame RN [facility] 2023-04-07 10:00:00 Formatting of this n ote is different from the original. Images from the original note were not included. Venipuncture collection performed by clean technique on the left anticubitus. Total of 1 attempts were made. Slight pressure and a bandage/dressing were applied to the site(s). The patient experienced no complications. The following specimens were processed according to instructions and sent to [facility] laboratories per lab order on today: LT BLUE SST 2 RED LAV 2 PPT DK GREEN (LiHep) DK GREEN (SodH) REINA DK BLUE (K2) DK BLUE (S) ACD Blood Culture NIPT/NTD Patient has been identified by and name and was provided with cup, antiseptic towelette, and clean catch instructions. 2 urine specimen(s) sent. Unpreserved 2 Urine Culture Aptima tube Other urine [facility]
[2024-05-27] MEDS ORDERED: FAMOTIDINE 20 MG/2 ML VIAL IV ONE (12:19)
[2024-05-27] MEDS ORDERED: ONDANSETRON 4 MG/2 ML VIAL ONE (12:20)
[2024-05-27] MEDS ORDERED: NA CHLORIDE 0.9% 1,000 ML ONE (12:20)
[2024-05-27 12:21] LABS: Absolute Basophils 0.1 K/uL (0-0.5); Absolute Eosinophils 0.2 K/uL (0-0.5); Absolute Lymphocytes (CBC) 2.6 K/uL (0.7-4.9); Absolute Monocytes 0.5 K/uL (0.1-1.3); Basophils % 0.7 % (0-1.3); Eosinophils % 1.9 % (0-4.4); Hematocrit 32.8 % (36.0-45.0); Hemoglobin 10.1 g/dL (12.0-15.0); Lymphocytes % 30.8 % (15.3-44.8); MCH 23.6 pg (27.0-35.0); MCHC 30.8 g/dL (32.0-36.0); MCV 76.7 fL (80-100); Monocytes % 6.4 % (3.3-12.3); Neutrophils % 60.2 % (41.7-73.7); Platelets 467 thou/uL (152-406); RBC Red Blood Cell Count 4.28 M/uL (3.86-4.86); Red Cell Distribution Width 15.2 % (12.1-15.2)
[2024-05-27 12:25] LABS: Protime INR 0.98
[2024-05-27 12:40] LABS: ALT/SGPT 20 U/L (13-56); AST/SGOT 11 U/L (15-37); Albumin 3.4 g/dL (3.4-5.0); Albumin/Globulin Ratio 0.8 (1.1-1.8); Alkaline Phosphatase 86 U/L (45-117); Anion Gap 9.2 mEq/L (5.0-15.0); BUN Blood Urea Nitrogen 12 mg/dL (7-18); Bicarbonate 25 mEq/L (21-32); Bilirubin Total 0.2 mg/dL (0.2-1.0); Globulin 4.4 g/dL (2.3-3.5); Glomerular Filtration Rate 115 ml/min (=/>90); Glucose Level 90 mg/dL (74-106); Lipase 27 U/L (13-75); Magnesium 1.9 mg/dL (1.6-2.4); NT PRO-BNP 7 pg/mL (<125); Potassium 4.2 mEq/L (3.5-5.1); Protein, Total 7.8 g/dL (6.4-8.2); Sodium Level 140 mEq/L (136-145); Troponin High Sensitivity 3.2 pg/mL (<58.9)
[2024-05-27 12:41] LABS: Bilirubin Direct < 0.2 mg/dL (0-0.2)
[2024-05-27] MEDS ORDERED: HEPARIN 5000 UNIT/ML 1 ML VIAL ONE (12:43)
[2024-05-27] MEDS ORDERED: HEPARIN/D5W 25,000 UNIT/500 ML BAG IV ONE (12:43)
--- NOTE | 2024-05-27 13:07 | RAD REPORT ---
EXAM DESCRIPTION: CT - Chest For Pe Angio - 05/27/2024 12:50 pm CLINICAL HISTORY: Chest pain COMPARISON: None. TECHNIQUE: Dynamically enhanced axial 3 mm thick images of the chest were obtained during administra tion of 100 mL Isovue 370 IV contrast. Coronal and oblique reconstruction images were generated and r eviewed. Exam utilizes a protocol for optimal evaluation of pulmonary arterial tree. Maximum intensity projections 3D imaging was utilized All CT scans are performed using dose optimization technique as appropriate and may include automated exposure control or mA/KV adjustment according to patient size. FINDINGS: A pulmonary embolus is not seen. A thoracic aortic aneurysm is not noted. A pleural effusion is not seen. A pericardial effusion is not seen. A lung consolidation is not present. Areas of subsegmental atelectasis right lower lobe. IMPRESSION: Negative for a pulmonary embolism.
--- NOTE | 2024-05-27 13:21 | RAD REPORT ---
EXAM DESCRIPTION: Ernesto Single View05/27/2024 1:00 pm CLINICAL HISTORY: Chest pain COMPARISON: none FINDINGS: The lungs appear clear of acute infiltrate. The heart is normal size IMPRESSION: No acute abnormalities displayed
--- NOTE | 2024-05-27 13:37 | ER ---
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 Fentanyl 50 mcg and NS 750 mls to 20g LAC. BP 132/82, HR 120s, SpO2 100% on RA. 106. Hysterectomy 4 weeks ago, on ZPack for bronchitis. Coronavirus screen: At this time, the client does not indicate any symptoms associated with coronavirus-19. Ebola Screen: No symptoms or risks identified at this time. Initial Sepsis Screen: Does the patient meet any 2 criteria? HR > 90 bpm. No. Patient's initial sepsis screen is negative. Does the patient have a suspected source of infection? No. Patient's initial sepsis screen is negative. Risk Assessment: Do you want to hurt yourself or someone else? Patient reports no desire to harm self or others. Onset of symptoms was May 27, 2024. 12:06 Method Of Arrival: EMS: [facility] hb 12:06 Acuity: VIOLETTE 2 hb Triage Assessment: 12:09 General: Appears distressed, Behavior is cooperative, anxious. Pain: Pain currently is hb 10 out of 10 on a pain scale. Neuro: GCS 15. Cardiovascular: Reports chest pain, shortness of breath, Patient's skin is warm and dry. Respiratory: Respiratory effort is even, unlabored, Respiratory pattern is regular, symmetrical. 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 - Infectious Disease History:: Denies. - Social history:: Smoking status: Patient reports the use of cigarette tobacco products. - Family history:: not pertinent. Screenin:25 [facility] ED Fall Risk Assessment (Adult) History of falling in the last 3 months, mb9 including since admission No falls in past 3 months (0 pts) Confusion or Disorientation No (0 pts) Intoxicated or Sedated No (0 pts) Impaired Gait No (0 pts) Mobility Assist Device Used No (0 pt) Altered Elimination No (0 pt) Score/Fall Risk Level 0 - 2 = Low Risk Oriented to surroundings, Maintained a safe environment, Educated pt \T\ family on fall prevention, incl call for assistance when getting out of bed, Assessed \T\ reinforced patient's understanding of fall precautions, Provided non-skid footwear. Abuse screen: Denies threats or abuse. Nutritional screening: No deficits noted. Tuberculosis screening: No symptoms or risk factors identified. Assessment: 12:18 Reassessment: ERP notified of pts increase in HR. Repeat EKG done. mb9 12:23 General: Appears uncomfortable, ill, Behavior is anxious. Pain: Complains of pain in mb9 chest Pain radiates to back Pain currently is 10 out of 10 on a pain scale. Quality of pain is described as throbbing, Pain began suddenly, Is continuous. Neuro: Rosario Agitation-Sedation Scale (RASS): 0 - Alert and Calm Level of Consciousness is awake, alert, obeys commands, Oriented to person, place, time, situation, Appropriate for age. Cardiovascular: Reports chest pain, diaphoresis, nausea, palpitations, shortness of breath, Heart tones S1 S2 present Patient's skin is warm and dry. Rhythm is sinus tachycardia. Respiratory: Reports shortness of breath at rest Airway is patent Respiratory effort is even, unlabored, Respiratory pattern is regular, symmetrical, Breath sounds are diminished in left posterior upper lobe and right posterior upper lobe. GI: Abdomen is round non-distended, Bowel sounds present X 4 quads. Abd is soft and non tender X 4 quads. Reports nausea, vomiting. : No signs and/or symptoms were reported regarding the genitourinary system. EENT: No signs and/or symptoms were reported regarding the EENT system. Derm: Skin is pink, warm \T\ dry. Musculoskeletal: Range of motion: intact in all extremities. 13:28 Reassessment: Patient and/or family updated on plan of care and expected duration. Pain mb9 level reassessed. Patient is alert, oriented x 3, equal unlabored respirations, skin warm/dry/pink. Patient states feeling better. Patient states symptoms have improved. Vital Signs: 12:06 BP 135 / 95; Pulse 111; Resp 14; Temp 97.8(TE); Pulse Ox 99% on R/A; Weight 72.57 kg; hb Height 5 ft. 1 in. ; Pain 10/10; 12:24 BP 132 / 90 LA; Pulse 122; Resp 15; Pulse Ox 98% on R/A; mb9 12:24 BP 125 / 95 RA; Pulse 135; Resp 16; Pulse Ox 98% on R/A; mb9 13:05 Pulse 110; Resp 18; Pulse Ox 98% on R/A; mb9 13:28 BP 112 / 76; Pulse 104; Resp 18; Pulse Ox 99% on R/A; mb9 14:25 BP 108 / 82; Pulse 97; Resp 16; Pulse Ox 100% on R/A; mb9 12:06 Body Mass Index 30.23 (72.57 kg, 154.94 cm) hb 12:06 Pain Scale: Adult hb Nadja Coma Score: 13:27 Eye Response: spontaneous(4). Motor Response: obeys commands(6). Verbal Response: willy oriented(5). Total: 15. ED Course: 12:02 EKG done, by ED staff, reviewed by Timothy Chaney MD. hb 12:04 Patient arrived in ED. sb4 12:05 Timothy Chaney MD is Attending Physician. willy 12:08 Bree Moreland RN is Primary Nurse. mb9 12:09 Triage completed. hb 12:09 Arm band placed on. hb 12:15 Placed in gown. Bed in low position. Call light in reach. Side rails up X 1. Provided mb9 Education on: press call light if needing anything. Client placed on continuous cardiac and pulse oximetry monitoring. NIBP monitoring applied. teletypesetter monitor on. Door closed. Noise minimized. Warm blanket given. Pillow given. 12:21 No provider procedures requiring assistance completed. Maintain EMS IV. Dressing mb9 intact. Good blood return noted. Site clean \T\ dry. Gauge \T\ site: 20 g left AC. Flushed with 10 mL NS. 12:27 EKG done, by ED staff, reviewed by Timothy Chaney MD. mb9 12:27 Initial lab(s) drawn, by me, sent to lab. mb9 12:[address] via stretcher. mb9 12:52 CT Chest For PE Angio In Process Unspecified. EDMS 13:02 XRAY Chest (1 view) In Process Unspecified. EDMS 13:05 Inserted saline lock: 18 gauge in right antecubital area, using aseptic technique. mb9 Flushed with 10 mL NS. 13:35 Adan North MD is Hospitalizing Provider. [facility] 13:43 US Extremity Venous W Compression Eliud In Process Unspecified. EDMS 15:41 Patient admitted, IV remains in place. mb9 Administered Medications: 14:22 Discontinued: Heparin (DVT/PE Drip) - ([id number] units, [id number] ml) 18 units/kg/hr IV la1 at per protocol Per protocol; Max initial rate 1800 units/hr 12:25 Drug: Famotidine IVP 20 mg IVP once; dilute with 10 mL 0.9% NaCl; give over 2 minutes mb9 Route: IVP; Site: left antecubital; 13:06 Follow up: Response: No adverse reaction mb9 12:27 Drug: NS 0.9% IV 1000 ml IV at 1 bolus Per protocol; 1000 mL bolus Route: IV; Rate: 1 mb9 bolus; Site: left antecubital; 13:48 Follow up: Response: No adverse reaction; IV Status: Completed infusion mb9 12:27 Drug: Ondansetron IVP 4 mg IVP once; over 2 minutes Route: IVP; Site: left antecubital; mb9 13:06 Follow up: Response: No adverse reaction mb9 13:00 Drug: Heparin (DVT/PE- Bolus per protocol) - HEParin IVP 80 units/kg IVP once; Max mb9 8,000 units {Co-Signature: cm10 (Maty Dickson RN).} Route: IVP; Site: right antecubital; 13:48 Follow up: Response: No adverse reaction mb9 13:02 Drug: Heparin (DVT/PE Drip) 18 units/kg/[place] - ([place] [address] units, D5W IV 500 ml) IV mb9 at per protocol Per protocol; Max initial rate 1800 units/hr {Co-Signature: cm10 (Maty Dickson RN).} Route: IV; Rate: per protocol; Site: right antecubital; 13:48 Follow up: Response: No adverse reaction; IV Status: Infusion continued upon admission mb9 14:24 Follow up: Response: No adverse reaction; IV Status: Order to discontinue infusion mb9 13:49 Not Given (Patient Refused): morphineor iv 4 mg IVP once over 4 mins mb9 14:39 Drug: Pantoprazole IVP 40 mg IVP once Route: IVP; Site: left antecubital; mb9 15:03 Follow up: Response: No adverse reaction mb9 Medication: 12:26 VIS not applicable for this client. mb9 Outcome: 13:36 Decision to Hospitalize by Provider. willy 15:41 Admitted to Med/surg accompanied by sarwat montgomery 15:41 Condition: stable 15:41 Instructed on the need for admit, 15:42 Patient left the ED. 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 Fentanyl 50 mcg and NS 750 mls to 20g LAC. BP 132/82, HR 120s, SpO2 100% on TA. 106. Hysterectomy 4 weeks ago, on ZPack for bronchitis. hb
--- NOTE | 2024-05-27 13:37 | EDPHYS ---
Physician Documentation [facility] Name: Catherine Lopez Age: 39 yrs Sex: Female : 1985 Arrival Date: 05/27/2024 Time: 11:58 Bed 13 Private MD: ED Physician Timothy Chaney HPI: 05/27 13:23 This 39 yrs old Female presents to ER via EMS with complaints of Chest willy Pain, Shortness Of Breath. 13:23 The patient or guardian reports chest pain that is located primarily in the substernal willy area, anterior chest wall, bilaterally. Onset: just prior to arrival, this morning. The pain does not radiate. Associated signs and symptoms: Pertinent positives: nausea, shortness of breath. The chest pain is described as a pressure, sharp. Duration: The patient or guardian reports multiple episodes, that wax and wane. Severity of pain: At its worst the pain was moderate in the emergency department the pain is unchanged. The patient has not experienced similar symptoms in the past. DIRECTOR OF PULMONARY UNIT: 12:26 LMP N/A - Hysterectomy, Not mb9 Historical: - Allergies: 12:09 Demerol; hb 12:09 Phenergan; hb 12:09 Wellbutrin; hb - Home Meds: 12:09 Humalog Pen 100 unit/mL Sub-Q inpn [Active]; Tresiba FlexTouch U-100 100 unit/mL (3 mL) hb subcutaneous inpn [Active]; - PMHx: 12:09 Diabetes - IDDM; ovarian cancer; Ovarian cyst; PREECLAMPSIA; hb - PSHx: 12:09 Appendectomy; D\T\C x 7; Hysterecomy (D\T\C x 7); hb - Immunization history:: Adult Immunizations up to date. - Infectious Disease History:: Denies. - Social history:: Smoking status: Patient reports the use of cigarette tobacco products. - Family history:: not pertinent. ROS: 13:23 Constitutional: Negative for fever, chills, and weight loss, Eyes: Negative for injury, willy pain, redness, and discharge, ENT: Negative for injury, pain, and discharge, Neck: Negative for injury, pain, and swelling, Abdomen/GI: Negative for abdominal pain, nausea, vomiting, diarrhea, and constipation, Back: Negative for injury and pain, : Negative for injury, bleeding, discharge, and swelling, MS/Extremity: Negative for injury and deformity, Skin: Negative for injury, rash, and discoloration, Neuro: Negative for headache, weakness, numbness, tingling, and seizure, Psych: Negative for depression, anxiety, suicide ideation, homicidal ideation, and hallucinations, Allergy/Immunology: Negative for hives, rash, and allergies, Endocrine: Negative for neck swelling, polydipsia, polyuria, polyphagia, and marked weight changes, Hematologic/Lymphatic: Negative for swollen nodes, abnormal bleeding, and unusual bruising, 13:23 Cardiovascular: Positive for chest pain, with cough, with movement, of the back and chest, 13:23 Respiratory: Positive for pleurisy, shortness of breath, 13:23 MS/extremity: Negative for acute changes, Exam: 13:23 Constitutional: This is a well developed, well nourished patient who is awake, alert, willy and in no acute distress. Head/Face: Normocephalic, atraumatic. Eyes: Pupils equal round and reactive to light, extra-ocular motions intact. Lids and lashes normal. Conjunctiva and sclera are non-icteric and not injected. Cornea within normal limits. Periorbital areas with no swelling, redness, or edema. ENT: Nares patent. No nasal discharge, no septal abnormalities noted. Tympanic membranes are normal and external auditory canals are clear. Oropharynx with no redness, swelling, or masses, exudates, or evidence of obstruction, uvula midline. Mucous membranes moist. Neck: Trachea midline, no thyromegaly or masses palpated, and no cervical lymphadenopathy. Supple, full range of motion without nuchal rigidity, or vertebral point tenderness. No Meningismus. Chest/axilla: Normal chest wall appearance and motion. Nontender with no deformity. No lesions are appreciated. Respiratory: Lungs have equal breath sounds bilaterally, clear to auscultation and percussion. No rales, rhonchi or wheezes noted. No increased work of breathing, no retractions or nasal flaring. Abdomen/GI: Soft, non-tender, with normal bowel sounds. No distension or tympany. No guarding or rebound. No evidence of tenderness throughout. Back: No spinal tenderness. No costovertebral tenderness. Full range of motion. Skin: Warm, dry with normal turgor. Normal color with no rashes, no lesions, and no evidence of cellulitis. MS/ Extremity: Pulses equal, no cyanosis. Neurovascular intact. Full, normal range of motion. Neuro: Awake and alert, GCS 15, oriented to person, place, time, and situation. Cranial nerves II-XII grossly intact. Motor strength 5/5 in all extremities. Sensory grossly intact. Cerebellar exam normal. Normal gait. Psych: Awake, alert, with orientation to person, place and time. Behavior, mood, and affect are within normal limits. 13:23 Cardiovascular: Rate: tachycardic, actual rate is 109 bpm, Rhythm: regular, Pulses: no pulse deficits are appreciated, Heart sounds: murmur, 13:23 ECG was reviewed by the Attending Physician. 13: ECG was reviewed by the Attending Physician. [facility] 13:27 Musculoskeletal/extremity: ROM: no acute changes, intact in all extremities, full active range of motion, full passive range of motion, Circulation is intact in all extremities. Sensation intact. Compartment Syndrome exam of affected extremity: is normal. Weight bearing: able to fully bear weight, DVT Exam: No signs of deep vein thrombosis. no pain, no swelling, no tenderness, negative Homans' sign noted on exam, no appreciated bluish discoloration, no erythema, no increased warmth, Vital Signs: 12:06 BP 135 / 95; Pulse 111; Resp 14; Temp 97.8(TE); Pulse Ox 99% on R/A; Weight 72.57 kg; hb Height 5 ft. 1 in. ; Pain 10/10; 12:24 BP 132 / 90 LA; Pulse 122; Resp 15; Pulse Ox 98% on R/A; mb9 12:24 BP 125 / 95 RA; Pulse 135; Resp 16; Pulse Ox 98% on R/A; mb9 13:05 Pulse 110; Resp 18; Pulse Ox 98% on R/A; mb9 13:28 BP 112 / 76; Pulse 104; Resp 18; Pulse Ox 99% on R/A; mb9 14:25 BP 108 / 82; Pulse 97; Resp 16; Pulse Ox 100% on R/A; mb9 12:06 Body Mass Index 30.23 (72.57 kg, 154.94 cm) hb 12:06 Pain Scale: Adult hb Nadja Coma Score: 13:27 Eye Response: spontaneous(4). Motor Response: obeys commands(6). Verbal Response: willy oriented(5). Total: 15. MDM: 12:05 Patient medically screened. [facility] 13:28 HEART Score: History: Slightly Suspicious (0), ECG: Non specific repolarization willy disturbance / LBTB / PM (1), Age: < or = 45 years (0), Risk Factors: > or = 3 Risk factors for atherosclerotic disease (2), [DM] [+ Family HX] [Obesity] Troponin: < or = 1 x Normal Limit (0). The patient was given aspirin in the Emergency Department. ABUNDIO Risk Score: 1 - Three or more CAD risk factors, TOTAL SCORE = 1. Data reviewed: vital signs, nurses notes, lab test result(s), EKG, radiologic studies, CT scan, plain films. Consideration of Admission/Observation Escalation of care including admission/observation considered. I considered the following discharge prescriptions or medication management in the emergency department Medications were administered in the Emergency Department. See MAR. Independent interpretation of the following test(s) in the Emergency Department EKG: See my EKG interpretation above. Test considered but Not performed: Ultrasound no 2 d echo. Care significantly affected by the following chronic conditions: Diabetes, Obesity, Cancer. Counseling: I had a detailed discussion with the patient and/or guardian regarding the historical points, exam findings, and any diagnostic results supporting the discharge/admit diagnosis, lab results, radiology results, the need for further work-up and treatment in the hospital. 05/27 12:07 Order name: Basic Metabolic Panel; Complete Time: 13: [facility] 05/27 12:07 Order name: CBC with Diff; Complete Time: 13: [facility] 05/27 12:07 Order name: LFT's; Complete Time: 13: [facility] 05/27 12:07 Order name: Magnesium; Complete Time: 13:13 [facility] 05/27 12:07 Order name: NT PRO-BNP; Complete Time: 13:13 [facility] 05/27 12:07 Order name: PT-INR; Complete Time: 13:13 [facility] 05/27 12:07 Order name: Troponin HS; Complete Time: 13:13 [facility] 05/27 12:07 Order name: Urinalysis w/ reflexes [facility] 05/27 12:07 Order name: Lipase; Complete Time: 13: [facility] 05/27 12:52 Order name: Ptt, Activated; Complete Time: 13:13 mb9 05/27 12:07 Order name: XRAY Chest (1 view); Complete Time: 13:40 [facility] 05/27 12:07 Order name: CT Chest For PE Angio; Complete Time: 13:13 [facility] 05/27 12:14 Order name: US Extremity Venous W Compression Eliud [facility] 05/27 13:14 Order name: INCENTIVE SPIROMETRY [facility] 05/27 14:26 Order name: Abdomen 1 View (KUB) XRAY la1 05/27 15:18 Order name: RAD EDMS 05/27 12:07 Order name: EKG; Complete Time: 12:08 [facility] 05/27 12:07 Order name: Cardiac monitoring; Complete Time: 12:12 [facility] 05/27 12:07 Order name: EKG - Nurse/Tech; Complete Time: 12:12 [facility] 05/27 12:07 Order name: IV Saline Lock; Complete Time: 12:12 [facility] 05/27 12:07 Order name: Labs collected and sent; Complete Time: 12:12 [facility] 05/27 12:07 Order name: O2 Per Protocol; Complete Time: 12:12 [facility] 05/27 12:07 Order name: O2 Sat Monitoring; Complete Time: 12:12 [facility] 05/27 12:07 Order name: Bilateral blood pressure; Complete Time: 12:27 [facility] EC:23 Rate is 109 beats/min. Rhythm is regular. QRS Colwell is Normal. UT interval is normal. [facility] QRS interval is normal. QT interval is normal. No Q waves. T waves are Normal. No ST changes noted. Clinical impression: Sinus tachycardia. Interpreted by me. Reviewed by me. 13:27 Rate is 124 beats/min. Rhythm is regular. QRS Colwell is Normal. UT interval is normal. [facility] QRS interval is normal. QT interval is normal. No Q waves. T waves are Normal. Clinical impression: Sinus tachycardia and No evidence of ischemia. Interpreted by me. Reviewed by me. Administered Medications: 14:22 Discontinued: Heparin (DVT/PE Drip) - ([id number] units, [id number] ml) 18 units/kg/hr IV la1 at per protocol Per protocol; Max initial rate 1800 units/hr 12:25 Drug: Famotidine IVP 20 mg IVP once; dilute with 10 mL 0.9% NaCl; give over 2 minutes mb9 Route: IVP; Site: left antecubital; 13:06 Follow up: Response: No adverse reaction mb9 12:27 Drug: NS 0.9% IV 1000 ml IV at 1 bolus Per protocol; 1000 mL bolus Route: IV; Rate: 1 mb9 bolus; Site: left antecubital; 13:48 Follow up: Response: No adverse reaction; IV Status: Completed infusion mb9 12:27 Drug: Ondansetron IVP 4 mg IVP once; over 2 minutes Route: IVP; Site: left antecubital; mb9 13:06 Follow up: Response: No adverse reaction mb9 13:00 Drug: Heparin (DVT/PE- Bolus per protocol) - HEParin IVP 80 units/kg IVP once; Max mb9 8,000 units {Co-Signature: cm10 (Maty Dickson RN).} Route: IVP; Site: right antecubital; 13:48 Follow up: Response: No adverse reaction mb9 13:02 Drug: Heparin (DVT/PE Drip) 18 units/kg/hr - ([place] [address] units, D5W IV 500 ml) IV mb9 at per protocol Per protocol; Max initial rate 1800 units/hr {Co-Signature: cm10 (Maty Dickson RN).} Route: IV; Rate: per protocol; Site: right antecubital; 13:48 Follow up: Response: No adverse reaction; IV Status: Infusion continued upon admission mb9 14:24 Follow up: Response: No adverse reaction; IV Status: Order to discontinue infusion mb9 13:49 Not Given (Patient Refused): morphineor iv 4 mg IVP once over 4 mins mb9 14:39 Drug: Pantoprazole IVP 40 mg IVP once Route: IVP; Site: left antecubital; mb9 15:03 Follow up: Response: No adverse reaction mb9 Disposition Summary: 05/27/24 13:36 Hospitalization Ordered Notes: Hospitalization Status: Observation willy Provider: [facility] cha Location: Telemetry/MedSurg (observation) willy Condition: Fair willy Problem: new willy Symptoms: have improved willy Bed/Room Type: Standard willy Room Assignment: 214(05/27/24 14:50) eb Diagnosis - Type 1 diabetes mellitus with hyperglycemia willy - Chest pain on breathing willy - Chest pain, unspecified willy - Atelectasis willy Forms: - Medication Reconciliation Form willy - SBAR form willy - Leadership Thank You Letter willy Signatures: Dispatcher [employer] EDMS Timothy Chaney MD MD cha Attema, Vinayak, MUTUEL TELLER-C MUTUEL TELLER-Cla1 Catherine Teague, RN RN Marie Rios, Bree Joyce RN RN mb9 Randolph, Maty WOODRUFF cm10 Corrections: (The following items were deleted from the chart) 12:14 12:14 Extrem Venous W Compression Eliud+[email or web address].RAD.BRZ ordered. EDMS EDMS 14:50 13:36 willy vera
--- NOTE | 2024-05-27 13:55 | RAD REPORT ---
EXAM DESCRIPTION: USExtrem Venous W Compress Bil05/27/2024 1:41 pm CLINICAL HISTORY: Leg pain COMPARISON: none FINDINGS: The common femoral, superficial femoral, greater saphenous, popliteal and posterior tibial veins bilaterally are compressible and demonstrate augmentation. Doppler demonstrates good flow. Grayscale, color and spectral analysis performed on all vessels IMPRESSION: No evidence of deep venous thrombosis involving either lower extremity.
[2024-05-27] MEDS ORDERED: PANTOPRAZOLE 40 MG INJ ONE (14:32)
--- NOTE | 2024-05-27 15:18 | RAD REPORT ---
EXAM DESCRIPTION: RAD - Abdomen 1 View (KUB) - 05/27/2024 2:55 pm CLINICAL HISTORY: Abdomen pain FINDINGS: The bowel gas pattern is unremarkable. Moderate amount stool within the colon Contrast from a recent exam present within the genitourinary system No significant abnormal calcification is displayed
--- NOTE | 2024-05-27 15:28 | P.HP ---
Certification for Inpatient Patient admitted to: Observation With expected LOS: <2 Midnights Patient will require the following post-hospital care: None Practitioner: I am a practitioner with admitting privileges, knowledge of patient current condition, hospital course, and medical plan of care. Services: Services provided to patient in accordance with Admission requirements found in Title 42 Section 412.3 of the Code of Federal Regulations Patient History Date of Service: 05/27/24 Reason for admission: Chest pain History of Present Illness: 39-year-old female with history of type 1 diabetes presents emergency department with chief complaint of chest pain. Of note she had a hysterectomy about 4 weeks ago at [facility]. She reports that she was driving her vehicle when she had onset of a coughing fit, during/after the coughing fit she developed a severe chest pain and for that reason came to the emergency department. She was evaluated in the emergency department her labs were significant for initial high sensitive troponin of 3.2 EKG without STEMI criteria CTA of the chest was performed rule out pulmonary embolism which was negative. Her pain has resolved at this time, she is a type I diabetic, has a family history of CAD and tobacco use disorder. ED prior wishes to admit patient under observation for ACS rule out. Patient also reports constipation since her hysterectomy about 4 weeks ago as well as frequent belching with a sulfurous/rotten egg odor for the past 1 week or so. KUB ordered nonobstructive bowel gas pattern with moderate stool burden. Will try adding PPI for relief of symptoms and admit under observation for ACS rule out. Allergies bupropion [From Wellbutrin] Allergy (Unverified 11/17/17 17:28) Unknown meperidine [From Demerol] Allergy (Unverified 11/17/17 17:28) Unknown promethazine [From Phenergan] Allergy (Unverified 11/17/17 17:28) Unknown Home Medications: Aspirin [Low Dose Aspirin EC] 81 mg PO DAILY 03/16/18 Doxylamine/Pyridoxine HCl [Diclegis Dr 10-10 mg Tablet] 2 each PO DAILY 03/16/18 Insulin Lispro [Humalog] 30 unit SQ BEDTIME 03/16/18 Insulin Lispro [Humalog] 42 SQ BREAKFAST 03/16/18 Metoclopramide HCl [Reglan] 10 mg PO PRN 03/16/18 NPH, Human Insulin Isophane [Humulin N] 32 unit SQ BEDTIME 03/16/18 NPH, Human Insulin Isophane [Humulin N] 100 unit SQ 03/16/18 Omeprazole [Prilosec] 40 mg PO DAILY 03/16/18 - Past Medical/Surgical History Diabetic: Yes -: H/o preeclampsia -: H/o abruption -: 's x3 -: PCOS -: Endometriosis -: Type 1 diabetes -: Abdominal RSO (for ovarian cyst) -: Appendectomy -: Cholecystectomy Psychosocial/ Personal History: Lives at home with family - Family History Mother -: Heart disease, Stroke Father -: Heart disease, Stroke - Social History Smoking Status: Current every day smoker Alcohol use: No CD- Drugs: No Caffeine use: No Place of Residence: Home Review of Systems 10-point ROS is otherwise unremarkable Cardiovascular: Chest Pain Physical Examination - Physical Exam General: Alert, In no apparent distress, Oriented x3 HEENT: Atraumatic, PERRLA, EOMI Neck: Supple, 2+ carotid pulse no bruit, No LAD Respiratory: Clear to auscultation bilaterally, Normal air movement Cardiovascular: Regular rate/rhythm, Normal S1 S2 Gastrointestinal: Normal bowel sounds, No tenderness Musculoskeletal: No tenderness Integumentary: No rashes Neurological: Normal speech, Normal strength at 5/5 x4 extr, Normal tone - Studies Laboratory Data (last 24 hrs) 05/27/24 05/27/24 05/27/24 12:11 12:11 12:11 WBC 8.30 Hgb 10.1 L Hct 32.8 L Plt Count 467 H PT 11.0 INR 0.98 APTT 32.0 Sodium Potassium BUN Creatinine Glucose Magnesium Total Bilirubin AST ALT Alkaline Phosphatase Lipase 05/27/24 12:11 WBC Hgb Hct Plt Count PT INR APTT Sodium 140 Potassium 4.2 BUN 12 Creatinine 0.61 Glucose 90 Magnesium 1.9 Total Bilirubin 0.2 AST 11 L ALT 20 Alkaline Phosphatase 86 Lipase 27 Assessment and Plan - Plan Assessment: Chest pain rule out ACS Diabetes mellitus type 1 Constipation/eructation Plan: Chest pain rule out ACS CTA chest negative for PE or other acute findings Chest pain associated with coughing fit, possibility of the bronchospasm/muscle spasm Trend troponin and monitor on telemetry overnight Will also try PPI Diabetes mellitus type 1 Continue long-acting insulin, sliding scale insulin with ACHS Accu-Chek Constipation/eructation Reports worsening over the course last 1 week KUB with nonobstructive gas pattern, moderate stool burden Will give dose of lactulose, as needed MiraLAX daily Will also trial PPI for possible GERD DVT PPX: Lovenox Code status: Full Discharge Plan: Home Plan to discharge in: 24 Hours - Advance Directives Does patient have a Living Will: No Does patient have a Durable POA for Healthcare: No - Code Status/Comfort Care Code Status Assessed: Yes (Full code) Critical Care: No Time Spent Managing Pts Care (In Minutes): 61
[2024-05-27] MEDS ORDERED: ONDANSETRON 4 MG/2 ML VIAL IV PRN (15:40)
[2024-05-27] MEDS ORDERED: BENZONATATE 100 MG CAP PO PRN (15:40)
[2024-05-27] MEDS ORDERED: POLYETHYL GLY 3350 17 GM/DOSE PO PRN (15:40)
[2024-05-27] MEDS ORDERED: SODIUM CHLORIDE 0.9% 10ML INJ IV PRN (15:40)
[2024-05-27 15:49] VITALS: BMI 30.2
[2024-05-27] MEDS: LACTULOSE 20 GM/30 ML UCUP PO ONE (16:03)
[2024-05-27 16:08] VITALS: O2SAT 100
[2024-05-27] MEDS: INSULIN REGULAR (HUMAN) 100 UNIT/ML SQ SCH (16:30)
[2024-05-28 06:21] LABS: Absolute Basophils 0.1 K/uL (0-0.5); Absolute Eosinophils 0.3 K/uL (0-0.5); Absolute Lymphocytes (CBC) 1.9 K/uL (0.7-4.9); Absolute Monocytes 0.5 K/uL (0.1-1.3); Absolute Neutrophil 4.9 K/uL (1.8-8.0); Basophils % 0.9 % (0-1.3); Eosinophils % 3.3 % (0-4.4); Hemoglobin 9.2 g/dL (12.0-15.0); Lymphocytes % 24.8 % (15.3-44.8); MCH 24.3 pg (27.0-35.0); MCHC 31.6 g/dL (32.0-36.0); MCV 76.7 fL (80-100); MPV 8.5 fL (7.6-11.3); Platelets 399 thou/uL (152-406); RBC Red Blood Cell Count 3.78 M/uL (3.86-4.86); Red Cell Distribution Width 15.4 % (12.1-15.2)
[2024-05-28 06:33] LABS: BUN Blood Urea Nitrogen 10 mg/dL (7-18); Bicarbonate 25 mEq/L (21-32); Glomerular Filtration Rate 117 ml/min (=/>90); Glucose Level 96 mg/dL (74-106); Sodium Level 141 mEq/L (136-145)
[2024-05-28 06:40] LABS: Troponin High Sensitivity < 3.0 pg/mL (<58.9)
[2024-05-28 08:31] VITALS: BP 133/93; TEMP 97.3
[2024-05-28] MEDS: ENOXAPARIN 40 MG/0.4 ML SQ SCH (08:41)
[2024-05-28] MEDS: INSULIN GLARGINE 100 UNIT/ML SQ SCH (08:41)
[2024-05-28] MEDS: PANTOPRAZOLE 40 MG INJ IVP SCH (08:41)
[2024-05-28] MEDS ORDERED: INSULIN GLARGINE 100 UNIT/ML SQ SCH (09:00)
--- NOTE | 2024-05-28 13:47 | P.DS ---
Admission Date: 05/27/24 Discharge Date: 05/28/24 Disposition: ROUTINE DISCHARGE Discharge Condition: GOOD Reason for Admission: Chest pain Brief History of Present Illness: 39-year-old female with history of type 1 diabetes presents emergency department with chief complaint of chest pain. Of note she had a hysterectomy about 4 weeks ago at [facility]. She reports that she was driving her vehicle when she had onset of a coughing fit, during/after the coughing fit she developed a severe chest pain and for that reason came to the emergency department. She was evaluated in the emergency department her labs were significant for initial high sensitive troponin of 3.2 EKG without STEMI criteria CTA of the chest was performed rule out pulmonary embolism which was negative. Her pain has resolved at this time, she is a type I diabetic, has a family history of CAD and tobacco use disorder. ED prior wishes to admit patient under observation for ACS rule out. Patient also reports constipation since her hysterectomy about 4 weeks ago as well as frequent belching with a sulfurous/rotten egg odor for the past 1 week or so. KUB ordered nonobstructive bowel gas pattern with moderate stool burden. Will try adding PPI for relief of symptoms and admit under observation for ACS rule out. Hospital Course: Assessment: Chest pain rule out ACS Diabetes mellitus type 1 Constipation/eructation Patient was admitted to the hospital for episode of chest pain after a coughing fit. Her chest pain resolved spontaneously, EKG without STEMI criteria, troponins negative x 3. She was monitored in telemetry overnight with no arrhythmias. She also had a CTA of the chest which was negative for PE/other acute findings. She stable for discharge outpatient follow-up with cardiology. She does have a recent history of a hysterectomy about 4 weeks ago, her follow- up appointment is coming up. She does report also that she has been dealing with constipation which is something she seems to deal with chronically but has been a bit worse, also having persistent belching with a sulfurous/rotten egg odor. KUB/abdominal x- ray was ordered which showed non-obstructive gas pattern, moderate stool burden with no other acute findings. Trialed PPI during hospitalization without significant improvement we did funeral planning counselor patient to obtain omeprazole over-the- counter and take daily for about 2 weeks to check for improvement as well as following up with GI as an outpatient. She is provided information for local GI doctorDr. Ontiveros. Please continue take your other home medications as previously prescribed Vital Signs/Physical Exam: Temp Pulse Resp BP Pulse Ox 97.3 F 103 H 16 133/93 H 98 05/28/24 08:00 05/28/24 08:00 05/28/24 08:00 05/28/24 08:00 05/28/24 08:00 General: Alert, In no apparent distress, Oriented x3 HEENT: Atraumatic, PERRLA Neck: Supple, JVD not distended Respiratory: Clear to auscultation bilaterally, Normal air movement Cardiovascular: Regular rate/rhythm, Normal S1 S2 Gastrointestinal: Normal bowel sounds, No tenderness Musculoskeletal: No tenderness Integumentary: No rashes Neurological: Normal speech, Normal tone, Normal affect Laboratory Data at Discharge: WBC 7.60 thou/uL (4.3-10.9) 05/28/24 05:44 Hgb 9.2 g/dL (12.0-15.0) L D 05/28/24 05:44 Hct 29.0 % (36.0-45.0) L 05/28/24 05:44 Plt Count 399 thou/uL (152-406) 05/28/24 05:44 PT 11.0 SECONDS (9.4-12.5) 05/27/24 12:11 INR 0.98 05/27/24 12:11 APTT 32.0 SECONDS (24.3-36.9) 05/27/24 12:11 Sodium 141 mEq/L (136-145) 05/28/24 05:44 Potassium 4.0 mEq/L (3.5-5.1) 05/28/24 05:44 BUN 10 mg/dL (7-18) 05/28/24 05:44 Creatinine 0.57 mg/dL (0.55-1.02) 05/28/24 05:44 Glucose 96 mg/dL (74-106) 05/28/24 05:44 Magnesium 1.9 mg/dL (1.6-2.4) 05/27/24 12:11 Total Bilirubin 0.2 mg/dL (0.2-1.0) 05/27/24 12:11 AST 11 U/L (15-37) L 05/27/24 12:11 ALT 20 U/L (13-56) 09/14/24 12:11 Alkaline Phosphatase 86 U/L (45-117) 05/27/24 12:11 Lipase 27 U/L (13-75) 05/27/24 12:11 Home Medications: Insulin Degludec [Tresiba] 43 unit SQ DAILY 05/27/24 Insulin Lispro [Humalog] See Protocol SQ ACHS 05/27/24 Physician Discharge Instructions: PROBLEM: CHEST PAIN GOAL: Clear understanding of disease process INSTRUCTIONS: Diet: Regular Activity: Ad shelton Patient was admitted to the hospital for episode of chest pain after a coughing fit. Her chest pain resolved spontaneously, EKG without STEMI criteria, troponins negative x 3. She was monitored in telemetry overnight with no arrhythmias. She also had a CTA of the chest which was negative for PE/other acute findings. She stable for discharge outpatient follow-up with cardiology. She does have a recent history of a hysterectomy about 4 weeks ago, her follow- up appointment is coming up. She does report also that she has been dealing with constipation which is something she seems to deal with chronically but has been a bit worse, also having persistent belching with a sulfurous/rotten egg odor. KUB/abdominal x- ray was ordered which showed non-obstructive gas pattern, moderate stool burden with no other acute findings. Trialed PPI during hospitalization without significant improvement we did funeral planning counselor patient to obtain omeprazole [id number] and take daily for about 2 weeks to check for improvement as well as following up with GI as an outpatient. She is provided information for local GI doctorDrApolinar Ontiveros. Please continue take your other home medications as previously prescribed Diet: Regular Activity: Ad shelton Followup: Denis Riddle MD [ACTIVE - CAN ADMIT] - NONE,NONE [Primary Care Provider] - 1 Week Jerome Snowden MD [ASSOCIATE-ACTIVE - CAN ADMIT] - Time spent managing pt's care (in minutes): 34
--- NOTE | 2024-05-29 12:53 | EKG ---
Test Date: 2024-05-27 Test Time: 12:02:50 Conversion Developer: MB MEASUREMENT RESULTS: Intervals: Rate: 109 TN: 130 QRSD: 74 QT: 326 QTc: 439 [place]: P: 73 TN: 130 QRS: 50 T: 69 INTERPRETIVE STATEMENTS: Sinus tachycardia Otherwise normal ECG Compared to ECG 07/10/2022 14:11:43 No significant changes Electronically Signed On 05-29-24 12:48:39 CDT by Yogesh Chatterjee
--- NOTE | 2024-05-29 12:53 | EKG ---
Test Date: 2024-05-27 Test Time: 12:16:01 Emergency Medical Technician Basic: MB MEASUREMENT RESULTS: Intervals: Rate: 124 NV: 124 QRSD: 72 QT: 310 QTc: 445 [place]: P: 64 NV: 124 QRS: 23 T: 53 INTERPRETIVE STATEMENTS: Sinus tachycardia Otherwise normal ECG Compared to ECG 05/27/2024 12:02:50 No significant changes Electronically Signed On 05-29-24 12:48:38 CDT by Yogesh Chatterjee
== END 2024-05-28 10:35 | disposition home or self-care (01) ==
LOC: ER 11:58 → ERHOLD 14:24 → 2ND 15:06
PROVIDERS: ADMIT Hospitalist; ATTEND Hospitalist
DX: R07.9 Chest pain, unspecified (principal); E10.65 Type 1 diabetes mellitus with hyperglycemia; K59.00 Constipation, unspecified; J98.11 Atelectasis; F17.210 Nicotine dependence, cigarettes, uncomplicated; Z79.01 Long term (current) use of anticoagulants; Z90.710 Acquired absence of both cervix and uterus; Z98.890 Other specified postprocedural states; Z82.49 Family history of ischemic heart disease and other diseases of the circulatory system; Z88.5 Allergy status to narcotic agent; Z88.8 Allergy status to other drugs, medicaments and biological substances
CPT/HCPCS: 85025 ×2; 80048 ×2; 36415; 83735; 85610; 82947 ×3; 80076; 85730; 84484 ×3; 83690; 83880; 71275; 74018; 71045; 93970; 99285; Q9967; J1644 ×2; J2470 ×2; J1650; J2405; J7030; 93005; G0378

== ENCOUNTER 2024-10-18 20:39 | Emergency (ER) | payer OTHER ==
--- OUTSIDE RECORDS SUMMARY | 2024-10-18 20:47 | XMS REPORT | Continuity of Care Document ---
Author Name Unknown Address [address] [facility] [address] [place] [address] [facility] Address [address] [facility] [address] [place] [address] Care Team Providers Care Optical Advisor Name Role Phone Laly Johnson Primary Care Physician [phone] SHANTE MARTINEZ Attending Clinician ENE Pisano Attending Clinician Unavailable Ene Sanchez MD Attending Clinician [phone] Lab, Ang - Db Attending Clinician Unavailable Nurse, Ang Db Attending Clinician Unavailable MIRELLA HILLMAN Attending Clinician MIRELLA Yan Attending Clinician Mirella Yan MD Attending Clinician + [phone] ELVIRA LOPEZ Attending Clinician Unavailable Doctor Unassigned, Doyle Attending Clinician U Ene Jacobs MD Attending Clinician [phone] Pob, Adc Lab Main Attending Clinician Dinora Olvera MD Attending Clinician [phone] DINORA BOYER Attending Clinician Estrellita Barboza [facility], Nevin Correa Attending Clinician Unavail able Doctor Unassigned, Doyle Attending Clinician U Elvira Haas Attending Clinician [phone] ALEJANDRA POST Attending Clinician UnavailAlejandra Torres DO Attending Clinician [phone] Erika WOODRUFF, Stepan Quispe Attending Clinician AMRIT Goss Attending Clinician Unavailable Amrit Luther DO Attending Clinician [phone] Gregorio ORNELAS, Shante Wilkes Attending Clinician [phone] ABRAHAN CELAYA Attending Clinician Unavailable Yomi IT SOFTWARE DEVELOPER, Abrahan Attending Clinician [phone] JUWAN HAY Attending Clinician Unavailable RONALD BRAVO Attending Clinician Unavailliza Bravo MD, Ronald Ortiz Attending Clinician + [phone] DONALD ROOT Attending Clinician Unavailable Alfredo Walelr MD Attending Clinicia n Juwan Hay MD Attending Clinician [phone] Tonia WOODRUFF, Poornima Arreguin Attending Clinician Unavail able RAMONA VALDIVIA Attending Clinician Unavailable Sandeep BRYANT, Elisabet Mccray Attending Clinician [phone] Andrzej Carlisle MD Attending Clinician [phone] Ramona Valdivia DO Attending Clinician [phone] Rasta Rivera MD Attending Clinician [phone] GENA ASCENCIO Attending Clinician Unavailable Gena Ascencio MD Attending Clinician [phone] Unknown, Attending Attending Clinician Unavailab le Only, Guille Db Test Attending Clinician UnavailDonald Munoz PA-C Attending Clinician [phone] RADIOLOGY Attending Clinician Unavailable Radiology Attending Clinician Unavailable Haylie Mendes Attending Clinician [phone] Paul Meneses Attending Clinician [phone] [facility] Attending Clinician Un available Irena BRYANT, Nanci Almanzar Attending Clinician + [phone] Tony Luke DO Attending Clinician [phone], Adc Lab Attending Clinician Unavailable PAUL DOSS Attending Clinician Unavailable Maddie Harris MD Attending Clinician [phone] MADDIE HARRIS Attending Clinician Unavailable Lili Nicholson MD Attending Clinician [phone] LILI NICHOLSON Attending Clinician Unavailable Lab, Adc Fam Pob I Attending Clinician UnavailAnuj Eduardo Attending Clinician ANUJ KERN Attending Clinician Unavailable SHANTE MARTINEZ Admitting Clinician MIRELLA Yan Admitting Clinician AMRIT Kennedy Admitting Clinician Unavailable RONALD BRAVO Admitting Clinician UnavailRASTA Chilel Admitting Clinician Unavailable Rasta Rivera MD Admitting Clinician LALY JOHNSON Admitting Clinician Unavailab PAUL Sauceda Admitting Clinician Unavailable Payers Payer Name Policy Type Policy Number Effective Date Expirati on Date Source [id number] 2021 00:00:00 [facility] [id number] 2018 00:00:00 Problems Condition Name Condition Details Condition Category Status Onset Date Resolution Date Last Treatment Date Treating Clinician Comments Source S/P hysterecto my S/P hysterecto my Disease Active 04-10 00:00: 00 [facility] Cyst of left ovary Cyst of left ovary Disease Active 04-07 00:00: 00 [facility] Intramural and submucous leiomyoma of uterus Intramural and submucous leiomyoma of uterus Disease Active 7 00:00: 00 [facility] Pain pelvic Pain pelvic Disease Active 03-06 00:00: 00 [facility] Abnormal uterine bleeding (AUB) Abnormal uterine bleeding (AUB) Disease Active 624 00:00: 00 [facility] Dysfunctio nal uterine bleeding Dysfunctio nal uterine bleeding Disease Active 8-18 00:00: 00 [facility] Persistent insomnia Persistent insomnia Disease Active 8-18 00:00: 00 [facility] Overactive bladder Overactive bladder Disease Active 8-18 00:00: 00 [facility] Special screening for malignant neoplasms, colon Special screening for malignant neoplasms, colon Disease Active 8-03 00:00: 00 [facility] Hyperglyce ayo Hyperglyce ayo Disease Active 3-28 00:00: 00 [facility] Finding of above normal blood pressure Finding of above normal blood pressure Disease Active 2020-09 2-17 00:00: 00 [facility] Backache Backache Disease Active 2020-09 1-24 00:00: 00 [facility] Abdominal pain, left upper quadrant Abdominal pain, left upper quadrant Disease Active 2020-09 1- 00:00: 00 [facility] Uncontroll ed type 2 diabetes mellitus with hyperglyce ayo Uncontroll ed type 2 diabetes mellitus with hyperglyce ayo Disease Active 03-26 00:00: 00 [facility] Dyslipidem ia Dyslipidem ia Disease Active 03-26 00:00: 00 [facility] Vaginal discharge Vaginal discharge Disease Active 03-26 00:00: 00 [facility] Diabetic polyneurop athy associated with type 2 diabetes mellitus Diabetic polyneurop athy associated with type 2 diabetes mellitus Disease Active 03-26 00:00: 00 [facility] Tension-ty pe headache Tension-ty pe headache Disease Active 01-01 00:00: 00 Overview: Franchesca g of this note might be different [...] instructe d to continue APAP as needed. [facility] Sebaceous cyst Sebaceous cyst Disease Active 01-01 00:00: 00 [facility] Pure hyperchole sterolemia Pure hyperchole sterolemia Disease Active 01-01 00:00: 00 [facility] Polycystic ovaries Polycystic ovaries Disease Active 01-01 00:00: 00 [facility] Pilar cyst Pilar cyst Disease Active 01-01 00:00: 00 [facility] Other disorders of menstruati on and other abnormal bleeding from female genital tract Other disorders of menstruati on and other abnormal bleeding from female genital tract Disease Active 01-01 00:00: 00 [facility] Allergic urticaria Allergic urticaria Disease Active 01-01 00:00: 00 Overview: Formattin g of this note might be different from the original. Dmitriy solis, the Welbutrin , (prescrib ed on September [...] may be related to her allergic reaction [facility] Allergic rhinitis Allergic rhinitis Disease Active 2021-0 4-21 00:00: 00 [facility] Personal history of COVID-19 Personal history of COVID-19 Disease Active 3-04 00:00: 00 [facility] Effusion, right ankle Effusion, right ankle Disease Active 0 2-26 00:00: 00 [facility] Irregular bleeding Irregular bleeding Disease Active 2019-09 0-29 00:00: 00 [facility] Blephariti s Blephariti s Disease Active 6-09 00:00: 00 [facility] Vitamin D deficiency Vitamin D deficiency Disease Active 2018-09 0-15 00:00: 00 [facility] Hemorrhoid s Hemorrhoid s Disease Active 2018-09 0-15 00:00: 00 [facility] Abscess of skin of abdomen Abscess of skin of abdomen Disease Active 2018-09 0-15 00:00: 00 [facility] Other depression Other depression Disease Active 01-27 00:00: 00 [facility] History of pre-eclamp rico in prior , currently in third trimester History of pre-eclamp rico in prior , currently in third trimester Disease Resolve d 02-10 00:00: 00 2020-07-11 00:00:00 2020-07-11 09:26:57 [facility] History of delivery, currently , third trimester History of delivery, currently , third trimester Disease Resolve d 02-10 00:00: 00 2020-07-11 00:00:00 2020-07-11 09:26:58 [facility] Insufficie nt antepartum care Insufficie nt antepartum care Disease Resolve d 01-27 00:00: 00 2020-07-11 00:00:00 2020-07-11 09:26:20 [facility] Maternal morbid obesity, antepartum Maternal morbid obesity, antepartum Disease Resolve d 01-27 00:00: 00 2020-07-11 00:00:00 2020-07-11 09:26:27 [facility] Type 1 diabetes mellitus without complicati on Type 1 diabetes mellitus without complicati on Disease Resolve d 01-27 00:00: 00 2020-07-11 00:00:00 2020-07-11 09:26:36 [facility] Current with history of pre-term labor in second trimester Current with history of pre-term labor in second trimester Disease Resolve d 01-27 00:00: 00 2020-07-11 00:00:00 2020-07-11 09:26:55 [facility] Previous recurrent miscarriag es affecting , antepartum Previous recurrent miscarriag es affecting , antepartum Disease Resolve d 01-27 00:00: 00 2020-07-11 00:00:00 2020-07-11 09:26:54 [facility] Type 1 diabetes mellitus without complicati on Type 1 diabetes mellitus without complicati on Disease Resolve d 01-27 00:00: 00 2020-07-11 00:00:00 2020-07-11 09:26:36 [facility] Obesity (BMI 30-39.9) Obesity (BMI 30-39.9) Disease Resolve d 01-24 00:00: 00 2018-01-27 00:00:00 2018-01-27 09:31:41 [facility] 23 weeks gestation of 23 weeks gestation of Disease Resolve d 01-24 00:00: 00 2018-01-27 00:00:00 2018-01-27 09:17:56 [facility] Type 1 diabetes mellitus Type 1 diabetes mellitus Disease Resolve d 01-24 00:00: 00 2018-01-27 00:00:00 2018-01-27 09:17:56 [facility] Allergies, Adverse Reactions, Alerts Allergy Name Allergy Type Status Severity Reaction(s) Onset Date Inactive Date Treating Clinician Comments Source MEPERIDI NE HCL DRUG INGREDI Active Hives 01-24 00:00: 00 [facility] PROMETHA ZINE DRUG INGREDI Active Anxiety 01-24 00:00: 00 [facility] BUPROPIO N HCL DRUG INGREDI Active Hives 01-24 00:00: 00 [facility] MEPERIDI NE DRUG INGREDI Active Hives 01-24 00:00: 00 [facility] Meperidi ne Drug Allergy Active Swelling 01-24 00:00: 00 Demerol [facility] Meperidi ne Hcl Propensi ty to adverse reaction s Active Swelling 01-24 00:00: 00 [facility] Prometha zine Propensi ty to adverse reaction s Active Swelling 01-24 00:00: 00 [facility] Bupropio n Hcl Propensi ty to adverse reaction s Active Swelling 01-24 00:00: 00 [facility] Social History Social Habit Start Date Stop Date Quantity Comments Source History SDOH Social Connections Get Together [facility] History SDOH Social Connections Pentecostalism [facility] History SDOH Social Connections Membership [facility] History SDOH Social Connections Meetings [facility] Gender identity [facility] of Social function 2024-10-17 00:00:00 2024-10-17 00:00:00 [facility] Alcoholic beverage intake 2024-10-17 00:00:00 2024-10-17 00:00:00 Current drinker of alcohol (finding) [facility] Tobacco use and exposure 2024-02-01 00:00:00 2024-02-01 00:00:00 Smokeless tobacco non-user [facility] Alcohol intake 2023-10-15 00:00:00 2023-10-15 00:00:00 Current drinker of alcohol (finding) [facility] History SDOH Alcohol Frequency 2022-12-09 00:00:00 2022-12-09 00:00:00 1 [facility] History SDOH Social Connections Phone 2022-12-09 00:00:00 2022-12-09 00:00:00 5 [facility] History SDOH Social Connections Living 2022-12-09 00:00:00 2022-12-09 00:00:00 3 [facility] History SDOH Physical Activity DPW 2022-12-09 00:00:00 2022-12-09 00:00:00 4 [facility] History SDOH Physical Activity MPS 2022-12-09 00:00:00 2022-12-09 00:00:00 2 [facility] History SDOH Financial 2022-12-09 00:00:00 2022-12-09 00:00:00 5 [facility] History SDOH Food Worry 2022-12-09 00:00:00 2022-12-09 00:00:00 1 [facility] History SDOH Food Scarcity 2022-12-09 00:00:00 2022-12-09 00:00:00 1 [facility] History SDOH Transport Med 2022-12-09 00:00:00 2022-12-09 00:00:00 2 [facility] History SDOH Transport Non-Med 2022-12-09 00:00:00 2022-12-09 00:00:00 2 [facility] History SDOH Housing Unable to Pay 2022-12-09 00:00:00 2022-12-09 00:00:00 2 [facility] History SDOH Housing Places Lived 2022-12-09 00:00:00 2022-12-09 00:00:00 1 [facility] History SDOH Housing Homeless Last Year 2022-12-09 00:00:00 2022-12-09 00:00:00 2 [facility] Exposure to SARS-CoV-2 (event) 2022-11-28 00:00:00 2022-12-08 23:07:00 Not sure [facility] Education 2022-12-08 00:00:00 2022-12-08 00:00:00 17 [facility] Tobacco Comment 2022-11-10 00:00:00 2022-11-10 00:00:00 2-3 ciggs a day [facility] Alcohol Comment 2020-05-17 00:00:00 2020-05-17 00:00:00 social [facility] History SDOH Alcohol Std Drinks 2020-05-17 00:00:00 2020-05-17 00:00:00 99 [facility] History SDOH Alcohol Binge 2020-05-17 00:00:00 2020-05-17 00:00:00 99 [facility] History of tobacco use 2017-07-14 00:00:00 Cigarette Smoker [facility] Sex assigned at 1985 00:00:00 1985 00:00:00 [facility] Smoking Status Start Date Stop Date Source Occasional tobacco smoker 2024-02-01 00:00:00 [facility] Medications Ordered Medication Name Filled Medication Name Start Date Stop Date Current Medication? Ordering Clinician Indication Dosage Frequency Signature (SIG) Comments Components Source pantoprazol e 40 mg EC tablet 10-17 00:00: 00 01-16 04:59 :00 Yes [id number] 40mg Take 1 tablet by mouth in the morning for 90 days. [facility] glucagon (GVOKE HYPOPEN 2-PACK) 1 mg/0.2 mL AtIn 09-22 00:00: 00 Yes [id number] 1mg inject 1 mg under the skin as needed (Hypoglyce ayo). [facility] Blood-Gluco se Sensor (FREESTYLE GRANT 3 PLUS SENSOR) [place] 2023-09 00:00: 00 Yes Use as directed; change q15d [facility] FREESTYLE GRANT 3 SENSOR [place] 2023-09 00:00: 00 07-10 00:00 :00 No [id number] USE DIRECTED AND CHANGE EVERY 2 WEEKS. [facility] insulin lispro (HUMALOG KWIKPEN INSULIN) 100 unit/mL pen injector 2023-09 00:00: 00 Yes [id number] 4U inject 4-8 Units under the skin in the morning and 4-8 Units at noon and 4-8 Units in the evening. inject before meals. Please take you blood sugar 30 minutes before you eat. [facility] insulin degludec (TRESIBA FLEXTOUCH U-100) 100 unit/mL (3 mL) InPn 2023-09 00:00: 00 Yes [id number] 40U inject 40 Units under the skin every morning. [facility] FREESTYLE GRANT 2 SENSOR Kit 2023-09 00:00: 00 Yes [id number] 1{each} 1 Each every 14 (fourteen) days. [facility] semaglutide (OZEMPIC) 0.25 mg or 0.5 mg (2 mg/3 mL) PnIj 2023-09 0-08 00:00: 00 Yes [id number] Start semaglutid e with 0.25 mg weekly for 4 weeks and thereafter increase dose to 0.5 mg weekly [facility] estradioL 0.06 mg/24 hr patch 2023-09 0-04 00:00: 00 Yes [id number] 1{patch } Apply 1 Patch to skin weekly. [facility] insulin glargine (LANTUS U-100) injection 34 Units 04-11 14:00: 00 Yes 34U 34 Units, Subcutaneo us, DAILY, First dose on Wed04/11/24 at 0900, Until Discontinu ed, Routine [facility] docusate (COLACE) capsule 100 mg 04-11 01:00: 00 Yes 100mg 100 mg, Oral, Q12H, First dose on Wed04/10/24 at 2000, Until Discontinu ed, Routine [facility] Sliding Scale Insulin - Lispro (HumaLOG) 04-11 00:00: 00 Yes Subcutaneo us, Q2HPRN, Starting on Wed04/10/24 at 1900, Until Discontinu ed, Routine [facility] ondansetron (ZOFRAN) 4 mg tablet 04-11 00:00: 00 Yes [id number] 4mg Take 1 tablet by mouth every 8 (eight) hours as needed for Nausea and Vomiting (N/V). [facility] FENTanyl PF (SUBLIMAZE (PF)) injection 100 mcg 04-11 00:00: 00 04-11 00:41 :00 No 100ug 100 mcg, Slow IV Push, ONCE, 1 dose, On Wed04/10/24 at 1900, Routine [facility] simethicone (GAS RELIEF (SIMETHICON E)) chewable tablet 160 mg 04-10 23:00: 00 Yes 160mg 160 mg, Oral, PC+HS, First dose on Wed04/10/24 at 1800, Until Discontinu ed, Routine [facility] ketorolac (TORADOL) injection 30 mg 04-10 23:00: 00 04-11 17:23 :00 No 30mg 30 mg, Slow IV Push, Q6H, 4 doses, First dose on Wed04/10/24 at 1800, Last dose on Wed04/11/24 at 1200, Routine [facility] Sliding Scale Insulin - Lispro (HumaLOG) 04-10 22:00: 00 04-11 00:13 :17 No Subcutaneo us, TID MEALS+HS, First dose on Wed04/10/24 at 1700, Until Discontinu ed, Routine [facility] glucagon (GLUCAGEN DIAGNOSTIC KIT) injection 1 mg 04-10 21:22: 52 Yes 1mg 1 mg, Intramuscu lar, PRN, Starting on Wed04/10/24 at 1622, Until Discontinu ed, DENISE, Blood Glucose < or = 70 mg/dL and patient is NPO, unable to swallow or has mental changes. [facility] dextrose 50 % in water (D50W) injection 25 mL 04-10 21:22: 52 Yes 25mL 25 mL, Slow IV Push, PRN, Starting on Wed04/10/24 at 1622, Until Discontinu ed, DENISE, Blood Glucose < or = 70 mg/dL and patient is NPO, unable to swallow or has mental status changes. [facility] scopolamine transdermal (TRANSDERM- SCOP) patch 1.5 mg 04-10 21:00: 00 Yes 1.5mg 1.5 mg, Topical, Administer over 72 Hours, Q72H, First dose on Wed04/10/24 at 1600, Until Discontinu ed, Routine [facility] lactated ringers IV infusion 1,000 mL 04-10 20:00: 00 Yes 1000mL at 75 mL/hr, 1,000 mL, IV Infusion, CONTINUOUS , Starting on Wed04/10/24 at 1500, Until Discontinu ed, Routine, PACU [facility] ondansetron (ZOFRAN (PF)) injection 4 mg 04-10 19:53: 46 Yes 4mg 4 mg, Slow IV Push, Q6HPRN, Starting on Wed04/10/24 at 1453, Until Discontinu ed, Routine, Nausea and Vomiting (N/V) [facility] acetaminoph en (TYLENOL) tablet 650 mg 04-10 19:53: 09 Yes 650mg 650 mg, Oral, Q6HPRN, Starting on Wed04/10/24 at 1453, Until Discontinu ed, Routine, Pain (scale 1-3) [facility] metoclopram tim HCl (REGLAN) injection 10 mg 04-10 19:00: 00 04-10 18:04 :00 No 10mg 10 mg, Slow IV Push, ONCE, 1 dose, On Wed04/10/24 at 1400, Routine [facility] diphenhydrA MINE (BENADRYL) injection 25 mg 04-10 18:30: 00 04-10 17:37 :00 No 25mg 25 mg, Intravenou s, ONCE, 1 dose, On Wed04/10/24 at 1330, Routine [facility] famotidine (PEPCID (PF)) injection 20 mg 04-10 18:30: 00 04-10 17:34 :00 No 20mg 20 mg, Slow IV Push, ONCE, 1 dose, On Wed04/10/24 at 1330, Routine [facility] lactated ringers IV infusion 1,000 mL 04-10 16:45: 00 Yes 1000mL at 100 mL/hr, 1,000 mL, IV Infusion, CONTINUOUS , Starting on Wed04/10/24 at 1145, Until Discontinu ed, Routine, PACU [facility] morphine (2 mg/mL) injection 2 mg 04-10 16:44: 11 04-10 20:31 :32 No 2mg 2 mg, Slow IV Push, Q5MIN PRN, 5 doses, Starting on Wed04/10/24 at 1144, Until Wed04/10/24 at 1531, Routine, Pain (scale 4-6), PACU [facility] ondansetron (ZOFRAN (PF)) injection 4 mg 04-10 16:44: 10 04-10 17:05 :00 No 4mg 4 mg, Slow IV Push, PRN, 1 dose, Starting on Wed04/10/24 at 1144, Until Wed04/10/24 at 1205, Routine, Nausea and Vomiting (N/V), PACU [facility] NaCl 0.9% (NS) IV infusion 04-10 16:20: 00 04-10 20:31 :32 No CONTINUOUS PRN, Starting on Wed04/10/24 at 1120, Until Wed04/10/24 at 1531, Routine, Intra-op [facility] sodium chloride 0.9 % irrigation solution 04-10 14:58: 00 04-10 16:45 :25 No PRN, Starting on Wed04/10/24 at 0958, Until Wed04/10/24 at 1145, Intra-op [facility] bupivacaine (preserv free) 0.5% (SENSORCAIN E MPF) injection 04-10 14:26: 00 04-10 16:45 :25 No PRN, Starting on Wed04/10/24 at 0926, Until Wed04/10/24 at 1145, Routine, Intra-op [facility] lactated ringers IV infusion 1,000 mL 04-10 11:45: 00 04-10 12:20 :00 No 1000mL at 42 mL/hr, 1,000 mL, IV Infusion, ONCE, 1 dose, On Wed04/10/24 at 0645, Routine, DSU Pre-op [facility] ibuprofen 600 mg tablet 04-10 00:00: 00 Yes [id number] 600mg Take 1 tablet by mouth every 6 (six) hours. [facility] acetaminoph en (TYLENOL EXTRA STRENGTH) 500 mg tablet 04-10 00:00: 00 Yes [id number] 500mg Take 1 tablet by mouth every 6 (six) hours. [facility] polyethylen e glycol [id number] 17 gram/dose powder 04-10 00:00: 00 Yes [id number] 17g Take 17 g by mouth in the morning. [facility] metroNIDAZO LE 500 mg tablet 04-10 00:00: 00 04-18 04:59 :00 No [id number] 500mg Take 1 tablet by mouth in the morning and 1 tablet in the evening. Do all this for 7 days. [facility] oxyCODONE 5 mg immediate release tablet 04-10 00:00: 00 04-18 04:59 :00 No [id number] 5mg Take 1 tablet by mouth every 6 (six) hours as needed for Pain (scale 7-10) for up to 7 days. Indication s: acute pain [facility] acetaminoph en 500 mg tablet 03-23 14:20: 36 Yes 500mg Take 1 tablet by mouth as needed for Pain. [facility] insulin degludec (TRESIBA FLEXTOUCH U-100) 100 unit/mL (3 mL) InPn 03-13 00:00: 00 06-20 00:00 :00 No [id number] 43U inject 43 Units under the skin every morning. [facility] insulin lispro (HUMALOG KWIKPEN INSULIN) 100 unit/mL pen injector 03-13 00:00: 00 06-20 00:00 :00 No [id number] 10U inject 10-18 Units under the skin in the morning and 10-18 Units at noon and 10-18 Units in the evening. inject before meals. Please take you blood sugar 30 minutes before you eat. [facility] Blood-Gluco se Sensor (FREESTYLE GRANT 3 SENSOR) [place] 03-13 00:00: 00 06-20 00:00 :00 No [id number] 1{each} inject 1 Each under the skin every 14 (fourteen) days. Use as directed [facility] Blood-Gluco se Sensor (FREESTYLE GRANT 3 SENSOR) [place] 03-07 00:00: 00 03-13 00:00 :00 No [id number] USE DIRECTED AND CHANGE EVERY 2 WEEKS. [facility] acetaminoph en (TYLENOL 8 HOUR) 650 mg CR tablet 01-31 11:59: 25 Yes 650mg Take 1 tablet by mouth every 8 (eight) hours as needed for Pain. [facility] insulin pump cart,auto,B T-cntr (OMNIPOD 5 G6 INTRO KIT, GEN 5,) [facility] 01-31 00:00: 00 Yes [id number] 1{kit} inject 1 Kit under the skin in the morning. [facility] insulin pump cart,automa ryder,BT (OMNIPOD 5 G6 PODS, GEN 5,) [facility] 01-31 00:00: 00 Yes [id number] 1{each} inject 1 Each under the skin every 72 (seventy-t wo) hours. [facility] Blood-Gluco se Transmitter (DEXCOM G6 TRANSMITTER ) [place] 01-31 00:00: 00 06-20 00:00 :00 No [id number] Use as directed. Change every 90 days [facility] Blood-Gluco se Sensor (DEXCOM G6 SENSOR) [place] 01-31 00:00: 00 03-07 00:00 :00 No [id number] Use as directed every 10 days [facility] insulin degludec (TRESIBA FLEXTOUCH U-100) 100 unit/mL (3 mL) InPn 10-15 00:00: 00 03-13 00:00 :00 No [id number] 43U inject 43 Units under the skin every morning. [facility] insulin lispro (HUMALOG KWIKPEN INSULIN) 100 unit/mL pen injector 10-15 00:00: 00 03-13 00:00 :00 No [id number] 10U inject 10-18 Units under the skin in the morning and 10-18 Units at noon and 10-18 Units in the evening. inject before meals. Please take you blood sugar 30 minutes before you eat. [facility] Blood-Gluco se Sensor (FREESTYLE GRATN 3 SENSOR) [place] 10-15 00:00: 00 01-31 00:00 :00 No [id number] Use as directed every 2 weeks [facility] insulin lispro (HUMALOG KWIKPEN INSULIN) 100 unit/mL pen injector 10-15 00:00: 00 10-15 00:00 :00 No [id number] 10U inject 10-18 Units under the skin in the morning and 10-18 Units at noon and 10-18 Units in the evening. inject before meals. Please take you blood sugar 30 minutes before you eat. [facility] acetaminoph en (TYLENOL) tablet 650 mg 09-25 00:45: 00 09-25 00:45 :00 No 650mg 650 mg, Oral, ONCE, 1 dose, On Wed09/24/23 at 1845, [facility] insulin regular human (HUMULIN R) injection 8 Units 09-24 22:30: 00 09-24 22:08 :00 No 8U 8 Units, Slow IV Push, ONCE, 1 dose, On Wed09/24/23 at 1630, Routine
Indicatio n for insulin: Hyperglyce ayo [facility] NaCl 0.9% (NS) bolus infusion 1,000 mL 09-24 21:45: 00 09-24 22:12 :00 No 1000mL at 999 mL/hr, 1,000 mL, IV Infusion, ONCE, 1 dose, On Wed09/24/23 at 1545, [facility] metoclopram tim HCl (REGLAN) injection 10 mg 09-24 21:00: 00 09-24 20:58 :00 No 10mg 10 mg, Slow IV Push, ONCE, 1 dose, On Wed09/24/23 at 1500, [facility] pantoprazol e (PROTONIX) 80 mg in NaCl 0.9% (NS) 20 mL syringe 2022-09 04:30: 00 06-24 16:29 :00 No 80mg 80 mg, IV Push, ONCE, 1 dose, On Wed06/23/23 at 2330, Administer over 2 Minutes, 20 mL [facility] maalox:diph enhydrAMINE :lidocaine 2 % viscous 1:1:1 (FIRST-MOUT [facility]) oral suspension 15 mL 2022-09 04:15: 00 06-24 03:30 :00 No 15mL 15 mL, Oral, ONCE, 1 dose, On Wed06/23/23 at 2315, Routine [facility] iopamidol (ISOVUE 370-500 mL) injection 100 mL 2022-09 04:00: 00 06-24 04:00 :00 No [id number] 100mL 100 mL, Intravenou s, ONCE, 1 dose, On Wed06/23/23 at 2300, Routine [facility] NaCl 0.9% (NS) bolus infusion 500 mL 2022-09 02:45: 00 06-24 03:34 :00 No 500mL at 999 mL/hr, 500 mL, IV Infusion, ONCE, 1 dose, On Wed06/23/23 at 2145, STAT [facility] sucralfate 1 gram tablet 2022-09 00:00: 00 Yes [id number] 1g Take 1 tablet by mouth before meals and at bedtime. [facility] dicyclomine (BENTYL) 10 mg capsule 2022-09 00:00: 00 Yes [id number] 10mg Take 1 capsule by mouth every 8 (eight) hours as needed for Abdominal pain. [facility] ondansetron 4 mg disintegrat ing tablet 2022-09 00:00: 00 Yes [id number] 4mg Take 1 tablet by mouth every 8 (eight) hours as needed for Nausea and Vomiting (N/V). [facility] omeprazole 20 mg capsule 2022-09 00:00: 00 07-24 05:59 :00 No [id number] 20mg Take 1 capsule by mouth in the morning for 30 days. [facility] Blood-Gluco se Sensor (FREESTYLE GRANT 3 SENSOR) [place] 9-05 00:00: 00 10-15 00:00 :00 No [id number] Use as directed every 2 weeks [facility] tc 99m-sulfur colloid oral solution 1 millicurie 04-26 18:15: 00 04-26 14:15 :00 No [id number] 1mCi 1 millicurie , Oral, ONCE, 1 dose, On Wed04/26/23 at 1315, Routine [facility] nitroglycer in 0.4 % (w/w) ointment 04-15 00:00: 00 Yes [id number] 1[in_us ] Insert 1 Inch into rectum every 12 (twelve) hours. [facility] polyethylen e glycol 3350 (MIRALAX) 17 gram/dose powder 04-15 00:00: 00 Yes [id number] 17g Take 17 g by mouth in the morning. [facility] peg-electro lyte soln 236-22.74-6 .74 -5.86 gram solution 04-15 00:00: 00 04-16 04:59 :00 No [id number] 4000mL Take 4,000 mL by mouth once now for 1 dose. [facility] MULTIVITAMI N ORAL 04-08 09:36: 14 Yes 1{tbl} Take 1 tablet by mouth daily. [facility] atorvastati n 80 mg tablet 04-08 00:00: 00 01-31 00:00 :00 No [id number] 80mg Take 1 tablet by mouth at bedtime. [facility] dicyclomine (BENTYL) capsule 10 mg 12-09 17:00: 00 Yes 10mg 10 mg, Oral, QID, First dose on Wed12/09/22 at 1200, Until Discontinu ed, Routine [facility] 12-09 16:53: 59 Yes 1{tbl} Take 1 tablet by mouth daily. [facility] maalox:diph enhydrAMINE :lidocaine 2 % viscous 1:1:1 (FIRST-MOUT HWASH BLM) oral suspension 15 mL 12-09 16:00: 00 12-09 15:14 :00 No 15mL 15 mL, Oral, ONCE, 1 dose, On Wed12/09/22 at 1100, Routine [facility] metoclopram tim HCl (REGLAN) injection 5 mg 12-09 15:15: 00 Yes 5mg 5 mg, Slow IV Push, Q6H, First dose on Wed12/09/22 at 1015, Until Discontinu ed, Routine [facility] insulin glargine (LANTUS U-100) injection 20 Units 12-09 14:00: 00 Yes 20U 20 Units, Subcutaneo us, DAILY, First dose on Wed12/09/22 at 0900, Until Discontinu ed [facility] enoxaparin (LOVENOX) injection 40 mg 12-09 14:00: 00 Yes 40mg 40 mg, Subcutaneo us, DAILY, First dose on Wed12/09/22 at 0900, Until Discontinu ed, Routine [facility] famotidine (PEPCID AC) tablet 20 mg 12-09 13:00: 00 Yes 20mg 20 mg, Oral, BID, First dose on Wed12/09/22 at 0800, Until Discontinu ed, Routine [facility] cyclobenzap rine (FLEXERIL) tablet 5 mg 12-09 08:45: 00 12-09 08:17 :00 No 5mg 5 mg, Oral, ONCE, 1 dose, On Wed12/09/22 at 0345, Routine [facility] KCL (KLOR-CON M20) tablet 40 mEq 12-09 08:45: 00 12-09 08:17 :00 No 40meq 40 mEq, Oral, ONCE, 1 dose, On Wed12/09/22 at 0345, Routine [facility] magnesium sulfate in water 2 gram/50 mL (4 %) infusion 2 g 12-09 08:30: 00 12-09 09:20 :00 No 2g 2 g, IV Piggyback, Administer over 60 Minutes, ONCE, 1 dose, On Wed12/09/22 at 0330, Routine [facility] Sliding Scale Insulin-Reg ular + Fsbg Testing 12-09 07:00: 00 Yes Subcutaneo us, Q6HA, First dose on Wed12/09/22 at 0200, Until Discontinu ed, Routine [facility] SERTraline (ZOLOFT) tablet 200 mg 12-09 05:30: 00 Yes 200mg 200 mg, Oral, QHS, First dose (after last modificati on) on Wed12/09/22 at 0030, Until Discontinu ed, Routine [facility] ketorolac (TORADOL) injection 30 mg 12-09 03:15: 00 12-09 02:25 :00 No 30mg 30 mg, Slow IV Push, ONCE, 1 dose, On Wed12/08/22 at 2215, Routine [facility] dextrose 50 % in water (D50W) injection 50 mL 12-09 03:15: 00 12-09 02:23 :00 No 1{syrin ge} 50 mL (1 Syringe), Slow IV Push, ONCE, 1 dose, On Wed12/08/22 at 2215, DENISE [facility] ondansetron (ZOFRAN (PF)) injection 4 mg 12-09 03:05: 37 Yes 4mg 4 mg, Slow IV Push, Q6HPRN, Starting on Wed12/08/22 at 2205, Until Discontinu ed, Routine, Nausea and Vomiting (N/V) [facility] traMADoL (ULTRAM) tablet 50 mg 12-09 03:05: 34 12-11 03:04 :34 No 50mg 50 mg, Oral, Q8HPRN, Starting on Wed12/08/22 at 2205, Until Wed12/10/22 at 2204, Routine, Pain (scale 4-6) [facility] acetaminoph en (TYLENOL) tablet 650 mg 12-09 03:05: 31 Yes 650mg 650 mg, Oral, Q6HPRN, Starting on Wed12/08/22 at 2205, Until Discontinu ed, Routine, Pain (scale 1-3) [facility] ACETAMINOPH EN (TYLENOL ORAL) 12-09 00:15: 16 12-08 00:00 :00 No 325mg Take 325 mg by mouth as needed for Pain (scale 1-3), Pain (scale 4-6) or Pain (scale 7-10). [facility] iopamidol (ISOVUE 370-500 mL) injection 74 mL 12-09 00:05: 00 12-09 00:30 :00 No [id number] 74mL 74 mL, Intravenou s, ONCE, 1 dose, On Wed12/08/22 at 1930, Routine [facility] famotidine 20 mg tablet 12-09 00:00: 00 01-09 04:59 :00 No [id number] 20mg Take 1 tablet by mouth in the morning for 30 days. [facility] dicyclomine 10 mg capsule 12-09 00:00: 00 12-20 04:59 :00 No [id number] 10mg Take 1 capsule by mouth 4 (four) times daily for 10 days. [facility] NaCl 0.9% (NS) bolus infusion 1,000 mL 12-09 00:00: 00 12-09 03:45 :00 No 1000mL at 999 mL/hr, 1,000 mL, IV Infusion, ONCE, 1 dose, On Wed12/08/22 at 1900, DENISE [facility] lactulose (CEPHULAC) solution 45 mL 12-08 23:15: 00 12-09 00:20 :00 No 45mL 45 mL, Oral, ONCE, 1 dose, On Wed12/08/22 at 1815, DENISE [facility] magnesium sulfate in water 2 gram/50 mL (4 %) infusion 2 g 12-08 23:00: 00 12-08 23:16 :00 No 2g 2 g, IV Piggyback, Administer over 60 Minutes, ONCE, 1 dose, On Wed12/08/22 at 1800, Routine [facility] NaCl 0.9% (NS) bolus infusion 1,000 mL 12-08 22:15: 00 12-08 23:17 :00 No 1000mL at 999 mL/hr, 1,000 mL, IV Infusion, ONCE, 1 dose, On Wed12/08/22 at 1715, DENISE [facility] morpHINE (4 mg/mL) injection 4 mg 12-08 21:45: 00 12-09 01:56 :00 No 4mg 4 mg, Slow IV Push, ONCE, 1 dose, On Wed12/08/22 at 1645, STAT [facility] ondansetron (ZOFRAN (PF)) injection 4 mg 12-08 21:45: 00 12-08 22:33 :00 No 4mg 4 mg, Slow IV Push, ONCE, 1 dose, On Wed12/08/22 at 1645, DENISE [facility] ketorolac (TORADOL) injection 30 mg 11-11 03:30: 00 11-11 02:33 :00 No [id number] 30mg [facility] ACETAMINOPH EN (TYLENOL ORAL) 11-10 20:11: 06 Yes 325mg Take 325 mg by mouth as needed for Pain (scale 1-3), Pain (scale 4-6) or Pain (scale 7-10). [facility] MULTIVITAMI N ORAL 11-10 20:11: 06 Yes 1{tbl} Take 1 tablet by mouth daily. [facility] cyclobenzap rine 5 mg tablet 11-10 00:00: 00 04-08 00:00 :00 No [id number] 4 5mg Take 1 tablet by mouth at bedtime. [facility] ciprofloxac in-dexameth asone 0.3-0.1 % otic drops 11-10 00:00: 00 12-09 00:00 :00 No [id number] 4[drp] Place 4 Drops in left ear in the morning and 4 Drops in the evening. [facility] ciprofloxac in HCl 250 mg tablet 2-28 00:00: 00 11-18 05:59 :00 No [id number] 250mg Take 1 tablet by mouth every 12 (twelve) hours for 7 days. [facility] SERTraline 100 mg tablet - 00:00: 00 01-31 00:00 :00 No 200mg Take 2 tablets by mouth at bedtime. [facility] atorvastati n 20 mg tablet 03-23 00:00: 00 04-08 00:00 :00 No 20mg Take 1 tablet by mouth. [facility] multivit-mi ns no.63/iron/ folic (M-VIT ORAL) 03-26 11:07: 24 03-26 00:00 :00 No Take by mouth. [facility] insulin lispro (HUMALOG KWIKPEN INSULIN) 100 unit/mL pen injector 02-27 00:00: 00 10-15 00:00 :00 No 10U inject 10-18 Units under the skin 3 (three) times daily before meals. [facility] insulin lispro (HUMALOG KWIKPEN INSULIN) 100 unit/mL pen injector 02-27 00:00: 00 10-15 00:00 :00 No 10U inject 10-18 Units under the skin 3 (three) times daily before meals. [facility] BIOTIN ORAL 02-25 14:31: 33 02-25 00:00 :00 No Take by mouth. [facility] insulin degludec (TRESIBA FLEXTOUCH U-100) 100 unit/mL (3 mL) InPn 02-25 00:00: 00 10-15 00:00 :00 No [id number] 38U inject 38 Units under the skin every morning. [facility] metformin ER 500 mg 24 hr tablet 02-25 00:00: 00 12-09 00:00 :00 No [id number] 1000mg Take 2 tablets by mouth daily with breakfast. [facility] gabapentin 100 mg capsule 02-25 00:00: 00 12-09 00:00 :00 No [id number] 100mg Take 1 capsule by mouth at bedtime. [facility] fluconazole (DIFLUCAN) 150 mg tablet 02-25 00:00: 00 11-10 00:00 :00 No [id number] 150mg Take 1 tablet by mouth every 72 (seventy-t wo) hours. [facility] atorvastati n 20 mg tablet 02-16 00:00: 00 12-09 00:00 :00 No 20mg Take 1 tablet by mouth every morning. [facility] MULTIVITAMI N ORAL 01-01 19:26: 41 01-31 00:00 :00 No 1{tbl} Take 1 tablet by mouth daily. [facility] venlafaxine XR (EFFEXOR XR) 37.5 mg 24 hr capsule 01-01 19:26: 06 01-01 00:00 :00 No 37.5mg Take 37.5 mg by mouth daily with breakfast. [facility] ACETAMINOPH EN (TYLENOL ORAL) 01-01 19:24: 21 Yes 325mg Take 325 mg by mouth as needed for Pain (scale 1-3), Pain (scale 4-6) or Pain (scale 7-10). [facility] norgestimat e-ethinyl estradioL 0.25-35 mg-mcg per tablet 10-16 00:00: 00 12-08 00:00 :00 No [id number] 1{tbl} Take 1 tablet by mouth daily. [facility] insulin degludec (TRESIBA FLEXTOUCH U-100) 100 unit/mL (3 mL) InPn 2019-09 2-30 00:00: 00 02-25 00:00 :00 No [id number] 38U inject 38 Units under the skin every morning. [facility] FREESTYLE GRANT 2 SENSOR Kit 2019-09 2 00:00: 00 02-25 00:00 :00 No [id number] 1{kit} 1 Kit every 14 (fourteen) days. [facility] FREESTYLE GRANT 2 READER [facility] 2019-09 2 00:00: 00 02-25 00:00 :00 No [id number] 1{kit} 1 Kit daily. [facility] insulin aspart U-100 (NOVOLOG FLEXPEN U-100 INSULIN) 100 unit/mL (3 mL) injection 2019-09 2 00:00: 00 02-20 00:00 :00 No [id number] 10U inject 10-18 Units under the skin 3 (three) times daily before meals. [facility] acetaminoph en-codeine 300-30 mg tablet 2019-09 00:00: 00 01-01 00:00 :00 No [id number] 1{tbl} Take 1 tablet by mouth every 4 (four) hours as needed for Pain (scale 4-6). Indication s: acute pain [facility] norgestimat e-ethinyl estradioL 0.25-35 mg-mcg per tablet 2019-09 00:00: 00 10-16 00:00 :00 No [id number] 1{tbl} Take 1 tablet by mouth daily. [facility] atorvastati n 20 mg tablet 9-17 00:00: 00 01-01 00:00 :00 No 20mg Take 20 mg by mouth. [facility] lancets 31 gauge [facility] 02-10 00:00: 00 Yes Use to test BS 4x/day [facility] Blood-Gluco se Meter (ONETOUCH ULTRA2) Kit 02-10 00:00: 00 02-25 00:00 :00 No Use to test BS 4x/day [facility] blood sugar diagnostic (ONETOUCH ULTRA TEST) strip 02-10 00:00: 00 02-25 00:00 :00 No Use to test BS 4x/day [facility] Insulin Syringe-Nee dle U-100 (INSULIN SYRINGE) 1 mL 30 gauge x 5/16 Syrg 2017-0 02-10 00:00: 00 02-25 00:00 :00 No Use to inject insulin TID [facility] Immunizations Ordered Immunization Name Filled Immunization Name Date Status Comments Source Flu Injectable MDCK Pres-Free (FLUCELVAX) 2024-10-17 00:00:00 Completed [facility] SARS-COV-2 COVID-19 PFIZER VACCINE 2021-07-22 00:00:00 Completed SARS-COV-2 COVID-19 PFIZER VACCINE 2021-07-22 00:00:00 Completed SARS-COV-2 COVID-19 PFIZER VACCINE 2021-07-22 00:00:00 Completed SARS-COV-2 COVID-19 PFIZER VACCINE 2021-06-12 00:00:00 Completed Flu Injectable [facility]CK Quadrivalent 2021-06-12 00:00:00 Completed SARS-COV-2 COVID-19 PFIZER VACCINE 2021-06-12 00:00:00 Completed Flu Injectable MDCK Quadrivalent 2021-06-12 00:00:00 Completed SARS-COV-2 COVID-19 PFIZER VACCINE 2021-06-12 00:00:00 Completed Flu Injectable [facility]CK Quadrivalent 2021-06-12 00:00:00 Completed Influenza Virus Vaccine Quad .5 mL IM 6+ MO 2020-09-11 00:00:00 Completed [facility] Influenza Virus Vaccine Quad .5 mL IM 6+ MO 2020-09-11 00:00:00 Completed [facility] Influenza Virus Vaccine Quad .5 mL IM 6+ MO 2020-09-11 00:00:00 Completed [facility] Influenza Virus Vaccine Quad .5 mL IM 6+ MO 2020-09-11 00:00:00 Completed [facility] Influenza Virus Vaccine Quad .5 mL IM 6+ MO 2020-09-11 00:00:00 Completed [facility] Influenza Virus Vaccine Quad .5 mL IM 6+ MO 2020-09-11 00:00:00 Completed [facility] Influenza Virus Vaccine Quad .5 mL IM 6+ MO 2020-09-11 00:00:00 Completed [facility] Influenza Virus Vaccine Quad .5 mL IM 6+ MO 2020-09-11 00:00:00 Completed [facility] Influenza Virus Vaccine Quad .5 mL IM 6+ MO 2020-09-11 00:00:00 Completed [facility] Influenza Virus Vaccine Quad .5 mL IM 6+ MO 2020-09-11 00:00:00 Completed [facility] Influenza Virus Vaccine Quad .5 mL IM 6+ MO 2020-09-11 00:00:00 Completed [facility] Influenza Virus Vaccine Quad .5 mL IM 6+ MO 2020-09-11 00:00:00 Completed [facility] Influenza Virus Vaccine Quad .5 mL IM 6+ MO 2020-09-11 00:00:00 Completed [facility] Influenza Virus Vaccine Quad .5 mL IM 6+ MO 2020-09-11 00:00:00 Completed [facility] Influenza Virus Vaccine Quad .5 mL IM 6+ MO 2020-09-11 00:00:00 Completed [facility] Influenza Virus Vaccine Quad .5 mL IM 6+ MO 2020-09-11 00:00:00 Completed [facility] Influenza Virus Vaccine Quad .5 mL IM 6+ MO 2020-09-11 00:00:00 Completed [facility] Influenza Virus Vaccine Quad .5 mL IM 6+ MO 2020-09-11 00:00:00 Completed [facility] Influenza Virus Vaccine Quad .5 mL IM 6+ MO 2020-09-11 00:00:00 Completed [facility] Influenza Virus Vaccine Quad .5 mL IM 6+ MO 2020-09-11 00:00:00 Completed [facility] Influenza Virus Vaccine Quad .5 mL IM 6+ MO (FLUZONE/FLULAVAL/F LUARIX) 2020-09-11 00:00:00 Completed [facility] Influenza Virus Vaccine Quad .5 mL IM 6+ MO (FLUZONE/FLULAVAL/F LUARIX) 2020-09-11 00:00:00 Completed [facility] Influenza Virus Vaccine Quad .5 mL IM 6+ MO (FLUZONE/FLULAVAL/F LUARIX) 2020-09-11 00:00:00 Completed [facility] Influenza Virus Vaccine Quad .5 mL IM 6+ MO (FLUZONE/FLULAVAL/F LUARIX) 2020-09-11 00:00:00 Completed [facility] Influenza Virus Vaccine Quad .5 mL IM 6+ MO (FLUZONE/FLULAVAL/F LUARIX) 2020-09-11 00:00:00 Completed [facility] Influenza Virus Vaccine Quad .5 mL IM 6+ MO (FLUZONE/FLULAVAL/F LUARIX) 2020-09-11 00:00:00 Completed [facility] Influenza Virus Vaccine Quad .5 mL IM 6+ MO (FLUZONE/FLULAVAL/F LUARIX) 2020-09-11 00:00:00 Completed [facility] HEP B, Adult Dosage 2020-07-25 00:00:00 Completed HEP B, Adult Dosage 2020-07-25 00:00:00 Completed HEP B, Adult Dosage 2020-07-25 00:00:00 Completed HEP B, Adult Dosage 2020-05-16 00:00:00 Completed MMR 2020-05-16 00:00:00 Completed Tetanus/Diptheria 2020-05-16 00:00:00 Completed Varicella (varivax)(chicken pox) 2020-05-16 00:00:00 Completed HEP B, Adult Dosage 2020-05-16 00:00:00 Completed MMR 2020-05-16 00:00:00 Completed Tetanus/Diptheria 2020-05-16 00:00:00 Completed Varicella (varivax)(chicken pox) 2020-05-16 00:00:00 Completed HEP B, Adult Dosage 2020-05-16 00:00:00 Completed MMR 2020-05-16 00:00:00 Completed Tetanus/Diptheria 2020-05-16 00:00:00 Completed Varicella (varivax)(chicken pox) 2020-05-16 00:00:00 Completed Influenza Virus Vaccine Quad IM, Preserv and ABX Free 6 MO-64 YRS (FLUCELVAX) 2019-11-06 00:00:00 Completed Influenza Virus Vaccine Quad IM, Preserv and ABX Free 6 MO-64 YRS (FLUCELVAX) 2019-11-06 00:00:00 Completed Influenza Virus Vaccine Quad IM, Preserv and ABX Free 6 MO-64 YRS (FLUCELVAX) 2019-11-06 00:00:00 Completed HEP B, Adult Dosage 2019-11-01 00:00:00 Completed MMR 2019-11-01 00:00:00 Completed TDAP 2019-11-01 00:00:00 Completed Varicella (varivax)(chicken pox) 2019-11-01 00:00:00 Completed HEP B, Adult Dosage 2019-11-01 00:00:00 Completed MMR 2019-11-01 00:00:00 Completed TDAP 2019-11-01 00:00:00 Completed Varicella (varivax)(chicken pox) 2019-11-01 00:00:00 Completed HEP B, Adult Dosage 2019-11-01 00:00:00 Completed MMR 2019-11-01 00:00:00 Completed TDAP 2019-11-01 00:00:00 Completed Varicella (varivax)(chicken pox) 2019-11-01 00:00:00 Completed Influenza Virus Vaccine Quad IM Multi-dose 6+ MO 2017-07-01 00:00:00 Completed Influenza Virus Vaccine Quad IM Multi-dose 6+ MO 2017-07-01 00:00:00 Completed Influenza Virus Vaccine Quad IM Multi-dose 6+ MO 2017-07-01 00:00:00 Completed PPD (TB) 2016-08-24 00:00:00 Completed PPD (TB) 2016-08-24 00:00:00 Completed PPD (TB) 2016-08-24 00:00:00 Completed Influenza Virus Vaccine Quad IM Multi-dose 6+ MO 2016-08-11 00:00:00 Completed Influenza Virus Vaccine Quad IM Multi-dose 6+ MO 2016-08-11 00:00:00 Completed Influenza Virus Vaccine Quad IM Multi-dose 6+ MO 2016-08-11 00:00:00 Completed PPD (TB) 2010-04-16 00:00:00 Completed PPD (TB) 2010-04-16 00:00:00 Completed PPD (TB) 2010-04-16 00:00:00 Completed Flu Split Virus, PSA 2009-06-18 00:00:00 Completed Flu Split Virus, PSA 2009-06-18 00:00:00 Completed Flu Split Virus, PSA 2009-06-18 00:00:00 Completed TDAP 2009-01-11 00:00:00 Completed TDAP 2009-01-11 00:00:00 Completed TDAP 2009-01-11 00:00:00 Completed HEP B, Adult Dosage 2008-03-21 00:00:00 Completed Varicella (varivax)(chicken pox) 2008-03-21 00:00:00 Completed HEP B, Adult Dosage 2008-03-21 00:00:00 Completed Varicella (varivax)(chicken pox) 2008-03-21 00:00:00 Completed HEP B, Adult Dosage 2008-03-21 00:00:00 Completed Varicella (varivax)(chicken pox) 2008-03-21 00:00:00 Completed Flu Whole Virus 2006-09-29 00:00:00 Completed Flu Whole Virus 2006-09-29 00:00:00 Completed Flu Whole Virus 2006-09-29 00:00:00 Completed Influenza Virus Vaccine Quad .5 mL IM 6+ MO (FLUZONE/FLULAVAL/F LUARIX) Unknown Completed [facility] Influenza Virus Vaccine Quad .5 mL IM 6+ MO (FLUZONE/FLULAVAL/F LUARIX) Unknown Completed [facility] Influenza Virus Vaccine Quad .5 mL IM 6+ MO (FLUZONE/FLULAVAL/F LUARIX) Unknown Completed [facility] Influenza Virus Vaccine Quad .5 mL IM 6+ MO (FLUZONE/FLULAVAL/F LUARIX) Unknown Completed [facility] Influenza Virus Vaccine Quad .5 mL IM 6+ MO (FLUZONE/FLULAVAL/F LUARIX) Unknown Completed [facility] Influenza Virus Vaccine Quad .5 mL IM 6+ MO (FLUZONE/FLULAVAL/F LUARIX) Unknown Completed [facility] Influenza Virus Vaccine Quad .5 mL IM 6+ MO (FLUZONE/FLULAVAL/F LUARIX) Unknown Completed [facility] Influenza Virus Vaccine Quad .5 mL IM 6+ MO (FLUZONE/FLULAVAL/F LUARIX) Unknown Completed [facility] Influenza Virus Vaccine Quad .5 mL IM 6+ MO (FLUZONE/FLULAVAL/F LUARIX) Unknown Completed [facility] Influenza Virus Vaccine Quad .5 mL IM 6+ MO (FLUZONE/FLULAVAL/F LUARIX) Unknown Completed [facility] Influenza Virus Vaccine Quad .5 mL IM 6+ MO (FLUZONE/FLULAVAL/F LUARIX) Unknown Completed [facility] Influenza Virus Vaccine Quad .5 mL IM 6+ MO (FLUZONE/FLULAVAL/F LUARIX) Unknown Completed [facility] Influenza Virus Vaccine Quad .5 mL IM 6+ MO (FLUZONE/FLULAVAL/F LUARIX) Unknown Completed [facility] Influenza Virus Vaccine Quad .5 mL IM 6+ MO (FLUZONE/FLULAVAL/F LUARIX) Unknown Completed [facility] Influenza Virus Vaccine Quad .5 mL IM 6+ MO (FLUZONE/FLULAVAL/F LUARIX) Unknown Completed [facility] Influenza Virus Vaccine Quad .5 mL IM 6+ MO (FLUZONE/FLULAVAL/F LUARIX) Unknown Completed [facility] SARS-COV-2 COVID-19 PFIZER VACCINE Unknown Completed [facility] Flu Injectable MDCK Quadrivalent Unknown Completed [facility] Influenza Virus Vaccine Quad IM, Preserv and ABX Free 6 MO-64 YRS (FLUCELVAX) Unknown Completed [facility] HEP B, Adult Dosage Unknown Completed [facility] [facility] Flu Split Virus, PSA Unknown Completed [facility] Flu Whole Virus Unknown Completed [facility] Influenza Virus Vaccine Quad IM Multi-dose 6+ MO Unknown Completed [facility] MMR Unknown Completed [facility] Tetanus/Diptheria Unknown [facility] PPD (TB) Unknown Completed [facility] Varicella (varivax)(chicken pox) Unknown Completed [facility] Influenza Virus Vaccine Quad .5 mL IM 6+ MO (FLUZONE/FLULAVAL/F LUARIX) Unknown Completed [facility] SARS-COV-2 COVID-19 PFIZER VACCINE Unknown Completed [facility] Flu Injectable MDCK Quadrivalent Unknown Completed [facility] Influenza Virus Vaccine Quad IM, Preserv and ABX Free 6 MO-64 YRS (FLUCELVAX) Unknown Completed [facility] HEP B, Adult Dosage Unknown Completed [facility] Flu Split Virus, PSA Unknown Completed [facility] Flu Whole Virus Unknown Completed [facility] Influenza Virus Vaccine Quad IM Multi-dose 6+ MO Unknown Completed [facility] MMR Unknown Completed [facility] Tetanus/Diptheria Unknown [facility] Com[facility] PPD (TB) Unknown Completed [facility] Varicella (varivax)(chicken pox) Unknown Completed [facility] Influenza Virus Vaccine Quad .5 mL IM 6+ MO (FLUZONE/FLULAVAL/F LUARIX) Unknown Completed [facility] Flu Injectable MDCK Quadrivalent Unknown Completed [facility] Influenza Virus Vaccine Quad IM, Preserv and ABX Free 6 MO-64 YRS (FLUCELVAX) Unknown Completed [facility] Flu Split Virus, PSA Unknown Completed [facility] Flu Whole Virus Unknown Completed [facility] Tetanus/Diptheria Unknown [facility] SARS-COV-2 COVID-19 PFIZER VACCINE Unknown Completed [facility] HEP B, Adult Dosage Unknown Completed [facility] Influenza Virus Vaccine Quad IM Multi-dose 6+ MO Unknown Completed [facility] MMR Unknown Completed [facility] TDAP Unknown Completed [facility] PPD (TB) Unknown Completed [facility] Varicella (varivax)(chicken pox) Unknown Completed [facility] Influenza Virus Vaccine Quad .5 mL IM 6+ MO (FLUZONE/FLULAVAL/F LUARIX) Unknown Completed [facility] SARS-COV-2 COVID-19 PFIZER VACCINE Unknown Completed [facility] Flu Injectable MDCK Quadrivalent Unknown Completed [facility] Influenza Virus Vaccine Quad IM, Preserv and ABX Free 6 MO-64 YRS (FLUCELVAX) Unknown Completed [facility] HEP B, Adult Dosage Unknown Completed [facility] Flu Split Virus, PSA Unknown Completed [facility] Flu Whole Virus Unknown Completed [facility] Influenza Virus Vaccine Quad IM Multi-dose 6+ MO Unknown Completed [facility] MMR Unknown Completed [facility] Tetanus/Diptheria Unknown [facility] Completed [facility] PPD (TB) Unknown Completed [facility] Varicella (varivax)(chicken pox) Unknown Completed [facility] Influenza Virus Vaccine Quad .5 mL IM 6+ MO (FLUZONE/FLULAVAL/F LUARIX) Unknown Completed [facility] SARS-COV-2 COVID-19 PFIZER VACCINE Unknown Completed [facility] Flu Injectable MDCK Quadrivalent Unknown Completed [facility] Influenza Virus Vaccine Quad IM, Preserv and ABX Free 6 MO-64 YRS (FLUCELVAX) Unknown Completed [facility] HEP B, Adult Dosage Unknown Completed [facility] Flu Split Virus, PSA Unknown Completed [facility] Flu Whole Virus Unknown Completed [facility] Influenza Virus Vaccine Quad IM Multi-dose 6+ MO Unknown Completed [facility] MMR Unknown Completed [facility] Tetanus/Diptheria Unknown [facility] Completed [facility] PPD (TB) Unknown Completed [facility] Varicella (varivax)(chicken pox) Unknown Completed [facility] Influenza Virus Vaccine Quad .5 mL IM 6+ MO (FLUZONE/FLULAVAL/F LUARIX) Unknown Completed [facility] SARS-COV-2 COVID-19 PFIZER VACCINE Unknown Completed [facility] Flu Injectable MDCK Quadrivalent Unknown Completed [facility] Influenza Virus Vaccine Quad IM, Preserv and ABX Free 6 MO-64 YRS (FLUCELVAX) Unknown Completed [facility] HEP B, Adult Dosage Unknown Completed [facility] Flu Split Virus, PSA Unknown Completed [facility] Flu Whole Virus Unknown Completed [facility] Influenza Virus Vaccine Quad IM Multi-dose 6+ MO Unknown Completed [facility] MMR Unknown Completed [facility] Tetanus/Diptheria Unknown [facility] Com[facility] PPD (TB) Unknown Completed [facility] Varicella (varivax)(chicken pox) Unknown Completed [facility] Influenza Virus Vaccine Quad .5 mL IM 6+ MO (FLUZONE/FLULAVAL/F LUARIX) Unknown Completed [facility] SARS-COV-2 COVID-19 PFIZER VACCINE Unknown Completed [facility] Flu Injectable MDCK Quadrivalent Unknown Completed [facility] Influenza Virus Vaccine Quad IM, Preserv and ABX Free 6 MO-64 YRS (FLUCELVAX) Unknown Completed [facility] HEP B, Adult Dosage Unknown Completed [facility] Flu Split Virus, PSA Unknown Completed [facility] Flu Whole Virus [facility] Influenza Virus Vaccine Quad IM Multi-dose 6+ MO Unknown Completed [facility] MMR Unknown Completed [facility] Tetanus/Diptheria Unknown [facility] Unknown Completed [facility] PPD (TB) Unknown Completed [facility] Varicella (varivax)(chicken pox) Unknown Completed [facility] Influenza Virus Vaccine Quad .5 mL IM 6+ MO (FLUZONE/FLULAVAL/F LUARIX) Unknown Completed [facility] SARS-COV-2 COVID-19 PFIZER VACCINE Unknown Completed [facility] Flu Injectable MDCK Quadrivalent Unknown Completed [facility] Influenza Virus Vaccine Quad IM, Preserv and ABX Free 6 MO-64 YRS (FLUCELVAX) Unknown Completed [facility] HEP B, Adult Dosage Unknown Completed [facility] Flu Split Virus, PSA Unknown Completed [facility] Flu Whole Virus [facility] Influenza Virus Vaccine Quad IM Multi-dose 6+ MO Unknown Completed [facility] MMR Unknown Completed [facility] Tetanus/Diptheria Unknown [facility] TD[facility] Unknown Completed [facility] PPD (TB) Unknown Completed [facility] Varicella (varivax)(chicken pox) Unknown Completed [facility] Influenza Virus Vaccine Quad .5 mL IM 6+ MO (FLUZONE/FLULAVAL/F LUARIX) Unknown Completed [facility] SARS-COV-2 COVID-19 PFIZER VACCINE Unknown Completed [facility] Flu Injectable MDCK Quadrivalent Unknown Completed [facility] Influenza Virus Vaccine Quad IM, Preserv and ABX Free 6 MO-64 YRS (FLUCELVAX) Unknown Completed [facility] HEP B, Adult Dosage Unknown Completed [facility] Flu Split Virus, PSA Unknown Completed [facility] Flu Whole Virus Unknown Completed [facility] Influenza Virus Vaccine Quad IM Multi-dose 6+ MO Unknown Completed [facility] MMR Unknown Completed [facility] Tetanus/Diptheria Unknown [facility] Completed [facility] PPD (TB) Unknown Completed [facility] Varicella (varivax)(chicken pox) Unknown Completed [facility] Influenza Virus Vaccine Quad .5 mL IM 6+ MO (FLUZONE/FLULAVAL/F LUARIX) Unknown Completed [facility] SARS-COV-2 COVID-19 PFIZER VACCINE Unknown Completed [facility] Flu Injectable MDCK Quadrivalent Unknown Completed [facility] Influenza Virus Vaccine Quad IM, Preserv and ABX Free 6 MO-64 YRS (FLUCELVAX) Unknown Completed [facility] HEP B, Adult Dosage Unknown Completed [facility] Flu Split Virus, PSA Unknown Completed [facility] Flu Whole Virus Unknown Completed [facility] Influenza Virus Vaccine Quad IM Multi-dose 6+ MO Unknown Completed [facility] MMR Unknown Completed [facility] Tetanus/Diptheria Unknown [facility] Completed [facility] PPD (TB) Unknown Completed [facility] Varicella (varivax)(chicken pox) Unknown Completed [facility] Influenza Virus Vaccine Quad .5 mL IM 6+ MO (FLUZONE/FLULAVAL/F LUARIX) Unknown Completed [facility] Flu Injectable MDCK Quadrivalent Unknown Completed [facility] Influenza Virus Vaccine Quad IM, Preserv and ABX Free 6 MO-64 YRS (FLUCELVAX) Unknown Completed [facility] Flu Split Virus, PSA Unknown Completed [facility] Flu Whole Virus Unknown Completed [facility] Tetanus/Diptheria Unknown Completed Un [facility] SARS-COV-2 COVID-19 PFIZER VACCINE Unknown Completed [facility] HEP B, Adult Dosage Unknown Completed [facility] Influenza Virus Vaccine Quad IM Multi-dose 6+ MO Unknown Completed [facility] MMR Unknown Completed [facility] TDAP Unknown Completed [facility] PPD (TB) Unknown Completed [facility] Varicella (varivax)(chicken pox) Unknown Completed [facility] Influenza Virus Vaccine Quad .5 mL IM 6+ MO (FLUZONE/FLULAVAL/F LUARIX) Unknown Completed [facility] SARS-COV-2 COVID-19 PFIZER VACCINE Unknown Completed [facility] Flu Injectable MDCK Quadrivalent Unknown Completed [facility] Influenza Virus Vaccine Quad IM, Preserv and ABX Free 6 MO-64 YRS (FLUCELVAX) Unknown Completed [facility] HEP B, Adult Dosage Unknown Completed [facility] Flu Split Virus, PSA Unknown Completed [facility] Flu Whole Virus Unknown Completed [facility] Influenza Virus Vaccine Quad IM Multi-dose 6+ MO Unknown Completed [facility] MMR Unknown Completed [facility] Tetanus/Diptheria Unknown [facility] TD[facility] Unknown Completed [facility] PPD (TB) Unknown Completed [facility] Varicella (varivax)(chicken pox) Unknown Completed [facility] Influenza Virus Vaccine Quad .5 mL IM 6+ MO (FLUZONE/FLULAVAL/F LUARIX) Unknown Completed [facility] SARS-COV-2 COVID-19 PFIZER VACCINE Unknown Completed [facility] Flu Injectable MDCK Quadrivalent Unknown Completed [facility] Influenza Virus Vaccine Quad IM, Preserv and ABX Free 6 MO-64 YRS (FLUCELVAX) Unknown Completed [facility] HEP B, Adult Dosage Unknown Completed [facility] Flu Split Virus, PSA Unknown Completed [facility] Flu Whole Virus Unknown Completed [facility] Influenza Virus Vaccine Quad IM Multi-dose 6+ MO Unknown Completed [facility] MMR Unknown Completed [facility] Tetanus/Diptheria Unknown [facility] TDAP Unknown Completed [facility] PPD (TB) Unknown Completed [facility] Varicella (varivax)(chicken pox) Unknown Completed [facility] Influenza Virus Vaccine Quad .5 mL IM 6+ MO (FLUZONE/FLULAVAL/F LUARIX) Unknown Completed [facility] SARS-COV-2 COVID-19 PFIZER VACCINE Unknown Completed [facility] Flu Injectable MDCK Quadrivalent Unknown Completed [facility] Influenza Virus Vaccine Quad IM, Preserv and ABX Free 6 MO-64 YRS (FLUCELVAX) Unknown Completed [facility] HEP B, Adult Dosage Unknown Completed [facility] Flu Split Virus, PSA Unknown Completed [facility] Flu Whole Virus Unknown Completed [facility] Influenza Virus Vaccine Quad IM Multi-dose 6+ MO Unknown Completed [facility] MMR Unknown Completed [facility] Tetanus/Diptheria Unknown [facility] TDAP Unknown Completed [facility] PPD (TB) Unknown Completed [facility] Varicella (varivax)(chicken pox) Unknown Completed [facility] Influenza Virus Vaccine Quad .5 mL IM 6+ MO (FLUZONE/FLULAVAL/F LUARIX) Unknown Completed [facility] SARS-COV-2 COVID-19 PFIZER VACCINE Unknown Completed [facility] Flu Injectable MDCK Quadrivalent Unknown Completed [facility] Influenza Virus Vaccine Quad IM, Preserv and ABX Free 6 MO-64 YRS (FLUCELVAX) Unknown Completed [facility] HEP B, Adult Dosage Unknown Completed [facility] Flu Split Virus, PSA Unknown Completed [facility] Flu Whole Virus Unknown Completed [facility] Influenza Virus Vaccine Quad IM Multi-dose 6+ MO Unknown Completed [facility] MMR Unknown Completed [facility] Tetanus/Diptheria Unknown [facility] TDAP Unknown Completed [facility] PPD (TB) Unknown Completed [facility] Varicella (varivax)(chicken pox) Unknown Completed [facility] Influenza Virus Vaccine Quad .5 mL IM 6+ MO (FLUZONE/FLULAVAL/F LUARIX) Unknown Completed [facility] SARS-COV-2 COVID-19 PFIZER VACCINE Unknown Completed [facility] Flu Injectable MDCK Quadrivalent Unknown Completed [facility] Influenza Virus Vaccine Quad IM, Preserv and ABX Free 6 MO-64 YRS (FLUCELVAX) Unknown Completed [facility] HEP B, Adult Dosage Unknown Completed [facility] Flu Split Virus, PSA Unknown Completed [facility] Flu Whole Virus Unknown Completed [facility] Influenza Virus Vaccine Quad IM Multi-dose 6+ MO Unknown Completed [facility] MMR Unknown Completed [facility] Tetanus/Diptheria Unknown [facility] TDAP Unknown Completed [facility] PPD (TB) Unknown Completed [facility] Varicella (varivax)(chicken pox) Unknown Completed [facility] Influenza Virus Vaccine Quad .5 mL IM 6+ MO (FLUZONE/FLULAVAL/F LUARIX) Unknown Completed [facility] SARS-COV-2 COVID-19 PFIZER VACCINE Unknown Completed [facility] Flu Injectable MDCK Quadrivalent Unknown Completed [facility] Influenza Virus Vaccine Quad IM, Preserv and ABX Free 6 MO-64 YRS (FLUCELVAX) Unknown Completed [facility] HEP B, Adult Dosage Unknown Completed [facility] Flu Split Virus, PSA Unknown Completed [facility] Flu Whole Virus Unknown [facility] Influenza Virus Vaccine Quad IM Multi-dose 6+ MO Unknown Completed [facility] MMR Unknown Completed [facility] Tetanus/Diptheria Unknown [facility] TDAP Unknown Completed [facility] PPD (TB) Unknown Completed [facility] Varicella (varivax)(chicken pox) Unknown Completed [facility] Influenza Virus Vaccine Quad .5 mL IM 6+ MO (FLUZONE/FLULAVAL/F LUARIX) Unknown Completed [facility] SARS-COV-2 COVID-19 PFIZER VACCINE Unknown Completed [facility] Flu Injectable MDCK Quadrivalent Unknown Completed [facility] Influenza Virus Vaccine Quad IM, Preserv and ABX Free 6 MO-64 YRS (FLUCELVAX) Unknown Completed [facility] HEP B, Adult Dosage Unknown Completed [facility] Flu Split Virus, PSA Unknown Completed [facility] Flu Whole Virus Unknown Completed [facility] Influenza Virus Vaccine Quad IM Multi-dose 6+ MO Unknown Completed [facility] MMR Unknown Completed [facility] Tetanus/Diptheria Unknown [facility] TDAP Unknown Completed [facility] PPD (TB) Unknown Completed [facility] Varicella (varivax)(chicken pox) Unknown Completed [facility] Influenza Virus Vaccine Quad .5 mL IM 6+ MO (FLUZONE/FLULAVAL/F LUARIX) Unknown Completed [facility] SARS-COV-2 COVID-19 PFIZER VACCINE Unknown Completed [facility] Flu Injectable MDCK Quadrivalent Unknown Completed [facility] Influenza Virus Vaccine Quad IM, Preserv and ABX Free 6 MO-64 YRS (FLUCELVAX) Unknown Completed [facility] HEP B, Adult Dosage Unknown Completed [facility] Flu Split Virus, PSA Unknown Completed [facility] Flu Whole Virus Unknown [facility] Influenza Virus Vaccine Quad IM Multi-dose 6+ MO Unknown Completed [facility] MMR Unknown Completed [facility] Tetanus/Diptheria Unknown [facility] TDAP Unknown Completed [facility] PPD (TB) Unknown Completed [facility] Varicella (varivax)(chicken pox) Unknown Completed [facility] Influenza Virus Vaccine Quad .5 mL IM 6+ MO (FLUZONE/FLULAVAL/F LUARIX) Unknown Completed [facility] SARS-COV-2 COVID-19 PFIZER VACCINE Unknown Completed [facility] Flu Injectable MDCK Quadrivalent Unknown Completed [facility] Influenza Virus Vaccine Quad IM, Preserv and ABX Free 6 MO-64 YRS (FLUCELVAX) Unknown Completed [facility] HEP B, Adult Dosage Unknown Completed [facility] Flu Split Virus, PSA Unknown Completed [facility] Flu Whole Virus Unknown [facility] Influenza Virus Vaccine Quad IM Multi-dose 6+ MO Unknown Completed [facility] MMR Unknown Completed [facility] Tetanus/Diptheria Unknown [facility] TDAP Unknown Completed [facility] PPD (TB) Unknown Completed [facility] Varicella (varivax)(chicken pox) Unknown Completed [facility] Influenza Virus Vaccine Quad .5 mL IM 6+ MO (FLUZONE/FLULAVAL/F LUARIX) Unknown Completed [facility] SARS-COV-2 COVID-19 PFIZER VACCINE Unknown Completed [facility] Flu Injectable MDCK Quadrivalent Unknown Completed [facility] Influenza Virus Vaccine Quad IM, Preserv and ABX Free 6 MO-64 YRS (FLUCELVAX) Unknown Completed [facility] HEP B, Adult Dosage Unknown Completed [facility] Flu Split Virus, PSA Unknown Completed [facility] Flu Whole Virus Unknown Completed [facility] Influenza Virus Vaccine Quad IM Multi-dose 6+ MO Unknown Completed [facility] MMR Unknown Completed [facility] Tetanus/Diptheria Unknown [facility] TDAP Unknown Completed [facility] PPD (TB) Unknown Completed [facility] Varicella (varivax)(chicken pox) Unknown Completed [facility] Influenza Virus Vaccine Quad .5 mL IM 6+ MO (FLUZONE/FLULAVAL/F LUARIX) Unknown Completed [facility] SARS-COV-2 COVID-19 PFIZER VACCINE Unknown Completed [facility] Flu Injectable MDCK Quadrivalent Unknown Completed [facility] Influenza Virus Vaccine Quad IM, Preserv and ABX Free 6 MO-64 YRS (FLUCELVAX) Unknown Completed [facility] HEP B, Adult Dosage Unknown Completed [facility] Flu Split Virus, PSA Unknown Completed [facility] Flu Whole Virus Unknown Completed [facility] Influenza Virus Vaccine Quad IM Multi-dose 6+ MO Unknown Completed [facility] MMR Unknown Completed [facility] Tetanus/Diptheria Unknown [facility] TDAP Unknown Completed [facility] PPD (TB) Unknown Completed [facility] Varicella (varivax)(chicken pox) Unknown Completed [facility] Influenza Virus Vaccine Quad .5 mL IM 6+ MO (FLUZONE/FLULAVAL/F LUARIX) Unknown Completed [facility] SARS-COV-2 COVID-19 PFIZER VACCINE Unknown Completed [facility] Flu Injectable MDCK Quadrivalent Unknown Completed [facility] Influenza Virus Vaccine Quad IM, Preserv and ABX Free 6 MO-64 YRS (FLUCELVAX) Unknown Completed [facility] HEP B, Adult Dosage Unknown Completed [facility] Flu Split Virus, PSA Unknown Completed [facility] Flu Whole Virus Unknown Completed [facility] Influenza Virus Vaccine Quad IM Multi-dose 6+ MO Unknown Completed [facility] MMR Unknown Completed [facility] Tetanus/Diptheria Unknown [facility] TDAP Unknown Completed [facility] PPD (TB) Unknown Completed [facility] Varicella (varivax)(chicken pox) Unknown Completed [facility] Influenza Virus Vaccine Quad .5 mL IM 6+ MO (FLUZONE/FLULAVAL/F LUARIX) Unknown Completed [facility] SARS-COV-2 COVID-19 PFIZER VACCINE Unknown Completed [facility] Flu Injectable MDCK Quadrivalent Unknown Completed [facility] Influenza Virus Vaccine Quad IM, Preserv and ABX Free 6 MO-64 YRS (FLUCELVAX) Unknown Completed [facility] HEP B, Adult Dosage Unknown Completed [facility] Flu Split Virus, PSA Unknown Completed [facility] Flu Whole Virus Unknown [facility] Influenza Virus Vaccine Quad IM Multi-dose 6+ MO Unknown Completed [facility] MMR Unknown Completed [facility] Tetanus/Diptheria Unknown [facility] TDAP Unknown Completed [facility] PPD (TB) Unknown Completed [facility] Varicella (varivax)(chicken pox) Unknown Completed [facility] Influenza Virus Vaccine Quad .5 mL IM 6+ MO (FLUZONE/FLULAVAL/F LUARIX) Unknown Completed [facility] SARS-COV-2 COVID-19 PFIZER VACCINE Unknown Completed [facility] Flu Injectable MDCK Quadrivalent Unknown Completed [facility] Influenza Virus Vaccine Quad IM, Preserv and ABX Free 6 MO-64 YRS (FLUCELVAX) Unknown Completed [facility] HEP B, Adult Dosage Unknown Completed [facility] Flu Split Virus, PSA Unknown Completed [facility] Flu Whole Virus Unknown [facility] Influenza Virus Vaccine Quad IM Multi-dose 6+ MO Unknown Completed [facility] MMR Unknown Completed [facility] Tetanus/Diptheria Unknown [facility] Completed [facility] PPD (TB) Unknown Completed [facility] Varicella (varivax)(chicken pox) Unknown Completed [facility] Influenza Virus Vaccine Quad .5 mL IM 6+ MO (FLUZONE/FLULAVAL/F LUARIX) Unknown Completed [facility] SARS-COV-2 COVID-19 PFIZER VACCINE Unknown Completed [facility] Flu Injectable MDCK Quadrivalent Unknown Completed [facility] Influenza Virus Vaccine Quad IM, Preserv and ABX Free 6 MO-64 YRS (FLUCELVAX) Unknown Completed [facility] HEP B, Adult Dosage Unknown Completed [facility] Flu Split Virus, PSA Unknown Completed [facility] Flu Whole Virus Unknown Completed [facility] Influenza Virus Vaccine Quad IM Multi-dose 6+ MO Unknown Completed [facility] MMR Unknown Completed [facility] Tetanus/Diptheria Unknown [facility] Unknown Completed [facility] PPD (TB) Unknown Completed [facility] Varicella (varivax)(chicken pox) Unknown Completed [facility] Influenza Virus Vaccine Quad .5 mL IM 6+ MO (FLUZONE/FLULAVAL/F LUARIX) Unknown Completed [facility] SARS-COV-2 COVID-19 PFIZER VACCINE Unknown Completed [facility] Flu Injectable MDCK Quadrivalent Unknown Completed [facility] Influenza Virus Vaccine Quad IM, Preserv and ABX Free 6 MO-64 YRS (FLUCELVAX) Unknown Completed [facility] HEP B, Adult Dosage Unknown Completed [facility] Flu Split Virus, PSA Unknown Completed [facility] Flu Whole Virus Unknown Completed [facility] Influenza Virus Vaccine Quad IM Multi-dose 6+ MO Unknown Completed [facility] MMR Unknown Completed [facility] Tetanus/Diptheria Unknown [facility]AP Unknown Completed [facility] PPD (TB) Unknown Completed [facility] Varicella (varivax)(chicken pox) Unknown Completed [facility] Influenza Virus Vaccine Quad .5 mL IM 6+ MO (FLUZONE/FLULAVAL/F LUARIX) Unknown Completed [facility] SARS-COV-2 COVID-19 PFIZER VACCINE Unknown Completed [facility] Flu Injectable MDCK Quadrivalent Unknown Completed [facility] Influenza Virus Vaccine Quad IM, Preserv and ABX Free 6 MO-64 YRS (FLUCELVAX) Unknown Completed [facility] HEP B, Adult Dosage Unknown Completed [facility] Flu Split Virus, PSA Unknown Completed [facility] Flu Whole Virus Unknown Completed [facility] Influenza Virus Vaccine Quad IM Multi-dose 6+ MO Unknown Completed [facility] MMR Unknown Completed [facility] Tetanus/Diptheria Unknown [facility] Completed [facility] PPD (TB) Unknown Completed [facility] Varicella (varivax)(chicken pox) Unknown Completed [facility] Influenza Virus Vaccine Quad .5 mL IM 6+ MO (FLUZONE/FLULAVAL/F LUARIX) Unknown Completed [facility] SARS-COV-2 COVID-19 PFIZER VACCINE Unknown Completed [facility] Flu Injectable MDCK Quadrivalent Unknown Completed [facility] Influenza Virus Vaccine Quad IM, Preserv and ABX Free 6 MO-64 YRS (FLUCELVAX) Unknown Completed [facility] HEP B, Adult Dosage Unknown Completed [facility] Flu Split Virus, PSA Unknown Completed [facility] Flu Whole Virus Unknown Completed [facility] Influenza Virus Vaccine Quad IM Multi-dose 6+ MO Unknown Completed [facility] MMR Unknown Completed [facility] Tetanus/Diptheria Unknown [facility] Unknown Completed [facility] PPD (TB) Unknown Completed [facility] Varicella (varivax)(chicken pox) Unknown Completed [facility] Influenza Virus Vaccine Quad .5 mL IM 6+ MO (FLUZONE/FLULAVAL/F LUARIX) Unknown Completed [facility] SARS-COV-2 COVID-19 PFIZER VACCINE Unknown Completed [facility] Flu Injectable MDCK Quadrivalent Unknown Completed [facility] Influenza Virus Vaccine Quad IM, Preserv and ABX Free 6 MO-64 YRS (FLUCELVAX) Unknown Completed [facility] HEP B, Adult Dosage Unknown Completed [facility] Flu Split Virus, PSA Unknown Completed [facility] Flu Whole Virus Unknown Completed [facility] Influenza Virus Vaccine Quad IM Multi-dose 6+ MO Unknown Completed [facility] MMR Unknown Completed [facility] Tetanus/Diptheria Unknown [facility] Completed [facility] PPD (TB) Unknown Completed [facility] Varicella (varivax)(chicken pox) Unknown Completed [facility] Vital Signs Vital Name Observation Time Observation Value Comments S ource Systolic blood pressure 2024-10-17 14:29:00 121 mm[Hg[facility] Diastolic blood pressure 2024-10-17 14:29:00 86 mm[Hg] [facility] Heart rate 2024-10-17 14:29:00 107 /min [facility] Body height 2024-10-17 14:29:00 154.9 cm [facility] Body weight 2024-10-17 14:29:00 69.945 kg [facility] BMI 2024-10-17 14:29:00 29.14 kg/m2 [facility] Oxygen saturation in Arterial blood by Pulse oximetry 2024-10-17 14:29:00 100 /min [facility] Systolic blood pressure 2024-06-20 18:57:00 128 mm[Hg] [facility] Diastolic blood pressure 2024-06-20 18:57:00 84 mm[Hg] [facility] Heart rate 2024-06-20 18:57:00 102 /min [facility] Body height 2024-06-20 18:57:00 154.9 cm [facility] Body weight 2024-06-20 18:57:00 75.07 kg [facility] BMI 2024-06-20 18:57:00 31.27 kg/m2 [facility] Oxygen saturation in Arterial blood by Pulse oximetry 2024-06-20 18:57:00 100 /min [facility] Systolic blood pressure 2024-06-16 13:41:00 123 mm[Hg] [facility] Diastolic blood pressure 2024-06-16 13:41:00 82 mm[Hg] [facility] Heart rate 2024-06-16 13:41:00 85 /min [facility] Body temperature 2024-06-16 13:41:00 36.67 [place] [facility] Respiratory rate 2024-06-16 13:41:00 18 /min [facility] Body height 2024-06-16 13:41:00 154.9 cm [facility] Body weight 2024-06-16 13:41:00 72.666 kg [facility] BMI 2024-06-16 13:41:00 30.27 kg/m2 [facility] Systolic blood pressure 2024-06-08 19:11:00 121 mm[Hg] [facility] Diastolic blood pressure 2024-06-08 19:11:00 84 mm[Hg] [facility] Heart rate 2024-06-08 19:11:00 108 /min [facility] Body temperature 2024-06-08 19:11:00 36.5 [place] [facility] Body height 2024-06-08 19:11:00 154.9 cm [facility] Body weight 2024-06-08 19:11:00 72.213 kg [facility] BMI 2024-06-08 19:11:00 30.08 kg/m2 [facility] Systolic blood pressure 2024-04-28 13:11:00 105 mm[Hg] [facility] Diastolic blood pressure 2024-04-28 13:11:00 74 mm[Hg] [facility] Heart rate 2024-04-28 13:11:00 96 /min [facility] Body temperature 2024-04-28 13:11:00 36.83 [place] [facility] Respiratory rate 2024-04-28 13:11:00 18 /min [facility] Body height 2024-04-28 13:11:00 154.9 cm [facility] Body weight 2024-04-28 13:11:00 71.94 kg [facility] BMI 2024-04-28 13:11:00 29.97 kg/m2 [facility] Systolic blood pressure 2024-04-11 16:45:00 110 mm[Hg] [facility] Diastolic blood pressure 2024-04-11 16:45:00 70 mm[Hg] [facility] Heart rate 2024-04-11 16:45:00 87 /min [facility] Body temperature 2024-04-11 16:45:00 36.56 [place] [facility] Respiratory rate 2024-04-11 16:45:00 18 /min [facility] Oxygen saturation in Arterial blood by Pulse oximetry 2024-04-11 12:05:00 99 /min [facility] Body height 2024-03-23 19:30:00 154.9 cm [facility] Body weight 2024-03-23 19:30:00 74.844 kg [facility] BMI 2024-03-23 19:30:00 31.18 kg/m2 [facility] Systolic blood pressure 2024-04-10 17:20:00 123 mm[Hg] [facility] Diastolic blood pressure 2024-04-10 17:20:00 75 mm[Hg] [facility] Heart rate 2024-04-10 17:20:00 98 /min [facility] Respiratory rate 2024-04-10 17:20:00 18 /min [facility] Oxygen saturation in Arterial blood by Pulse oximetry 2024-04-10 17:20:00 99 /min [facility] Body temperature 2024-04-10 16:45:00 36.5 [place] [facility] Body height 2024-03-23 19:30:00 154.9 cm [facility] Body weight 2024-03-23 19:30:00 74.844 kg [facility] BMI 2024-03-23 19:30:00 31.18 kg/m2 [facility] Diastolic blood pressure 2024-04-07 13:05:00 78 mm[Hg] [facility] Heart rate 2024-04-07 13:05:00 97 /min [facility] Respiratory rate 2024-04-07 13:05:00 16 /min [facility] Body height 2024-04-07 13:05:00 154.9 cm [facility] Body weight 2024-04-07 13:05:00 75.297 kg [facility] BMI 2024-04-07 13:05:00 31.37 kg/m2 [facility] Systolic blood pressure 2024-04-07 13:05:00 122 mm[Hg] [facility] Systolic blood pressure 2024-03-13 18:59:00 124 mm[Hg] [facility] Diastolic blood pressure 2024-03-13 18:59:00 89 mm[Hg] [facility] Heart rate 2024-03-13 18:59:00 108 /min [facility] Body weight 2024-03-13 18:59:00 73.664 kg [facility] BMI 2024-03-13 18:59:00 30.69 kg/m2 [facility] Systolic blood pressure 2024-03-06 20:35:00 146 mm[Hg] [facility] Diastolic blood pressure 2024-03-06 20:35:00 91 mm[Hg] [facility] Heart rate 2024-03-06 20:34:00 105 /min [facility] Body temperature 2024-03-06 20:34:00 36.78 [place] [facility] Respiratory rate 2024-03-06 20:34:00 18 /min [facility] Body height 2024-03-06 20:34:00 154.9 cm [facility] Body weight 2024-03-06 20:34:00 73.301 kg [facility] BMI 2024-03-06 20:34:00 30.53 kg/m2 [facility] Systolic blood pressure 2024-02-01 16:56:00 131 mm[Hg] [facility] Diastolic blood pressure 2024-02-01 16:56:00 87 mm[Hg] [facility] Heart rate 2024-02-01 16:56:00 102 /min [facility] Body height 2024-02-01 16:56:00 154.9 cm [facility] Body weight 2024-02-01 16:56:00 74.707 kg [facility] BMI 2024-02-01 16:56:00 31.12 kg/m2 [facility] Oxygen saturation in Arterial blood by Pulse oximetry 2024-02-01 16:56:00 96 /min [facility] Systolic blood pressure 2023-10-15 15:17:00 142 mm[Hg] [facility] Diastolic blood pressure 2023-10-15 15:17:00 86 mm[Hg] [facility] Heart rate 2023-10-15 15:17:00 91 /min [facility] Body height 2023-10-15 15:17:00 154.9 cm [facility] Body weight 2023-10-15 15:17:00 79.47 kg [facility] BMI 2023-10-15 15:17:00 33.10 kg/m2 [facility] Oxygen saturation in Arterial blood by Pulse oximetry 2023-10-15 15:17:00 100 /min [facility] Systolic blood pressure 2023-09-25 00:47:00 141 mm[Hg] [facility] Diastolic blood pressure 2023-09-25 00:47:00 96 mm[Hg] [facility] Heart rate 2023-09-25 00:47:00 110 /min [facility] Respiratory rate 2023-09-25 00:47:00 13 /min [facility] Oxygen saturation in Arterial blood by Pulse oximetry 2023-09-25 00:47:00 98 /min [facility] Body temperature 2023-09-24 20:39:00 37.11 [place] [facility] Body height 2023-09-24 20:39:00 154.9 cm [facility] Body weight 2023-09-24 20:39:00 76.34 kg [facility] BMI 2023-09-24 20:39:00 31.80 kg/m2 [facility] Systolic blood pressure 2023-06-24 02:27:00 138 mm[Hg] [facility] Diastolic blood pressure 2023-06-24 02:27:00 105 mm[Hg] [facility] Heart rate 2023-06-24 02:27:00 107 /min [facility] Body temperature 2023-06-24 02:27:00 37.22 [place] [facility] Respiratory rate 2023-06-24 02:27:00 18 /min [facility] Body height 2023-06-24 02:27:00 154.9 cm [facility] Body weight 2023-06-24 02:27:00 76.023 kg [facility] BMI 2023-06-24 02:27:00 31.67 kg/m2 [facility] Oxygen saturation in Arterial blood by Pulse oximetry 2023-06-24 02:27:00 100 /min [facility] Systolic blood pressure 2023-05-19 01:31:00 119 mm[Hg] [facility] Diastolic blood pressure 2023-05-19 01:31:00 87 mm[Hg] [facility] Heart rate 2023-05-19 01:29:00 95 /min [facility] Body temperature 2023-05-19 01:29:00 37 [place] [facility] Respiratory rate 2023-05-19 01:29:00 16 /min [facility] Body height 2023-05-19 01:29:00 154.9 cm [facility] Body weight 2023-05-19 01:29:00 71.578 kg [facility] BMI 2023-05-19 01:29:00 29.82 kg/m2 [facility] Oxygen saturation in Arterial blood by Pulse oximetry 2023-05-19 01:29:00 99 /min [facility] Systolic blood pressure 2023-05-18 16:34:00 117 mm[Hg] [facility] Diastolic blood pressure 2023-05-18 16:34:00 79 mm[Hg] [facility] Heart rate 2023-05-18 16:34:00 98 /min [facility] Body height 2023-05-18 16:34:00 154.9 cm [facility] Body weight 2023-05-18 16:34:00 71.759 kg [facility] BMI 2023-05-18 16:34:00 29.89 kg/m2 [facility] Systolic blood pressure 2023-04-30 16:05:00 139 mm[Hg] [facility] Diastolic blood pressure 2023-04-30 16:05:00 93 mm[Hg] [facility] Heart rate 2023-04-30 16:04:00 106 /min [facility] Body temperature 2023-04-30 16:04:00 36.72 [place] [facility] Respiratory rate 2023-04-30 16:04:00 18 /min [facility] Body height 2023-04-30 16:04:00 154.9 cm [facility] Body weight 2023-04-30 16:04:00 70.943 kg [facility] BMI 2023-04-30 16:04:00 29.55 kg/m2 [facility] Oxygen saturation in Arterial blood by Pulse oximetry 2023-04-30 16:04:00 99 /min [facility] Systolic blood pressure 2023-04-15 12:58:00 119 mm[Hg] [facility] Diastolic blood pressure 2023-04-15 12:58:00 86 mm[Hg] [facility] Heart rate 2023-04-15 12:58:00 95 /min [facility] Body temperature 2023-04-15 12:56:00 36.61 [place] [facility] Respiratory rate 2023-04-15 12:56:00 16 /min [facility] Body height 2023-04-15 12:56:00 154.9 cm [facility] Body weight 2023-04-15 12:56:00 68.539 kg [facility] BMI 2023-04-15 12:56:00 28.55 kg/m2 [facility] Oxygen saturation in Arterial blood by Pulse oximetry 2023-04-15 12:56:00 100 /min [facility] Systolic blood pressure 2023-04-08 14:44:00 125 mm[Hg] [facility] Diastolic blood pressure 2023-04-08 14:44:00 85 mm[Hg] [facility] Heart rate 2023-04-08 14:44:00 120 /min [facility] Body temperature 2023-04-08 14:33:00 36.22 [place] [facility] Respiratory rate 2023-04-08 14:33:00 18 /min [facility] Body height 2023-04-08 14:33:00 154.9 cm [facility] Body weight 2023-04-08 14:33:00 71.668 kg [facility] BMI 2023-04-08 14:33:00 29.85 kg/m2 [facility] Oxygen saturation in Arterial blood by Pulse oximetry 2023-04-08 14:33:00 100 /min [facility] Systolic blood pressure 2022-12-09 16:27:00 103 mm[Hg] [facility] Diastolic blood pressure 2022-12-09 16:27:00 66 mm[Hg] [facility] Heart rate 2022-12-09 16:27:00 110 /min [facility] Oxygen saturation in Arterial blood by Pulse oximetry 2022-12-09 16:27:00 98 /min [facility] Body temperature 2022-12-09 12:37:00 36.89 [place] [facility] Respiratory rate 2022-12-09 12:37:00 18 /min [facility] Body weight 2022-12-09 08:24:00 72.984 kg [facility] BMI 2022-12-09 08:24:00 30.40 kg/m2 [facility] Body height 2022-12-09 04:15:00 154.9 cm [facility] Systolic blood pressure 2022-11-11 02:12:00 136 mm[Hg] [facility] Diastolic blood pressure 2022-11-11 02:12:00 95 mm[Hg] [facility] Heart rate 2022-11-11 02:12:00 120 /min [facility] Oxygen saturation in Arterial blood by Pulse oximetry 2022-11-11 02:12:00 98 /min [facility] Body temperature 2022-11-11 01:59:00 36.89 [place] [facility] Body height 2022-11-11 01:59:00 154.9 cm [facility] Body weight 2022-11-11 01:59:00 67.314 kg [facility] BMI 2022-11-11 01:59:00 28.04 kg/m2 [facility] Procedures Procedure Date / Time Performed Performing Clinician Source FLU VACC ([id number]), 6 MO-64 YRS, .5ML, IM, TIV (FLUCELVAX) 2024-10-17 15:45:15 Doctor Unassigned, Doyle [facility] POCT HEMOGLOBIN A1C TEST 2024-10-17 14:31:00 Ene Sanchez [facility] POCT HEMOGLOBIN A1C TEST 2024-06-20 18:59:00 Ene Sanchez [facility] POCT URINALYSIS W/O SPECIFIC GRAVITY 2024-04-28 00:00:00 Mirella Hillman [facility] POCT URINALYSIS W/O SPECIFIC GRAVITY 2024-04-28 00:00:00 Kady Mirella [facility] CBC WITH DIFF 2024-04-11 17:21[facility]24-04-11 17:21[facility] 2024-04-11 09:30:[address] [facility] CBC WITH DIFF 2024-04-11 09:30:[address] [facility] POCT GLUCOSE (AUTOMATED) 2024-04-10 23:36:[address] [facility] POCT GLUCOSE (AUTOMATED) 2024-04-10 23:36:[address] [facility] POCT GLUCOSE (AUTOMATED) 2024-04-10 20:40:[address] [facility] POCT GLUCOSE (AUTOMATED) 2024-04-10 20:40:[address] [facility] POCT GLUCOSE (AUTOMATED) 2024-04-10 20:36:[address] [facility] POCT GLUCOSE (AUTOMATED) 2024-04-10 20:36:[address] [facility] [id number] - DE LAPS W/VAG HYSTERECT 250 GM/&RMVL TUBE&/OVARIES 2024-04-10 13:39:[address] [facility] SALPINGO-OOPHORECTOMY 2024-04-10 13:39:00 Kady [facility] [id number] - DE LAPS W/VAG HYSTERECT 250 GM/&RMVL TUBE&/OVARIES 2024-04-10 13:39:[address] [facility] SALPINGO-OOPHORECTOMY 2024-04-10 13:39:00 Linais , [facility] HB ABO GROUPING 2024-04-10 12:18:00 [facility] HB ABO GROUPING 2024-04-10 12:18:00 AngeloDanielle [facility] POCT GLUCOSE (AUTOMATED) 2024-04-10 12:03:00 [facility] POCT GLUCOSE (AUTOMATED) 2024-04-10 12:03:00 [facility] CBC WITH DIFF 2024-04-08 13:10:00 [facility] POCT TEST 2024-03-13 00:00:00 [facility] POCT URINALYSIS W/O SPECIFIC GRAVITY 2024-03-06 00:00:00 [facility] US PELVIS COMPLETE WITH TRANSVAGINAL 2024-03-03 18:54:33 [facility] DIABETES TESTING REPORTS 2023-10-15 06:01:00 Doctor Unassigned, Doyle [facility] POCT GLUCOSE(AGE >30DAYS) 2023-09-25 00:27:00 Alejandra Post [facility] POCT GLUCOSE (AUTOMATED) 2023-09-25 00:25:00 Alejandra Post [facility] POCT GLUCOSE (AUTOMATED) 2023-09-24 22:06:00 Alejandra Post [facility] POCT TEST 2023-09-24 21:02:00 Italia Post ra [facility] MAGNESIUM 2023-09-24 20:55:00 [facility]. METABOLIC PANEL ([id number]) 2023-09-24 20:55:00 Alejandra Post [facility] CBC WITH DIFF 2023-09-24 20:55:00 Alejandra [facility] GLYCOSYLATED HEMOGLOBIN (A1C) 2023-09-24 20:55:00 Alejandra Post [facility] URINALYSIS 2023-09-24 20:55:00 [facility] AC PANEL 21 + LACTIC ACID 2023-09-24 20:55:00 Alejandra Post [facility] POCT GLUCOSE (AUTOMATED) 2023-09-24 20:52:00 Alejandra Post [facility] CONSENT/REFUSAL FOR DIAGNOSIS AND TREATMENT 2023-09-24 20:25:49 Doctor Unassigned, Doyle [facility] COMP. METABOLIC PANEL ([id number]) 2023-09-14 13:47:00 Laly Johnson [facility] LIPID PANEL ([id number])(TOTAL CHOLESTEROL, TRIGLYCERIDES, HDL) 2023-09-14 13:47:00 Laly Johnson [facility] CBC WITH DIFF 2023-09-14 13:47:00 Laly Johnson [facility] GLYCOSYLATED HEMOGLOBIN (A1C) 2023-09-14 13:47:00 Laly Johnson [facility] PHYSICIAN ORDERS 2023-09-14 06:01:00 Doctor Unas signed, Doyle [facility] URINALYSIS 2023-06-24 02:56:00 Amrit Luther [facility] LIPASE 2023-06-24 02:54:00 Amrit Luther [facility] COMP. METABOLIC PANEL ([id number]) 2023-06-24 02:54:00 Amrit Luther [facility] CBC WITH DIFF 2023-06-24 02:54:00 Amrit Luther [facility] POCT TEST 2023-06-24 02:54:00 Lino Luther [facility] NOTICE OF PRIVACY PRACTICES 2023-06-24 02:25:01 Doctor Unassigned, Doyle [facility] CONSENT/REFUSAL FOR DIAGNOSIS AND TREATMENT 2023-06-24 02:22:10 Doctor Unassigned, Doyle [facility] XR FOOT 3+ VW RIGHT 2023-05-19 01:46:48 Saloni Celaya [facility] NM GASTRIC EMPTYING 2023-04-26 18:04:14 Alfredo Aburto [facility] DISCLOSURE AND CONSENT, MEDICAL AND SURGICAL PROCEDURES 2023-04-15 05:01:00 Doctor Unassigned, Doyle [facility] PHYSICIAN ORDERS 2023-04-07 05:01:00 Doctor Unas signed, Doyle [facility] POCT GLUCOSE (AUTOMATED) 2022-12-09 20:38:00 Ramona Valdivia [facility] BASIC METABOLIC PANEL (NA, K, CL, CO2, GLUCOSE, BUN, CREATININE, CA) 2022-12-09 15:22:00 Paul De Souza [facility] POCT GLUCOSE (AUTOMATED) 2022-12-09 12:37:00 Ramona Valdivia [facility] MAGNESIUM 2022-12-09 09:56:00 Rasta Rivera [facility] POCT GLUCOSE (AUTOMATED) 2022-12-09 07:00:00 Ramona Valdivia [facility] POCT GLUCOSE (AUTOMATED) 2022-12-09 03:10:00 Elisabet Hopkins [facility] POCT GLUCOSE (AUTOMATED) 2022-12-09 02:19:00 Elisabet Hopkins [facility] CT CHEST PULMONARY ANGIOGRAM 2022-12-09 00:08:00 Elisabet Hopkins [facility] XR KUB 2022-12-08 22:04:00 Elisabet Hopkins [facility] D-DIMER 2022-12-08 21:49:00 [facility] 2022-12-08 21:27:00 [facility] MAGNESI[facility] 2022-12-08 21:27:00 [facility] BETA HYDROXY-BUTYRATE 2022-12-08 21:27:00 Edwige Hopkins [facility] TROPONIN I 2022-12-08 21:27:00 [facility] FREE T4 2022-12-08 21:27:00 Elisabet Hopkins [facility] THYROID STIMULATING HORMONE 2022-12-08 21:27:00 Elisabet Hopkins [facility] COMP. METABOLIC PANEL (71803) 2022-12-08 21:27:00 Elisabet Hopkins [facility] CBC WITH DIFF 2022-12-08 21:27:00 Elisabet Hopkins [facility] URINALYSIS 2022-12-08 21:27:00 Elisabet Hopkins [facility] POCT TEST 2022-12-08 21:27:00 Norma Hopkins [facility] POCT GLUCOSE (AUTOMATED) 2022-12-08 21:07:00 Elisabet Hopkins [facility] CONSENT/REFUSAL FOR DIAGNOSIS AND TREATMENT 2022-12-08 21:00:53 Doctor Unassigned, Doyle [facility] CBC WITH DIFF 2022-11-13 14:02:00 Laly Johnson [facility] GLYCOSYLATED HEMOGLOBIN (A1C) 2022-11-13 14:02:00 Laly Johnson [facility] CONSENT/REFUSAL FOR DIAGNOSIS AND TREATMENT 2022-11-11 01:57:28 Doctor Unassigned, Doyle [facility] ASSIGNMENT OF BENEFITS 2022-11-11 01:57:15 Docto r Unassigned, Doyle [facility] Encounters Start Date/Time End Date/Time Encounter Type Admission Type Attending [facility] Care Facility Care Department Encounter ID Source 2023-06-17 12:23:03 Outpatient R SHANTE MARTINEZ [facility] [id number] [facility] 2021-07-13 14:30:23 Emergency [facility] [id number] [facility] 2021-07-13 00:25:05 Emergency [facility] [id number] [facility] 2024-10-18 00:00:00 2024-10-18 17:17:31 Patient Secure corry SanchezEne [facility] 1.0.114 350.1.13.10 4.2.7.2.686 [id number] 220 [id number] [facility] 2024-10-18 00:00:00 2024-10-18 15:51:42 Patient Secure Msg Daniel [facility] JOSE?[facility] 1.0.114 350.1.13.10 4.2.7.2.686 [id number] 220 [id number] [facility] 2024-10-17 09:45:00 2024-10-17 10:00:00 Locket Maker Visit Lab, Guille - Ene Baer Lab, Guille Jona [facility] JOSE?[facility] 1.114 350.1.13.10 4.2.7.2.686 [id number] [facility] 2024-10-17 09:40:00 2024-10-17 10:00:00 Imm/Inj Visit Nurse, Ene [place] Nurse, Guille [facility] JOSE?[facility] 1.114 350.1.13.10 4.2.7.2.686 [id number] [facility] 2024-10-17 09:40:00 2024-10-17 09:40:00 Outpatient R [facility] [id number] [facility] 2024-10-17 08:30:00 2024-10-17 09:00:00 Office Visit Daniel [facility] JOSE?[facility] 1.114 350.1.13.10 4.2.7.2.686 [id number] 220 [id number] [facility] 2024-09-21 00:00:00 2024-09-21 12:45:19 Patient Secure Msg Daniel [facility] JOSE?[facility] 1..114 350.1.13.10 4.2.7.2.686 [id number] 220 [id number] [facility] 2024-08-15 00:00:00 2024-08-15 13:54:10 Telephone Daniel [facility] JOSE?[facility] 1.2840.114 350.1.13.10 4.2.7.2.686 [id number] 220 [id number] [facility] 2024-07-17 08:45:00 2024-07-17 08:45:00 Outpatient R ANGELO-GARRY S, MIRELLA ANGELO-GARRY S, [facility] [id number] [facility] 2024-06-10 00:00:00 2024-07-15 18:24:22 Patient Secure Msg [facility] 1.2840.114 350.1.13.10 4.2.7.2.686 [id number] [facility] 2024-07-10 00:00:00 2024-07-10 15:05:41 [facility] 1.2840.114 350.1.13.10 4.2.7.2.686 [id number] 220 [id number] [facility] 2024-07-10 00:00:00 2024-07-10 14:25:42 Patient Secure Msg Daniel [facility] JOSE?[facility] 1.2840.114 350.1.13.10 4.2.7.2.686 [id number] 220 [id number] [facility] 2024-07-10 00:00:00 2024-07-10 14:05:08 Telephone Daniel [facility] JOSE?[facility] 1.2840.114 350.1.13.10 4.2.7.2.686 [id number] 220 [id number] [facility] 2024-07-10 00:00:00 2024-07-10 11:50:23 Refill Daniel [facility] 1.2.840.114 350.1.13.10 4.2.7.2.686 [id number] 220 [id number] [facility] 2024-06-20 14:00:00 2024-06-20 15:14:18 Outpatient R [facility] [id number] [facility] 2024-06-20 14:00:00 2024-06-20 15:14:18 Office Visit Daniel [facility] 1.2.840.114 350.1.13.10 4.2.7.2.686 [id number] 220 [id number] [facility] 2024-06-16 09:00:00 2024-06-16 09:00:00 Office Visit YeisonGarry keely Mirella [facility] NAL BUILDING 1.2.840.114 350.1.13.10 4.2.7.2.686 [id number] 134 [id number] [facility] 2024-06-16 09:00:00 2024-06-16 08:56:04 Outpatient R ANGELO-GARRY S, MIRELLA ANGELO-GARRY S, MIRELLA [facility] [id number] [facility] 2024-06-15 15:00:00 2024-06-15 15:00:00 Outpatient R ANGELO-GARRY S, MIRELLA ANGELO-GARRY S, MIRELLA [facility] [id number] [facility] 2024-06-08 14:30:00 2024-06-08 14:36:43 Outpatient R ANGELO-GARRY S, MIRELLA ANGELO-GARRY S, MIRELLA [facility] [id number] [facility] 2024-06-08 14:30:00 2024-06-08 14:36:43 Office Visit Angelo-Garry s, [facility] 1.2.840.114 350.1.13.10 4.2.7.2.686 [id number] [facility] 2024-05-03 09:09:45 2024-05-03 23:59:00 Outpatient R ANGELO-GARRY S, MIRELLA ANGELO-GARRY S, MIRELLA [facility] [id number] [facility] 2024-05-03 09:09:45 2024-05-03 23:59:00 Hospital Encounter Angelo-Garry s, Mirella [facility] 1.284.114 350.1.13.10 4.2.7.2.686 [id number] [facility] 2024-05-01 00:00:00 2024-05-01 00:00:00 Outpatient R ANGELO-GARRY S, MIRELLA ANGELO-GARRY S, MIRELLA [facility] [id number] [facility] 2024-04-28 08:30:00 2024-04-28 08:36:52 Outpatient R ANGELO-GARRY S, MIRELLA ANGELO-GARRY S, MIRELLA [facility] [id number] [facility] 2024-04-28 08:30:00 2024-04-28 08:36:52 Office Visit Angelo-Garry s, Mirella [facility] 1.2.840.114 350.1.13.10 4.2.7.2.686 [id number] 134 [id number] [facility] 2024-03-16 00:00:00 2024-04-22 18:25:46 Patient Secure Msg Doctor Unassigned, Doyle Doctor Unassigned, Doyle [facility] 1.840.114 350.1.13.10 4.2.7.2.686 [id number] 134 [id number] [facility] 2024-03-22 00:00:00 2024-04-22 18:19:20 Patient Secure Msg Doctor Unassigned, Doyle Doctor Unassigned, Doyle [facility] 1.2840.114 350.1.13.10 4.2.7.2.686 [id number] [facility] 2024-04-10 06:32:00 2024-04-11 15:10:00 Outpatient R ANGELO-GARRY S, MIRELLA ANGELO-GARRY S, MIRELLA [facility] [id number] [facility] 2024-04-10 06:32:00 2024-04-11 15:10:00 Hospital Encounter Angelo-Garry s, Mirella [facility] 1.20.114 350.1.13.10 4.2.7.2.686 [id number] [facility] 2024-04-07 00:00:00 2024-04-11 09:06:50 Patient Secure Msg SanchezEne [facility] 1.0.114 350.1.13.10 4.2.7.2.686 [id number] 220 [id number] [facility] 2024-04-10 07:15:00 2024-04-10 12:23:00 Surgery Angelo-Garry s, Mirella [facility] 1.20.114 350.1.13.10 4.2.7.2.686 [id number] [facility] 2024-04-08 08:00:00 2024-04-08 08:15:00 Locket Maker Visit Pob, Adc Lab Main Angelo-Garry s, Mirella [facility] PROFESSIO NAL BUILDING 1.2840.114 350.1.13.10 4.2.7.2.686 [id number] 353 [id number] [facility] 2024-04-08 08:00:00 2024-04-08 08:00:00 Outpatient R ANGELO-GARRY S, MIRELLA ANGELO-GARRY S, [facility] [id number] [facility] 2024-03-30 00:00:00 2024-04-07 16:18:19 Patient Secure g Daniel [facility] 1.2.840.114 350.1.13.10 4.2.7.2.686 [id number] 220 [id number] [facility] 2024-04-07 08:00:00 2024-04-07 08:26:52 Outpatient R ANGELO-GARRY S, MIRELLA ANGELO-GARRY S, [facility] [id number] [facility] 2024-04-07 08:00:00 2024-04-07 08:26:52 Office Visit Angelo-Garry s, [facility] BUILDING 1.2.840.114 350.1.13.10 4.2.7.2.686 [id number] 134 [id number] [facility] 2024-04-04 00:00:00 2024-04-04 14:43:05 Telephone Gi-Garry s [facility] BUILDING 1.2.840.114 350.1.13.10 4.2.7.2.686 [id number] 134 [id number] [facility] 2024-03-28 00:00:00 2024-03-28 08:51:29 Patient Secure g Daniel [facility] 1.2.840.114 350.1.13.10 4.2.7.2.686 [id number] 220 [id number] [facility] 2024-03-17 09:00:00 2024-03-17 09:00:00 Outpatient R ELVIRA LOPEZ [facility] [id number] [facility] 2024-03-09 00:00:00 2024-03-14 09:04:23 Telephone Ene Sanchez [facility] 1.2.840.114 350.1.13.10 4.2.7.2.686 [id number] 220 [id number] [facility] 2024-03-13 14:00:00 2024-03-13 14:30:00 [facility] 1.2.840.114 350.1.13.10 4.2.7.2.686 [id number] 134 [id number] [facility] 2024-03-13 14:00:00 2024-03-13 14:13:04 Outpatient R GI-GARRY S, MIRELLA ANDREY S, [facility] [id number] [facility] 2024-03-08 00:00:00 2024-03-08 10:18:40 Telephone Andrey riggs [facility] BUILDING 1.2.840.114 350.1.13.10 4.2.7.2.686 [id number] 134 [id number] [facility] 2024-03-08 00:00:00 2024-03-08 09:36:28 Telephone Andrey riggs [facility] BUILDING 1.2.840.114 350.1.13.10 4.2.7.2.686 [id number] 134 [id number] [facility] 2024-03-06 00:00:00 2024-03-07 08:51:35 Refill Daniel [facility] 1.2.840.114 350.1.13.10 4.2.7.2.686 [id number] [facility] 2024-03-06 15:00:00 2024-03-06 15:52:14 Outpatient R GI-GARRY S, MIRELLA GI-GARRY S, [facility] [id number] [facility] 2024-03-06 15:00:00 2024-03-06 15:52:14 [facility] 1..840.114 350.1.13.10 4.2.7.2.686 [id number] [facility] 2024-03-03 13:12:26 2024-03-03 23:59:00 Outpatient R GI-GARRY S, MIRELLA GI-GARRY S, [facility] [id number] [facility] 2024-03-03 13:00:00 2024-03-03 23:59:00 Hospital Encounter Andrey riggs [facility] 1..840.114 350.1.13.10 4.2.7.2.686 [id number] [facility] 2024-02-01 12:00:00 2024-02-01 12:51:48 Outpatient R [facility] [id number] [facility] 2024-02-01 12:00:00 2024-02-01 12:51:48 [facility] 1..840.114 350.1.13.10 4.2.7.2.686 [id number] 220 [id number] [facility] 2024-01-31 12:45:00 2024-01-31 13:00:00 Locket Maker Visit Podaniel, Adc Lab Main Dinora Boyer [facility] BUILDING 1..840.114 350.1.13.10 4.2.7.2.686 [id number] [facility] 2024-01-31 12:45:00 2024-01-31 12:45:00 Outpatient R [facility] [id number] [facility] 2024-01-31 12:45:00 2024-01-31 12:45:00 Outpatient R SAURABH DINORA [facility] [id number] [facility] 2023-11-16 00:00:00 2023-11-16 00:00:00 Telephone Nevin Barboza [facility] 1.2840.114 350.1.13.10 4.2.7.2.686 [id number] 220 [id number] [facility] 2023-11-13 00:00:00 2023-11-13 00:00:00 Patient Secure Msg Doctor Unassigned, Doyle [facility] 1.2840.114 350.1.13.10 4.2.7.2.686 [id number] [facility] 2023-11-13 00:00:00 2023-11-13 00:00:00 Patient Secure Msg Doctor Unassigned, Doyle [facility] 1.2.840.114 350.1.13.10 4.2.7.2.686 [id number] [facility] 2023-10-22 00:00:00 2023-10-22 00:00:00 Patient Secure Msg Doctor Unassigned, Doyle [facility] 1.2.840.114 350.1.13.10 4.2.7.2.686 [id number] [facility] 2023-10-22 00:00:00 2023-10-22 00:00:00 Patient Secure Msg Doctor Unassigned, Doyle [facility] 1.2.840.114 350.1.13.10 4.2.7.2.686 [id number] [facility] 2023-10-15 09:30:00 2023-10-15 10:17:59 Outpatient R ELVIRA LOPEZ [facility] [id number] [facility] 2023-10-15 09:30:00 2023-10-15 10:17:59 Office Visit John [facility] JOSE?[facility] 1.2.840.114 350.1.13.10 4.2.7.2.686 [id number] 220 [id number] [facility] 2023-10-15 00:00:00 2023-10-15 00:00:00 Orders Only Doctor Unassigned, Doyle [facility] 1.2.840.114 350.1.13.10 4.2.7.2.686 [id number] [facility] 2023-10-05 09:00:00 2023-10-05 09:00:00 Outpatient R [facility] [id number] [facility] 2023-10-04 00:00:00 2023-10-04 00:00:00 [facility]phone [facility] 1.2.840.114 350.1.13.10 4.2.7.2.686 [id number] 220 [id number] [facility] 2023-09-28 13:00:00 2023-09-28 13:30:00 Office Visit Daniel [facility] JOSE?[facility] 1.2.840.114 350.1.13.10 4.2.7.2.686 [id number] 220 [id number] [facility] 2023-09-28 13:00:00 2023-09-28 13:00:00 Outpatient R [facility] [id number] [facility] 2023-09-24 14:43:00 2023-09-24 19:00:00 Emergency X ALEJANDRA POST [facility] [id number] [facility] 2023-09-24 14:43:00 2023-09-24 19:00:00 Emergency Alejandra Post Yohan [facility] 1.20.114 350.1.13.10 4.2.7.2.686 [id number] [facility] 2023-09-24 00:00:00 2023-09-24 00:00:00 Letter (Out) Stepan James [facility] 1.20.114 350.1.13.10 4.2.7.2.686 [id number] [facility] 2023-09-14 07:45:00 2023-09-14 08:00:00 Locket Maker Visit Pob, Adc Lab Main Dinora Boyer [facility] PROFESS[facility] 1..114 350.1.13.10 4.2.7.2.686 [id number] [facility] 2023-09-14 07:45:00 2023-09-14 07:45:00 Outpatient R DINORA BOYER [facility] [id number] [facility] 2023-09-14 00:00:00 2023-09-14 00:00:00 Orders Only Doctor Unassigned, Doyle [facility] 1.20.114 350.1.13.10 4.2.7.2.686 [id number] [facility] 2023-06-23 21:31:00 2023-06-23 22:46:00 Emergency X AMRIT LUTHER [facility] [id number] [facility] 2023-06-23 21:31:00 2023-06-23 22:46:00 Emergency Amrit Luther [facility] 1.20.114 350.1.13.10 4.2.7.2.686 [id number] [facility] 2023-06-21 00:00:00 2023-06-21 00:00:00 Patient Secure Msg Doctor Unassigned, Doyle [facility] 1.84.114 350.1.13.10 4.2.7.2.686 [id number] [facility] 2023-05-27 00:00:00 2023-05-27 00:00:00 Patient Secure Msg Doctor Unassigned, Doyle [facility] 1.84.114 350.1.13.10 4.2.7.2.686 [id number] [facility] 2023-05-27 00:00:00 2023-05-27 00:00:00 Patient Secure Msg Doctor Unassigned, Doyle [facility] 1.84.114 350.1.13.10 4.2.7.2.686 [id number] [facility] 2023-05-27 00:00:00 2023-05-27 00:00:00 Patient Secure Msg Doctor Unassigned, Doyle [facility] 1.84.114 350.1.13.10 4.2.7.2.686 [id number] [facility] 2023-05-26 00:00:00 2023-05-26 00:00:00 Patient Secure Msg Gregorio Shante Katrin [facility] 1.840.114 350.1.13.10 4.2.7.2.686 [id number] [facility] 2023-05-18 20:40:38 2023-05-18 23:59:00 Outpatient R ABRAHAN CELAYA [facility] [id number] [facility] 2023-05-18 20:40:38 2023-05-18 23:59:00 Hospital Encounter Abrahan Celaya [facility] BU[facility] 1.2.840.114 350.1.13.10 4.2.7.2.686 [id number] [facility] 2023-05-18 20:40:00 2023-05-18 21:00:00 Urgent Care Abrahan Celaya, [facility] 1.840.114 350.1.13.10 4.2.7.2.686 [id number] [facility] 2023-05-18 12:00:00 2023-05-18 12:54:37 Office Visit Daniel [facility] 1.84.114 350.1.13.10 4.2.7.2.686 [id number] [facility] 2023-05-14 00:00:00 2023-05-14 00:00:00 Patient Secure Msg Doctor Unassigned, Doyle [facility] 1.840.114 350.1.13.10 4.2.7.2.686 [id number] [facility] 2023-04-30 11:00:00 2023-04-30 11:30:59 Outpatient R GI-GARRY S, MIRELLA GI-GARRY SKENNMIRELLA [facility] [id number] [facility] 2023-04-30 11:00:00 2023-04-30 11:30:59 Office Visit Mirella Booker [facility] 1.84.114 350.1.13.10 4.2.7.2.686 [id number] [facility] 2023-04-29 00:00:00 2023-04-29 00:00:00 Outpatient R JUWAN HAY [facility] [id number] [facility] 2023-04-28 00:00:00 2023-04-28 00:00:00 Patient Secure Ene Anaya [facility] LAR[facility] GARCIA?[facility] 1.84.114 350.1.13.10 4.2.7.2.686 [id number] [facility] 2023-04-26 08:57:30 2023-04-26 23:59:00 Outpatient R RONALD BRAVO [facility] [id number] [facility] 2023-04-26 08:57:30 2023-04-26 23:59:00 Hospital Encounter [facility] 1.114 350.1.13.10 4.2.7.2.686 [id number] [facility] 2023-04-20 10:30:00 2023-04-20 10:30:00 Outpatient DONALD SPENCE [facility] [id number] [facility] 2023 00:00:00 2023 00:00:00 Outpatient JUWAN CRAFT [facility] [id number] [facility] 2023-04-15 08:00:00 2023-04-15 08:30:00 [facility]114 350.1.13.10 4.2.7.2.686 [id number] [facility] 2023-04-15 08:00:00 2023-04-15 08:00:00 Outpatient Jose Enrique BRAVO [facility] [id number] [facility] 2023-04-15 00:00:00 2023-04-15 00:00:00 Orders Only Doctor Unassigned, Doyle [facility] 1..114 350.1.13.10 4.2.7.2.686 [id number] [facility] 2023-04-08 10:30:00 2023-04-08 16:52:42 Outpatient R HAYJAMEEY [facility] [id number] [facility] 2023-04-08 10:30:00 2023-04-08 11:00:00 Office Visit HayJameeglen [facility] 1.114 350.1.13.10 4.2.7.2.686 [id number] [facility] 2023-04-07 10:00:00 2023-04-07 10:15:00 Locket Maker Visit Pob, Adc Lab Main Dinora Boyer [facility] 1..114 350.1.13.10 4.2.7.2.686 [id number] [facility] 2023-04-07 10:00:00 2023-04-07 10:00:00 Outpatient DNIORA SIGALA [facility] [id number] [facility] 2023-04-07 00:00:00 2023-04-07 00:00:00 Orders Only Doctor Unassigned, Doyle [facility] 1.114 350.1.13.10 4.2.7.2.686 [id number] [facility] 2023-04-05 12:45:00 2023-04-05 12:45:00 Outpatient R [facility] [id number] [facility] 2022-12-10 00:00:00 2022-12-10 00:00:00 Transition of Care Poornima Randall 1..114 350.1.13.10 4.2.7.2.686 [id number] [facility] 2022-12-08 16:09:00 2022-12-09 16:19:00 Outpatient [facility] [facility] [id number] [facility] 2022-12-08 16:09:00 2022-12-09 16:19:00 Emergency Emiliuneddie, Elisabet Carlisle, Andrzej Valdivia, Ramona Rivera, [facility] 1.114 350.1.13.10 4.2.7.2.686 [id number] [facility] 2022-11-30 00:00:00 2022-11-30 00:00:00 Patient Secure Mscorry Sanchez, Ene [facility] 1.114 350.1.13.10 4.2.7.2.686 [id number] [facility] 2022-11-13 07:45:00 2022-11-13 08:00:00 Locket Maker Visit Pob, Adc Lab Main Dinora Boyer [facility] NAL BUILDING 1.114 350.1.13.10 4.2.7.2.686 [id number] [facility] 2022-11-13 07:45:00 2022-11-13 07:45:00 Outpatient DINORA SIGALA [facility] [id number] [facility] 2022-11-10 20:00:00 2022-11-10 20:37:16 Outpatient GENA ANGULO [facility] [id number] [facility] 2022-11-10 20:00:00 2022-11-10 20:37:16 Urgent Care Gena Ascencio Unknown, Attending [facility] 1.114 350.1.13.10 4.2.7.2.686 [id number] 370 [id number] [facility] 2022-11-10 00:00:00 2022-11-10 00:00:00 Orders Only Doctor Unassigned, Doyle [facility] 1.114 350.1.13.10 4.2.7.2.686 [id number] [id number] [facility] 2022-11-10 00:00:00 2022-11-10 00:00:00 Letter (Out) Sonu [facility] JOSE?[facility] 1.2.840.114 350.1.13.10 4.2.7.2.686 [id number] [facility] 2022-11-10 00:00:00 2022-11-10 00:00:00 [facility] (Out) [facility] 1..840.114 350.1.13.10 4.2.7.2.686 [id number] [facility] 2022-03-03 14:00:00 2022-03-03 14:00:00 Outpatient R [facility] [id number] [facility] 2022-02-17 00:00:00 2022-02-17 00:00:00 Telephone Daniel [facility] JOSE?[facility] BUILDING 1..840.114 350.1.13.10 4.2.7.2.686 [id number] 220 [id number] [facility] 2022-02-12 00:00:00 2022-02-12 00:00:00 Telephone Daniel [facility] JOSE?[facility] 1..840.114 350.1.13.10 4.2.7.2.686 [id number] 220 [id number] [facility] 2022-02-04 00:00:00 2022-02-04 00:00:00 Telephone Daniel [facility] JOSE?[facility] BUILDING 1.2.840.114 350.1.13.10 4.2.7.2.686 [id number] 220 [id number] [facility] 2022-01-06 00:00:00 2022-01-06 00:00:00 Refill Sanchez, Wentong [facility] BUILDING 1.84.114 350.1.13.10 4.2.7.2.686 [id number] [facility] 2021-09-07 15:30:00 2021-09-07 15:45:00 Laboratory Only Only, Ang Db Test Ivett [facility] JOSE?[facility] 1.84.114 350.1.13.10 4.2.7.2.686 [id number] 370 [id number] [facility] 2021-09-07 15:30:00 2021-09-07 15:30:00 Outpatient R IVETT DONALD [facility] [id number] [facility] 2021-08-13 08:21:29 2021-08-13 08:36:29 Locket Maker Visit Pob, Adc Lab Main Dinora Boyer [facility] 1.84.114 350.1.13.10 4.2.7.2.686 [id number] [facility] 2021-08-13 08:00:00 2021-08-13 08:00:00 Outpatient R DINORA BOYER [facility] [id number] [facility] 2021-08-13 00:00:00 2021-08-13 00:00:00 Orders Only Doctor Unassigned, Doyle [facility] 1.114 350.1.13.10 4.2.7.2.686 [id number] [id number] [facility] 2021-08-01 09:55:54 2021-08-01 23:59:00 Outpatient R RADIOLOGY [facility] [id number] [facility] 2021-08-01 09:55:54 2021-08-01 23:59:00 Hospital Encounter Radiology [facility] 1..114 350.1.13.10 4.2.7.2.686 [id number] [facility] 2021-07-28 07:41:29 2021-07-28 07:56:29 Locket Maker Visit Pob, Adc Lab Main Dinora oByer [facility] 1..840.114 350.1.13.10 4.2.7.2.686 [id number] [facility] 2021-07-28 07:45:00 2021-07-28 07:45:00 Outpatient DINORA SIGALA [facility] [id number] [facility] 2021-07-28 00:00:00 2021-07-28 00:00:00 Orders Only Doctor Unassigned, Doyle [facility] 1.840.114 350.1.13.10 4.2.7.2.686 [id number] [facility] 2021-06-04 09:00:00 2021-06-04 09:00:00 Outpatient Jose Enrique ROOT [facility] [id number] [facility] 2021-06-03 13:30:00 2021-06-03 13:30:00 Outpatient R ENE SANCHEZ [facility] [id number] [facility] 2021-04-15 00:00:00 2021-04-15 00:00:00 Refsantino Root [facility] 1..840.114 350.1.13.10 4.2.7.2.686 [id number] [facility] 2021-02-26 00:00:00 2021-02-26 00:00:00 Patient Secure Msg Ene Sanchez [facility] 1..840.114 350.1.13.10 4.2.7.2.686 [id number] [facility] 2021-02-26 00:00:00 2021-02-26 00:00:00 Patient Secure Msg Ene Sanchez [facility] 1.2.840.114 350.1.13.10 4.2.7.2.686 [id number] [facility] 2021-02-25 15:07:29 2021-02-25 15:22:29 Locket Maker Visit Pob, Adc Lab Main Donald Root [facility] 1.2.840.114 350.1.13.10 4.2.7.2.686 [id number] [facility] 2021-02-25 13:48:36 2021-02-25 14:49:37 Office Visit Ene Sanchez [facility] 1.2840.114 350.1.13.10 4.2.7.2.686 [id number] [facility] 2021-02-25 14:00:00 2021-02-25 14:00:00 Outpatient R ENE SANCHEZ [facility] [id number] [facility] 2021-02-25 00:00:00 2021-02-25 00:00:00 Orders Only Doctor Unassigned, Doyle [facility] 1.2.840.114 350.1.13.10 4.2.7.2.686 [id number] [id number] [facility] 2021-02-25 00:00:00 2021-02-25 00:00:00 Telephone Ene Sanchez [facility] 1.2.840.114 350.1.13.10 4.2.7.2.686 [id number] [facility] 2021-02-25 00:00:00 2021-02-25 00:00:00 Telephone Donald Root [facility] 1.2.840.114 350.1.13.10 4.2.7.2.686 [id number] 134 [id number] [facility] 2021-02-19 00:00:00 2021-02-19 00:00:00 [facility] 1.0.114 350.1.13.10 4.2.7.2.686 [id number] [facility] 2021-01-28 15:00:00 2021-01-28 15:00:00 Outpatient R [facility] [id number] [facility] 2021-01-22 14:00:00 2021-01-22 14:00:00 Outpatient Jose Enrique [facility] [id number] [facility] 2021-01-08 00:00:00 2021-01-08 00:00:00 Patient Secure Msg Doctor Unassigned, Doyle [facility] 1..114 350.1.13.10 4.2.7.2.686 [id number] 370 [id number] [facility] 2021-01-06 00:00:00 2021-01-06 00:00:00 Refill Haylie Brito [facility] 1..114 350.1.13.10 4.2.7.2.686 [id number] [facility] 2021-01-06 00:00:00 2021-01-06 00:00:00 RefDonald Hayes [facility] Building 1..114 350.1.13.10 4.2.7.2.686 [id number] 134 [id number] [facility] 2021-01-03 00:00:00 2021-01-03 00:00:00 Patient Secure Msg Doctor Unassigned, Doyle [facility] 1.0.114 350.1.13.10 4.2.7.2.686 [id number] [facility] 2021-01-01 19:44:00 2021-01-01 21:09:00 Emergency DossPaul [facility] 1.0.114 350.1.13.10 4.2.7.2.686 [id number] 084 [id number] [facility] 2021-01-01 18:42:58 2021-01-01 19:47:46 Urgent Care Provider, [facility] Nanci Osborn [facility] Office Building One 1..114 350.1.13.10 4.2.7.2.686 [id number] [facility] 2021-01-01 19:00:00 2021-01-01 19:00:00 Outpatient R [facility] [id number] [facility] 2020-12-22 00:00:00 2020-12-22 00:00:00 Donald Moore [facility] Building 1.84.114 350.1.13.10 4.2.7.2.686 [id number] [facility] 2020-12-02 00:00:00 2020-12-02 00:00:00 Patient Outreach Tony Luke [facility] [place] 1.84.114 350.1.13.10 4.2.7.2.686 [id number] [facility] 2020-11-04 09:46:00 2020-11-04 10:38:00 Emergency Alejandra Post [facility] 1..114 350.1.13.10 4.2.7.2.686 [id number] [facility] 2020-11-04 00:00:00 2020-11-04 00:00:00 Orders Only Doctor Unassigned, Doyle [facility] 1..114 350.1.13.10 4.2.7.2.686 [id number] [id number] [facility] 2020-11-04 00:00:00 2020-11-04 00:00:00 Case Management Donald Root [facility] 1.840.114 350.1.13.10 4.2.7.2.686 [id number] 134 [id number] [facility] 2020-10-16 10:19:42 2020-10-16 17:14:01 Office Visit IvettDonlad [facility] 1.2.114 350.1.13.10 4.2.7.2.686 [id number] [facility] 2020-10-16 10:30:00 2020-10-16 10:30:00 Outpatient R IVETT [facility] [id number] [facility] 2020-10-02 00:00:00 2020-10-02 00:00:00 Patient Secure Msg Ene Sanchez [facility] 1.2.114 350.1.13.10 4.2.7.2.686 [id number] [facility] 2020-09-23 00:00:00 2020-09-23 00:00:00 Patient Secure Msg Doctor Unassigned, Doyle [facility] 1.284.114 350.1.13.10 4.2.7.2.686 [id number] [facility] 2020-09-12 00:00:00 2020-09-12 00:00:00 Telephone Ene Sanchez [facility] 1.840.114 350.1.13.10 4.2.7.2.686 [id number] [facility] 2020-09-11 16:13:28 2020-09-11 16:28:28 Locket Maker Visit 2, Adc Lab [facility] Building 1.2.840.114 350.1.13.10 4.2.7.2.686 [id number] [facility] 2020-09-11 14:01:41 2020-09-11 16:09:52 [facility] 1.284.114 350.1.13.10 4.2.7.2.686 [id number] [facility] 2020-09-11 14:30:00 2020-09-11 14:30:00 Outpatient R [facility] [id number] [facility] 2020-09-06 10:26:00 2020-09-06 14:43:00 Emergency X PAUL DOSS [facility] ERT [id number] [facility] 2020-09-06 10:26:00 2020-09-06 14:43:00 Emergency Paul Doss S [facility] 1.284.114 350.1.13.10 4.2.7.2.686 [id number] [facility] 2020-09-04 00:00:00 2020-09-04 00:00:00 Telephone Donald Root [facility] 1.2.840.114 350.1.13.10 4.2.7.2.686 [id number] 134 [id number] [facility] 2020-08-15 00:00:00 2020-08-15 00:00:00 Telephone Maddie Harris [facility] 1.2.840.114 350.1.13.10 4.2.7.2.686 [id number] [facility] 2020-08-15 00:00:00 2020-08-15 00:00:00 Orders Only Doctor Unassigned, Doyle [facility] 1.2.840.114 350.1.13.10 4.2.7.2.686 [id number] [facility] 2020-08-15 00:00:00 2020-08-15 00:00:00 Telephone Maddie Harris [facility] 1.2.840.114 350.1.13.10 4.2.7.2.686 [id number] [facility] 2020-07-16 00:00:00 2020-07-16 00:00:00 Orders Only Doctor Unassigned, Doyle [facility] 1.2.840.114 350.1.13.10 4.2.7.2.686 [id number] [facility] 2020-07-16 00:00:00 2020-07-16 00:00:00 Case Management Donald Root [facility] 1.2.840.114 350.1.13.10 4.2.7.2.686 [id number] 134 [id number] [facility] 2020-07-16 00:00:00 2020-07-16 00:00:00 Telephone Donald Root [facility] Building 1.2.840.114 350.1.13.10 4.2.7.2.686 [id number] 134 [id number] [facility] 2020-07-15 00:00:00 2020-07-15 00:00:00 Case Management Donald Root [facility] Building 1.2.840.114 350.1.13.10 4.2.7.2.686 [id number] 134 [id number] [facility] 2020-07-11 08:49:28 2020-07-11 09:24:10 Office Visit Angela Harrisen Nura [facility] Building 1.2.840.114 350.1.13.10 4.2.7.2.686 [id number] [facility] 2020-07-11 08:30:00 2020-07-11 08:30:00 Outpatient R MADDIE HARRIS [facility] [id number] [facility] 2020-07-04 15:00:00 2020-07-04 15:00:00 Outpatient R MADDIE HARRIS [facility] [id number] [facility] 2020-06-27 07:41:33 2020-06-27 23:59:00 Hospital Encounter Ivett Donald [facility] 1.840.114 350.1.13.10 4.2.7.2.686 [id number] [facility] 2020-06-27 00:00:00 2020-06-27 00:00:00 Outpatient R IVETT [facility] [id number] [facility] 2020-06-27 00:00:00 2020-06-27 00:00:00 Telephone Maddie Harris [facility] Profess[facility] nal Building 1..840.114 350.1.13.10 4.2.7.2.686 [id number] [facility] 2020-06-26 13:30:00 2020-06-26 13:30:00 Outpatient R ENE SANCHEZ [facility] [id number] [facility] 2020-06-04 10:16:38 2020-06-04 10:31:38 Locket Maker Visit 2, Adc Lab Ivett [facility] Professio nal Building 1.2.840.114 350.1.13.10 4.2.7.2.686 [id number] [facility] 2020-06-04 08:54:06 2020-06-04 10:09:09 [facility] 1.284.114 350.1.13.10 4.2.7.2.686 [id number] [facility] 2020-06-04 09:00:00 2020-06-04 09:00:00 Outpatient DONALD SPENCE [facility] [id number] [facility] 2020-05-31 13:50:48 2020-05-31 23:59:00 Hospital Encounter Donald Root [facility] 1..840.114 350.1.13.10 4.2.7.2.686 [id number] [facility] 2020-05-31 00:00:00 2020-05-31 00:00:00 Outpatient DONALD SPENCE [facility] [id number] [facility] 2020-05-29 08:12:06 2020-05-29 08:27:06 Locket Maker Visit Pob, Adc Lab Main Ivett [facility] 1..840.114 350.1.13.10 4.2.7.2.686 [id number] [facility] 2020-05-29 08:15:00 2020-05-29 08:15:00 [id number] 2020-05-17 08:51:34 2020-05-17 09:18:31 [facility] 1.2.840.114 350.1.13.10 4.2.7.2.686 [id number] [facility] 2020-05-17 09:00:00 2020-05-17 09:00:00 Outpatient R IVETT [facility] [id number] [facility] 2020-05-17 08:00:00 2020-05-17 08:30:00 Office Visit Lili Nicholson [facility] 1.2.840.114 350.1.13.10 4.2.7.2.686 [id number] [facility] 2020-05-17 08:00:00 2020-05-17 08:00:00 Outpatient LILI ORTIZ [facility] [id number] [facility] 2020-05-17 00:00:00 2020-05-17 00:00:00 Orders Only Doctor Unassigned, Doyle [facility] 1..840.114 350.1.13.10 4.2.7.2.686 [id number] [facility] 2020-05-10 10:30:00 2020-05-10 10:30:00 Outpatient Jose Enrique CAMDONALD HUMPHRIES [facility] [id number] [facility] 2020-03-31 14:45:58 2020-03-31 15:41:11 Laboratory Only Lab, Adc [facility] 1..840.114 350.1.13.10 4.2.7.2.686 [id number] [facility] 2020-03-31 15:00:00 2020-03-31 15:00:00 Outpatient ANUJ GLYNN [facility] [id number] [facility] Results Test Description Test Time Test Comments Results Result Co mments Source [facility] Hemoglobin A1C [id number] 18:59:00* Test Item Value Reference Range Interpretation Comme nts POCT HBA1C (test code = 4548-4) 6.2 % 4-6 A Lab Interpretation (test cod e = 00270-3) Abnormal [facility] Urinalysis w/o Specific [id number] 13:14:00* Test Item Value Reference Range Interpretation Comme nts POCT PH U (test code = 3254) 5 mg/dl 5-8 POCT U LEUK EST (test code = 3263) ++ Negative - Negative POCT U NIT (test code = 3262) negative Negative - Negati ve POCT U PROT (test code = 3259) trace Negative - Negat sherita POCT U GLU (test code = 3256) normal Negative - Negati ve POCT U KETONE (test code = 3258) negative Negative - Neg ative POCT U BLD (test code = 3257) negative Negative - Negati ve [facility] - On Postoperative Day # 36455-27-79 13:01:47* Test Item Value Reference Range Interpretation [...] g/dL 31.6-35.1 L RDW-SD (test code = 85574-2) 44.6 fL 39.0-49.9 RDW-CV (test code = 788-0) 14.9 % 12.0-15.5 PLT (test code = 777-3) 331 166-358 MPV (test code = 81908-9) 10.1 fL 9.5-12.9 NRBC/100 WBC (test code = 0990844742) 0.0 0.0-10.0 NRBC x10^3 (test code = 7599465800) See_Comment [Automated messa ge] The system which generated this result transmitted reference range: 10*3/?L. The reference range was not used to interpret this result as normal/abnormal. GRAN MAT (NEUT) % (test code = 770-8) 66.6 % IMM GRAN % (test code = 7889981881) 0.50 % LYMPH % (test code = 736-9) 25.3 % MONO % (test code = 5905-5) 6.6 % EOS % (test code = 713-8) 0.4 % BASO % (test code = 706-2) 0.6 % GRAN MAT x10^3(ANC) (test code = 5798554595) 7.07 10*3/uL 1.88-7.09 IMM GRAN x10^3 (test code = 1582483071) 0.05 10*3/uL 0.00-0.06 LYMPH x10^3 (test code = 731-0) 2.68 10*3/uL 1.32-3.29 MONO x10^3 (test code = 742-7) 0.70 10*3/uL 0.33-0.92 EOS x10^3 (test code = 711-2) 0.04 10*3/uL 0.03-0.39 BASO x10^3 (test code = 704-7) 0.06 10*3/uL 0.01-0.07 Lab Interpretation (test code = 12476-2) Abnormal [facility] - On Postoperative Day # 48454-98-76 13:01:47* Test Item Value Reference Range Interpretation [...] g/dL 31.6-35.1 L RDW-SD (test code = 90877-8) 44.6 fL 39.0-49.9 RDW-CV (test code = 788-0) 14.9 % 12.0-15.5 PLT (test code = 777-3) 331 166-358 MPV (test code = 83324-9) 10.1 fL 9.5-12.9 NRBC/100 WBC (test code = 1071255548) 0.0 0.0-10.0 NRBC x10^3 (test code = 1879114344) See_Comment [Automated messa ge] The system which generated this result transmitted reference range: 10*3/?L. The reference range was not used to interpret this result as normal/abnormal. GRAN MAT (NEUT) % (test code = 770-8) 66.6 % IMM GRAN % (test code = 1609585760) 0.50 % LYMPH % (test code = 736-9) 25.3 % MONO % (test code = 5905-5) 6.6 % EOS % (test code = 713-8) 0.4 % BASO % (test code = 706-2) 0.6 % GRAN MAT x10^3(ANC) (test code = 1193845489) 7.07 10*3/uL 1.88-7.09 IMM GRAN x10^3 (test code = 6952660481) 0.05 10*3/uL 0.00-0.06 LYMPH x10^3 (test code = 731-0) 2.68 10*3/uL 1.32-3.29 MONO x10^3 (test code = 742-7) 0.70 10*3/uL 0.33-0.92 EOS x10^3 (test code = 711-2) 0.04 10*3/uL 0.03-0.39 BASO x10^3 (test code = 704-7) 0.06 10*3/uL 0.01-0.07 Lab Interpretation (test code = 65045-9) Abnormal [facility] GLUCOSE (AUTOMATED)2024-04-10 23:44:15* Test Item Value Reference Range Interpretation Comme nts POCT GLU (test code = 4644735114) 181 mg/dL 70-110 H Lab Interpretation (test cod e = 58432-1) Abnormal [facility] GLUCOSE (AUTOMATED)2024-04-10 23:44:15* Test Item Value Reference Range Interpretation Comme nts POCT GLU (test code = 5477637548) 181 mg/dL 70-110 H Lab Interpretation (test cod e = 67486-4) Abnormal [facility] GLUCOSE (AUTOMATED)2024-04-10 20:50:46* Test Item Value Reference Range Interpretation Comme nts POCT GLU (test code = 7747343925) 224 mg/dL 70-110 H Lab Interpretation (test cod e = 52851-8) Abnormal [facility] GLUCOSE (AUTOMATED)2024-04-10 20:50:46* Test Item Value Reference Range Interpretation Comme nts POCT GLU (test code = 2770912431) 224 mg/dL 70-110 H Lab Interpretation (test cod e = 45359-8) Abnormal [facility] GLUCOSE (AUTOMATED)2024-04-10 20:38:03* Test Item Value Reference Range Interpretation Comme nts POCT GLU (test code = 5418877463) 212 mg/dL 70-110 H Lab Interpretation (test cod e = 40535-1) Abnormal [facility] GLUCOSE (AUTOMATED)2024-04-10 20:38:03* Test Item Value Reference Range Interpretation Comme nts POCT GLU (test code = 4939960270) 212 mg/dL 70-110 H Lab Interpretation (test cod e = 12726-5) [facility] -2024-[facility]-10 12:22:00* Test Item Value Reference Range Interpretation Comme nts ABO & RH (test code = 20) O POSITIVE IAT (test code = 1185) Negative [facility] -2024-04-10 12:22:00* Test Item Value Reference Range Interpretation Comme nts ABO & RH (test code = 20) O POSITIVE IAT (test code = 1185) Negative [facility] GLUCOSE (AUTOMATED)2024-04-10 12:08:19* Test Item Value Reference Range Interpretation Comme nts POCT GLU (test code = 7296850815) 121 mg/dL 70-110 H Lab Interpretation (test cod e = 49696-9) Abnormal [facility] GLUCOSE (AUTOMATED)2024-04-10 12:08:19* Test Item Value Reference Range Interpretation Comme nts POCT GLU (test code = 4528094355) 121 mg/dL 70-110 H Lab Interpretation (test cod e = 02798-6) Abnormal [facility] [id number] 19:00:00* Test Item Value Reference Range Interpretation Comme nts POCT PREG (test code = 1605) Negative On board controls acceptable with C Line (test code = 3574) Yes POCT PREG LOT # (test code = 3575) POCT PREG TEST DATE ( test code = 3576) [facility] Urinalysis w/o Specific [id number] 20:32:00* Test Item Value Reference Range Interpretation [...] = 3257) negative Negative - Negati ve [facility] PELVIS COMPLETE WITH [id number] 23:34:04History: pelvic pressure, AUB . Exam: US [...] left ovarymeasuring 2.2 x 1.3 x 1.9 cm.[facility] GLUCOSE (AUTOMATED)2023-09-25 00:27:20* Test Item Value Reference Range Interpretation Comme nts POCT GLU (test code = 7746417091) 238 mg/dL 70-110 H Lab Interpretation (test cod e = 58870-5) Abnormal [facility] GLUCOSE(AGE >30DAYS)2023-09-25 00:27:00* Test Item Value Reference Range Interpretation Comme nts POCT Glu (age>30days) (test code = 3342) 238 mg/dL 70-110 A Lab Interpretation (test cod e = 51620-7) Abnormal [facility] GLUCOSE (AUTOMATED)2023-09-24 22:07:51* Test Item Value Reference Range Interpretation Comme nts POCT GLU (test code = 4598492801) 373 mg/dL 70-110 H Lab Interpretation (test cod e = 96666-8) [facility] (A1C)2023-09-24 22:05:27* Test Item Value Reference Range Interpretation Comme nts HGB A1C (test code = 4548-4) 12.9 % 4.0-5.7 H CAROLE (test code = CAROLE) Reference RangesNormal: <5.7%Prediabetes: 5.7 - 6.4%Diabetes: > 6.5% Lab Interpretation (test code = 38373-6) [facility] [id number] 22:03:24* Test Item Value Reference Range Interpretation [...] g/dL 31.6-35.1 L RDW-SD (test code = 64685-7) 39.1 fL 39.0-49.9 RDW-CV (test code = 788-0) 15.3 % 12.0-15.5 PLT (test code = 777-3) 346 See_Comment [Automated messa ge] The system which generated this result transmitted reference range: 166 - 358 10*3/?L. The reference range was not used to interpret this result as normal/abnormal. MPV (test code = 81050-3) 10.0 fL 9.5-12.9 NRBC/100 WBC (test code = 5536551290) 0.0 See_Comment [Automated stickK ssage] The system which generated this result transmitted reference range: 0.0 - 10.0 /100 WBCs. The reference range was not used to interpret this result as normal/abnormal. NRBC x10^3 (test code = 0658945300) See_Comment [Automated messa ge] The system which generated this result transmitted reference range: 10*3/?L. The reference range was not used to interpret this result as normal/abnormal. GRAN MAT (NEUT) % (test code = 770-8) 42.4 % IMM GRAN % (test code = 2690248012) 0.30 % LYMPH % (test code = 736-9) 43.9 % MONO % (test code = 5905-5) 10.3 % EOS % (test code = 713-8) 2.5 % BASO % (test code = 706-2) 0.6 % GRAN MAT x10^3(ANC) (test code = 5931819356) 1.35 10*3/uL 1.88-7.09 L IMM GRAN x10^3 (test code = 1100781874) 0.00-0.06 LYMPH x10^3 (test code = 731-0) 1.40 10*3/uL 1.32-3.29 MONO x10^3 (test code = 742-7) 0.33 10*3/uL 0.33-0.92 EOS x10^3 (test code = 711-2) 0.08 10*3/uL 0.03-0.39 BASO x10^3 (test code = 704-7) 0.01-0.07 Lab Interpretation (test code = 08838-5) [facility] MET[facility]OLIC PANEL (60694)2023-09-24 21:39:20* Test Item Value Reference Range Interpretation Comme nts NA (test code = 1477419643) 135 mmol/L 135-145 K (test code = 4348864402) 4.1 mmol/L 3.5-5.0 CL (test code = 7962542353) 98 mmol/L 98-108 CO2 TOTAL (test code = 3742288728) 27 mmol/L 23-31 AGAP (test code = 7853220081) 10 2-16 BUN (test code = 3085849407) 13 mg/dL 7-23 GLUCOSE (test code = 1860762280) 398 mg/dL 70-110 H CREATININE (test code = 1577551572) 0.48 mg/dL 0.50-1.04 L TOTAL BILI (test code = 3511770814) 0.3 mg/dL 0.1-1.1 CALCIUM (test code = 3392134182) 9.6 mg/dL 8.6-10.6 T PROTEIN (test code = 0427511673) 8.3 g/dL 6.3-8.2 H ALBUMIN (test code = 0441324062) 4.4 g/dL 3.5-5.0 ALK PHOS (test code = 2011218349) 132 U/L 34-122 H ALTv (test code = 1742-6) 18 U/L 5-35 AST(SGOT) (test code = 3898635607) 23 U/L 13-40 eGFR (test code = 47614-0) 123.0 mL/min/1.73m2 CKD-EPI eGFR (2020). Assuming creatinine has been stable day-to-day for at least three months, the eGFR indicates Category G1 (>= 90 mL/min/1.73 m2) Lab Interpretation (test code = 82499-0) [facility] HospitalMagnesium2024-01-12 21:39:20* Test Item Value Reference Range Interpretation Comme nts MAGNESIUM (test code = 3902765289) 1.7 mg/dL 1.7-2.4 Lab Interpretation (test cod e = 15288-6) [facility]POCT [id number] 21:02:00* Test Item Value Reference Range Interpretation Comme nts POCT PREG (test code = 1605) Negative On board controls acceptable with C Line (test code = 3574) Yes POCT PREG LOT # (test code = 3575) [id number] POCT PREG TEST DATE ( test code = 3576) 11-21-2024 Lab Interpretation (test cod e = 97936-9) Normal [facility] HospitalAC PANEL 21 + LACTIC [id number] 21:00:05* Test Item Value Reference Range Interpretation Comme nts PH (test code = 3056706724) 7.34 7.32-7.42 PCO2 ZENAIDA (test code = 2685298656) 46 See_Comment [Automated messa ge] The system which generated this result transmitted reference range: 41 - 51 mmHg. The reference range was not used to interpret this result as normal/abnormal. PO2 ZENAIDA (test code = 1204810996) See_Comment L [Automated messa ge] The system which generated this result transmitted reference range: 25 - 40 mmHg. The reference range was not used to interpret this result as normal/abnormal. HCO3 ZENAIDA (test code = 6446138303) 24 See_Comment [Automated messa ge] The system which generated this result transmitted reference range: 24 - 28 mEq/L. The reference range was not used to interpret this result as normal/abnormal. AC VBE(BEAKER) (test code = 9243912129) -1.7 mEq/L THB ZENAIDA (test code = 2367181480) 11.6 g/dL 12.0-16.0 L %O2HB ZENAIDA (test code = 7091460567) 14.3 % 52.0-63.0 L %COHB ZENAIDA (test code = 6262472219) 0.3 % 0.0-1.5 %METHB ZENAIDA (test code = 0243106758) 1.5 % 0.4-1.5 VOL%O2 ZENAIDA (test code = 7664684005) 2.3 % 6.0-12.0 L NA (test code = 5494337358) 136 mmol/L 135-145 K+ (test code = 1565685448) 4.2 mmol/L 3.5-5.0 AC CA IONZ (test code = 7352544697) 4.90 mg/dL 4.50-5.30 GLUCOSE (test code = 1976235133) 412 mg/dL 70-110 H LACTIC ACID (test code = 2929140740) 1.43 mmol/L 0.50-2.20 Lab Interpretation (test code = 45277-9) [facility]PO[facility]SE (AUTOMATED)2023-09-24 20:53:57* Test Item Value Reference Range Interpretation Comme [facility] POCT GLU (test code = 9208409231) 373 mg/dL 70-110 H Lab Interpretation (test cod e = 35185-6) [facility]normal [facility] HospitalGlycosylated Hemoglobin (A1C)2023-09-14 14:51:16* Test Item Value Reference Range Interpretation Comme [facility] HGB A1C (test code = 4548-4) 12.1 % 4.0-5.7 H CAROLE (test code = CAROLE) Reference RangesNormal: <5.7%Prediabetes: 5.7 - 6.4%Diabetes: > 6.5% Lab Interpretation (test code = 75386-1) [facility]normal [facility] HospitalComp. Metabolic Panel (26392)2023-09-14 14:41:39* Test Item Value Reference Range Interpretation Comme nts NA (test code = 2035404054) 131 mmol/L 135-145 L K (test code = 8571238710) 5.2 mmol/L 3.5-5.0 H CL (test code = 3067582364) 99 mmol/L 98-108 CO2 TOTAL (test code = 1430519334) 22 mmol/L 23-31 L AGAP (test code = 6349360913) 10 2-16 BUN (test code = 4865256342) 11 mg/dL 7-23 GLUCOSE (test code = 5508713606) 347 mg/dL 70-110 H CREATININE (test code = 8704080142) 0.41 mg/dL 0.50-1.04 L TOTAL BILI (test code = 8058892449) 0.4 mg/dL 0.1-1.1 CALCIUM (test code = 4324796393) 9.5 mg/dL 8.6-10.6 T PROTEIN (test code = 1434464416) 7.4 g/dL 6.3-8.2 ALBUMIN (test code = 1081764518) 4.2 g/dL 3.5-5.0 ALK PHOS (test code = 6205332022) 180 U/L 34-122 H ALTv (test code = 1742-6) 18 U/L 5-35 AST(SGOT) (test code = 2571010952) 21 U/L 13-40 eGFR (test code = 08607-3) 127.7 mL/min/1.73m2 CKD-EPI eGFR (2020). Assuming creatinine has been stable day-to-day for at least three months, the eGFR indicates Category G1 (>= 90 mL/min/1.73 m2) Lab Interpretation (test code = 06171-4) [facility]normal [facility] HospitalLipid Panel (41151)(Total Cholesterol, Triglycerides, HDL)2023-09-14 14:41:39* Test Item Value Reference Range Interpretation Comme nts CHOL (test code = 9373709755) 194 mg/dL 120-200 HDL (test code = 0329991629) 56 mg/dL >=50 HDLC RATIO (test code = 7460218556) 3.5 <=4.5 TRIG (test code = 4420894931) 142 mg/dL 30-170 LDL CHOL (test code = 44539-0) 110 mg/dL <=160 VLDL (test code = 5838340004) 28 mg/dL 5-60 Lab Interpretation (test cod e = 13420-4) Normal [facility] HospitalCb with [id number] 14:08:54* Test Item Value Reference Range Interpretation Comme nts WBC (test code = 6690-2) 7.65 See_Comment [Automated Money Dashboarda Zapproved] The system which generated this result transmitted reference range: 4.30 - 11.10 10*3/?L. The reference range was not used to interpret this result as normal/abnormal. RBC (test code = 789-8) 5.07 See_Comment [Automated Money Dashboarda Zapproved] The system which generated this result transmitted [...] g/dL 31.6-35.1 L RDW-SD (test code = 57293-5) 40.1 fL 39.0-49.9 RDW-CV (test code = 788-0) 15.1 % 12.0-15.5 PLT (test code = 777-3) 455 See_Comment H [Automated messa ge] The system which generated this result transmitted reference range: 166 - 358 10*3/?L. The reference range was not used to interpret this result as normal/abnormal. MPV (test code = 32912-9) 10.1 fL 9.5-12.9 NRBC/100 WBC (test code = 6219281947) 0.0 See_Comment [Automated stickK ssage] The system which generated this result transmitted reference range: 0.0 - 10.0 /100 WBCs. The reference range was not used to interpret this result as normal/abnormal. NRBC x10^3 (test code = 2698038411) See_Comment [Automated messa ge] The system which generated this result transmitted reference range: 10*3/?L. The reference range was not used to interpret this result as normal/abnormal. GRAN MAT (NEUT) % (test code = 770-8) 70.8 % IMM GRAN % (test code = 1521683401) 0.30 % LYMPH % (test code = 736-9) 20.3 % MONO % (test code = 5905-5) 6.3 % EOS % (test code = 713-8) 1.4 % BASO % (test code = 706-2) 0.9 % GRAN MAT x10^3(ANC) (test code = 2776755667) 5.42 10*3/uL 1.88-7.09 IMM GRAN x10^3 (test code = 2257143906) 0.00-0.06 LYMPH x10^3 (test code = 731-0) 1.55 10*3/uL 1.32-3.29 MONO x10^3 (test code = 742-7) 0.48 10*3/uL 0.33-0.92 EOS x10^3 (test code = 711-2) 0.11 10*3/uL 0.03-0.39 BASO x10^3 (test code = 704-7) 0.07 10*3/uL 0.01-0.07 Lab Interpretation (test code = 94535-3) Abnormal [facility]. METABOLIC PANEL (98636)2023-06-24 03:26:08* Test Item Value Reference Range Interpretation Comme nts NA (test code = 7731704829) 134 mmol/L 135-145 L K (test code = 2511774232) 3.7 mmol/L 3.5-5.0 CL (test code = 3427811243) 103 mmol/L 98-108 CO2 TOTAL (test code = 5136620957) 20 mmol/L 23-31 L AGAP (test code = 2095183785) 11 2-16 BUN (test code = 4375895824) 13 mg/dL 7-23 GLUCOSE (test code = 7853304561) 251 mg/dL 70-110 H CREATININE (test code = 1412745440) 0.39 mg/dL 0.50-1.04 L TOTAL BILI (test code = 3571579346) 0.2 mg/dL 0.1-1.1 CALCIUM (test code = 1450927349) 8.8 mg/dL 8.6-10.6 T PROTEIN (test code = 0631484030) 7.6 g/dL 6.3-8.2 ALBUMIN (test code = 6756573404) 4.3 g/dL 3.5-5.0 ALK PHOS (test code = 0008077368) 138 U/L 34-122 H ALTv (test code = 1742-6) 88 U/L 5-35 H AST(SGOT) (test code = 4612169018) 147 U/L 13-40 H eGFR (test code = 7135076555) 182.0 mL/min/1.73m2 CAROLE (test code = CAROLE) [...] imaging tests). Lab Interpretation (test code = 69779-6) [facility] HospitalLIPASE2023-10-12 03:25:48* Test Item Value Reference Range Interpretation Comme nts LIPASE (test code = 1205889684) 62 U/L 0-220 Lab Interpretation (test cod e = 41055-4) [facility] WITH [id number] 03:12:45* Test Item Value Reference Range Interpretation Comme nts WBC (test code = 6690-2) 6.51 See_Comment [Automated Demohour] The system which generated this result transmitted reference range: 4.30 - 11.10 10*3/?L. The reference range was not used to interpret this result as normal/abnormal. RBC (test code = 789-8) 5.16 See_Comment [Automated Demohour] The system which generated this result transmitted [...] g/dL 31.6-35.1 L RDW-SD (test code = 36434-7) 46.3 fL 39.0-49.9 RDW-CV (test code = 788-0) 17.9 % 12.0-15.5 H PLT (test code = 777-3) 367 See_Comment H [Automated messa ge] The system which generated this result transmitted reference range: 166 - 358 10*3/?L. The reference range was not used to interpret this result as normal/abnormal. MPV (test code = 98874-3) 10.2 fL 9.5-12.9 NRBC/100 WBC (test code = 4186985287) 0.0 See_Comment [Automated stickK ssage] The system which generated this result transmitted reference range: 0.0 - 10.0 /100 WBCs. The reference range was not used to interpret this result as normal/abnormal. NRBC x10^3 (test code = 1663718595) See_Comment [Automated messa ge] The system which generated this result transmitted reference range: 10*3/?L. The reference range was not used to interpret this result as normal/abnormal. GRAN MAT (NEUT) % (test code = 770-8) 79.6 % IMM GRAN % (test code = 7741589404) 0.30 % LYMPH % (test code = 736-9) 15.2 % MONO % (test code = 5905-5) 4.1 % EOS % (test code = 713-8) 0.5 % BASO % (test code = 706-2) 0.3 % GRAN MAT x10^3(ANC) (test code = 1229490517) 5.18 10*3/uL 1.88-7.09 IMM GRAN x10^3 (test code = 0429423716) 0.00-0.06 LYMPH x10^3 (test code = 731-0) 0.99 10*3/uL 1.32-3.29 L MONO x10^3 (test code = 742-7) 0.27 10*3/uL 0.33-0.92 L EOS x10^3 (test code = 711-2) 0.03 10*3/uL 0.03-0.39 BASO x10^3 (test code = 704-7) 0.01-0.07 Lab Interpretation (test code = 48081-6) Abnormal [facility] [id number] 02:54:00* Test Item Value Reference Range Interpretation Comme nts POCT PREG (test code = 1605) Negative On board controls acceptable with C Line (test code = 3574) Yes Lab Interpretation (test cod e = 81300-0) Normal [facility] GLUCOSE (AUTOMATED)2022-12-09 20:39:51* Test Item Value Reference Range Interpretation Comme nts POCT GLU (test code = 2450796016) 153 mg/dL 70-110 H Lab Interpretation (test cod e = 82090-5) Abnormal [facility] GLUCOSE (AUTOMATED)2022-12-09 12:38:32* Test Item Value Reference Range Interpretation Comme nts POCT GLU (test code = 8407668066) 269 mg/dL 70-110 H Lab Interpretation (test cod e = 58803-8) Abnormal [facility] GLUCOSE (AUTOMATED)2022-12-09 07:01:12* Test Item Value Reference Range Interpretation Comme nts POCT GLU (test code = 9208793319) 334 mg/dL 70-110 H Lab Interpretation (test cod e = 60764-2) [facility] HospitalBETA RQPDZPN-[id number] 05:18:04* Test Item Value Reference Range Interpretation Comme nts BOH (test code = 7169547695) 0.1 mmol/L CAROLE (test code = CAROLE) Normal Ranges: ? ? Nonfasting ? Less than 0.1 mmol/L ? ? Overnight Fast ? ? ? Less than 0.4 mmol/L ? ? Fasting (1-2 weeks) ?6-8 mmol/L Test developed and characteristics determined by [facility]. [facility] GLUCOSE (AUTOMATED)2022-12-09 03:11:53* Test Item Value Reference Range Interpretation Comme nts POCT GLU (test code = 6738371542) 99 mg/dL 70-110 Lab Interpretation (test cod e = 02753-8) Normal [facility] GLUCOSE (AUTOMATED)2022-12-09 02:20:52* Test Item Value Reference Range Interpretation Comme nts POCT GLU (test code = 2132078138) 50 mg/dL 70-110 LL Lab Interpretation (test cod e = 57807-5) [facility]normal [facility] HospitalTHYROID STIMULATING [id number] 23:36:46 * Test Item Value Reference Range Interpretation Comme nts TSH (test code = 5948768423) 1.93 See_Comment [Automated messa ge] The system which generated this result transmitted reference range: 0.45 - 4.70 mIU/L. The reference range was not used to interpret this result as normal/abnormal. Lab Interpretation (test code = 98076-7) Normal [facility] HospitalFREE [id number] 23:23:03* Test Item Value Reference Range Interpretation Comme nts FREE T4 (test code = 3517895664) 1.01 See_Comment [Automated Money Dashboarda ge] The system which generated this result transmitted reference range: 0.78 - 2.20 ng/dL:. The reference range was not used to interpret this result as normal/abnormal. Lab Interpretation (test code = 55219-5) Normal [facility] HospitalTROPONIN [id number] 23:18:03* Test Item Value Reference Range Interpretation Comme nts TROPONIN I (test code = 1438370148) 0.002 ng/mL <=0.034 CAROLE (test code = [...] of biotin. Lab Interpretation (test code = 73289-4) Normal [facility] HospitalD-AIJRG1156-36-15 22:24:54* Test Item Value Reference Range Interpretation Comments D-DIMER (test code = 0928553297) 0.42 See_Comment H [Automated message] The system [...] a diagnosis. Lab Interpretation (test code = 02899-5) [facility]normal [facility] HospitalMAGNESIUM2023-03-28 21:59:44* Test Item Value Reference Range Interpretation Comme nts MAGNESIUM (test code = 3631166609) 1.4 mg/dL 1.7-2.4 L Lab Interpretation (test cod e = 40832-4) [facility] HospitalCOMP. METABOLIC PANEL (68160)2022-12-08 21:59:29* Test Item Value Reference Range Interpretation Comme nts NA (test code = 3388183734) 137 mmol/L 135-145 K (test code = 7664370746) 3.0 mmol/L 3.5-5.0 L CL (test code = 0445075284) 108 mmol/L 98-108 CO2 TOTAL (test code = 4713707444) 16 mmol/L 23-31 L AGAP (test code = 9034986126) 13 2-16 BUN (test code = 2132622272) 19 mg/dL 7-23 GLUCOSE (test code = 1155930785) 75 mg/dL 70-110 CREATININE (test code = 8068358231) 0.35 mg/dL 0.50-1.04 L TOTAL BILI (test code = 3919848778) 0.4 mg/dL 0.1-1.1 CALCIUM (test code = 5203705702) 9.4 mg/dL 8.6-10.6 T PROTEIN (test code = 8633603755) 7.3 g/dL 6.3-8.2 ALBUMIN (test code = 9372354449) 4.1 g/dL 3.5-5.0 ALK PHOS (test code = 3841321403) 102 U/L 34-122 ALTv (test code = 1742-6) 17 U/L 5-35 AST(SGOT) (test code = 3767195923) 20 U/L 13-40 eGFR (test code = 0519110722) 207.3 mL/min/1.73m2 CAROLE (test code = CAROLE) [...] imaging tests). Lab Interpretation (test code = 55970-2) [facility]LIPASE2023-03-28 21:59:29* Test Item Value Reference Range Interpretation Comme nts LIPASE (test code = 5240334009) 182 U/L 0-220 Lab Interpretation (test cod e = 72205-2) [facility] HospitalCBC WITH [id number] 21:49:48* Test Item Value Reference Range Interpretation Comme nts WBC (test code = 6690-2) 9.67 See_Comment [Automated Money Dashboarda Zapproved] The system which generated this result transmitted reference range: 4.30 - 11.10 10*3/?L. The reference range was not used to interpret this result as normal/abnormal. RBC (test code = 789-8) 4.88 See_Comment [Automated Money Dashboarda Zapproved] The system which generated this result transmitted [...] g/dL 31.6-35.1 L RDW-SD (test code = 88435-6) 40.7 fL 39.0-49.9 RDW-CV (test code = 788-0) 15.7 % 12.0-15.5 H PLT (test code = 777-3) 384 See_Comment H [Automated messa ge] The system which generated this result transmitted reference range: 166 - 358 10*3/?L. The reference range was not used to interpret this result as normal/abnormal. MPV (test code = 67046-9) 10.4 fL 9.5-12.9 NRBC/100 WBC (test code = 9039191452) 0.0 See_Comment [Automated me ssage] The system which generated this result transmitted reference range: 0.0 - 10.0 /100 WBCs. The reference range was not used to interpret this result as normal/abnormal. NRBC x10^3 (test code = 1094273443) See_Comment [Automated messa ge] The system which generated this result transmitted reference range: 10*3/?L. The reference range was not used to interpret this result as normal/abnormal. GRAN MAT (NEUT) % (test code = 770-8) 48.9 % IMM GRAN % (test code = 5720117775) 0.40 % LYMPH % (test code = 736-9) 41.3 % MONO % (test code = 5905-5) 7.5 % EOS % (test code = 713-8) 1.1 % BASO % (test code = 706-2) 0.8 % GRAN MAT x10^3(ANC) (test code = 6831761801) 4.72 10*3/uL 1.88-7.09 IMM GRAN x10^3 (test code = 7649197314) 0.04 10*3/uL 0.00-0.06 LYMPH x10^3 (test code = 731-0) 3.99 10*3/uL 1.32-3.29 H MONO x10^3 (test code = 742-7) 0.73 10*3/uL 0.33-0.92 EOS x10^3 (test code = 711-2) 0.11 10*3/uL 0.03-0.39 BASO x10^3 (test code = 704-7) 0.08 10*3/uL 0.01-0.07 H Lab Interpretation (test code = 41839-0) Abnormal [facility] [id number] 21:27:00* Test Item Value Reference Range Interpretation Comme nts POCT PREG (test code = 1605) negative On board controls acceptable with C Line (test code = 3574) present POCT PREG LOT # (test code = 3575) [id number] POCT PREG TEST DATE ( test code = 3576) 02/03/2024 Lab Interpretation (test cod e = 77869-6) [facility]PO[facility] ([facility]OM[facility])2022-12-08 21:09:20* Test Item Value Reference Range Interpretation Comme nts POCT GLU (test code = 4857252282) 100 mg/dL 70-110 Lab Interpretation (test cod e = 07626-9) Normal [facility] WITH [id number] 14:44:50* Test Item Value Reference Range Interpretation [...] g/dL 31.6-35.1 L RDW-SD (test code = 73765-5) 38.8 fL 39.0-49.9 L RDW-CV (test code = 788-0) 15.2 % 12.0-15.5 PLT (test code = 777-3) 367 See_Comment H [Automated messa ge] The system which generated this result transmitted reference range: 166 - 358 10*3/?L. The reference range was not used to interpret this result as normal/abnormal. MPV (test code = 02597-8) 10.1 fL 9.5-12.9 NRBC/100 WBC (test code = 8178254365) 0.0 See_Comment [Automated me ssage] The system which generated this result transmitted reference range: 0.0 - 10.0 /100 WBCs. The reference range was not used to interpret this result as normal/abnormal. NRBC x10^3 (test code = 1341971181) See_Comment [Automated messa ge] The system which generated this result transmitted reference range: 10*3/?L. The reference range was not used to interpret this result as normal/abnormal. GRAN MAT (NEUT) % (test code = 770-8) 64.6 % IMM GRAN % (test code = 0025435371) 0.30 % LYMPH % (test code = 736-9) 26.1 % MONO % (test code = 5905-5) 6.4 % EOS % (test code = 713-8) 1.6 % BASO % (test code = 706-2) 1.0 % GRAN MAT x10^3(ANC) (test code = 8672821274) 4.72 10*3/uL 1.88-7.09 IMM GRAN x10^3 (test code = 7688691467) 0.00-0.06 LYMPH x10^3 (test code = 731-0) 1.91 10*3/uL 1.32-3.29 MONO x10^3 (test code = 742-7) 0.47 10*3/uL 0.33-0.92 EOS x10^3 (test code = 711-2) 0.12 10*3/uL 0.03-0.39 BASO x10^3 (test code = 704-7) 0.07 10*3/uL 0.01-0.07 Lab Interpretation (test code = 27855-8) [facility] HospitalGLYCOSYLATED HEMOGLOBIN (A1C)2022-11-13 14:33:30* Test Item Value Reference Range Interpretation Comme nts HGB A1C (test code = 4548-4) 13.7 % 4.0-5.7 H CAROLE (test code = CAROLE) Reference RangesNormal: <5.7%Prediabetes: 5.7 - 6.4%Diabetes: > 6.5% Lab Interpretation (test code = 16664-6) [facility]normal [facility] HospitalFALLOPIAN TUBE,IRJAAIDOMSUIJ2654-68-21 17:48:00 RUN DATE: 04/26/18 [facility] PAGE 1 RUN TIME: 946 Specimen Inquiry RUN USER: INTERFACE -------- ----PATIENT: CATHERINE LOPEZ LOC: [facility] U #: [id number] AGE/SX: 33/F ROOM: [facility] RE04/08/18REG DR: Mary Ponce MD : 81 BED: A DIS: 04/24/18 STATUS: DIS IN TLOC: SPEC #: [id number] RECD: 04/21/18 STATUS: MARTHA GUTIÉRREZ #: [id number] URIAH: 04/21/18- SUBM DR: Mary Ponce MD ENTERED: 04/22/18 SP TYPE: BELLA MENDOZA DR: ORDERED: LEVEL II SURGIC CODES: [id number] - FALLOPIAN TUBE PROCEDURES: LEVEL II SURGIC (Incomplete) TISSUES: FALLOPIAN TUBE, NOS - LEFT FALLOPIAN TUBE CLINICAL HISTORY 32 yearold, , 35.6 weeks (kr) FINAL DIAGNOSIS Left fallopian tube, salpingectomy: - complete lumen demonstrated Tissue code 1 CPT code(s): 31642 [employer]/wpd 04/25/18 @ 1715 GROSS DESCRIPTION The specimen isreceived in a formalin- filled container, labeled with the patient's name and designated "left fallo pian tube". The specimen consists of a 6 x 0.6 x 0.5 cm segment of fallopian tube with fimbria. Theentire fimbria and two cross-sections of fallopian tube are submitted in one cassette. jessica/dakotah 04/22/18 @ 0917 MICROSCOPIC DESCRIPTION Cross-sections of the fallopian tube are histologic and demonstratea completely transected lumen. cds/wpd 04/25/18 @ 1715 Signed Nahun Snyder 04/25/18 2437 END OF REPORT History and Physical Notes [...] Grandmother Diabetes Paternal Grandfather Hypertension Paternal Grandfather [place] (myocardial infarction) Paternal Grandfather Social History Socioeconomic History Marital status: Spouse name: Not on file Number of children: 4 Years of education: Not on file Highest education level: Bachelor's degree (e.g., BA, AB, BS) Occupational History Occupation: [employer] Tobacco Use Smoking status: Some Days Types: [...] Friends and Family: Not on file Attends [employer]: Not on file Active Member of [...] Reviewed H&P of DR Goodman and agree. [facility] 2024-04-10 06:50:31 The patient was seen [...] Grandmother Diabetes Paternal Grandfather Hypertension Paternal Grandfather [place] (myocardial infarction) Paternal Grandfather Family Status Relation [...] (e.g., BA, AB, BS) Occupational History Occupation: [employer] Tobacco Use Smoking status: Some Days Types: [...] were answered and informed consent was signed. [facility]
[2024-10-18 21:21] LABS: Absolute Basophils 0.1 K/uL (0-0.5); Absolute Eosinophils 0.1 K/uL (0-0.5); Absolute Lymphocytes (CBC) 3.7 K/uL (0.7-4.9); Absolute Monocytes 0.6 K/uL (0.1-1.3); Absolute Neutrophil 5.1 K/uL (1.8-8.0); Basophils % 1.1 % (0-1.3); Eosinophils % 1.1 % (0-4.4); Hematocrit 40.7 % (36.0-45.0); Hemoglobin 13.4 g/dL (12.0-15.0); Lymphocytes % 38.8 % (15.3-44.8); MCH 25.7 pg (27.0-35.0); MPV 8.2 fL (7.6-11.3); Monocytes % 6.5 % (3.3-12.3); Neutrophils % 52.5 % (41.7-73.7); Platelets 452 thou/uL (152-406); RBC Red Blood Cell Count 5.22 M/uL (3.86-4.86); Red Cell Distribution Width 17.5 % (12.1-15.2)
[2024-10-18] MEDS ORDERED: ONDANSETRON 4 MG/2 ML VIAL ONE (21:21)
[2024-10-18] MEDS ORDERED: MORPHINE 4 MG/ML SYR ONE (21:22)
[2024-10-18] MEDS ORDERED: MAGNES/ALUMIN/SIMET 30ML UCUP ONE (21:22)
[2024-10-18] MEDS ORDERED: LIDOCAINE VISCOUS 2% 10ML ORAL SOLN ONE (21:22)
[2024-10-18] MEDS ORDERED: FAMOTIDINE 20 MG/2 ML VIAL IV ONE (21:22)
[2024-10-18] MEDS ORDERED: NA CHLORIDE 0.9% 1,000 ML ONE (21:23)
[2024-10-18 21:28] LABS: Anion Gap 8.6 mEq/L (5.0-15.0); BUN Blood Urea Nitrogen 13 mg/dL (7-18); Bicarbonate 30 mEq/L (21-32); Glomerular Filtration Rate 98 ml/min (=/>90); Glucose Level 124 mg/dL (74-106); Potassium 3.6 mEq/L (3.5-5.1); Sodium Level 140 mEq/L (136-145)
[2024-10-18 21:29] LABS: Troponin High Sensitivity < 3.0 pg/mL (<58.9)
[2024-10-18] MEDS ORDERED: droPERidol 5 MG/2 ML VIAL ONE (21:49)
[2024-10-18 22:08] LABS: ALT/SGPT 25 U/L (13-56); AST/SGOT 31 U/L (15-37); Albumin 3.5 g/dL (3.4-5.0); Albumin/Globulin Ratio 0.8 (1.1-1.8); Alkaline Phosphatase 140 U/L (45-117); Bilirubin Total 0.2 mg/dL (0.2-1.0); Globulin 4.6 g/dL (2.3-3.5); Lipase 27 U/L (13-75); Protein, Total 8.1 g/dL (6.4-8.2)
[2024-10-18 22:14] LABS: Bilirubin Direct < 0.2 mg/dL (0-0.2)
--- NOTE | 2024-10-18 22:18 | RAD REPORT ---
EXAMINATION: ONE VIEW CHEST XR CLINICAL INDICATION: Female, 39 years old.,CHEST PAIN TECHNIQUE: Frontal chest projection is submitted. Examination is limited by patient positioning and t echnique. COMPARISON: 05/27/2024 chest x-ray and CT chest FINDINGS: The lungs are grossly clear apart from mild left basilar atelectasis, although suboptimal inspiratory effort somewhat limits evaluation. No pneumothorax or sizable effusion. The heart is normal in size. Mediastinal contours are unremarkable. IMPRESSION: No acute intrathoracic abnormalities.
--- NOTE | 2024-10-18 22:31 | RAD REPORT ---
EXAM: CT Chest For Pe Angio TECHNIQUE: CT angiogram of the chest was performed following intravenous contrast administration, inc luding sagittal and coronal as well as maximum intensity projection reformats. One or more of the following dose reduction techniques were used: Automated exposure control, adjustment of the mA and k V according to patient size, and iterative reconstruction. Unless otherwise specified, incidental findings do not require dedicated imaging follow-up. INDICATION: [facility] Chest pain;Dyspnea Bed Name: 13 N COMPARISON: 05/27/2024. FINDINGS: LINES/TUBES: None. PULMONARY ARTERIES: Main pulmonary arteries are normal in caliber. No filling defects within the pul monary arteries to suggest pulmonary embolus. LUNGS AND AIRWAYS: The lungs and central airways are normal without focal abnormality. PLEURA: No effusion or pneumothorax. HEART AND MEDIASTINUM: The visualized thyroid gland is normal. No mediastinal, hilar, or axillary lym phadenopathy. Heart is unremarkable. No pericardial effusion. SOFT TISSUES AND BONES: No acute osseous abnormality. No significant soft tissue finding. UPPER ABDOMEN: Unremarkable. IMPRESSION: No evidence of acute central pulmonary emboli. No suspicious intrathoracic findings..
--- NOTE | 2024-10-18 22:33 | RAD REPORT ---
EXAMINATION: CT Abdomen Pelvis W Contrast CLINICAL INDICATION: Female, 39 years old. ABD PAIN TECHNIQUE: CT abdomen and pelvis was performed, after the administration of IV contrast, as per [facility] protocol. Axial, sagittal and coronal reconstructions were obtained. One or more of the following dose reduction techniques were used: Automated exposure control, adjustment of the mA and k V according to patient size, and iterative reconstruction. Unless otherwise specified, incidental findings do not require dedicated imaging follow-up. COMPARISON: No prior exam. FINDINGS: LOWER CHEST: The visualized lung bases are clear. LIVER: Normal in size and contour. No focal lesion. BILIARY SYSTEM: Gallbladder is not well visualized surgically removed. No suspicious abnormalities. SPLEEN: Normal size. No focal lesion. PANCREAS: No mass, ductal dilation, or rufina-pancreatic fluid. ADRENALS: Normal; no mass. KIDNEYS: Normal size and contour. No hydronephrosis. Nonobstructing left lower pole 1-2 mm calculus. URINARY BLADDER: Unremarkable. GASTROINTESTINAL TRACT: No evidence of free air, significant intra-abdominal free fluid, bowel obstru ction or abscess. Nonspecific areas of fluid opacification within nondistended small bowel and proximal large bowel. APPENDIX: Appendix surgically absent. LYMPH NODES: No lymphadenopathy. MUSCULOSKELETAL: No acute or suspicious osseous abnormality. ADDITIONAL FINDINGS: None. IMPRESSION: Nonspecific fluid opacification within nondistended small and large bowel, could reflect diarrheal st ate. No other acute or concerning abnormalities seen in the abdomen or pelvis.
--- NOTE | 2024-10-18 23:28 | EDPHYS ---
Physician Documentation [facility] Name: Catherine Lopez Age: 39 yrs Sex: Female : 1985 Arrival Date: 10/18/2024 Time: 20:39 Bed 13 Private MD: ED Physician Ramon North HPI: 10/19 00:14 This 39 yrs old Female presents to ER via Wheelchair with complaints of Chest Pain. kb 00:14 Pt is a 39 year old female who presents for epigastric pain and vomiting that started kb at 1900. states these symptoms have been intermittent over the last few years. Pt has been seen for these symptoms multiple times, but the cause has not been found. Pt denies alleviating or aggravating factors. The symptoms occur randomly. . 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 Last tetanus immunization: up to date. - Infectious Disease History:: Denies. - Social history:: Smoking status: unknown. ROS: 23:20 Constitutional: As per HPI kb Exam: 23:20 Head/Face: Normocephalic, atraumatic. ENT: Moist Mucous membranes Respiratory: kb Respirations even and unlabored. No increased work of breathing. Talking in full sentences Skin: Warm, dry with normal turgor. Normal color. MS/ Extremity: Pulses equal, no cyanosis. Neurovascular intact. Full, normal range of motion. Neuro: Awake and alert, GCS 15, oriented to person, place, time, and situation. 23:20 Constitutional: The patient appears alert, awake, in obvious pain, 23:20 Cardiovascular: Rate: tachycardic, 23:20 ECG was reviewed by the Attending Physician. 23:20 Abdomen/GI: Inspection: abdomen appears normal, Bowel sounds: normal, Palpation: soft, in all quadrants, moderate abdominal tenderness, in the epigastric area and right upper quadrant, Vital Signs: 20:53 BP 147 / 100; Pulse 138; Resp 19; Pulse Ox 97% ; ay 21:00 BP 121 / 104; Pulse 146; Resp 20; Pulse Ox 98% ; ay 21:03 BP 150 / 107; Pulse 148; Resp 30; Temp 99; Pulse Ox 100% ; Weight 65.77 kg; Height 5 kb3 ft. 7 in. ; Pain 10/10; 22:00 BP 117 / 91; Pulse 116; Resp 18; Pulse Ox 98% ; ay 21:03 Body Mass Index 22.71 (65.77 kg, 170.18 cm) kb3 21:03 Pain Scale: Adult kb3 MDM: 21:02 Medical Screening Exam initiated kb 23:26 Differential diagnosis: acute mi, arrhythmia, stress reaction, dehydration, gastric kb ulcer, GERD. Data reviewed: vital signs, nurses notes. Historians other than the Patient: Spouse/Significant Other: . 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 ED course: Pt resting comfortably on stretcher upon discharge. States she is feeling better. HR 92. Educated on diagnostic results and recommended follow up with GI and cardiology. . 10/18 21:00 Order name: Basic Metabolic Panel; Complete Time: 22:16 cm10 10/18 21:00 Order name: CBC with Diff; Complete Time: 21:25 cm10 10/18 21:00 Order name: Troponin HS; Complete Time: 22:16 cm10 05 21:02 Order name: D-Dimer; Complete Time: 21:55 kb 10/18 21:16 Order name: Test, Serum; Complete Time: 23:30 kb 10/18 21:49 Order name: Liver (Hepatic) Function; Complete Time: 22:16 EDMS 10/18 21:49 Order name: Lipase; Complete Time: 22:16 EDMS 10/18 21:00 Order name: XRAY Chest (1 view); Complete Time: 22:19 cm10 10/18 21:16 Order name: CT Chest For PE Angio; Complete Time: 22:35 kb 10/18 21:16 Order name: CT Abd/Pelvis - IV Contrast Only; Complete Time: 22:35 kb 10/18 21:00 Order name: Cardiac monitoring; Complete Time: 23:07 cm10 10/18 21:00 Order name: EKG - Nurse/Tech; Complete Time: 21:01 cm10 10/18 21:00 Order name: IV Saline Lock; Complete Time: 21:01 cm10 10/18 21:00 Order name: Labs collected and sent; Complete Time: 21:01 cm10 10/18 21:00 Order name: O2 Per Protocol; Complete Time: 23:08 cm10 10/18 21:00 Order name: O2 Sat Monitoring; Complete Time: 23:08 cm10 02 22:35 Order name: Vital Signs; Complete Time: 23:42 kb EC:20 Rate is 131 beats/min. Rhythm is regular. QRS Mack is Normal. [place] interval is normal at kb 136 msec. QRS interval is normal at 76 msec. QT interval is normal at 437 msec. Administered Medications: 21:30 Drug: NS 0.9% IV 1000 ml IV at 1000 ml once; to be given as a bolus over 60 minutes jb4 Route: IV; Rate: 1000 ml; Site: right antecubital; 23:00 Follow up: IV Status: Completed infusion; IV Intake: 1000ml ay 21:30 Drug: morphine IVP or IV 4 mg IVP once over 4 mins Route: IVP; Infused Over: 4 mins; jb4 Site: right antecubital; 23:43 Follow up: Response: No adverse reaction ay 21:30 Drug: Ondansetron IVP 4 mg IVP once; over 2 minutes Route: IVP; Site: right antecubital;jb4 23:43 Follow up: Response: No adverse reaction ay 21:30 Drug: GI Cocktail without - (Maalox PO 30 ml, Lidocaine Mucous Membrane 2 % 15 jb4 ml) PO once Route: PO; 23:43 Follow up: Response: No adverse reaction ay :30 Drug: Famotidine IVP 20 mg IVP once; dilute with 10 mL 0.9% NaCl; give over 2 minutes jb4 Route: IVP; Site: right antecubital; 23:43 Follow up: Response: No adverse reaction ay 23:06 Drug: Droperidol IVP 1.25 mg IVP once Route: IVP; Site: right antecubital; ay 23:30 Follow up: Response: No adverse reaction ay 23:44 Follow up: Response: No adverse reaction ay Disposition: 10/19 02:36 Co-signature as Attending Physician, Ramon North MD I reviewed the patient's care rn provided by the Advanced Practice Provider and agree with the diagnosis and treatment plan. Disposition Summary: 10/18/24 23:28 Discharge Ordered Notes: Location: Home kb Condition: Stable kb Diagnosis - Epigastric pain kb - Tachycardia, unspecified kb - Nausea with vomiting, unspecified kb Followup: kb - With: Emergency Department - When: As needed - Reason: Worsening of condition Followup: kb - With: Private Physician - When: 2 - 3 days - Reason: Recheck today's complaints, Continuance of care, Re-evaluation by your physician Discharge Instructions: - Discharge Summary Sheet kb - Nausea and Vomiting, Adult, [id number] kb - Abdominal Pain, Adult, [id number] kb Forms: - Medication Reconciliation Form kb - Antibiotic Education kb - Prescription Opioid Use kb - Patient Portal Instructions kb - Leadership Thank You Letter kb Prescriptions: - Protonix 40 mg Oral Tablet - take 1 tablet ORAL route once daily; 30 tablet; Refills: 0, Product Selection kb Permitted - Zofran 4 mg Oral tablet - take 1 tablet ORAL route every 6 hours As needed; 12 tablet; Refills: 0, kb Product Selection Permitted Signatures: Dispatcher [employer] EDPR Windy Elizalde, ANNETTE-Chai DERMATOPATHOLOGIST-Randalb Ramon North MD MD rn Bryson, James, RN RN jb4 Bhavna Guillen, RN RN kb3 Maty Dickson, RN RN cm10 Charli Madrid, RN RN ay Corrections: (The following items were deleted from the chart) 10/18 21: 21:01 BASIC METABOLIC PANEL+C.LAB.BRZ ordered. EDPR EDMS : 21: CBC+H.LAB.BRZ ordered. EDPR EDMS : 21:01 Troponin High Sensitivity+C.LAB.BRZ ordered. EDPR EDMS : 21: Chest Single View+RAD.RAD.BRZ ordered. EDPR EDMS 21: 21:05 Home Meds: Humalog Pen 100 unit/mL Sub-Q inpn; kb3 kb3 21:05 21:05 Home Meds: Tresiba FlexTouch U-100 100 unit/mL (3 mL) subcutaneous inpn; kb3 kb3 21:49 21:09 HEPATIC FUNCTION+C.LAB.BRZ ordered. EDMS EDMS 21:49 21:09 LIPASE+C.LAB.BRZ ordered. EDMS EDMS
--- NOTE | 2024-10-18 23:28 | ER ---
Nurse's Notes [facility] Name: Catherine Lopez Age: 39 yrs Sex: Female : 1985 Arrival Date: 10/18/2024 Time: 20:39 Bed 13 Private MD: Diagnosis: Epigastric pain;Tachycardia, unspecified;Nausea with vomiting, unspecified Presentation: 10/18 21:03 Chief complaint: Patient states: chest pain and vomiting intermittent x3 days. Reports kb3 worse x3 hrs. Coronavirus screen: Vaccine status: Client denies travel out of the [place] in the last 14 days. Ebola Screen: Patient negative for fever greater than or equal to 101.5 degrees Fahrenheit, and additional compatible Ebola Virus Disease symptoms Patient denies exposure to infectious person. Patient denies travel to an Ebola-affected area in the 21 days before illness onset. Initial Sepsis Screen: Does the patient meet any 2 criteria? RR > 20 per min. HR > 90 bpm. Yes Does the patient have a suspected source of infection? No. Patient's initial sepsis screen is negative. Risk Assessment: Do you want to hurt yourself or someone else? Patient reports no desire to harm self or others. Onset of symptoms was October 15, 2024. 21:03 Method Of Arrival: Wheelchair kb3 21:03 Acuity: VIOLETTE 2 kb3 Triage Assessment: 21:05 General: Appears distressed, Behavior is anxious, crying. Pain: Complains of pain in kb3 chest Pain currently is 10 out of 10 on a pain scale. Quality of pain is described as pressure, squeezing. Cardiovascular: Rhythm is sinus tachycardia. 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 Last tetanus immunization: up to date. - Infectious Disease History:: Denies. - Social history:: Smoking status: unknown. Screenin:00 [facility] ED Fall Risk Assessment (Adult) History of falling in the last 3 months, ay including since admission No falls in past 3 months (0 pts) Confusion or Disorientation No (0 pts) Intoxicated or Sedated No (0 pts) Impaired Gait No (0 pts) Mobility Assist Device Used No (0 pt) Altered Elimination No (0 pt) Score/Fall Risk Level 0 - 2 = Low Risk Oriented to surroundings, Maintained a safe environment, Educated pt \T\ family on fall prevention, incl call for assistance when getting out of bed. Abuse screen: Denies threats or abuse. Nutritional screening: No deficits noted. Tuberculosis screening: No symptoms or risk factors identified. Assessment: 21:00 General: Appears distressed, uncomfortable, Behavior is cooperative, restless. Pain: ay Complains of pain in chest Pain began 2 hours ago. Pain: Pain currently is 10 out of 10 on a pain scale. Pain: Pain does not radiate. Neuro: Level of Consciousness is awake, alert, obeys commands, Oriented to person, place, time, situation, Speech is normal. Cardiovascular: Reports chest pain, nausea, shortness of breath, vomiting, Capillary refill < 3 seconds. Respiratory: Airway is patent Respiratory effort is even, unlabored, Respiratory pattern is regular, symmetrical. GI: Abdomen is flat. : No signs and/or symptoms were reported regarding the genitourinary system. EENT: No signs and/or symptoms were reported regarding the EENT system. Derm: Skin is intact. 23:44 General: Pt left without receiving d/c documents and prescription and without being ay discharged by RN. Pt self disconnected cardiac and all other monitors and took out her IV gauge and walked .. Vital Signs: 20:53 BP 147 / 100; Pulse 138; Resp 19; Pulse Ox 97% ; ay 21:00 BP 121 / 104; Pulse 146; Resp 20; Pulse Ox 98% ; ay 21:03 BP 150 / 107; Pulse 148; Resp 30; Temp 99; Pulse Ox 100% ; Weight 65.77 kg; Height 5 kb3 ft. 7 in. ; Pain 10/10; 22:00 BP 117 / 91; Pulse 116; Resp 18; Pulse Ox 98% ; ay 21:03 Body Mass Index 22.71 (65.77 kg, 170.18 cm) kb3 21:03 Pain Scale: Adult kb3 ED Course: 20:52 Patient arrived in ED. gm2 21:00 Initial lab(s) drawn, by me, sent to lab. EKG done, by ED staff, reviewed by Ramon North MD. Inserted saline lock: 20 gauge in right forearm, using aseptic technique. Blood collected. Flushed with 10 mL NS. 21:00 No provider procedures requiring assistance completed. Oxygen administration via nasal ay cannula \T\ 2L/min. 21:01 Client placed on continuous cardiac and pulse oximetry monitoring. NIBP monitoring cm10 applied. detention worker on. 21:02 Windy Elizalde FNP-C is PHCP. kb 21:02 Ramon North MD is Attending Physician. kb 21:05 Triage completed. kb3 21:05 Arm band placed on right wrist. kb3 21:30 Charli Madrid, RN is Primary Nurse. ay 21:41 XRAY Chest (1 view) In Process Unspecified. EDMS 22:00 CT Chest For PE Angio In Process Unspecified. EDMS 22:00 CT Abd/Pelvis - IV Contrast Only In Process Unspecified. EDMS 23:44 IV discontinued. ay Administered Medications: 21:30 Drug: NS 0.9% IV 1000 ml IV at 1000 ml once; to be given as a bolus over 60 minutes jb4 Route: IV; Rate: 1000 ml; Site: right antecubital; 23:00 Follow up: IV Status: Completed infusion; IV Intake: 1000ml ay 21:30 Drug: morphine IVP or IV 4 mg IVP once over 4 mins Route: IVP; Infused Over: 4 mins; jb4 Site: right antecubital; 23:43 Follow up: Response: No adverse reaction ay 21:30 Drug: Ondansetron IVP 4 mg IVP once; over 2 minutes Route: IVP; Site: right antecubital;jb4 23:43 Follow up: Response: No adverse reaction ay 21:30 Drug: GI Cocktail without - (Maalox PO 30 ml, Lidocaine Mucous Membrane 2 % 15 jb4 ml) PO once Route: PO; 23:43 Follow up: Response: No adverse reaction ay 21:30 Drug: Famotidine IVP 20 mg IVP once; dilute with 10 mL 0.9% NaCl; give over 2 minutes jb4 Route: IVP; Site: right antecubital; 23:43 Follow up: Response: No adverse reaction ay 23:06 Drug: Droperidol IVP 1.25 mg IVP once Route: IVP; Site: right antecubital; ay 23:30 Follow up: Response: No adverse reaction ay 23:44 Follow up: Response: No adverse reaction ay Intake: 23:00 IV: 1000ml; Total: 1000ml. ay Outcome: 23:28 Discharge ordered by . kb 23:44 Discharged to home Pt left before discharge papers could be handed over to her. Pt left ay without RN's knowledge 23:44 Condition: stable 23:55 Patient left the ED. ay Signatures: Dispatcher [employer] EDMS Windy Elizalde, MECHATRONICS TECHNICIAN-C MECHATRONICS TECHNICIAN-Marco Donnelly, RN RN jb4 Bhavna Guillen RN RN kb3 Maty Dickson RN RN cm10 Judy Licona 2 Charli Madrid RN RANJAN [place] Corrections: (The following items were deleted from the chart) 21:05 21:05 Home Meds: Humalog Pen 100 unit/mL Sub-Q inpn; kb3 kb3 21:05 21:05 Home Meds: Tresiba FlexTouch U-100 100 unit/mL (3 mL) subcutaneous inpn; kb3 kb3 23:55 23:44 Discharged to home ambulatory, ay ay
[2024-10-19 00:28] VITALS: TEMP 99
[2024-10-19 00:29] VITALS: BP 117/91; O2SAT 98
--- NOTE | 2024-10-19 11:26 | EKG ---
Test Date: 2024-10-18 Test Time: 20:57:40 Mind Reader: SIENA MEASUREMENT RESULTS: Intervals: Rate: 131 [place]: 136 QRSD: 76 QT: 296 QTc: 437 [place]: P: 71 [place]: 136 QRS: 70 T: 75 INTERPRETIVE STATEMENTS: Sinus tachycardia Otherwise normal ECG Compared to ECG 05/27/2024 12:16:01 No significant changes Electronically Signed On 10-19-24 11:24:30 JAVA PROGRAMMER ANALYST by Denis Riddle
== END 2024-10-18 23:55 | disposition home or self-care (01) ==
LOC: ER 20:39
DX: R10.13 Epigastric pain (principal); R00.0 Tachycardia, unspecified; R11.2 Nausea with vomiting, unspecified; E11.9 Type 2 diabetes mellitus without complications
CPT/HCPCS: 96361; 93005; 85025; 80048; 36415; 84703; 85379; 80076; 84484; 83690; 71275; 74177; 71045; 96375; 96374; 99285; Q9967; J2405; J1790; J7030